=== PATIENT | female | born 1945 | race Caucasian/White ===

== ENCOUNTER → 2019-09-17 10:33 | Outpatient (BNVA) | payer MEDICARE, SELFPAY | PROVIDERS: Family Provider Family Medicine; PCP Family Medicine; Visit Provider Family Medicine | DX: M19.071 Primary osteoarthritis, right ankle and foot (principal); I15.0 Renovascular hypertension; E11.65 Type 2 diabetes mellitus with hyperglycemia; Z79.4 Long term (current) use of insulin; E03.9 Hypothyroidism, unspecified; E78.5 Hyperlipidemia, unspecified; M54.16 Radiculopathy, lumbar region | CPT/HCPCS: 80053; 80061; 82044; 83036; 84443; 85025 ==

== ENCOUNTER → 2020-01-23 09:52 | Outpatient (BNVA) | payer MEDICARE, SELFPAY | PROVIDERS: Family Provider Family Medicine; PCP Family Medicine; Visit Provider Family Medicine | DX: E11.65 Type 2 diabetes mellitus with hyperglycemia (principal); Z79.4 Long term (current) use of insulin; D63.8 Anemia in other chronic diseases classified elsewhere; D50.9 Iron deficiency anemia, unspecified; M54.16 Radiculopathy, lumbar region | CPT/HCPCS: 80053; 82728; 83036; 83550; 85025 ==

== ENCOUNTER 2020-02-07 14:20 | Outpatient (CLI) | payer MEDICARE, SELFPAY ==
--- NOTE | 2020-02-07 14:57 | XRR_ITS ---
PROCEDURE INFORMATION: Exam: XR Chest, 2 Views Exam date and time: 02/07/2020 2:57 PM Age: 74 years old Clinical indication: Shortness of breath; Additional info: Short of breath TECHNIQUE: Imaging protocol: XR of the chest Views: 2 views. COMPARISON: CR Chest 1 [place] [id number] 04/27/2019 10:13 PM FINDINGS: Lungs: There is vascular congestion with cephalization of flow, interstitial edema and mild ground-glass opacities compatible with mild CHF. No airspace consolidation or airspace edema. Pleural space: Unchanged blunting the left costophrenic angle is noted compatible with trace pleural effusion or pleural thickening. Heart/Mediastinum: The heart is enlarged. Bones/joints: Osteopenia and moderate degenerative changes are noted in the spine. XR/XR chest 2V* [id number] IMPRESSION: There is vascular congestion with cephalization of flow, interstitial edema and mild ground-glass opacities compatible with mild CHF.
== END 2020-02-07 14:21 | disposition home or self-care (01) ==
LOC: RAD 14:21
PROVIDERS: PCP Family Medicine; Visit Provider Emergency Medicine
DX: R06.02 Shortness of breath (principal); I50.9 Heart failure, unspecified; J44.9 Chronic obstructive pulmonary disease, unspecified
CPT/HCPCS: 71046; 80048; 83880; 85025

== ENCOUNTER 2020-02-10 10:20 | Inpatient (IN) | payer MEDICARE, SELFPAY ==
[2020-02-10] VITALS (11 sets, daily range): BP systolic 126–165; BP diastolic 49–79; PULSE 57–92; RESP 14–22; TEMP 36.4–36.6; O2SAT 92–98; BMI 44.4
--- NOTE | 2020-02-10 10:59 | XR_ITS ---
WS: [id number] PORTABLE CHEST HISTORY: SOB COMPARISON: 02/07/2020 Lung volumes are decreased. No pneumonia. Normal vasculature. No pleural effusion or pneumothorax. Cardiac size: Mildly enlarged cardiac silhouette. Mediastinum/Aorta: Mild atherosclerosis aorta. No osseous abnormality seen. XR/XR chest 1V portable [id number] IMPRESSION: Poor inspiration. No pneumonia.
--- NOTE | 2020-02-10 11:00 | ECG_ITS ---
Measurements Intervals [place] Rate: 61 P: 52 OK: 217 QRS: -45 QRSD: 176 T: 82 QT: 464 QTc: 470 SINUS RHYTHM WITH FIRST DEGREE AV BLOCK LEFT AXIS DEVIATION [QRS AXIS < -30] LEFT BUNDLE BRANCH BLOCK [120+ ms QRS DURATION, 80+ ms Q/S IN V1/V2, 85+ ms R / I/aVL/V5/V6] Compared to ECG 04/28/2019 05:39:04 First degree AV block now present Left-axis deviation now present Left bundle-branch block now present T-wave abnormality no longer present Electronically Signed On 02-10-2020 19:34:46 CDT by Betty Ramon M.D. [id number]
--- NOTE | 2020-02-10 11:07 | W.ED.SOB ---
HPI - SOB/Dyspnea General: Chief Complaint: Shortness of Breath/Dyspnea Stated Complaint: SOB Time Seen by Provider: 02/10/20 10:23 History of Present Illness: HPI Narrative: This patient is a 74-year-old female presenting today with shortness of breath. She reports this is been worsening over the past 2 weeks. She has been seeing her primary care doctor and had her Lasix increased to 60 mg/day. She reports a 14 pound weight gain over the past 2 weeks. She also was seen in urgent care in [place] on Sunday and started on some antibiotics. She has a history of CHF, atrial fibrillation, COPD. She uses nebulizers but does not feel like they been helping. She has not noted any decrease in her fluid or increase in urination since increasing her Lasix dose. She saw her primary care doctor this morning, Dr. Gomez, and was sent to the ED to be admitted for IV Lasix. MD elicited complaint: shortness of breath and chest pain (Mild, with exertion) Pertinent past history: COPD, congestive heart failure and diabetes Onset (ago): week(s) (2) Timing: constant and progressively worsening Severity: severe Exacerbating factors: lying flat, exertion, movement and coughing Relieving factors: oxygen and rest Known history of: COPD, congestive heart failure and diabetes Associated symptoms: Reports chest congestion, cough and dizziness; Deny abdominal pain, chest pain, fever(s), nausea or vomiting Review of Systems General: Reports: 10 or more systems reviewed and unremarkable except in HPI and below Const: Denies: fever(s) Eyes: Denies: change in vision ENMT: Denies: odynophagia Card: Denies: chest pain or swelling of feet/ankles Resp: Reports: chest congestion GI: Denies: abdominal pain, nausea or vomiting : Denies: flank pain or difficulty voiding Musc: Denies: neck pain or back pain Skin/Breast: Denies: rash Neuro: Reports: dizziness Wilfredo/Lymph: Denies: easy bruising or easy bleeding [facility] ED PFSH: Medical History Anemia of chronic disease CHF (congestive heart failure) COPD (chronic obstructive pulmonary disease) Diabetic neuropathy Dyslipidemia Enrolled in chronic care management Essential (primary) hypertension GERD (gastroesophageal reflux disease) Hypothyroidism, adult Lumbar back pain with radiculopathy affecting right lower extremity Osteoarthritis of right ankle and foot Shortness of breath Uncontrolled type 2 diabetes mellitus with insulin therapy Surgical History H/O bilateral breast reduction surgery H/O cataract extraction H/O: hysterectomy Family History Other CAD (coronary artery disease) Cancer Diabetes Lung disease Stroke Social History Smoking and tobacco status: former smoker Alcohol intake: never Lives independently: Yes Physical Exam Const: COMMON NORMALS: no acute distress, patient oriented x3, no limitations and alert GENERAL APPEARANCE: cooperative NUTRITIONAL APPEARANCE: obese morbidly obese HENMT: HEAD & SCALP: normal to inspection FACE & SINUS: normal facial exam Eye: GENERAL EYE: appearance normal, both eyes and all related structures Neck/C-Spine: COMMON NORMALS: supple, no meningeal signs and no JVD Chest: COMMONS NORMALS: normal inspection of the chest Resp: COMMON NORMALS: normal respiratory effort and No use of accessory muscles AUSCULTATION: rales bilateral at the base Cardio: COMMON NORMALS: no JVD, regular rate, regular rhythm and No murmurs present (Cardio) RATE: regular rate RHYTHM: regular rhythm GI: COMMON NORMALS: Normal to inspection, nondistended, normoactive bowel sounds present, Soft to palpation and non-tender INSPECTION: Yes normal to inspection AUSCULTATION: Yes normoactive bowel sounds PALPATION: Yes Soft to palpation Back/Pelvis: COMMON NORMALS: thoracic and lumbar spine normal to inspection Extremity: COMMON NORMALS: normal to inspection Neuro: COMMON NORMALS: patient oriented x3, moves all extremities, no focal motor deficits and no sensory deficits noted SENSORIUM/ORIENTATION: Yes alert MENINGEAL SIGNS: Yes no meningeal signs Psych: COMMON NORMALS: mental status grossly normal, cooperative and normal affect Skin: COMMON NORMALS: no rashes or lesions noted and turgor normal GENERAL SKIN EXAM: no rashes or lesions noted and turgor normal Course Vital Signs: Vital signs: Vital Signs Temperature 97.8 F 02/10/20 10:22 Pulse Rate 68 02/10/20 12:00 Respiratory Rate 16 02/10/20 12:00 Blood Pressure 131/49 02/10/20 12:00 Pulse Oximetry 98 02/10/20 12:00 MDM - SOB/Dyspnea MDM Narrative: Medical decision making narrative: 74-year-old female with multiple comorbidities including poorly controlled diabetes, obesity, heart disease, CHF, COPD. Presenting with shortness of breath increasing over 2 weeks. Not responding to outpatient increases in her diuretic. Her labs reflect decreased hemoglobin at 8.3. This is down from 10 in September. Her creatinine is elevated at 1.6. The most recent prior was in January and was a creatinine of 1.1. EKG shows a new left bundle branch block. She does admit she has had some exertional chest pain recently but her troponin is negative. Her BNP is elevated 5832. Chest x-ray shows some cardiomegaly and may be some slight fluid. She has rales on exam. Clearest diagnosis is CHF although other factors are probably playing a role. Will admit for IV diuresis. Patient insists on a Velasco. Lab Data: Labs: Lab Results 02/10/20 02/10/20 02/10/20 Range/Units 10:20 10:20 10:20 WBC 7.1 (4.0-10.0) 10^3/ uL RBC 3.70 L (4.1-5.3) 10^6/u L Hgb 8.3 L (11.5-15.3) g/dL Hct 30.9 L (37.0-47.0) % MCV 83.5 (81-99) fL MCH 22.4 L (28.0-34.0) pg MCHC 26.9 L (30.0-36.0) g/dL RDW 17.1 H (12.1-15.1) % Plt Count 207 (130-400) 10^3/c mm MPV 9.7 (7.4-10.4) fL Neut % (Auto) 60.1 % Lymph % (Auto) 23.3 % [place] % (Auto) 8.0 % Eos % (Auto) 7.0 % Baso % (Auto) 0.8 % Neut # (Auto) 4.3 (1.8-7.7) 10^3/u L Lymph # (Auto) 1.7 (0.8-4.8) 10^3/u L [place] # (Auto) 0.6 (0.2-0.9) 10^3/u L Eos # (Auto) 0.5 (0.0-0.8) 10^3/u L Baso # (Auto) 0.1 (0.0-0.1) 10^3/u L Nucleated RBC % (a uto) 0 % Nucleated RBCs # 0.0 /100WBC Sodium 144 (136-145) mmol/L Potassium 3.8 (3.5-5.1) mmol/L Chloride 101 (98-107) mmol/L Carbon Dioxide 32 H (22-29) mmol/L Anion Gap 14.8 (5-19) BUN 40 H (8-23) mg/dL Creatinine 1.6 H (0.5-0.9) mg/dL Glucose 103 (65-115) mg/dL Calculated Osmolal ity 296 H (285-295) mOsm/k g Lactate (0.5-2.2) mmol/L Calcium 9.2 (8.5-10.5) mg/dL Total Bilirubin 0.6 (0.15-1.2) mg/dL AST 13 (0-32) U/L ALT 14 (0-33) U/L Alkaline Phosphata se 98 (35-105) IU/L Troponin T Baselin e 29 H (0-10) ng/L Troponin T 120 Min [place] (0-10) ng/L Delta Troponin T (0-10) ABS# NT-Pro-B Natriuret Pep 5832 H (0-450) pg/mL Total Protein 6.2 L (6.6-8.7) g/dL Albumin 3.7 (3.5-5.2) g/dL Globulin 2.5 (1.3-4.6) g/dL Urine Color (Yellow) Urine Appearance (CLEAR) Urine pH (5-7) Ur Specific Gravit y (1.005-1.030) Urine Protein (Negative) Urine Glucose (UA) (Normal) Urine Ketones (Negative) Urine Blood (Negative) Urine Nitrate (Negative) Urine Bilirubin (NEGATIVE) Urine Urobilinogen (Negative) mg/dL Ur Leukocyte Jacqueline ase (Negative) Urine RBC (0-2) /hpf Urine WBC (0-5) /hpf Ur Squamous Epith Cells (0-5) Urine Bacteria (NONE) Hyaline Casts 02/10/20 02/10/20 02/10/20 Range/Units 11:17 11:49 12:32 WBC (4.0-10.0) 10^3/ uL RBC (4.1-5.3) 10^6/u L Hgb (11.5-15.3) g/dL Hct (37.0-47.0) % MCV (81-99) fL MCH (28.0-34.0) pg MCHC (30.0-36.0) g/dL RDW (12.1-15.1) % Plt Count (130-400) 10^3/c mm MPV (7.4-10.4) fL Neut % (Auto) % Lymph % (Auto) % [place] % (Auto) % Eos % (Auto) % Baso % (Auto) % Neut # (Auto) (1.8-7.7) 10^3/u L Lymph # (Auto) (0.8-4.8) 10^3/u L [place] # (Auto) (0.2-0.9) 10^3/u L Eos # (Auto) (0.0-0.8) 10^3/u L Baso # (Auto) (0.0-0.1) 10^3/u L Nucleated RBC % (a uto) % Nucleated RBCs # /100WBC Sodium (136-145) mmol/L Potassium (3.5-5.1) mmol/L Chloride (98-107) mmol/L Carbon Dioxide (22-29) mmol/L Anion Gap (5-19) BUN (8-23) mg/dL Creatinine (0.5-0.9) mg/dL Glucose (65-115) mg/dL Calculated Osmolal ity (285-295) mOsm/k g Lactate 0.5 (0.5-2.2) mmol/L Calcium (8.5-10.5) mg/dL Total Bilirubin (0.15-1.2) mg/dL AST (0-32) U/L ALT (0-33) U/L Alkaline Phosphata se (35-105) IU/L Troponin T Baselin e (0-10) ng/L Troponin T 120 Min [place] 24.24 H (0-10) ng/L Delta Troponin T -4.76 L (0-10) ABS# NT-Pro-B Natriuret Pep (0-450) pg/mL Total Protein (6.6-8.7) g/dL Albumin (3.5-5.2) g/dL Globulin (1.3-4.6) g/dL Urine Color Yellow (Yellow) Urine Appearance Clear (CLEAR) Urine pH 5 (5-7) Ur Specific Gravit y 1.015 (1.005-1.030) Urine Protein Neg (Negative) Urine Glucose (UA) Norm (Normal) Urine Ketones Negative (Negative) Urine Blood Neg (Negative) Urine Nitrate Negative (Negative) Urine Bilirubin 1+ H (NEGATIVE) Urine Urobilinogen 1 H (Negative) mg/dL Ur Leukocyte Jacqueline ase Trace H (Negative) Urine RBC None (0-2) /hpf Urine WBC 15-25 H (0-5) /hpf Ur Squamous Epith Cells 10-15 H (0-5) Urine Bacteria 2+ H (NONE) Hyaline Casts 0-4 H Discharge Plan Discharge Admit Provider: Everardo Garvin Coding Level of Care Code ED Band Presser for Chg Fwd Exam Comprehensive
[2020-02-10 11:17] LABS: Basophils # 0.1 10^3/uL (0.0-0.1); Basophils % 0.8 %; Eosinophils # 0.5 10^3/uL (0.0-0.8); Hematocrit 30.9 % (37.0-47.0); Hemoglobin 8.3 g/dL (11.5-15.3); Lymphocytes # 1.7 10^3/uL (0.8-4.8); Lymphocytes % 23.3 %; Mean Corpuscular HGB Conc 26.9 g/dL (30.0-36.0); Mean Corpuscular Hemoglobin 22.4 pg (28.0-34.0); Mean Corpuscular Volume 83.5 fL (81-99); Mean Platelet Volume 9.7 fL (7.4-10.4); Monocytes # 0.6 10^3/uL (0.2-0.9); Neutrophils # 4.3 10^3/uL (1.8-7.7); Neutrophils % 60.1 %; Nucleated Red Blood Cells % 0 %; Platelet Count 207 10^3/cmm (130-400); Red Cell Distribution Width 17.1 % (12.1-15.1); White Blood Count 7.1 10^3/uL (4.0-10.0)
[2020-02-10 11:32] LABS: Troponin(5th) Baseline 29 ng/L (0-10)
[2020-02-10 11:33] LABS: Lactate (Lactic Acid level) 0.5 mmol/L (0.5-2.2)
[2020-02-10 11:40] LABS: Alanine Aminotransferase 14 U/L (0-33); Albumin Level 3.7 g/dL (3.5-5.2); Alkaline Phosphatase 98 IU/L (35-105); Anion Gap 14.8 (5-19); Aspartate Amino Transferase 13 U/L (0-32); Blood Urea Nitrogen 40 mg/dL (8-23); Calcium 9.2 mg/dL (8.5-10.5); Carbon Dioxide 32 mmol/L (22-29); Chloride 101 mmol/L (98-107); Globulin 2.5 g/dL (1.3-4.6); Glucose 103 mg/dL (65-115); NT Pro B Type Natriuretic Pept 5832 pg/mL (0-450); Osmolality Calculated 296 mOsm/kg (285-295); Potassium 3.8 mmol/L (3.5-5.1); Sodium 144 mmol/L (136-145); Total Bilirubin 0.6 mg/dL (0.15-1.2); Total Protein 6.2 g/dL (6.6-8.7)
[2020-02-10 12:18] LABS: Add Urine Microscopic? YES; Bilirubin Urine 1+ (NEGATIVE); Blood Urine Neg (Negative); Glucose Urine UA Norm (Normal); Ketones Urine Negative (Negative); Leukocyte Esterase Urine Trace (Negative); Nitrate Urine Negative (Negative); Protein Urine Neg (Negative); Specific Gravity, Urine 1.015 (1.005-1.030); Urine Appearance Clear (CLEAR); Urine Color Yellow (Yellow); Urobilinogen Urine 1 mg/dL (Negative); pH Urine 5 (5-7)
[2020-02-10 12:23] LABS: Bacteria Urine 2+; WBC Urine 15-25 /hpf (0-5)
[2020-02-10 12:26] LABS: Add Urine Culture? No; Hyaline Casts Urine 0-4
[2020-02-10 12:55] LABS: Troponin 5 2HR 24.24 ng/L (0-10)
[2020-02-10 12:58] LABS: Troponin 5 2HR Delta -4.76 ABS# (0-10)
--- NOTE | 2020-02-10 13:00 | ECG_ITS ---
Measurements Intervals [place] Rate: 56 P: 37 CT: 204 QRS: -50 QRSD: 178 T: 81 QT: 495 QTc: 481 SINUS BRADYCARDIA MARKED LEFT AXIS DEVIATION [QRS AXIS < -30] LEFT BUNDLE BRANCH BLOCK [120+ ms QRS DURATION, 80+ ms Q/S IN V1/V2, 85+ ms R IN I/aVL/V5/V6] INTERPRETATION BASED ON A DEFAULT AGE OF 40 YEARS Compared to ECG 04/28/2019 05:39:04 Left-axis deviation now present Left bundle-branch block now present Sinus rhythm no longer present T-wave abnormality no longer present Electronically Signed On 02-10-2020 19:37:49 CDT by Betty Ramon M.D. [id number]
[2020-02-10] MEDS: bumetanide 0.25 mg/mL SDV 10 mL 1 MG IV (13:19)
--- NOTE | 2020-02-10 13:25 | PC.NURSE ---
Nurse tried to call and give report to CSU. CSU nurse stated they didn't know who was going to take the nurse, so they will call ER back when they know which nurse will take report.
--- NOTE | 2020-02-10 14:21 | PC.NURSE ---
patient arrived on unit
--- NOTE | 2020-02-10 14:40 | PM.HP ---
Providers/Chief Complaint Admitting Physician: Everardo Garvin MD Primary Care Provider: Kaitlin Gomez DO Chief Complaint: SOB History of Present Illness Bryanna Reid is a 74 year old female hypertension, hyperlipidemia, insulin-dependent type 2 diabetes mellitus, history of 3 TIAs in the past, hypothyroidism, restless leg, CKD stage II, history of ovarian cyst, history of diastolic CHF, was on home oxygen roughly a year ago but has been off of it for the last year, history of abnormal stress test and echocardiogram with wall motion abnormalities elected for medical management who presents to [facility] due to complaints of shortness of breath and chest pain Patient states that she lives on her own, she carries out activities of daily living on her own, cooks herself, cleans for herself, drives, buys groceries, is fairly independent over the last few months she is felt more progressively short of breath, shortness of breath with exertion such as getting up to use the bathroom, not progressing to shortness of breath at rest. Patient states that various family members have voiced their concerns to her about her shortness of breath, but she is has elected to not seek medical interventions. However in the last week, her shortness of breath got significantly worse, progressive shortness of breath at rest in addition she reported chest pain for the last week, chest pain with exertion, substernal,, nonradiating, not associate with lightheadedness, no dizziness. Patient sought medical intervention over the weekend, went to an ER in [place], where she was diagnosed with a heart failure exacerbation and sent home on Lasix 60 mg, but she did not clinically improve. She actually drove to Dr. Gomez's office, but when Dr. Gomez saw her in weight her she had gained 14 pounds, she looks very short of breath, so she advised her to come back to the emergency room. In the emergency room patient was found to have a diastolic CHF exacerbation, with a BNP in 5000, troponin of 29, EKG showed a left bundle branch block which was initially thought to be new, but it has been seen on previous EKGs in 05/23/2018, no active chest pain, put on 2 L nasal cannula, given 1 mg of Bumex Patient tells me that she sees Dr. Ramon as outpatient, Dr. Ramon has been concern for ischemia in her circumflex, he has advised for her to undergo a cardiac catheterization, but patient has refused, he stated to her at one point that if she were to come back to the hospital she would likely need a cardiac catheterization. Review of Systems Const: Denies: fever(s), chills, fatigue or malaise Eyes: Denies: change in vision or blurry vision ENMT: Denies: nasal congestion Card: Reports: chest pain, dyspnea on exertion and orthopnea; Denies: palpitations, lightheadedness or syncope Resp: Reports: dyspnea and non-productive cough; Denies: productive cough or wheezing GI: Denies: abdominal pain, nausea, vomiting, hematemesis, diarrhea, constipation, hematochezia or melena : Denies: flank pain, dysuria or urinary frequency Musc: Denies: neck pain or back pain Skin/Breast: Denies: rash Neuro: Denies: headache(s), dizziness or vertigo Psych: Denies: anxiety or depression Endo: Denies: polyuria or polydipsia Medications/Allergies Home Medications Medication Instructions Recorded Confirmed Last Taken Type albuterol sulfate 2.5 mg INHALATION Q6H PRN 09/17/19 02/10/20 Unknown History aspirin 81 mg tablet,delayed 81 mg PO DAILY tab 09/17/19 02/10/20 02/09/20 History release docusate sodium 100 mg capsule 100 mg PO BID PRN 09/17/19 02/10/20 02/09/20 History isosorbide mononitrate 30 mg 30 mg PO QAM #90 tab 09/17/19 02/10/20 02/10/20 Rx tablet,extended release 24 hr lisinopril 10 mg tablet 10 mg PO DAILY #30 tab 09/17/19 02/10/20 02/10/20 Rx magnesium L-lactate 84 mg 84 mg PO DAILY tab 09/17/19 02/10/20 Unknown History tablet,extended release nitroglycerin 0.4 mg sublingual 0.4 mg SUBLINGUAL Q5M PRN 09/17/19 02/10/20 Unknown History tablet potassium 99 mg tablet 99 mg PO EVERY OTHER DAY tab 09/17/19 02/10/20 02/09/20 History simvastatin 20 mg tablet 20 mg PO DAILY #30 tab 09/17/19 02/10/20 02/09/20 Rx ipratropium 0.5 mg-albuterol 3 mg 3 ml INHALATION Q4H PRN #180 ml 11/18/19 02/10/20 Unknown Rx (2.5 mg base)/3 mL nebulization soln clopidogrel 75 mg tablet 75 mg PO DAILY #90 tab 12/15/19 02/10/20 02/10/20 Rx ferrous sulfate 325 mg (65 mg 325 mg PO .3-4X A WEEK tab 12/15/19 02/10/20 Unknown History iron) tablet furosemide 40 mg tablet 40 mg PO QAM PRN tab 12/15/19 02/10/20 Unknown History glipizide 5 mg tablet 5 mg PO BID #180 tab 12/15/19 02/10/20 02/10/20 Rx metoprolol tartrate 25 mg tablet 25 mg PO BID #180 tab 12/15/19 02/10/20 02/10/20 Rx hydrocodone 5 mg-acetaminophen 325 1 tab PO BID PRN 30 Days #60 tab 01/23/20 02/10/20 Unknown Rx mg tablet tramadol 50 mg tablet 50 mg PO Q8H PRN #90 tab 01/23/20 02/10/20 02/09/20 Rx gabapentin 300 mg capsule 300 mg PO TID #90 cap 02/02/20 02/10/20 02/09/20 Rx bmkochzplbnzakf-yblmzfhffpdknlo-BI 5 ml PO Q6H PRN #160 ml 02/07/20 02/10/20 Unknown Rx 2 mg-30 mg-10 mg/5 mL oral syrup doxycycline hyclate 100 mg tablet 100 mg PO BID 7 Days #14 tab 02/07/20 02/10/20 02/09/20 Rx Humalog KwikPen Insulin See Rx Instructions .ROUTE .COMPLEX 02/10/20 02/10/20 Unknown History insulin detemir U-100 50 unit SUBCUT QAM 02/10/20 02/10/20 02/10/20 History levothyroxine 100 mcg PO DAILY 02/10/20 02/10/20 02/10/20 History omeprazole 20 mg PO BEDTIME 02/10/20 02/10/20 02/09/20 History ropinirole 1 mg PO BEDTIME 02/10/20 02/10/20 02/09/20 History Allergies Allergy/AdvReac Type Severity Reaction Status Date / Time iodine Allergy unknown Verified 02/07/20 12:57 PFSH Acute PFSH: Medical History Anemia of chronic disease CHF (congestive heart failure) COPD (chronic obstructive pulmonary disease) Diabetic neuropathy Dyslipidemia Enrolled in chronic care management Essential (primary) hypertension GERD (gastroesophageal reflux disease) Hypothyroidism, adult Lumbar back pain with radiculopathy affecting right lower extremity Osteoarthritis of right ankle and foot Shortness of breath Uncontrolled type 2 diabetes mellitus with insulin therapy Surgical History H/O bilateral breast reduction surgery H/O cataract extraction H/O: hysterectomy Family History Other CAD (coronary artery disease) Cancer Diabetes Lung disease Stroke Social History Smoking and tobacco status: former smoker Alcohol intake: never Lives independently: Yes Vitals/I&O/Wt Last Vital Signs Temp 97.6 F 02/10/20 14:22 Pulse 61 02/10/20 14:22 Resp 17 02/10/20 14:22 BP 165/79 02/10/20 14:22 Pulse Ox 94 02/10/20 14:22 Weight last 48 hrs Weight 124.738 kg Physical Exam Const: COMMON NORMALS: no acute distress and patient oriented x3 GENERAL APPEARANCE: cooperative and comfortable HENMT: COMMON NORMALS: normocephalic HEAD & SCALP: normocephalic Eye: COMMON NORMALS: Equal, round and reactive pupils present, EOMs intact bilaterally and no papilledema GENERAL EYE: appearance normal, both eyes and all related structures PUPIL: Yes Equal, round and reactive pupils present DIRECT OPHTHALMOSCOPY: Yes no papilledema Neck/C-Spine: COMMON NORMALS: full ROM, no lymphadenopathy, no JVD and Thyroid normal THYROID: Thyroid normal Lymph: LYMPHATIC: no lymphadenopathy noted Resp: COMMON NORMALS: normal respiratory effort, No retractions, No use of accessory muscles and clear to auscultation bilaterally AUSCULTATION: clear to auscultation bilaterally and breath sounds absent (Bilateral lung bases) Cardio: COMMON NORMALS: no JVD, regular rate, regular rhythm, S1 normal heart sound present, S2 normal heart sound present, No gallops present (Cardio), No clicks present (Cardio) and No murmurs present (Cardio) RATE: regular rate RHYTHM: regular rhythm HEART SOUNDS: S1 normal heart sound present and S2 normal heart sound present GI: COMMON NORMALS: Normal to inspection, nondistended, normoactive bowel sounds present, Soft to palpation, non-tender and No hepatosplenomegaly present PALPATION: Yes Soft to palpation and Yes No hepatosplenomegaly present Extremity: COMMON NORMALS: normal to inspection, full ROM and no pedal edema Neuro: COMMON NORMALS: patient oriented x3, CN's II-XII intact bilaterally, moves all extremities and no focal motor deficits Psych: COMMON NORMALS: mental status grossly normal, Normal thought process present and cooperative THOUGHT PROCESS: Normal thought process present Urinary Catheter Management^: Velasco: Cath Placed During This Visit: yes Reason for Continuing Indwelling Catheter: Acute Urinary Retention or Obstruction Urinary Catheter Date of Insertion: 02/10/20 Urinary Catheter Time of Insertion: 13:30 Data : 02/10/20 10:20 02/10/20 10:20 A&P Assessment and plan (1) Acute respiratory failure with hypoxia: -Likely secondary to diastolic CHF exacerbation -BNP is 5000, chest x-ray shows no significant pleural effusions, does show probably vascular congestion, is requiring 2 L oxygen Plan: -Admit to CSU -Telemetry monitoring -Strict I's and O's -Fluid restriction to less than 1500 cc -Daily dosing of diuretics based on creatinine, received Bumex in the ER -Repeat echocardiogram -We will obtain a CT chest of the abdomen and pelvis Status: Acute (2) Diastolic CHF, acute on chronic: Status: Acute (3) NSTEMI (non-ST elevated myocardial infarction): -Troponin 29 -EKG shows left bundle branch block bump, but it was seen back in May 2018 -We will obtain a cardiac echocardiogram -Patient has had a positive stress test in 06/22/2018, showing ischemia in the left circumflex, echocardiogram on 04/22/2019 showed mild diffuse hypokinesia of the septum and anteroseptal segments -Has had chest pain in the last week, no current chest pain -Continue aspirin, statin, Plavix, beta-nahed -We will discuss with cardiology based on work-up Status: Acute (4) Acute kidney injury superimposed on CKD: Creatinine currently 1.6, carefully diurese Status: Acute (5) Anemia of chronic disease: Hemoglobin 8.3, obtain ferritin, B12, folate, iron studies Status: Acute (6) Dyslipidemia: Status: Acute (7) Uncontrolled type 2 diabetes mellitus with insulin therapy: -Patient states that she takes Levemir 30-40 daily based on her morning blood sugar -Insulin sliding scale of NovoLog -Start Levemir 30 units every morning, low-dose sliding scale Status: Acute (8) Lumbar back pain with radiculopathy affecting right lower extremity: Status: Acute Attestations Medical Necessity Statement*: Patient requires hospitalization, inpatient, greater than 2 midnights, acute respiratory failure with hypoxia, diastolic CHF exacerbation, and NSTEMI, acute on chronic anemia Coding Level of Care Code Acute [employer] Consultant for [facility] Db Diagnoses Acute respiratory failure with hypoxia J96.01 Diastolic CHF, acute on chronic I50.33 NSTEMI (non-ST elevated myocardial infarction) I21.4 Acute kidney injury superimposed on CKD N17.9; N18.9 Anemia of chronic disease D63.8 Dyslipidemia E78.5 Uncontrolled type 2 diabetes mellitus with insulin therapy E11.65; Z79.4 Lumbar back pain with radiculopathy affecting right lower extremity M54.16
--- NOTE | 2020-02-10 14:43 | USCV_ITS ---
Reid Bryanna Age: 74 Gender: F : 1945 Exam Date: 02/10/2020 15:38 Ordering Phys: Everardo Garvin MD Technologist: Sandra Pickens Exam Location: [facility] [place] Indication: SOB BP: 165 / 79 HR: 60 Rhythm: Sinus Technical Quality: Poor MEASUREMENTS (Male / Female) Normal Values 2D ECHO LV Diastolic Diameter PLAX 5.9 cm 4.2 - 5.9 / 3.9 - 5.3 cm LV Systolic Diameter PLAX 5.3 cm LV Chamber Size 4.2 cm IVS Diastolic Thickness 1.5 cm 0.6 - 1.0 / 0.6 - 0.9 cm IVS Systolic Thickness 1.5 cm LVPW Diastolic Thickness 1.6 cm 0.6 - 1.0 / 0.6 - 0.9 cm LVPW Systolic Thickness 1.4 cm RV Chamber Size 3.9 cm LVOT Diameter 2.0 cm LV Ejection Fraction 2D Teich 22.7 % LV Ejection Fraction MOD 2C 49.3 % LV Ejection Fraction 2C AL 48.2 % LA Diameter 5.1 cm LA Width 3.8 cm LA Height 4.6 cm RA Width 4.0 cm RA Height 4.2 cm Aorta at Sinotubular Diameter 2.1 cm M-MODE LV Diastolic Diameter MM 6.1 cm 4.2 - 5.9 / 3.9 - 5.3 cm LV Systolic Diameter MM 4.9 cm LV Ejection Fraction MM Teich 38.7 % IVS Diastolic Thickness MM 0.9 cm 0.6 - 1.0 / 0.6 - 0.9 cm IVS Systolic Thickness MM 1.2 cm LVPW Diastolic Thickness MM 0.9 cm 0.6 - 1.0 / 0.6 - 0.9 cm LVPW Systolic Thickness MM 1.2 cm Aortic Annulus Diameter 3.0 cm LA Ao Ratio MM 1.7 MV E Point Septal Separation 1.2 cm DOPPLER AV Peak Velocity 123.0 cm/s LVOT Peak Velocity 101.0 cm/s AV Area Cont Eq vti 2.8 cm squared AV Area Cont Eq pk 2.7 cm squared MV Area PHT 4.0 cm squared Mitral E to A Ratio 1.0 MV E' Velocity 10.0 cm/s Mitral E to MV E' Ratio 8.5 Mitral E to LV E' Lateral Ratio 10.2 Mitral E to LV E' Septal Ratio 7.4 TR Peak Velocity 334.0 cm/s TR Peak Gradient 44.7 mmHg TV Peak E Velocity 58.0 cm/s Right Atrial Pressure 3.0 mmHg Pulmonary Artery Systolic Pressu 47.6 mmHg PV Peak Velocity 99.0 cm/s RV Acceleration Time 0.1 s RV Ejection Time 0.4 s RV AcT/ET 0.2 FINDINGS Left Ventricle Left ventricular cavity not well visualized. Mildly increased left ventricular cavity size. Normal left ventricular wall thickness. Mildly decreased left ventricular systolic function. Global left ventricular hypokinesis. Left ventricular ejection fraction is estimated at 35-40 %. Grade I/IV diastolic dysfunction (abnormal relaxation filling pattern), normal to mildly elevated filling pressures. Right Ventricle Mildly increased right ventricular size. Mildly decreased right ventricular systolic function. Mild pulmonary hypertension, RVSP 47.6 mmHg. Right Atrium Mildly increased right atrial size. Left Atrium Moderately increased left atrial size. Mitral Valve Mitral valve not well visualized. Aortic Valve No aortic valve stenosis. Tricuspid Valve Tricuspid valve not well visualized. Mild tricuspid valve regurgitation. Pulmonic Valve Pulmonic valve not well visualized. Pericardium Normal pericardium without effusion. Aorta Normal ascending aorta dimension. CONCLUSIONS Left ventricular cavity not well visualized. Mildly increased left ventricular cavity size. Normal left ventricular wall thickness. Mildly decreased left ventricular systolic function. Global left ventricular hypokinesis. Left ventricular ejection fraction is estimated at 35-40 %. Grade I/IV diastolic dysfunction (abnormal relaxation filling pattern), normal to mildly elevated filling pressures. Mildly increased right ventricular size. Mildly decreased right ventricular systolic function. Mild pulmonary hypertension, RVSP 47.6 mmHg. Mildly increased right atrial size. Moderately increased left atrial size. Previous ECHO 04/21 was a poor quality study as well. Today's study shows decreased EF compared to then. Dr. Bola Anderson MD (Electronically Signed) Final Date: 11 February 2020 06:52 S
--- NOTE | 2020-02-10 14:43 | CT_ITS ---
WS: [id number] CT CHEST, ABDOMEN AND PELVIS NONCONTRAST. HISTORY: sob, abdominal distention TECHNIQUE: Contiguous 5 mm axial imaging performed through the chest, abdomen and pelvis without IV c ontrast, oral contrast has not been provided. Coronal and sagittal reformats chest. Coronal and sagit caity reformats through the abdomen and pelvis. All CT scans at [facility] use at least one of these dose optimization techniques: automated exposure control; mA and/or kV adjustment per patie nt size (includes targeted exams where dose is matched to clinical indication); or iterative reconstr uction. CONTRAST: None DLP: 2669.64 mGy.cm COMPARISON: Chest CTA 05/16/[address]: Mild groundglass attenuation in the central lungs. No pneumonia. No mass or nodules identif ied. Atherosclerosis of aorta and moderate atherosclerosis [place] coronary arteries. Moderate cardiom egaly. No pericardial or pleural effusions. No adenopathy. No hiatal hernia. Abdomen CT: Prior cholecystectomy. Unenhanced imaging of the liver, spleen and pancreas are negative. There is pancreatic atrophy. Mild stable thickening of the RIGHT adrenal gland. Perinephric strandin g around each kidney. No renal obstruction. Diffuse anasarca. Pelvic CT: No free fluid in the pelvis. Velasco catheter in the urinary bladder with a small amount of air. No adenopathy. Appendix is normal. Prior hysterectomy. Descending and sigmoid diverticulosis wit hout diverticulitis. Soft tissue anasarca. Advanced changes in the thoracic and lumbar spine with degeneration. T8-T9 fusion. CT/CT chest abd pel wo con IMPRESSION: 1. Diffuse soft tissue anasarca throughout the chest, abdomen and pelvis. 2. Very slight groundglass attenuation in the central lungs. May be due to radha ma and fluid overload. 3. No pneumonia. 4. Moderate cardiomegaly. 5. Prior cholecystectomy. 6. Mild perinephric stranding around each kidney with no obstruction. 7. Distal colonic diverticulosis without diverticulitis.
[2020-02-10 15:18] LABS: Estmated Average Glucose 177; Hemoglobin A1C 7.8 % (4.0-6.0)
[2020-02-10 15:23] LABS: Chol HDL Ratio 2.52 mg/dL (0.0-4.40); Cholesterol 121 mg/dL (0-200); Ferritin 11 ng/mL (15-150); HDL Cholesterol 48 mg/dL (60-100); Iron 19 ug/dL (37-145); LDL Cholesterol Calculated 53 mg/dL (50-129); Triglycerides 102 mg/dL (0-150)
[2020-02-10 15:38] LABS: Folate Level 9.1 ng/mL (4.8-37.3)
[2020-02-10 15:39] LABS: Vitamin B12 161 pg/mL (232-1245)
[2020-02-10] MEDS: gabapentin 300 mg Capsule PO ×2 (16:01→20:55)
[2020-02-10] MEDS: HYDROcodone-acetaminophen 5-325 mg Tablet 1 TAB PO (16:01)
[2020-02-10] MEDS: enoxaparin 40 mg/0.4 mL Syringe SUBCUT (16:01)
--- NOTE | 2020-02-10 17:00 | ECG_ITS ---
Measurements Intervals [place] Rate: 59 P: 48 FL: 213 QRS: -46 QRSD: 176 T: 91 QT: 479 QTc: 476 SINUS BRADYCARDIA WITH FIRST DEGREE AV BLOCK MARKED LEFT AXIS DEVIATION [QRS AXIS < -30] LEFT BUNDLE BRANCH BLOCK [120+ ms QRS DURATION, 80+ ms Q/S IN V1/V2, 85+ ms R IN I/aVL/V5/V6] Compared to ECG 04/28/2019 05:39:04 First degree AV block now present Left-axis deviation now present Left bundle-branch block now present Sinus rhythm no longer present T-wave abnormality no longer present Electronically Signed On 02-10-2020 19:37:28 CDT by Betty Ramon M.D. [id number]
[2020-02-10 17:04] LABS: Glucose Point of Care 68 mg/dL (70-110)
[2020-02-10 17:11] LABS: Troponin 5 6HR 22.55 ng/L (0-10)
--- NOTE | 2020-02-10 17:24 | PC.NURSE ---
At 1658 patient's blood sugar was 68. life underwriter gave patient 4 oz of orange juice per protocol. At 1720 patient's blood sugar was 71. will recheck in 30 mins
[2020-02-10] MEDS: metoprolol tartrate 25 mg Tablet PO (17:27)
[2020-02-10 17:41] LABS: Troponin 5 6HR Delta -6.45 ng/L (0-12)
--- NOTE | 2020-02-10 17:52 | PC.NURSE ---
Patient's blood sugar is now 97
[2020-02-10 17:54] LABS: Glucose Point of Care 71 mg/dL (70-110)
[2020-02-10 17:54] LABS: Glucose Point of Care 97 mg/dL (70-110)
--- NOTE | 2020-02-10 18:09 | PC.NURSE ---
notified charge nurse of blood sugar results and interventions done.
--- NOTE | 2020-02-10 20:33 | PC.NURSE ---
Patient currently has no complains or pain. Patient has call light within reach. Patient was assisted to bedside commode and back to bed, however was not able to go. Patient has catheter in place and it is draining. VSS. Patient is on 1 L NC. Will continue to monitor.
[2020-02-10 20:49] LABS: Glucose Point of Care 160 mg/dL (70-110)
--- NOTE | 2020-02-10 20:51 | PC.NURSE ---
Nurse walked in room and patient was tearful. Patient stated that her right leg/foot hurts. Patient states it hurts her all the time and that she takes [place] at home for it. Dr. Moran notified of patient's BID [place] being given once today at 1600. Patient states she has not taken a [place] at home since 02/08. Ordered okay to give second dose for today now.
[2020-02-10] MEDS: ropinirole 1 mg Tablet PO (20:55)
[2020-02-10] MEDS: pantoprazole DR 40 mg Tablet PO (20:55)
--- NOTE | 2020-02-10 20:57 | PC.NURSE ---
RICH Lincoln would not scan due to stating it is too early, however doctor okayed this. Medication was verified with second nurse Kaitlin HERNANDEZ and given at this time for pain in right leg at 10.
--- NOTE | 2020-02-10 22:09 | PC.NURSE ---
Patient is currently resting with eyes closed. Will continue to monitor.
[2020-02-11] VITALS (14 sets, daily range): BP systolic 104–152; BP diastolic 41–69; PULSE 57–69; RESP 9–19; TEMP 36.4–37.2; O2SAT 90–98
[2020-02-11 04:49] LABS: Basophils % 0.8 %; Eosinophils # 0.3 10^3/uL (0.0-0.8); Eosinophils % 6.4 %; Hematocrit 27.8 % (37.0-47.0); Hemoglobin 7.4 g/dL (11.5-15.3); Lymphocytes # 1.3 10^3/uL (0.8-4.8); Lymphocytes % 25.5 %; Mean Corpuscular HGB Conc 26.6 g/dL (30.0-36.0); Mean Corpuscular Hemoglobin 22.3 pg (28.0-34.0); Mean Corpuscular Volume 83.7 fL (81-99); Mean Platelet Volume 9.5 fL (7.4-10.4); Monocytes # 0.5 10^3/uL (0.2-0.9); Monocytes % 8.9 %; Neutrophils % 57.6 %; Nucleated Red Blood Cells % 0 %; Platelet Count 148 10^3/cmm (130-400); Red Blood Count 3.32 10^6/uL (4.1-5.3); Red Cell Distribution Width 16.9 % (12.1-15.1); White Blood Count 5.2 10^3/uL (4.0-10.0)
[2020-02-11 05:07] LABS: Alanine Aminotransferase 12 U/L (0-33); Albumin Level 3.2 g/dL (3.5-5.2); Alkaline Phosphatase 87 IU/L (35-105); Anion Gap 12.4 (5-19); Aspartate Amino Transferase 10 U/L (0-32); Blood Urea Nitrogen 36 mg/dL (8-23); Calcium 9.3 mg/dL (8.5-10.5); Carbon Dioxide 34 mmol/L (22-29); Chloride 105 mmol/L (98-107); Globulin 2.7 g/dL (1.3-4.6); Glucose 99 mg/dL (65-115); Magnesium 1.9 mg/dL (1.7-2.3); Osmolality Calculated 302 mOsm/kg (285-295); Phosphorus 4.1 mg/dL (2.5-4.5); Potassium 4.4 mmol/L (3.5-5.1); Sodium 147 mmol/L (136-145); Total Bilirubin 0.6 mg/dL (0.15-1.2); Total Protein 5.9 g/dL (6.6-8.7)
--- NOTE | 2020-02-11 05:20 | PC.NURSE ---
Patient had an uneventful night. Patient sat on the side of the bed a couple of times, however seems to rest most of the night. Patient does not have any complaints at this time. Call light within reach.
--- NOTE | 2020-02-11 06:18 | PC.NURSE ---
Dr. Moran notified of blood sugar of 90. Ordered to hold 30 units of Levemir that is due.
[2020-02-11 06:19] LABS: Glucose Point of Care 90 mg/dL (70-110)
[2020-02-11] MEDS: isosorbide mononitrate ER 30 mg Tablet PO (06:20)
[2020-02-11] MEDS: iron sucrose 200 MG in sodium chloride 0.9% (100 ml) 100 ML 220 MG IV (09:20)
[2020-02-11] MEDS: bumetanide 0.25 mg/mL SDV 10 mL 1 MG IV ×2 (09:20→20:30)
[2020-02-11] MEDS: pantoprazole 40 mg SDV IVP ×2 (09:21→20:30)
[2020-02-11] MEDS: HYDROcodone-acetaminophen 5-325 mg Tablet 1 TAB PO ×2 (09:21→20:29)
[2020-02-11] MEDS: magnesium lactate 84 mg Tablet PO (09:22)
[2020-02-11] MEDS: clopidogrel 75 mg Tablet PO (09:22)
[2020-02-11] MEDS: gabapentin 300 mg Capsule PO ×3 (09:22→20:29)
[2020-02-11] MEDS: aspirin 81 mg EC Tablet PO (09:22)
[2020-02-11] MEDS: lisinopril 10 mg Tablet PO (09:22)
[2020-02-11] MEDS: levothyroxine 100 mcg Tablet PO (09:22)
[2020-02-11] MEDS: metoprolol tartrate 25 mg Tablet PO ×2 (09:22→17:15)
[2020-02-11] MEDS: atorvastatin 40 mg Tablet 20 MG PO (09:22)
--- NOTE | 2020-02-11 09:23 | PM.CONSULT ---
Providers/Reason For Consult Consulting Physican/Specialty*: Mai Ramon MD/cardiology Reason for Consult*: Patient with chest pain, abnormal myocardial perfusion imaging, abnormal echocardiogram Attending Physician: Everardo Garvin MD Primary Care Provider: Kaitlin Gomez DO History of Present Illness History of Present Illness Bryanna Reid is a 74 year old female with multiple medical problems, is admitted to hospital with progressive shortness of breath. She was found to have features of congestive heart failure, elevated troponin T and worsening LV systolic function by echocardiogram. Cardiology consult is requested for further cardiac evaluation recommendations. This patient is known to have recurrent episodes of decompensated diastolic heart failure. She had several hospitalizations in the past for COPD exacerbation and heart failure. Apparently she has been in her baseline state of health up until the 5 days ago when she started having shortness of breath and cough. She was seen in the local emergency room where she was prescribed some antibiotic. She also was advised to increase the dose of the Lasix. Subsequently she was seen by the primary care physician. Apparently the patient shortness of breath was getting worse. For that reason, she was advised to come to our emergency room to be evaluated further. She was found to be in heart failure. Her troponin T was found to be slightly elevated. For these reasons, she was admitted to the hospital for further evaluation management. Patient also had some chest tightness/discomfort especially associated with increasing shortness of breath. The symptoms gets worse with movements of the chest. The intensity of the pain is mild. It is mostly in the lower substernal area. The intensity is 4-5 over 10. Currently at the time of my examination, patient has no chest pain. She has no associated fever or chills. Has occasional cough. She is known to have high blood pressure, type 2 diabetes, dyslipidemia, chronic kidney disease, anemia, degenerative osteoarthritis, CVA and multiple other medical problems. Review of Systems Narrative: CONSTITUTIONAL: No fever or chills. Fatigue and shortness of breath as mentioned above EYES: No blurring of vision or other visual disturbances lately. ENT: No hoarseness of voice, auditory disturbances or sore throat. CARDIOVASCULAR: As mentioned above. RESPIRATORY: History of COPD with intermittent exacerbations GASTROINTESTINAL: No hematemesis or melena. GENITOURINARY: No dysuria or hematuria. INTEGUMENTARY: No skin rashes or history of skin cancer. NEURO: No transient ischemic attacks or amaurosis. PSYCHIATRIC: No history of psychosis or major depression. HEMATOLOGIC: History of chronic anemia ENDOCRINE: Type 2 diabetes and diabetic neuropathy MUSCULOSKELETAL: No recent joint pain or swelling. ALLERGY/IMMUNOLOGY: As mentioned above. Meds/Allergies Home Medications and Allergies Home Medications Medication Instructions Recorded Confirmed Last Taken Type albuterol sulfate 2.5 mg INHALATION Q6H PRN 09/17/19 02/10/20 Unknown History aspirin 81 mg tablet,delayed 81 mg PO DAILY tab 09/17/19 02/10/20 02/09/20 History release docusate sodium 100 mg capsule 100 mg PO BID PRN 09/17/19 02/10/20 02/09/20 History isosorbide mononitrate 30 mg 30 mg PO QAM #90 tab 09/17/19 02/10/20 02/10/20 Rx tablet,extended release 24 hr lisinopril 10 mg tablet 10 mg PO DAILY #30 tab 09/17/19 02/10/20 02/10/20 Rx magnesium L-lactate 84 mg 84 mg PO DAILY tab 09/17/19 02/10/20 Unknown History tablet,extended release nitroglycerin 0.4 mg sublingual 0.4 mg SUBLINGUAL Q5M PRN 09/17/19 02/10/20 Unknown History tablet potassium 99 mg tablet 99 mg PO EVERY OTHER DAY tab 09/17/19 02/10/20 02/09/20 History simvastatin 20 mg tablet 20 mg PO DAILY #30 tab 09/17/19 02/10/20 02/09/20 Rx ipratropium 0.5 mg-albuterol 3 mg 3 ml INHALATION Q4H PRN #180 ml 11/18/19 02/10/20 Unknown Rx (2.5 mg base)/3 mL nebulization soln clopidogrel 75 mg tablet 75 mg PO DAILY #90 tab 12/15/19 02/10/20 02/10/20 Rx ferrous sulfate 325 mg (65 mg 325 mg PO .3-4X A WEEK tab 12/15/19 02/10/20 Unknown History iron) tablet furosemide 40 mg tablet 40 mg PO QAM PRN tab 12/15/19 02/10/20 Unknown History glipizide 5 mg tablet 5 mg PO BID #180 tab 12/15/19 02/10/20 02/10/20 Rx metoprolol tartrate 25 mg tablet 25 mg PO BID #180 tab 12/15/19 02/10/20 02/10/20 Rx hydrocodone 5 mg-acetaminophen 325 1 tab PO BID PRN 30 Days #60 tab 01/23/20 02/10/20 Unknown Rx mg tablet tramadol 50 mg tablet 50 mg PO Q8H PRN #90 tab 01/23/20 02/10/20 02/09/20 Rx gabapentin 300 mg capsule 300 mg PO TID #90 cap 02/02/20 02/10/20 02/09/20 Rx lxrijvvdsdzbziy-visldvktbduuwvv-PS 5 ml PO Q6H PRN #160 ml 02/07/20 02/10/20 Unknown Rx 2 mg-30 mg-10 mg/5 mL oral syrup doxycycline hyclate 100 mg tablet 100 mg PO BID 7 Days #14 tab 02/07/20 02/10/20 02/09/20 Rx Humalog KwikPen Insulin See Rx Instructions .ROUTE .COMPLEX 02/10/20 02/10/20 Unknown History insulin detemir U-100 50 unit SUBCUT QAM 02/10/20 02/10/20 02/10/20 History levothyroxine 100 mcg PO DAILY 02/10/20 02/10/20 02/10/20 History omeprazole 20 mg PO BEDTIME 02/10/20 02/10/20 02/09/20 History ropinirole 1 mg PO BEDTIME 02/10/20 02/10/20 02/09/20 History Allergies Allergy/AdvReac Type Severity Reaction Status Date / Time iodine Allergy unknown Verified 02/07/20 12:57 Current Medications Current Medications Generic Name Dose Route Start Last Admin Trade Name Freq PRN Reason Stop Dose Admin Hydrocodone Bitart/Acetaminophen 1 tab 02/10/20 14:43 02/10/20 16:01 [place] 5-325 Mg PO 1 tab BID PRN Administration pain Enoxaparin Sodium 40 mg 02/10/20 14:45 02/10/20 16:01 Lovenox SUBCUT 40 mg Q24H BELTRAN Administration Gabapentin 300 mg 02/10/20 15:00 02/10/20 20:55 Neurontin PO 300 mg TID BELTRAN Administration Insulin Aspart 0 unit 02/10/20 18:00 02/11/20 06:17 Novolog SUBCUT Not Given TIDWM BELTRAN Protocol Insulin Detemir 30 unit 02/11/20 06:00 02/11/20 06:18 Levemir SUBCUT Not Given QAM BELTRAN Isosorbide Mononitrate 30 mg 02/11/20 06:00 02/11/20 06:20 Imdur PO 30 mg QAM BELTRAN Administration Metoprolol Tartrate 25 mg 02/10/20 18:00 02/10/20 17:27 Lopressor PO 25 mg BID BELTRAN Administration Pantoprazole Sodium 40 mg 02/10/20 21:00 02/10/20 20:55 Protonix PO 40 mg BEDTIME BELTRAN Administration Ropinirole HCl 1 mg 02/10/20 21:00 02/10/20 20:55 Requip PO 1 mg BEDTIME BELTRAN Administration PFSH Acute PFSH: Medical History (Updated 02/11/20 @ 12:40 by Everardo Garvin MD) Anemia of chronic disease CHF (congestive heart failure) COPD (chronic obstructive pulmonary disease) Diabetic neuropathy Dyslipidemia Elevated troponin Enrolled in chronic care management Essential (primary) hypertension GERD (gastroesophageal reflux disease) Hypothyroidism, adult Lumbar back pain with radiculopathy affecting right lower extremity Osteoarthritis of right ankle and foot Shortness of breath Uncontrolled type 2 diabetes mellitus with insulin therapy Surgical History H/O bilateral breast reduction surgery H/O cataract extraction H/O: hysterectomy Family History Other CAD (coronary artery disease) Cancer Diabetes Lung disease Stroke Social History Smoking and tobacco status: former smoker Alcohol intake: never Lives independently: Yes Vitals/I&O/Wt Last Vital Signs Temp 97.8 F 02/11/20 07:27 Pulse 65 02/11/20 07:27 Resp 16 02/11/20 07:27 BP 139/61 02/11/20 07:27 Pulse Ox 94 02/11/20 07:27 02/10/20 02/11/20 02/11/20 22:59 06:59 14:59 Intake Total 480 / 480 300 / 780 360 / 360 Output Total 950 / 950 1100 / 2050 Balance -470 / -470 -800 / -1270 360 / 360 Weight last 48 hrs Weight 274 lb 4.8 oz Weight 275 lb Physical Exam Narrative: EXAM NARRATIVE: GENERAL: The patient is alert and oriented times three. Not in any acute distress. Somewhat lethargic HEENT: Moderate pallor. No icterus or lymphadenopathy. The pupils are reactant to light. Oral cavity: There are no mucous membrane lesions. Funduscopic examination: The disk margins appear to be sharp with no exudates or hemorrhages. NECK: Trachea appears to be central. No masses noted. No JVD or thyromegaly appreciated. No carotid bruit. RESPIRATORY: Chest is symmetrical. No intercostals muscle retraction or any accessory muscle activation. There is no chest wall tenderness. Breath sounds are heard bilaterally. No rales or rhonchi heard. No evidence of any consolidation. The intensity of the breath sounds are diminished in the bases BREASTS: Deferred. HEART: The PMI is in the 5th left intercostals space just inside the midclavicular line. No palpable precordial events. S1 and S2 are normal. No S3 or S4 heard. No pericardial rub or any click heard. Short systolic murmur in the left sternal border. No diastolic murmurs. ABDOMEN: Abdomen is obese. No vessel pulsations or distention. No tenderness. No organomegaly appreciated. No abdominal bruit. Bowel sounds are normally heard. : Deferred. RECTAL: Deferred. LYMPHATIC: No lymphadenopathy noted in the neck or groin. EXTREMITIES: No edema or cyanosis. No clubbing. The pulses are symmetrical bilaterally. The radial, femoral, dorsalis pedis and the posterior tibial pulses are palpated and found to be in good volume and amplitude. Trace edema. MUSCULOSKELETAL: No acute joint deformities or swelling SKIN: There are no significant scars or skin rash noted. NEUROPSYCHIATRIC: The patient is alert and oriented x3. Appears to be in a good mood. The higher functions are grossly within normal limits. No tremors or rigidity noted. Urinary Catheter Management^: Velasco: Cath Placed During This Visit: yes Reason for Continuing Indwelling Catheter: Acute Urinary Retention or Obstruction Urinary Catheter Date of Insertion: 02/10/20 Urinary Catheter Time of Insertion: 13:30 Data Labs: Other Labs: The EKG from yesterday revealed sinus bradycardia with a left bundle branch block pattern. First-degree AV block. Some nonspecific T wave changes. Echocardiogram from yesterday revealed possibly normal LV size with a diminished ejection fraction of around 35- 40 %. Details as follows Left ventricular cavity not well visualized. Mildly increased left ventricular cavity size. Normal left ventricular wall thickness. Mildly decreased left ventricular systolic function. Global left ventricular hypokinesis. Left ventricular ejection fraction is estimated at 35-40 %. Grade I/IV diastolic dysfunction (abnormal relaxation filling pattern), normal to mildly elevated filling pressures. Mildly increased right ventricular size. Mildly decreased right ventricular systolic function. Mild pulmonary hypertension, RVSP 47.6 mmHg. Mildly increased right atrial size. Moderately increased left atrial size. Previous ECHO 04/21 was a poor quality study as well. Today's study shows decreased EF compared to then. Myocardial perfusion imaging in June 2018 revealed #1. Myocardial perfusion imaging revealing a small area of slightly decreased tracer uptake in the basal and mid inferolateral region, with a subtle area reversibility, may suggest ischemia in the distribution of the circumflex artery. #2. Normal LV ejection fraction of 71%. #3. Segmental wall motion analysis revealed no gross wall motion abnormalities. #4. Normal LV volume. Echocardiogram in June 2018 revealed Normal left ventricular size and systolic function, EF 70% . No regional wall motion abnormalities. Trace tricuspid and pulmonic valve regurgitation. Thickened aortic and mitral valves There is no pericardial effusion. No previous study is available for comparison. A&P Assessment and plan (1) CHF (congestive heart failure): Patient seems to have a significant drop in the LV ejection fraction. In view of her multiple risk factors, possibility of underlying coronary artery disease causing LV dysfunction and heart failure is a strong consideration. Once the heart failure is appropriately treated, we may consider doing a cardiac catheterization, to further evaluate her cardiovascular status and decide on further management. Status: Acute Qualifiers: Heart failure chronicity: unspecified Heart failure type: unspecified Qualified Code(s): I50.9 - Heart failure, unspecified (2) Acute kidney injury superimposed on CKD: This could be multifactorial. Heart failure, low output state, diabetes, anti-inflammatory medications, etc. are contributing factors. Will continue careful IV diuresis. Status: Acute (3) Essential (primary) hypertension: We will continue to optimize medications. Status: Acute (4) Stage 3b chronic kidney disease: Closely monitor the kidney function Status: Chronic (5) Uncontrolled type 2 diabetes mellitus with insulin therapy: May continue the management of diabetes aggressively. Status: Acute (6) Anemia of chronic disease: Patient may have an acute component for this chronic anemia. She has no obvious GI bleed. But this needs to be further evaluated. It may be appropriate to consider blood transfusion to maintain the hemoglobin around 9 Status: Acute (7) Elevated troponin: Most likely the patient has type II myocardial infarction Status: Acute Additional A&P Information Based on the patient's clinical progress and the results of the above, further recommendations will be made. Thank for the opportunity to eval this patient make these recommendations. Coding Level of Care Code Acute Audiology Assistant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 Diagnoses CHF (congestive heart failure) I50.9 Heart failure chronicity: unspecified Heart failure type: unspecified Acute kidney injury superimposed on CKD N17.9; N18.9 Essential (primary) hypertension I10 Stage 3b chronic kidney disease N18.3 Uncontrolled type 2 diabetes mellitus with insulin therapy E11.65; Z79.4 Anemia of chronic disease D63.8 Elevated troponin R79.89
[2020-02-11] MEDS: potassium chloride ER 10 mEq Tablet 40 MEQ PO (09:26)
--- NOTE | 2020-02-11 09:38 | PC.CHAP ---
Pastoral Care Encounter/Spiritual Assessment Type of Contact [] Declined leader writer visit [] Patient/Family/Request visit [] Outpatient visit [] Follow-up visit [] Physician referral [] Code/Alert [x] Routine visit [] Staff referral [] Actively dying [] Patient sleeping [] Family support [] [] Out of room [] Palliative care [] [] Receiving care in room [] Pre-surgical visit [] Trauma [] Long length of stay [] ICU visit [] Other: Relational/Emotional Strength [] Patient feels connected with others/family/visitors/staff [] Distress [] Loneliness/isolation [] Abandonment Spirituality of Patient [] Person of Rosina [] Attends Zoroastrianism of their Rosina [] Believes in Prayer [] Reads Bible or Zoroastrian materials [] There are Spiritual issues to be addressed Second Hand Interventions [x] Prayer [] Active listening [] Non-anxious presence [] Spiritual/emotional support [] Crisis/trauma care [] Spiritual counseling [] Bereavement support [] Provided bereavement packet [] Provided Bible/devotional materials [] Provided toy/stuffed animal, coloring book to patient or family member [] Provided Communion [] Anointing/Red [place]et [] Salvation [x] Completed spiritual assessment [] Other: Impact on Illness or Injury [] Angry [] Fearful [] Anxious [] Often cries [] Exhaustion [] Unable to work [] Unable to attend [employer]beterian [] Unable to walk/stand [] Unable to read [] Unable to drive [] Unable to eat/drink [] Unable to sleep [] Unable to be with family [] Patient intubated [] Other: Summary Patient seems weak. Resting well. Time spent with patient 10 min
[2020-02-11 11:21] LABS: Glucose Point of Care 142 mg/dL (70-110)
--- NOTE | 2020-02-11 11:22 | PC.NURSE ---
patient conitues to have pain in BLE rates 06/12 patient is restless and tearful Dr frausto notifeid instructions to give 1 mg morphine x1 so see how patient tolerates if patient tolerates and a decrease of pain is noted then order morphine 1mg IVP q8h PRN for pain
[2020-02-11] MEDS: morphine 4 mg/mL SDV 1 mL 1 MG IVP ×3 (11:32→21:36)
[2020-02-11 12:01] LABS: Hematocrit 29.2 % (37.0-47.0); Hemoglobin 7.7 g/dL (11.5-15.3)
--- NOTE | 2020-02-11 12:34 | P.PN_ITS ---
Subjective Subjective: Interval history: This morning patient stating that she feels a bit better, does have generalized weakness, is down to 1 L nasal cannula, but had 1 episode of mild chest pain, no lightheadedness, no dizziness shortness of breath has improved, currently working with physical therapy Vitals/I&O/Wt Last Vital Signs Temp 97.8 F 02/11/20 11:16 Pulse 67 02/11/20 11:16 Resp 18 02/11/20 11:16 BP 142/69 02/11/20 11:16 Pulse Ox 92 02/11/20 11:16 02/10/20 02/11/20 02/11/20 22:59 06:59 14:59 Intake Total 480 / 480 300 / 780 710 / 710 Output Total 950 / 950 1100 / 2050 1000 / 1000 Balance -470 / -470 -800 / -1270 -290 / -290 Weight last 48 hrs Weight 124.42 kg Weight 124.738 kg Physical Exam Const: COMMON NORMALS: no acute distress and patient oriented x3 HENMT: COMMON NORMALS: normocephalic HEAD & SCALP: normocephalic Neck/C-Spine: COMMON NORMALS: no JVD Resp: COMMON NORMALS: normal respiratory effort, No retractions, No use of accessory muscles and clear to auscultation bilaterally AUSCULTATION: clear to auscultation bilaterally Cardio: COMMON NORMALS: no JVD, regular rate, regular rhythm, S1 normal heart sound present and S2 normal heart sound present RATE: regular rate RHYTHM: regular rhythm HEART SOUNDS: S1 normal heart sound present and S2 normal heart sound present GI: COMMON NORMALS: Normal to inspection, nondistended, normoactive bowel sounds present, Soft to palpation, non-tender, No hepatosplenomegaly present, no masses and no bruits PALPATION: Yes Soft to palpation and Yes No hepatospleno megaly present Extremity: COMMON NORMALS: capillary refill normal, no clubbing, cyanosis or edema, no calf tenderness and no pedal edema Neuro: COMMON NORMALS: patient oriented x3 Psych: COMMON NORMALS: mental status grossly normal Urinary Catheter Management^: Velasco: Cath Placed During This Visit: yes Reason for Continuing Indwelling Catheter: Acute Urinary Retention or Obstruction Urinary Catheter Date of Insertion: 02/10/20 Urinary Catheter Time of Insertion: 13:30 Data : 02/11/20 11:52 02/11/20 04:07 A&P Assessment and plan (1) Acute respiratory failure with hypoxia: -Likely secondary to diastolic CHF exacerbation -BNP is 5000, chest x-ray shows no significant pleural effusions, does show probably vascular congestion, is requiring 2 L oxygen Plan: -Admit to CSU -Telemetry monitoring -Strict I's and O's -Fluid restriction to less than 1500 cc -Daily dosing of diuretics based on creatinine, start Bumex 1 mg every 12 hours -Repeat echocardiogram showed decreased ejection fraction to 35 to 40%, left ventricular hypokinesis -Cardiology Dr. Ramon has been consulted Status: Acute (2) Diastolic CHF, acute on chronic: Status: Acute (3) NSTEMI (non-ST elevated myocardial infarction): -Troponin 29 -EKG shows left bundle branch block bump, but it was seen back in May 2018 -We will obtain a cardiac echocardiogram -Patient has had a positive stress test in 06/22/2018, showing ischemia in the left circumflex, echocardiogram on 04/22/2019 showed mild diffuse hypokinesia of the septum and anteroseptal segments -Has had chest pain in the last week, no current chest pain -Continue aspirin, statin, Plavix, beta-nahed -Echocardiogram showed ejection fraction 35 to 40%, left ventricular hypokinesis, cardiology has been consulted Status: Acute (4) Acute kidney injury superimposed on CKD: Creatinine currently 1.4, carefully diurese Status: Acute (5) Anemia of chronic disease: -Hemoglobin has decreased to 7.1, iron studies show iron deficiency anemia -Start IV Venofer 200 mg for 5 treatments -We will give 1 unit PRBC -Patient denies a history of GI bleeds, denies a history of bloody or black stools -Likely some component of patient's weakness is related to anemia, likely a slow GI bleed, no overt signs of bleeding, no hemodynamic compromise -Continue Protonix 40 mg IV twice daily -Trend hemoglobins -Patient is on aspirin and Plavix as above, will continue to monitor as currently benefit of antiplatelet therapy outweighs risk given the concern for NSTEMI and depressed ejection fraction Status: Acute (6) Dyslipidemia: Status: Acute (7) Uncontrolled type 2 diabetes mellitus with insulin therapy: -Patient states that she takes Levemir 30-40 daily based on her morning blood sugar -Insulin sliding scale of NovoLog -Start Levemir 30 units every morning, low-dose sliding scale Status: Acute (8) Lumbar back pain with radiculopathy affecting right lower extremity: Status: Acute (9) GI bleed: Status: Acute Attestations Medical Necessity Statement*: Patient requires continued hospitalization due to acute respiratory failure, and NSTEMI, anemia, slow GI bleed Coding Level of Care Code Acute Tube Drawing Supervisor for [facility] Diagnoses Acute respiratory failure with hypoxia J96.01 Diastolic CHF, acute on chronic I50.33 NSTEMI (non-ST elevated myocardial infarction) I21.4 Acute kidney injury superimposed on CKD N17.9; N18.9 Anemia of chronic disease D63.8 Dyslipidemia E78.5 Uncontrolled type 2 diabetes mellitus with insulin therapy E11.65; Z79.4 Lumbar back pain with radiculopathy affecting right lower extremity M54.16 GI bleed K92.2
--- NOTE | 2020-02-11 13:00 | PC.NURSE ---
patient resting in bed with eyes closed appears to be resting well with no outward sign/symptoms of pain noted will continue nursing cares
[2020-02-11] MEDS: sodium chloride 0.9% (100 ml) 100 ML (15:13)
--- NOTE | 2020-02-11 15:18 | PC.NURSE ---
1 unit prbc's began at 1515.instructed in transfusion reaction s/sxs...and instructed to notify staff should s/sxs occur.pt verb understanding of instructions.remaining with pt for 15 min start time.
--- NOTE | 2020-02-11 16:01 | PC.NURSE ---
attempted to contact Dr. Garvin for further instructions on pain control patient is starting to become restless with foot pain gabapinten given per-orders will await further instruction continue to monitor and nursing cares
--- NOTE | 2020-02-11 16:15 | PC.RESP ---
PULMONARY REHAB INFORMATION SENT TO PATIENT.
[2020-02-11 16:31] LABS: Glucose Point of Care 185 mg/dL (70-110)
--- NOTE | 2020-02-11 16:52 | PC.NURSE ---
contacted Dr Garvin of patients continued pain in legs and no pain medication available until 1720 new orders to give morphine 1 mg IVP x1 now
--- NOTE | 2020-02-11 18:20 | PC.NURSE ---
patient continues to be restless in the bed patient educated on medication schedules and that she would have to wait for the next scheduled time to avoid having pain medication to close together and taking a chance on an adverse reaction patient verbalizes understanding. patient assited to bedside to stand to see if that helps with the pain; scds removed
--- NOTE | 2020-02-11 19:35 | PC.NURSE ---
Patient does not have any complaints at this time. patient is refusing SCDs stating they hurt my legs and I have enough tubes and wires on me. Patient is on 1 L NC at 95 percent oxygen. Patient states that the Gabapentin, Requip, and [place] helped her legs last night and she would like those medications again tonight. VSS. Call light within reach. Will continue to monitor.
[2020-02-11 20:22] LABS: Hematocrit 30.4 % (37.0-47.0); Hemoglobin 8.2 g/dL (11.5-15.3)
[2020-02-11] MEDS: ropinirole 1 mg Tablet PO (20:29)
[2020-02-11 20:45] LABS: Glucose Point of Care 178 mg/dL (70-110)
--- NOTE | 2020-02-11 22:34 | PC.NURSE ---
Patient is currently resting with eyes closed.
[2020-02-12] VITALS (8 sets, daily range): BP systolic 118–163; BP diastolic 42–93; PULSE 64–74; RESP 11–19; TEMP 36.3–37.1; O2SAT 94–99
[2020-02-12 00:35] LABS: Hematocrit 29.7 % (37.0-47.0); Hemoglobin 8.1 g/dL (11.5-15.3)
--- NOTE | 2020-02-12 00:59 | PC.NURSE ---
Patient's oxygen saturation dropped to 83 percent on monitor. Nurse went to check on patient and oxygen had been taken off by patient. It was placed back in her nose and oxygen saturation is currently 93 percent. Will continue to monitor with continuous pulse ox.
--- NOTE | 2020-02-12 04:56 | PC.NURSE ---
Patient had uneventful night. Will continue to monitor.
--- NOTE | 2020-02-12 05:48 | PC.NURSE ---
Patient's oxygen saturation dropped to 60 percent on monitor with good waveform. Nurse went to check on patient. Patient had oxygen in nose, however did not appear to be taking breaths. Nurse woke patient up and patient took a large gasp of air. Nurse asked patient if she feels okay and she stated yes . Patient is alert and oriented and awake at this time with oxygen saturation at 94% on 1 L NC. Will continue to monitor.
[2020-02-12] MEDS: isosorbide mononitrate ER 30 mg Tablet PO (06:16)
[2020-02-12 06:25] LABS: Glucose Point of Care 127 mg/dL (70-110)
[2020-02-12 06:50] LABS: Basophils % 0.5 %; Eosinophils # 0.4 10^3/uL (0.0-0.8); Eosinophils % 6.3 %; Hematocrit 32.5 % (37.0-47.0); Hemoglobin 8.8 g/dL (11.5-15.3); Lymphocytes # 1.1 10^3/uL (0.8-4.8); Lymphocytes % 17.5 %; Mean Corpuscular HGB Conc 27.1 g/dL (30.0-36.0); Mean Corpuscular Hemoglobin 22.7 pg (28.0-34.0); Mean Platelet Volume 8.5 fL (7.4-10.4); Monocytes # 0.4 10^3/uL (0.2-0.9); Monocytes % 7.2 %; Neutrophils % 67.5 %; Nucleated Red Blood Cells % 0 %; Platelet Count 145 10^3/cmm (130-400); Red Blood Count 3.87 10^6/uL (4.1-5.3); Red Cell Distribution Width 16.6 % (12.1-15.1)
[2020-02-12 07:06] LABS: Alanine Aminotransferase 11 U/L (0-33); Albumin Level 3.6 g/dL (3.5-5.2); Alkaline Phosphatase 93 IU/L (35-105); Anion Gap 12.6 (5-19); Aspartate Amino Transferase 11 U/L (0-32); Blood Urea Nitrogen 27 mg/dL (8-23); Calcium 9.4 mg/dL (8.5-10.5); Carbon Dioxide 39 mmol/L (22-29); Chloride 99 mmol/L (98-107); Globulin 2.9 g/dL (1.3-4.6); Glucose 141 mg/dL (65-115); Magnesium 1.8 mg/dL (1.7-2.3); Osmolality Calculated 301 mOsm/kg (285-295); Phosphorus 3.2 mg/dL (2.5-4.5); Potassium 4.6 mmol/L (3.5-5.1); Sodium 146 mmol/L (136-145); Total Bilirubin 0.8 mg/dL (0.15-1.2); Total Protein 6.5 g/dL (6.6-8.7)
--- NOTE | 2020-02-12 07:24 | PC.NURSE ---
sliding scale insulin not given; no insulin required per sliding scale protocol
--- NOTE | 2020-02-12 08:09 | PC.NURSE ---
patient walking in hallway with PT patient tolerating well o2 saturation did drop in the 80's
--- NOTE | 2020-02-12 08:17 | PM.PN ---
Subjective Subjective: Interval history: Patient is feeling better. She is complaining of tremor and some jerking movements of the right upper extremity for the last 1 week. She seems to think that she might have had a stroke a week ago. According to her family, her speech was slurred and she was somewhat confused for a while at that time. Her hemoglobin is slowly improving. She had iron transfusion yesterday. She also has a questionable history of GI bleed. She has not had any bowel movement since the hospital admission. Denies any chest pain or unusual shortness of breath. No other specific complaints. Medications: Reviewed: Yes Medication Review Details: Current Medications Acetaminophen (Tylenol) 650 mg PO Q6H PRN PRN Reason: Mild/Mod Pain Or Temp >/= 101 Hydrocodone Bitart/Acetaminophen ([place] 5-325 Mg) 1 tab PO BID PRN PRN Reason: pain Last Admin: 02/11/20 20:29 Dose: 1 tab Documented by: Albuterol Sulfate (Albuterol) 2.5 mg INHALATION Q6H.RESPIRATORY PRN PRN Reason: shortness of breath or wheezing Albuterol/Ipratropium (Duoneb) 3 ml INHALATION Q4H PRN PRN Reason: wheezing Aspirin (Aspirin Ec) 81 mg PO DAILY [facility] Last Admin: 02/11/20 09:22 Dose: 81 mg Documented by: Atorvastatin Calcium (Lipitor) 20 mg PO DAILY [facility] Last Admin: 02/11/20 09:22 Dose: 20 mg Documented by: Bumetanide (Bumex) 1 mg IV Q12H [facility] Last Admin: 02/11/20 20:30 Dose: 1 mg Documented by: Clopidogrel Bisulfate (Plavix) 75 mg PO DAILY [facility] Last Admin: 02/11/20 09:22 Dose: 75 mg Documented by: Dextrose (D50w) 25 ml IVP ONCE PRN; Protocol PRN Reason: hypoglycemia protocol Dextrose (D50w) 50 ml IVP PRN PRN; Protocol PRN Reason: hypoglycemia protocol Docusate Sodium (Colace) 100 mg PO BID PRN PRN Reason: Constipation Enoxaparin Sodium (Lovenox) 40 mg SUBCUT Q24H [facility] Last Admin: 02/10/20 16:01 Dose: 40 mg Documented by: Gabapentin (Neurontin) 300 mg PO TID [facility] Last Admin: 06/10/20 20:29 Dose: 300 mg Documented by: Glucagon (Glucagen) 1 mg IM ONCE PRN; Protocol PRN Reason: Adult Acute Hypoglycemia Prot. Dextrose (D5w) 500 mls @ 100 mls/hr IV ONCE PRN; Protocol PRN Reason: Adult Acute Hypoglycemia Prot Insulin Aspart (Novolog) 0 unit SUBCUT TIDWM [facility]; Protocol Last Admin: 02/12/20 07:23 Dose: Not Given Documented by: Insulin Detemir (Levemir) [facility] Last Admin: 02/12/20 06:16 Dose: 30 unit Documented by: Isosorbide Mononitrate (Imdur) 30 mg PO QAM [facility] Last Admin: 02/12/20 06:16 Dose: 30 mg Documented by: Levothyroxine Sodium (Synthroid) 100 mcg PO DAILY [facility] Last Admin: 02/11/20 09:22 Dose: 100 mcg Documented by: Lisinopril (Prinivil) 10 mg PO DAILY [facility] Last Admin: 02/11/20 09:22 Dose: 10 mg Documented by: Magnesium Lactate (Mag-Tab Sr) 84 mg PO DAILY [facility] Last Admin: 02/11/20 09:22 Dose: 84 mg Documented by: Metoprolol Tartrate (Lopressor) 25 mg PO BID [facility] Last Admin: 02/11/20 17:15 Dose: 25 mg Documented by: Morphine Sulfate (Morphine) 1 mg IVP Q8H PRN PRN Reason: SEVERE PAIN Last Admin: 02/11/20 21:36 Dose: 1 mg Documented by: Nitroglycerin (Nitrostat) 0.4 mg SUBLINGUAL Q5M PRN PRN Reason: Chest Pain Non-Formulary Medication (Ferrous Sulfate) 325 mg PO .3-4X A WEEK [facility] Ondansetron HCl (Zofran) 4 mg IVP Q8H PRN PRN Reason: vomiting, or N/V if npo Pantoprazole Sodium (Protonix) 40 mg PO BEDTIME [facility] Last Admin: 02/10/20 20:55 Dose: 40 mg Documented by: Pantoprazole Sodium (Protonix) 40 mg IVP Q12H [facility] Last Admin: 02/11/20 20:30 Dose: 40 mg Documented by: Potassium Chloride (Klor-Con 10) 40 meq PO DAILY [facility] Last Admin: 02/11/20 09:26 Dose: 40 meq Documented by: Ropinirole HCl (Requip) 1 mg PO BEDTIME [facility] Last Admin: 02/11/20 20:29 Dose: 1 mg Documented by: Vitals/I&O/Wt Last Vital Signs Temp 98.1 F 02/12/20 07:22 Pulse 69 02/12/20 07:22 Resp 16 02/12/20 07:22 BP 149/64 02/12/20 07:22 Pulse Ox 96 02/12/20 07:22 02/11/20 02/12/20 02/12/20 22:59 06:59 14:59 Intake Total 350 / 1060 300 / 1360 120 / 120 Output Total 1800 / 2800 1850 / 4650 Balance -1450 / -1740 -1550 / -3290 120 / 120 Weight last 48 hrs Weight 272 lb Weight 274 lb 4.8 oz Weight 275 lb Physical Exam Narrative: EXAM NARRATIVE: GENERAL: The patient is alert and oriented times three. Not in any acute distress. Somewhat lethargic HEENT: Moderate pallor. No icterus or lymphadenopathy. NECK: Trachea appears to be central. No masses noted. No JVD or thyromegaly appreciated. No carotid bruit. RESPIRATORY: Chest is symmetrical. No intercostals muscle retraction or any accessory muscle activation. There is no chest wall tenderness. Breath sounds are heard bilaterally. No rales or rhonchi heard. No evidence of any consolidation. The intensity of the breath sounds are diminished in the bases BREASTS: Deferred. HEART: The PMI is in the 5th left intercostals space just inside the midclavicular line. No palpable precordial events. S1 and S2 are normal. No S3 or S4 heard. No pericardial rub or any click heard. Short systolic murmur in the left sternal border. No diastolic murmurs. ABDOMEN: Abdomen is obese. No vessel pulsations or distention. She has minimal tenderness around the umbilical region : Deferred. RECTAL: Deferred. LYMPHATIC: No lymphadenopathy noted in the neck or groin. EXTREMITIES: No significant edema or cyanosis. MUSCULOSKELETAL: No acute joint deformities or swelling SKIN: There are no significant scars or skin rash noted. NEUROPSYCHIATRIC: She has some fine tremor in the right upper extremity. No obvious motor weakness Urinary Catheter Management^: Velasco: Cath Placed During This Visit: yes Reason for Continuing Indwelling Catheter: Acute Urinary Retention or Obstruction Urinary Catheter Date of Insertion: 02/10/20 Urinary Catheter Time of Insertion: 13:30 Data : 02/12/20 18:30 02/12/20 06:40 A&P Assessment and plan (1) Recent cerebrovascular accident (CVA): I may go ahead and do a carotid Doppler examination to further evaluate. Status: Acute (2) CHF (congestive heart failure): Patient seems to have a significant drop in the LV ejection fraction. In view of her multiple risk factors, possibility of underlying coronary artery disease causing LV dysfunction and heart failure is a strong consideration. Once the heart failure is appropriately treated, we may consider doing a cardiac catheterization, to further evaluate her cardiovascular status and decide on further management. We need to wait till her GI work-up is completed, to make sure there is no source of any active bleeding. Status: Acute Qualifiers: Heart failure chronicity: unspecified Heart failure type: unspecified Qualified Code(s): I50.9 - Heart failure, unspecified (3) Acute kidney injury superimposed on CKD: This could be multifactorial. Heart failure, low output state, diabetes, anti-inflammatory medications, etc. are contributing factors. Will continue careful IV diuresis. Her BUN/creatinine seems to be stable Status: Acute (4) Essential (primary) hypertension: We will continue to optimize medications. Currently the blood pressure is a stage II. I may go up on lisinopril to 20 mg p.o. daily. Status: Acute (5) Stage 3b chronic kidney disease: Closely monitor the kidney function Status: Chronic (6) Uncontrolled type 2 diabetes mellitus with insulin therapy: May continue the management of diabetes aggressively. Status: Acute (7) Anemia of chronic disease: GI work-up is pending. Patient apparently has not had any bowel movement since the hospital admission. Status: Acute (8) Elevated troponin: Most likely the patient has type II myocardial infarction Status: Acute Additional A&P Information Discussed with Dr. Garvin. Plan to do GI work-up. Based on the clinical progress, further recommendations will be made. Attestations Medical Necessity Statement*: Patient requires continued hospital stay for close monitoring and further management Coding Level of Care Code Acute Solutions Specialist for [facility] Diagnoses Recent cerebrovascular accident (CVA) Z86.73 CHF (congestive heart failure) I50.9 Heart failure chronicity: unspecified Heart failure type: unspecified Acute kidney injury superimposed on CKD N17.9; N18.9 Essential (primary) hypertension I10 Stage 3b chronic kidney disease N18.3 Uncontrolled type 2 diabetes mellitus with insulin therapy E11.65; Z79.4 Anemia of chronic disease D63.8 Elevated troponin R79.89
--- NOTE | 2020-02-12 08:35 | PC.NURSE ---
Dr buenrostro and Dr. frausto at bedside for rounding discussing POC with patient; further testing and test results
--- NOTE | 2020-02-12 09:02 | CT_ITS ---
WS: [id number] CT HEAD NONCONTRAST HISTORY: stroke 1 week ago TECHNIQUE: Contiguous axial imaging performed through the brain in 2.5 mm imaging. Bone and soft tiss ue windows. Sagittal and coronal reformats reviewed. All CT scans at [facility] use at ast one of these dose optimization techniques: automated exposure control; mA and/or kV adjustment pe r patient size (includes targeted exams where dose is matched to clinical indication); or iterative r econstruction. DLP: 1785.78 mGy.cm COMPARISON: None available. No acute intracranial hemorrhage, midline shift or mass effect. No significant atrophy. There is very mild chronic microvascular ischemic change in the white matter. No focal infarcts. Ventricles: Normal size with no hydrocephalus. No inferior displacement of cerebellar tonsils. Paranasal sinuses: As visualized are clear. Mastoid air cells: Well pneumatized. Calvarium and scalp: Severe hyperostosis frontalis interna. CT/CT head wo con* [id number] IMPRESSION: 1. No acute intracranial hemorrhage or edema. 2. Mild chronic microvascular ischemic disease. No prior infarcts.
--- NOTE | 2020-02-12 09:03 | USCV_ITS ---
Franklin Bryanna Age: 74 Gender: F : 1945 Exam Date: 02/12/2020 13:15 Ordering Phys: Everardo Garvin MD Technologist: Francisca Martinez [place] [facility] [place]: CVA Risk Factors: Previous Vascular Surgery: Right Brachial BP: / Left Brachial BP: / Right Left Velocity (cm/s) Spectral Plaque Velocity (cm/s) Spectral Plaque Syst/Diast Broadening Syst/Diast Broadening 113.10/22.30 Prox CCA 124.70/ 23.00 115.70/25.00 Mid CCA 143.00/ 43.00 96.00/ 9.20 Distal CCA 127.40/ 36.60 97.30/ 25.00 Prox ICA 168.00/ 41.50 140.70/47.30 Mid ICA 149.97/ 48.73 85.40/ 31.40 Distal ICA 101.30/ 26.20 61.80 ECA 71.90 1.22 ICA/CCA 1.32 Antegrade Vertebral Antegrade 74.00/ 15.70 cm/s 70.40/ 18.10 cm/s Tri Subclavian Tri FINDINGS TORTUOUS ICA BILAT AND PROMINENT JUGULAR BILAT Moderate heterogeneous plaques bilaterally Antegrade flow in the vertebral arteries bilaterally Normal Doppler flow velocities in the external carotid arteries and subclavian arteries bilaterally CONCLUSIONS Moderate heterogeneous plaques bilaterally with velocity elevations bilaterally, suggestive of 50 to 79% stenosis Tortuous distal internal carotid arteries bilaterally Dr Betty Ramon MD [facility]IN [facility] (Electronically Signed) Final Date: 12 February 2020 21:32 S
[2020-02-12] MEDS: potassium chloride ER 10 mEq Tablet 40 MEQ PO (09:22)
[2020-02-12] MEDS: docusate sodium 100 mg Capsule PO (09:22)
[2020-02-12] MEDS: bumetanide 0.25 mg/mL SDV 10 mL 1 MG IV ×2 (09:23→20:45)
[2020-02-12] MEDS: HYDROcodone-acetaminophen 5-325 mg Tablet 1 TAB PO ×2 (09:23→23:19)
[2020-02-12] MEDS: aspirin 81 mg EC Tablet PO (09:24)
[2020-02-12] MEDS: levothyroxine 100 mcg Tablet PO (09:24)
[2020-02-12] MEDS: lisinopril 10 mg Tablet PO (09:24)
[2020-02-12] MEDS: pantoprazole 40 mg SDV IVP ×2 (09:24→21:24)
[2020-02-12] MEDS: gabapentin 300 mg Capsule PO ×2 (09:24→21:24)
[2020-02-12] MEDS: clopidogrel 75 mg Tablet PO (09:24)
[2020-02-12] MEDS: metoprolol tartrate 25 mg Tablet PO ×2 (09:24→17:36)
[2020-02-12] MEDS: magnesium lactate 84 mg Tablet PO (09:24)
[2020-02-12] MEDS: atorvastatin 40 mg Tablet 20 MG PO (09:24)
[2020-02-12 11:35] LABS: Glucose Point of Care 235 mg/dL (70-110)
[2020-02-12 12:12] LABS: Hematocrit 33.1 % (37.0-47.0)
[2020-02-12] MEDS: morphine 4 mg/mL SDV 1 mL 1 MG IVP (12:24)
--- NOTE | 2020-02-12 12:43 | PC.NURSE ---
patient reports 10/10 pain in BLE patient is tearful and restless in bed PRN morphine given at this time after new iv start patient tolerated well; will continue to monitor
--- NOTE | 2020-02-12 13:00 | PC.NURSE ---
patient resting in bed no outward s/s of pain at this time appears to be sleeping
--- NOTE | 2020-02-12 14:29 | PC.NURSE ---
o2 saturation dropped to 54% when entered room patient sleeping very soundly quickly recovered once awake Dr frausto notified no new instructions at this time will continue to monitor
--- NOTE | 2020-02-12 15:43 | PM.PN ---
Subjective Subjective: Interval history: Patient states that her breathing has improved, she feels a bit better, she tells me that overnight she continued to have lower extremity pain, found it very difficult to sleep her hormone [place], gabapentin, Requip minimally helped Patient states that roughly a week ago she thinks she had a stroke, she was sitting down when she had some clumsiness of her right hand, she immediately called her sister, who stated that she was slurring her speech, patient did not seek medical attention, since then no focal neurologic deficits, slurring of speech, no numbness or tingling of her extremities, no visual deficits Patient also tells me that she thinks that she had a bloody stool about a week ago Vitals/I&O/Wt Last Vital Signs Temp 98.7 F 02/12/20 11:11 Pulse 65 02/12/20 11:11 Resp 19 H 02/12/20 12:24 BP 126/42 02/12/20 11:11 Pulse Ox 94 02/12/20 11:11 02/12/20 02/12/20 02/12/20 06:59 14:59 22:59 Intake Total 300 / 1360 1360 / 1360 Output Total 1850 / 4650 1999 Balance -1550 / -3290 -640 / -640 Weight last 48 hrs Weight 123.377 kg Weight 124.42 kg Physical Exam Const: COMMON NORMALS: no acute distress and patient oriented x3 GENERAL APPEARANCE: cooperative and comfortable HENMT: COMMON NORMALS: normocephalic HEAD & SCALP: normocephalic Eye: COMMON NORMALS: Equal, round and reactive pupils present, EOMs intact bilaterally and no papilledema GENERAL EYE: appearance normal, both eyes and all related structures PUPIL: Yes Equal, round and reactive pupils present DIRECT OPHTHALMOSCOPY: Yes no papilledema Neck/C-Spine: COMMON NORMALS: no JVD and Thyroid normal THYROID: Thyroid normal Lymph: LYMPHATIC: no lymphadenopathy noted Resp: COMMON NORMALS: normal respiratory effort, No retractions, No use of accessory muscles and clear to auscultation bilaterally AUSCULTATION: clear to auscultation bilaterally Cardio: COMMON NORMALS: no JVD, regular rate, regular rhythm, S1 normal heart sound present and S2 normal heart sound present RATE: regular rate RHYTHM: regular rhythm HEART SOUNDS: S1 normal heart sound present and S2 normal heart sound present GI: COMMON NORMALS: Normal to inspection, nondistended, normoactive bowel sounds present, Soft to palpation, non-tender, No hepatosplenomegaly present, no masses and no bruits PALPATION: Yes Soft to palpation and Yes No hepatosplenomegaly present Extremity: COMMON NORMALS: capillary refill normal, no clubbing, cyanosis or edema, no calf tenderness and no pedal edema Neuro: COMMON NORMALS: patient oriented x3, CN's II-XII intact bilaterally, moves all extremities, no focal motor deficits and no sensory deficits noted Psych: COMMON NORMALS: mental status grossly normal and Normal thought process present THOUGHT PROCESS: Normal thought process present Urinary Catheter Management^: Velasco: Cath Placed During This Visit: yes Reason for Continuing Indwelling Catheter: Acute Urinary Retention or Obstruction Urinary Catheter Date of Insertion: 02/10/20 Urinary Catheter Time of Insertion: 13:30 Data : 02/12/20 12:02 02/12/20 06:40 A&P Assessment and plan (1) Acute respiratory failure with hypoxia: -Likely secondary to diastolic CHF exacerbation -BNP is 5000, chest x-ray shows no significant pleural effusions, does show probably vascular congestion, is requiring 1 L oxygen - -5200 cc since admission Plan: -Admit to CSU -Telemetry monitoring -Strict I's and O's -Fluid restriction to less than 1500 cc -Daily dosing of diuretics based on creatinine, start Bumex 1 mg every 12 hours -Repeat echocardiogram showed decreased ejection fraction to 35 to 40%, left ventricular hypokinesis -Cardiology Dr. Ramon has been consulted Status: Acute (2) Diastolic CHF, acute on chronic: Status: Acute (3) NSTEMI (non-ST elevated myocardial infarction): -Troponin 29 -EKG shows left bundle branch block bump, but it was seen back in May 2018 -We will obtain a cardiac echocardiogram -Patient has had a positive stress test in 06/22/2018, showing ischemia in the left circumflex, echocardiogram on 04/22/2019 showed mild diffuse hypokinesia of the septum and anteroseptal segments -Has had chest pain in the last week, no current chest pain -Continue aspirin, statin, Plavix, beta-nahed -Echocardiogram showed ejection fraction 35 to 40%, left ventricular hypokinesis, cardiology has been consulted Status: Acute (4) Acute kidney injury superimposed on CKD: Creatinine currently 1.3, carefully diurese Status: Acute (5) Anemia of chronic disease: -Hemoglobin has decreased to 7.1, iron studies show iron deficiency anemia -Start IV Venofer 200 mg for 5 treatments -We will give 1 unit PRBC -Patient denies a history of GI bleeds, denies a history of bloody or black stools -Likely some component of patient's weakness is related to anemia, likely a slow GI bleed, no overt signs of bleeding, no hemodynamic compromise -Continue Protonix 40 mg IV twice daily, added Carafate today -Trend hemoglobins -Patient is on aspirin and Plavix as above, will continue to monitor as currently benefit of antiplatelet therapy outweighs risk given the concern for NSTEMI and depressed ejection fraction and stroke Status: Acute (6) Dyslipidemia: Status: Acute (7) Uncontrolled type 2 diabetes mellitus with insulin therapy: -Patient states that she takes Levemir 30-40 daily based on her morning blood sugar -Insulin sliding scale of NovoLog -Start Levemir 30 units every morning, low-dose sliding scale Status: Acute (8) Lumbar back pain with radiculopathy affecting right lower extremity: Status: Acute (9) GI bleed: Status: Acute (10) CVA (cerebral vascular accident): -Sounds a lot like patient had a stroke or transient ischemic attack a week ago -Is already on aspirin and Plavix -Continue PT OT -We will obtain CT of the head with carotid ultrasounds Status: Acute Attestations Medical Necessity Statement*: Patient requires continued hospitalization due to heart failure,nstemi, slow GI bleed, Coding Level of Care Code Acute [employer] Diagnoses Acute respiratory failure with hypoxia J96.01 Diastolic CHF, acute on chronic I50.33 NSTEMI (non-ST elevated myocardial infarction) I21.4 Acute kidney injury superimposed on CKD N17.9; N18.9 Anemia of chronic disease D63.8 Dyslipidemia E78.5 Uncontrolled type 2 diabetes mellitus with insulin therapy E11.65; Z79.4 Lumbar back pain with radiculopathy affecting right lower extremity M54.16 GI bleed K92.2 CVA (cerebral vascular accident) I63.9
[2020-02-12 16:33] LABS: Glucose Point of Care 191 mg/dL (70-110)
[2020-02-12] MEDS: sucralfate 1 gm Tablet PO (17:36)
[2020-02-12 18:44] LABS: Hemoglobin 8.6 g/dL (11.5-15.3)
[2020-02-12 21:15] LABS: Glucose Point of Care 126 mg/dL (70-110)
[2020-02-12] MEDS: ropinirole 1 mg Tablet PO (21:19)
--- NOTE | 2020-02-12 23:11 | PC.NURSE ---
3024 Patient complained of indigestion and bilateral leg pain 6/10 PRN medication utilitized
[2020-02-12] MEDS: ondansetron 2 mg/ML SDV 2 mL 4 MG IVP (23:19)
[2020-02-13] VITALS (11 sets, daily range): BP systolic 111–161; BP diastolic 42–77; PULSE 61–77; RESP 10–20; TEMP 36.6–37.5; O2SAT 92–98
[2020-02-13 00:57] LABS: Hematocrit 31.3 % (37.0-47.0); Hemoglobin 8.5 g/dL (11.5-15.3)
[2020-02-13 05:20] LABS: Basophils % 0.4 %; Eosinophils # 0.3 10^3/uL (0.0-0.8); Eosinophils % 4.9 %; Hematocrit 32.2 % (37.0-47.0); Hemoglobin 8.7 g/dL (11.5-15.3); Lymphocytes # 1.3 10^3/uL (0.8-4.8); Lymphocytes % 18.1 %; Mean Corpuscular Hemoglobin 22.7 pg (28.0-34.0); Mean Corpuscular Volume 84.1 fL (81-99); Mean Platelet Volume 9.3 fL (7.4-10.4); Monocytes # 0.5 10^3/uL (0.2-0.9); Monocytes % 7.3 %; Neutrophils # 4.7 10^3/uL (1.8-7.7); Neutrophils % 68.4 %; Nucleated Red Blood Cells % 0 %; Platelet Count 137 10^3/cmm (130-400); Red Blood Count 3.83 10^6/uL (4.1-5.3); Red Cell Distribution Width 16.7 % (12.1-15.1); White Blood Count 6.9 10^3/uL (4.0-10.0)
[2020-02-13 05:48] LABS: Alanine Aminotransferase 10 U/L (0-33); Albumin Level 3.5 g/dL (3.5-5.2); Alkaline Phosphatase 89 IU/L (35-105); Anion Gap 10.8 (5-19); Aspartate Amino Transferase 10 U/L (0-32); Blood Urea Nitrogen 26 mg/dL (8-23); Calcium 9.5 mg/dL (8.5-10.5); Chloride 97 mmol/L (98-107); Glucose 136 mg/dL (65-115); Magnesium 1.6 mg/dL (1.7-2.3); Osmolality Calculated 301 mOsm/kg (285-295); Phosphorus 3.3 mg/dL (2.5-4.5); Potassium 4.8 mmol/L (3.5-5.1); Sodium 146 mmol/L (136-145); Total Bilirubin 0.7 mg/dL (0.15-1.2); Total Protein 6.5 g/dL (6.6-8.7)
[2020-02-13] MEDS: sucralfate 1 gm Tablet PO ×2 (05:59→17:39)
[2020-02-13] MEDS: isosorbide mononitrate ER 30 mg Tablet PO (05:59)
[2020-02-13 06:00] LABS: Carbon Dioxide 43 mmol/L (22-29)
[2020-02-13 06:19] LABS: Glucose Point of Care 123 mg/dL (70-110)
--- NOTE | 2020-02-13 06:37 | PC.NURSE ---
0630 pt with critical CO2 mask not applied
--- NOTE | 2020-02-13 07:48 | PC.NURSE ---
upon rounding patient found to be lethargic puplis equal and sluggish; patient unable to answer questions about time or place appropriately. patient will follow commands however is slow to respond. speech is grabbled and slow patient has full range of motion patient assisted with repositioning patient noted to have low o2 a mask placed to aid with mouth breathing. patient then started to scream out Don't let me Sassy. Don't let me Patient asked whom sassy was patient unable to tell me at that time. raised HOB to >30 degrees patient set straight up in bed an mumbled something not understood by this nurse then patient started Stating this is my room, this is my room. I'm in the hospital this is my room Dr frausto notified of findings orders given to obtain an ABG and await further orders for MRI. Will continue to monitor.
[2020-02-13 09:04] LABS: Arterial Blood Gas Hematocrit 28.7 % (37-47); Blood Gas Allen Test Pos; Blood Gas Sample Site Radial, left; Blood Gas Sample Type Arterial; Carboxyhemoglobin 1.8 %THgb (0.4-20.1); HGB O2 Sat 93.6 % (95-100); Oxygen Device OXY MASK; Total Hemoglobin 9.4 g/dL (12-16)
--- NOTE | 2020-02-13 09:05 | PC.NURSE ---
Dr frausto at bedside for patient assessment; discussed POC; further imagining patient is more alert at time of assessment
--- NOTE | 2020-02-13 09:06 | P.PN_ITS ---
Subjective Subjective: Interval history: Patient had some episodes of confusion/disorientation last night, as per the nursing staff. This morning she seems to be more lucid. Denies any chest pain. Has a baseline shortness of breath. No palpitation, dizziness or syncopal episodes. No other specific complaints. Her hemoglobin seems to be improving. Still has problems with constipation Medications: Reviewed: Yes Medication Review Details: Current Medications Acetaminophen (Tylenol) 650 mg PO Q6H PRN PRN Reason: Mild/Mod Pain Or Temp >/= 101 Hydrocodone Bitart/Acetaminophen ([place] 5-325 Mg) 1 tab PO BID PRN PRN Reason: pain Last Admin: 02/11/20 20:29 Dose: 1 tab Documented by: Albuterol Sulfate (Albuterol) 2.5 mg INHALATION Q6H.RESPIRATORY PRN PRN Reason: shortness of breath or wheezing Albuterol/Ipratropium (Duoneb) 3 ml INHALATION Q4H PRN PRN Reason: wheezing Aspirin (Aspirin Ec) 81 mg PO DAILY [facility] Last Admin: 02/11/20 09:22 Dose: 81 mg Documented by: Atorvastatin Calcium (Lipitor) 20 mg PO DAILY [facility] Last Admin: 02/11/20 09:22 Dose: 20 mg Documented by: Bumetanide (Bumex) 1 mg IV Q12H [facility] Last Admin: 02/11/20 20:30 Dose: 1 mg Documented by: Clopidogrel Bisulfate (Plavix) 75 mg PO DAILY [facility] Last Admin: 02/11/20 09:22 Dose: 75 mg Documented by: Dextrose (D50w) 25 ml IVP ONCE PRN; Protocol PRN Reason: hypoglycemia protocol Dextrose (D50w) 50 ml IVP PRN PRN; Protocol PRN Reason: hypoglycemia protocol Docusate Sodium (Colace) 100 mg PO BID PRN PRN Reason: Constipation Enoxaparin Sodium (Lovenox) 40 mg SUBCUT Q24H [facility] Last Admin: 02/10/20 16:01 Dose: 40 mg Documented by: Gabapentin (Neurontin) 300 mg PO TID [facility] Last Admin: 02/11/20 20:29 Dose: 300 mg Documented by: Glucagon (Glucagen) 1 mg IM ONCE PRN; Protocol PRN Reason: Adult Acute Hypoglycemia Prot. Dextrose (D5w) 500 mls @ 100 mls/hr IV ONCE PRN; Protocol PRN Reason: Adult Acute Hypoglycemia Prot Insulin Aspart (Novolog) 0 unit SUBCUT TIDWM [facility]; Protocol Last Admin: 02/12/20 07:23 Dose: Not Given Documented by: Insulin Detemir (Levemir) 30 unit SUBCUT QAM [facility] Last Admin: 02/12/20 06:16 Dose: 30 unit Documented by: Isosorbide Mononitrate (Imdur) 30 mg PO QAM [facility] Last Admin: 02/12/20 06:16 Dose: 30 mg Documented by: Levothyroxine Sodium (Synthroid) 100 mcg PO DAILY [facility] Last Admin: 02/11/20 09:22 Dose: 100 mcg Documented by: Lisinopril (Prinivil) 10 mg PO DAILY [facility] Last Admin: 02/11/20 09:22 Dose: 10 mg Documented by: Magnesium Lactate (Mag-Tab Sr) 84 mg PO DAILY [facility] Last Admin: 02/11/20 09:22 Dose: 84 mg Documented by: Metoprolol Tartrate (Lopressor) 25 mg PO BID [facility] Last Admin: 02/11/20 17:15 Dose: 25 mg Documented by: Morphine Sulfate (Morphine) 1 mg IVP Q8H PRN PRN Reason: SEVERE PAIN Last Admin: 02/11/20 21:36 Dose: 1 mg Documented by: Nitroglycerin (Nitrostat) 0.4 mg SUBLINGUAL Q5M PRN PRN Reason: Chest Pain Non-Formulary Medication (Ferrous Sulfate) 325 mg PO .3-4X A WEEK [facility] Ondansetron HCl (Zofran) 4 mg IVP Q8H PRN PRN Reason: vomiting, or N/V if npo Pantoprazole Sodium (Protonix) 40 mg PO BEDTIME [facility] Last Admin: 02/10/20 20:55 Dose: 40 mg Documented by: Pantoprazole Sodium (Protonix) 40 mg IVP Q12H [facility] Last Admin: 02/11/20 20:30 Dose: 40 mg Documented by: Potassium Chloride (Klor-Con 10) 40 meq PO DAILY [facility] Last Admin: 02/11/20 09:26 Dose: 40 meq Documented by: Ropinirole HCl (Requip) 1 mg PO BEDTIME [facility] Last Admin: 02/11/20 20:29 Dose: 1 mg Documented by: Vitals/I&O/Wt Last Vital Signs Temp 97.8 F 02/13/20 04:00 Pulse 74 02/13/20 04:00 Resp 16 02/13/20 04:00 BP 130/52 02/13/20 04:00 Pulse Ox 98 02/13/20 04:00 02/12/20 02/13/20 02/13/20 22:59 06:59 14:59 Intake Total 240 / 1600 100 / 1700 Output Total 750 / 2750 2450 / 5200 Balance -510 / -1150 -2350 / -3500 Weight last 48 hrs Weight 272 lb Physical Exam Narrative: EXAM NARRATIVE: GENERAL: The patient is alert and oriented times three. Not in any acute distress. HEENT: Moderate pallor. No icterus or lymphadenopathy. NECK: Trachea appears to be central. No masses noted. No JVD or thyromegaly appreciated. No carotid bruit. RESPIRATORY: Chest is symmetrical. No intercostals muscle retraction or any accessory muscle activation. There is no chest wall tenderness. Breath sounds a re heard bilaterally. No rales or rhonchi heard. No evidence of any consolidation. The intensity of the breath sounds are diminished in the bases BREASTS: Deferred. HEART: The PMI is in the 5th left intercostals space just inside the midclavicular line. No palpable precordial events. S1 and S2 are normal. No S3 or S4 heard. No pericardial rub or any click heard. Short systolic murmur in the left sternal border. No diastolic murmurs. ABDOMEN: Abdomen is obese. No vessel pulsations or distention. She has minimal tenderness around the umbilical region : Deferred. RECTAL: Deferred. LYMPHATIC: No lymphadenopathy noted in the neck or groin. EXTREMITIES: No significant edema or cyanosis. MUSCULOSKELETAL: No acute joint deformities or swelling SKIN: There are no significant scars or skin rash noted. NEUROPSYCHIATRIC: She has some fine tremor in the right upper extremity. No obvious motor weakness Urinary Catheter Management^: Velasco: Cath Placed During This Visit: yes Reason for Continuing Indwelling Catheter: Acute Urinary Retention or Obstruction Urinary Catheter Date of Insertion: 02/10/20 Urinary Catheter Time of Insertion: 13:30 Data : 02/13/20 04:40 02/13/20 04:40 A&P Assessment and plan (1) CHF (congestive heart failure): Patient seems to have a significant drop in the LV ejection fraction. In view of her multiple risk factors, possibility of underlying coronary artery disease causing LV dysfunction and heart failure is a strong consideration. Once the heart failure is appropriately treated, we may consider doing a cardiac catheterization, to further evaluate her cardiovascular status and decide on further management. We need to wait till her GI work-up is completed, to make sure there is no source of any active bleeding. Status: Acute Qualifiers: Heart failure chronicity: unspecified Heart failure type: unspecified Qualified Code(s): I50.9 - Heart failure, unspecified (2) Recent cerebrovascular accident (CVA): Patient had a carotid duplex yesterday. Was found to have 50 to 79% stenosis bilaterally Status: Acute (3) Acute kidney injury superimposed on CKD: This could be multifactorial. Heart failure, low output state, diabetes, anti-inflammatory medications, etc. are contributing factors. Will continue car eful IV diuresis. Her BUN/creatinine seems to be stable Status: Acute (4) Essential (primary) hypertension: We will continue to optimize medications. Currently the blood pressure is a stage II. We will continue optimizing the antihypertensive medications. Status: Acute (5) Stage 3b chronic kidney disease: Closely monitor the kidney function. May continue on the current medications. Status: Chronic (6) Uncontrolled type 2 diabetes mellitus with insulin therapy: May continue the management of diabetes aggressively. Status: Acute (7) Anemia of chronic disease: GI work-up is pending. The hemoglobin seems to be improving. Status: Acute (8) Elevated troponin: Most likely the patient has type II myocardial infarction Status: Acute Additional A&P Information Based on the clinical progress of the results of the GI work-up, further recommendations will be made. Attestations Medical Necessity Statement*: Patient requires continued hospital stay for close monitoring and further management Coding Level of Care Code Acute [employer] Diagnoses CHF (congestive heart failure) I50.9 Heart failure chronicity: unspecified Heart failure type: unspecified Recent cerebrovascular accident (CVA) Z86.73 Acute kidney injury superimposed on CKD N17.9; N18.9 Essential (primary) hypertension I10 Stage 3b chronic kidney disease N18.3 Uncontrolled type 2 diabetes mellitus with insulin therapy E11.65; Z79.4 Anemia of chronic disease D63.8 Elevated troponin R79.89
[2020-02-13] MEDS: gabapentin 300 mg Capsule PO ×3 (09:23→20:53)
--- NOTE | 2020-02-13 09:30 | PC.SOCIAL ---
IMM Updated Updated pt on Pg 2 IMM. Pt verbally understands. No questions voiced. Provided pt a copy & left on pt's bedside table. Signed, dated, & timed copy in chart.
[2020-02-13] MEDS: atorvastatin 40 mg Tablet 20 MG PO (09:53)
[2020-02-13] MEDS: magnesium lactate 84 mg Tablet PO (09:54)
[2020-02-13] MEDS: lisinopril 10 mg Tablet PO (09:54)
[2020-02-13] MEDS: metoprolol tartrate 25 mg Tablet PO ×2 (09:54→17:39)
[2020-02-13] MEDS: pantoprazole 40 mg SDV IVP ×2 (09:54→20:56)
[2020-02-13] MEDS: levothyroxine 100 mcg Tablet PO (09:54)
[2020-02-13] MEDS: bumetanide 0.25 mg/mL SDV 10 mL 1 MG IV ×2 (10:08→20:55)
[2020-02-13] MEDS: potassium chloride ER 10 mEq Tablet 40 MEQ PO (10:08)
[2020-02-13 10:12] LABS: ABG PH Result 7.37 (7.35-7.45); Base Excess ABG 16.7 mmol/L (-2.0-2.0); HCO3 ABG 44.7 mmol/L (22-26); Ionized Calcium Level - ABG 1.2 mmol/L (1.1-1.4); Oxygen Saturation ABG 96.3; PO2 ABG 79.4 mmHg (80.0-100.0); Potassium Level - ABG 4.7 mmol/L (3.5-5.0)
[2020-02-13] MEDS: acetaminophen 325 mg Tablet 650 MG PO (10:12)
[2020-02-13 10:32] LABS: ABG PCO2 77.5 mmHg (35-45)
--- NOTE | 2020-02-13 10:45 | PC.NURSE ---
patient resting in bed peacefully with bi pap in place patient showing no outward s/s of pain at this time will continue to monitor
[2020-02-13 12:10] LABS: Glucose Point of Care 122 mg/dL (70-110)
[2020-02-13 12:28] LABS: ABG PH Result 7.39 (7.35-7.45); Arterial Blood Gas Hematocrit 27.2 % (37-47); Blood Gas Allen Test Pos; Blood Gas Operator Identificat glc; Blood Gas Sample Site Radial, left; Blood Gas Sample Type Arterial; HCO3 ABG 46.8 mmol/L (22-26); Oxygen Device OXY MASK; PO2 ABG 74.3 mmHg (80.0-100.0)
[2020-02-13 12:33] LABS: ABG PCO2 78.3 mmHg (35-45)
--- NOTE | 2020-02-13 14:16 | PC.NURSE ---
Contacted Dr frausto about ativan for the MRI instructions given not to do MRI today to hold off and possibly do them tomorrow depending on how she does all so spoke with Dr frausto about patient being on NC at 2L and unable to maintain saturations instructions to maintain bi pap placement and continue to monitor
--- NOTE | 2020-02-13 15:58 | P.PN_ITS ---
Subjective Subjective: Interval history: This morning patient had episodes of confusion, patient was denied anything wrong, following all commands, no focal neurologic deficits, no paresthesias, she did receive Merced/morphine/gabapentin/Requip for her severe restless leg, slept all night, her PCO2 is 78, likely has confusion secondary to hypercapnia, no respiratory distress, no retractions, no nasal flaring, was doing well on 2 L during my examination, lungs sounded clear, has diuresed well during her admission -7.96 L Vitals/I&O/Wt Last Vital Signs Temp 99.5 F 02/13/20 12:00 Pulse 61 02/13/20 14:03 Resp 17 02/13/20 12:00 BP 111/42 02/13/20 12:00 Pulse Ox 96 02/13/20 14:03 02/13/20 02/13/20 02/13/20 06:59 14:59 22:59 Intake Total 100 / 1700 100 / 100 Output Total 2450 / 5200 Balance -2350 / -3500 100 / 100 Weight last 48 hrs Weight 123.377 kg Physical Exam Const: COMMON NORMALS: no acute distress and patient oriented x3 GENERAL APPEARANCE: cooperative and comfortable HENMT: COMMON NORMALS: normocephalic HEAD & SCALP: normocephalic Eye: COMMON NORMALS: Equal, round and reactive pupils present, EOMs intact bilaterally and no papilledema GENERAL EYE: appearance normal, both eyes and all related structures PUPIL: Yes Equal, round and reactive pupils present DIRECT OPHTHALMOSCOPY: Yes no papilledema Neck/C-Spine: COMMON NORMALS: full ROM, no lymphadenopathy, no JVD and Thyroid normal THYROID: Thyroid normal Lymph: LYMPHATIC: no lymphadenopathy noted Resp: COMMON NORMALS: normal respiratory effort, No retractions, No use of accessory muscles and clear to auscultation bilaterally AUSCULTATION: clear to auscultation bilaterally and breath sounds absent (Bilateral lung bases) Cardio: COMMON NORMALS: no JVD, regular rate, regular rhythm, S1 normal heart sound present, S2 normal heart sound present, No gallops present (Cardio), No clicks present (Cardio) and No murmurs present (Cardio) RATE: regular rate RHYTHM: regular rhythm HEART SOUNDS: S1 normal heart sound present and S2 normal heart sound present GI: COMMON NORMALS: Normal to inspection, nondistended, normoactive bowel soun ds present, Soft to palpation, non-tender, No hepatosplenomegaly present, no masses and no bruits PALPATION: Yes Soft to palpation and Yes No hepatosplenomegaly present Extremity: COMMON NORMALS: normal to inspection, full ROM, capillary refill normal, no clubbing, cyanosis or edema, no calf tenderness and no pedal edema Neuro: COMMON NORMALS: patient oriented x3, CN's II-XII intact bilaterally, moves all extremities, no focal motor deficits and no sensory deficits noted Psych: COMMON NORMALS: mental status grossly normal, Normal thought process present and cooperative THOUGHT PROCESS: Normal thought process present Urinary Catheter Management^: Velasco: Cath Placed During This Visit: yes Reason for Continuing Indwelling Catheter: Acute Urinary Retention or Obstruction Urinary Catheter Date of Insertion: 02/10/20 Urinary Catheter Time of Insertion: 13:30 Data : 02/13/20 04:40 02/13/20 04:40 A&P Assessment and plan (1) Acute respiratory failure with hypoxia: -Likely secondary to diastolic CHF exacerbation -BNP is 5000, chest x-ray shows no significant pleural effusions, does show probably vascular congestion, is requiring 1 L oxygen - 7960 cc since admission -Repeat ABG this morning shows PCO2 of 78, likely hypercarbia and, hypercarbic confusion related to Merced/morphine/Requip/gabapentin she took last night for restless leg -Currently doing well on BiPAP Plan: -Admit to CSU -Telemetry monitoring -Strict I's and O's -Fluid restriction to less than 1500 cc -Daily dosing of diuretics based on creatinine, start Bumex 1 mg every 12 hours -Repeat echocardiogram showed decreased ejection fraction to 35 to 40%, left ventricular hypokinesis -Cardiology Dr. Ramon has been consulted -Continue BiPAP, avaps, repeat ABG in a few hours, currently no respiratory distress, no nasal flaring, no intercostal retractions, no tachypnea Status: Acute (2) Diastolic CHF, acute on chronic: Status: Acute (3) NSTEMI (non-ST elevated myocardial infarction): -Troponin 29 -EKG shows left bundle branch block bump, but it was seen back in May 2018 -We will obtain a cardiac echocardiogram -Patient has had a positive stress test in 06/22/2018, showing ischemia in the left circumflex, echocardiogram on 04/22/2019 showed mild diffuse hypokinesia of the septum and anteroseptal segments -Has had chest pain in the last week, no current chest pain -Continue aspirin, statin, Plavix, beta-nahed -Echocardiogram showed ejection fraction 35 to 40%, left ventricular hypokinesis, cardiology has been consulted Status: Acute (4) Acute kidney injury superimposed on CKD: Creatinine currently 1.3, carefully diurese Status: Acute (5) Anemia of chronic disease: -Hemoglobin has improved to 8.7, iron studies show iron deficiency anemia -Start IV Venofer 200 mg for 5 treatments -Status post 1 unit PRBC -Patient denies a history of GI bleeds, denies a history of bloody or black stools -Likely some component of patient's weakness is related to anemia, likely a slow GI bleed, no overt signs of bleeding, no hemodynamic compromise -Continue Protonix 40 mg IV twice daily, added Carafate -Patient is on aspirin and Plavix as above, will continue to monitor as currently benefit of antiplatelet therapy outweighs risk given the concern for NSTEMI and depressed ejection fraction and stroke Status: Acute (6) Dyslipidemia: Status: Acute (7) Uncontrolled type 2 diabetes mellitus with insulin therapy: -Patient states that she takes Levemir 30-40 daily based on her morning blood sugar -Insulin sliding scale of NovoLog -Start Levemir 30 units every morning, low-dose sliding scale Status: Acute (8) Lumbar back pain with radiculopathy affecting right lower extremity: Status: Acute (9) GI bleed: Status: Acute (10) CVA (cerebral vascular accident): -Sounds a lot like patient had a stroke or transient ischemic attack a week ago -Is already on aspirin and Plavix -Continue PT OT -n CT of the head no acute infarct,'s carotid ultrasound shows 50 to 79% stenosis bilaterally Status: Acute (11) Restless leg syndrome: -Severe restless leg, not improving with Merced, Requip, morphine, gabapentin -I was hoping that her iron deficiency with IV Venofer should help, but it has not -Patient has developed hypercarbia from overuse of Merced with morphine with Requip, gabapentin -We will have to conservatively manage for now Status: Acute Attestations Medical Necessity Statement*: She reports occasional hospitalization due to acute respiratory failure, anemia, Coding Level of Care Code Acute 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
--- NOTE | 2020-02-13 16:13 | PC.NURSE ---
Patient woke up tearful and crying in pain in BLE patient educated on the reasons pain medication could not be given due to respiratory status patient stated i don't care. dying isn't supposed to hurt it is supposed to be peaceful. Patient reassured that she is not dying. Dr frausto notified of patients pain also that gabapentin was late due to patient resting peacefully at scheduled time Dr frausto approved to give med late also awaiting other orders for pain relief.
--- NOTE | 2020-02-13 16:40 | PC.NURSE ---
patient sat up on bed and distraction and comfort provide Topical lidocaine applied to BLE patient is calm at this time patient is also refusing to place bi pap back on at this time saturations are holding steady with oxy mask in place will continue to monitor
[2020-02-13 16:57] LABS: Glucose Point of Care 298 mg/dL (70-110)
--- NOTE | 2020-02-13 19:32 | PC.NURSE ---
Received report from offgoing shift, MARY Dominguez. Pt on bedside commode and assisted back to bed. BM x1 and stool sent to lab per orders. No complaints of pain. Pt placed on bipap while back in bed. No signs or symptoms of distress or further needs identified.
--- NOTE | 2020-02-13 19:47 | PC.NURSE ---
Patients family member called by the name of Deb Lim informed her that she was not on a list of people to communicate about patient cares she insisted that she should be on it. Transferred her to patient bedside phone and discussed with patient who was calling and if ii could give her information about patient health status patient stated yes you can tell her anything she is actually my Dpoa and needs to be added to list of people informed patient that I would do what I could to get her on the list patient verbalized agreement with plan to add name to list.
[2020-02-13 20:51] LABS: Glucose Point of Care 264 mg/dL (70-110)
[2020-02-13] MEDS: ropinirole 1 mg Tablet PO (20:53)
[2020-02-13] MEDS: HYDROcodone-acetaminophen 5-325 mg Tablet 1 TAB PO (20:53)
--- NOTE | 2020-02-13 21:17 | PC.NURSE ---
Pt restless in bed with bipap on and requests to have it off. Pulse ox drops 75-80% when taking it off. EDucated pt on purpose. Drink provided and night time medications administerd (SEE MAR). Pt verbalizes understanding but remains restless at this time. Monitoring closely for improvement post medications and re-teaching.
[2020-02-14] VITALS (9 sets, daily range): BP systolic 102–131; BP diastolic 47–57; PULSE 61–70; RESP 12–24; TEMP 36.6–36.9; O2SAT 94–100
[2020-02-14 03:56] LABS: Basophils % 0.3 %; Eosinophils # 0.3 10^3/uL (0.0-0.8); Eosinophils % 4.5 %; Hematocrit 30.2 % (37.0-47.0); Hemoglobin 8.2 g/dL (11.5-15.3); Lymphocytes # 1.2 10^3/uL (0.8-4.8); Lymphocytes % 17.2 %; Mean Corpuscular HGB Conc 27.2 g/dL (30.0-36.0); Mean Corpuscular Volume 84.6 fL (81-99); Mean Platelet Volume 9.7 fL (7.4-10.4); Monocytes # 0.6 10^3/uL (0.2-0.9); Monocytes % 9.2 %; Neutrophils # 4.7 10^3/uL (1.8-7.7); Neutrophils % 68.1 %; Nucleated Red Blood Cells % 0 %; Platelet Count 119 10^3/cmm (130-400); Red Blood Count 3.57 10^6/uL (4.1-5.3); Red Cell Distribution Width 17.1 % (12.1-15.1); White Blood Count 6.9 10^3/uL (4.0-10.0)
[2020-02-14 04:14] LABS: ABG PH Result 7.41 (7.35-7.45); Arterial Blood Gas Hematocrit 26.2 % (37-47); Blood Gas Allen Test Pos; Blood Gas Sample Type Arterial; HCO3 ABG 47.4 mmol/L (22-26); Oxygen Device NC; PO2 ABG 57.2 mmHg (80.0-100.0)
[2020-02-14 04:33] LABS: Alanine Aminotransferase 8 U/L (0-33); Albumin Level 3.4 g/dL (3.5-5.2); Alkaline Phosphatase 78 IU/L (35-105); Anion Gap 12.1 (5-19); Aspartate Amino Transferase 9 U/L (0-32); Blood Urea Nitrogen 30 mg/dL (8-23); Calcium 9.2 mg/dL (8.5-10.5); Chloride 93 mmol/L (98-107); Globulin 2.7 g/dL (1.3-4.6); Glucose 190 mg/dL (65-115); Magnesium 1.6 mg/dL (1.7-2.3); Osmolality Calculated 298 mOsm/kg (285-295); Phosphorus 2.7 mg/dL (2.5-4.5); Potassium 5.1 mmol/L (3.5-5.1); Sodium 143 mmol/L (136-145); Total Protein 6.1 g/dL (6.6-8.7)
[2020-02-14 04:40] LABS: Carbon Dioxide 43 mmol/L (22-29)
--- NOTE | 2020-02-14 05:19 | PC.NURSE ---
Pt able to remain on bipap from 1929 to 399 during this shift; however pt was very restless. Pt awake and a/ox4 this Am. Able to follow commands and answer questions appropriately. Pt refuse to place bipap back on.Placed on 2 L NC due to pulse ox 88-89 (increased to 96% after applications).
--- NOTE | 2020-02-14 06:04 | NUR.SHIFT ---
Pt's pulse ox noted to be dropping to 68-70s while resting. When awakened, pulse ox immediately increases to 90s. Pt questions why this RN keeps waking her. Explained to her that her oxygen needs to come up and reiterated the importance. Pt then states I do not trust you guys and I feel like I do not have a choice. With further explanation, pt informed me that she did not want to wear the bipap last night. I explained the importance and reason behind why we asked her to wear the bipap as much as possible last night- due to ABG results and O2 remaiing in the 70s with no improvement with nasal cannula while awake. Pt stated well the doctor told me I could wear a different machine. Pt aware that the next step could possibly be intubation if she would not wear bipap and if her O2 did not increase. Pt adamantly stated that she would not do that and wants to discuss her wishes with physician on rounds. Pt states just let me sleep. Again, reminded patient that I could not allow her oxygen to drop to 60s-70s and remain there. Pt verbalized understanding and stated that it would be okay to wake her up, but that she would not wear the bipap this AM. Monitoring closely.
[2020-02-14 06:14] LABS: Glucose Point of Care 169 mg/dL (70-110)
[2020-02-14] MEDS: sucralfate 1 gm Tablet PO ×2 (06:27→16:48)
[2020-02-14] MEDS: isosorbide mononitrate ER 30 mg Tablet PO (06:27)
--- NOTE | 2020-02-14 07:00 | XRR_ITS ---
PROCEDURE INFORMATION: Exam: XR Chest, 1 View Exam date and time: 02/13/2020 11:59 PM Age: 74 years old Clinical indication: Shortness of breath; Prior surgery; Additional info: SOB TECHNIQUE: Imaging protocol: XR of the chest Views: 1 view. COMPARISON: CR (CHEST, ) 02/07/2020 2:59 PM FINDINGS: Lungs: A shallow breath is been obtained with crowding of the pulmonary vasculature seen as result. Mild peribronchial cuffing, mild prominence of the central pulmonary vasculature and some residual interstitial opacities are again seen in the lower hemithoraces, findings likely representing chronic CHF. Pleural space: Unremarkable. No pleural effusion. No pneumothorax. Heart/Mediastinum: Unremarkable. No cardiomegaly. Bones/joints: Unremarkable. XR/XR chest 1V portable [id number] IMPRESSION: Findings suggesting mild chronic CHF.
[2020-02-14] MEDS: bumetanide 0.25 mg/mL SDV 10 mL 1 MG IV (07:43)
[2020-02-14] MEDS: pantoprazole 40 mg SDV IVP ×2 (09:32→20:56)
[2020-02-14] MEDS: potassium chloride ER 10 mEq Tablet 40 MEQ PO (09:33)
[2020-02-14] MEDS: acetaminophen 325 mg Tablet 650 MG PO (09:34)
[2020-02-14] MEDS: magnesium lactate 84 mg Tablet PO (09:34)
[2020-02-14] MEDS: atorvastatin 40 mg Tablet 20 MG PO (09:34)
[2020-02-14] MEDS: aspirin 81 mg EC Tablet PO (09:34)
[2020-02-14] MEDS: lisinopril 10 mg Tablet PO (09:34)
[2020-02-14] MEDS: levothyroxine 100 mcg Tablet PO (09:34)
[2020-02-14] MEDS: gabapentin 300 mg Capsule PO ×3 (09:34→20:56)
[2020-02-14] MEDS: clopidogrel 75 mg Tablet PO (09:35)
[2020-02-14] MEDS: metoprolol tartrate 25 mg Tablet PO ×2 (09:35→18:21)
--- NOTE | 2020-02-14 09:56 | PM.PN ---
Subjective Subjective: Interval history: Patient denies any new symptoms. She was found to have oxygen saturation in the 70s through the night. Try to put her on BiPAP. Apparently she could not tolerate this. She has a history of obstructive sleep apnea. Her hemoglobin seems to be slowly dropping again. Denies any abdominal pain. No nausea or vomiting. No hematemesis or melena. No other specific complaints. Medications: Reviewed: Yes Medication Review Details: Current Medications Acetaminophen (Tylenol) 650 mg PO Q6H PRN PRN Reason: Mild/Mod Pain Or Temp >/= 101 Last Admin: 02/14/20 09:34 Dose: 650 mg Documented by: Hydrocodone Bitart/Acetaminophen (Dinuba 5-325 Mg) 1 tab PO BID PRN PRN Reason: pain Last Admin: 02/13/20 20:53 Dose: 1 tab Documented by: Albuterol Sulfate (Albuterol) 2.5 mg INHALATION Q6H.RESPIRATORY PRN PRN Reason: shortness of breath or wheezing Albuterol/Ipratropium (Duoneb) 3 ml INHALATION Q4H PRN PRN Reason: wheezing Aspirin (Aspirin Ec) 81 mg PO DAILY [facility] Last Admin: 02/14/20 09:34 Dose: 81 mg Documented by: Atorvastatin Calcium (Lipitor) 20 mg PO DAILY [facility] Last Admin: 02/14/20 09:34 Dose: 20 mg Documented by: Clopidogrel Bisulfate (Plavix) 75 mg PO DAILY [facility] Last Admin: 02/14/20 09:35 Dose: 75 mg Documented by: Dextrose (D50w) 25 ml IVP ONCE PRN; Protocol PRN Reason: hypoglycemia protocol Dextrose (D50w) 50 ml IVP PRN PRN; Protocol PRN Reason: hypoglycemia protocol Docusate Sodium (Colace) 100 mg PO BID PRN PRN Reason: Constipation Last Admin: 02/12/20 09:22 Dose: 100 mg Documented by: Enoxaparin Sodium (Lovenox) 40 mg SUBCUT Q24H [facility] Last Admin: 02/10/20 16:01 Dose: 40 mg Documented by: Gabapentin (Neurontin) 300 mg PO TID [facility] Last Admin: 02/14/20 09:34 Dose: 300 mg Documented by: Glucagon (Glucagen) 1 mg IM ONCE PRN; Protocol PRN Reason: Adult Acute Hypoglycemia Prot. Dextrose (D5w) 500 mls @ 100 mls/hr IV ONCE PRN; Protocol PRN Reason: Adult Acute Hypoglycemia Prot Insulin Aspart (Novolog) 0 unit SUBCUT TIDWM [facility]; Protocol Last Admin: 02/14/20 07:43 Dose: 2 unit Documented by: Insulin Detemir ([facility]) [facility] Admin: 02/14/20 06:27 Dose: 30 unit Documented by: Isosorbide Mononitrate (Imdur) 30 mg PO QAM [facility] Last Admin: 02/14/20 06:27 Dose: 30 mg Documented by: Levothyroxine Sodium (Synthroid) 100 mcg PO DAILY [facility] Last Admin: 02/14/20 09:34 Dose: 100 mcg Documented by: Lidocaine HCl (Lidocaine 2% Jelly) 1 applic TOPICAL PRN PRN PRN Reason: PAIN Last Admin: 02/13/20 16:31 Dose: 1 applic Documented by: Lisinopril (Prinivil) 10 mg PO DAILY [facility] Last Admin: 02/14/20 09:34 Dose: 10 mg Documented by: Magnesium Lactate (Mag-Tab Sr) 84 mg PO DAILY [facility] Last Admin: 02/14/20 09:34 Dose: 84 mg Documented by: Metoprolol Tartrate (Lopressor) 25 mg PO BID [facility] Last Admin: 02/14/20 09:35 Dose: 25 mg Documented by: Morphine Sulfate (Morphine) 1 mg IVP Q8H PRN PRN Reason: SEVERE PAIN Last Admin: 02/12/20 12:24 Dose: 1 mg Documented by: Naloxone HCl (Narcan) 0.1 mg IVP Q2M PRN PRN Reason: RESPIRATORY RATE < 8/MIN Nitroglycerin (Nitrostat) 0.4 mg SUBLINGUAL Q5M PRN PRN Reason: Chest Pain Non-Formulary Medication (Ferrous Sulfate) 325 mg PO .3-4X A WEEK [facility] Ondansetron HCl (Zofran) 4 mg IVP Q8H PRN PRN Reason: vomiting, or N/V if npo Last Admin: 02/12/20 23:19 Dose: 4 mg Documented by: Pantoprazole Sodium (Protonix) 40 mg IVP Q12H [facility] Last Admin: 02/14/20 09:32 Dose: 40 mg Documented by: Potassium Chloride (Klor-Con 10) 40 meq PO DAILY [facility] Last Admin: 02/14/20 09:33 Dose: 40 meq Documented by: Ropinirole HCl (Requip) 1 mg PO BEDTIME [facility] Last Admin: 02/13/20 20:53 Dose: 1 mg Documented by: Sucralfate (Carafate) 1 gm PO BIDAC [facility] Last Admin: 02/14/20 06:27 Dose: 1 gm Documented by: Vitals/I&O/Wt Last Vital Signs Temp 98.4 F 02/14/20 07:24 Pulse 70 02/14/20 08:37 Resp 18 02/14/20 08:37 BP 120/47 02/14/20 07:24 Pulse Ox 97 02/14/20 08:37 02/13/20 02/14/20 02/14/20 22:59 06:59 14:59 Intake Total 240 / 580 100 / 680 360 / 360 Output Total 1900 / 1900 Balance 240 / 580 -1800 / -1220 360 / 360 Weight last 48 hrs Weight 272 lb 9.6 oz Physical Exam Narrative: EXAM NARRATIVE: GENERAL: The patient is alert and oriented times three. Not in any acute distress. HEENT: Moderate pallor. No icterus or lymphadenopathy. NECK: Trachea appears to be central. No masses noted. No JVD or thyromegaly appreciated. No carotid bruit. RESPIRATORY: Chest is symmetrical. No intercostals muscle retraction or any accessory muscle activation. There is no chest wall tenderness. Breath sounds are heard bilaterally. No rales or rhonchi heard. No evidence of any consolidation. The intensity of the breath sounds are diminished in the bases BREASTS: Deferred. HEART: The PMI is in the 5th left intercostals space just inside the midclavicular line. No palpable precordial events. S1 and S2 are normal. No S3 or S4 heard. No pericardial rub or any click heard. Short systolic murmur in the left sternal border. No diastolic murmurs. ABDOMEN: Abdomen is obese. No vessel pulsations or distention. She has minimal tenderness around the umbilical region, in the region of the scar. She has a pendulous abdomen. : Deferred. RECTAL: Deferred. LYMPHATIC: No lymphadenopathy noted in the neck or groin. EXTREMITIES: No significant edema or cyanosis. MUSCULOSKELETAL: No acute joint deformities or swelling SKIN: There are no significant ecchymosis or rashes NEUROPSYCHIATRIC: She has some fine tremor in the right upper extremity. No obvious motor weakness Urinary Catheter Management^: Velasco: Cath Placed During This Visit: yes Reason for Continuing Indwelling Catheter: Accurate Measurement of Urinary Output in Critically Ill Patients Urinary Catheter Date of Insertion: 02/10/20 Urinary Catheter Time of Insertion: 13:30 Data : 02/14/20 03:34 02/14/20 03:34 A&P Assessment and plan (1) CHF (congestive heart failure): The patient is currently compensated. Her LV dysfunction, Anemia, kidney failure, hypoxia/CO2 retention etc. are the accountability factors. Possibility of underlying coronary ischemia causing this also is a consideration.She may continue on the current medications for the time being. She requires further cardiac work-up. Status: Acute Qualifiers: Heart failure chronicity: unspecified Heart failure type: unspecified Qualified Code(s): I50.9 - Heart failure, unspecified (2) Recent cerebrovascular accident (CVA): Patient had a carotid duplex yesterday. Was found to have 50 to 79% stenosis bilaterally Status: Acute (3) Acute kidney injury superimposed on CKD: This could be multifactorial. Heart failure, low output state, diabetes, anti-inflammatory medications, etc. are contributing factors. Will continue careful IV diuresis. Her creatinine is going up, slightly. If it continues to go up, we may discontinue the lisinopril and start her on a low-dose of calcium channel nahed. Status: Acute (4) Essential (primary) hypertension: Currently normotensive. Advised to continue the current medications. Status: Acute (5) Uncontrolled type 2 diabetes mellitus with insulin therapy: May continue the management of diabetes aggressively. Status: Acute (6) Elevated troponin: Most likely the patient has type II myocardial infarction Status: Acute (7) Anemia: The hemoglobin is slowly dropping again. In view of the continued drop in the hemoglobin again, she requires a GI work-up to evaluate for any source of bleeding. Even though her cardiovascular status is not ideal, currently she seems to be stable with respect to her hemodynamic status. She has no ongoing chest pain. Her heart failure is fairly compensated. At this point, it may be appropriate to go ahead with the upper and lower endoscopies, if she continues remain stable. Status: Acute Qualifiers: Anemia type: iron deficiency Iron deficiency anemia type: chronic blood loss Qualified Code(s): D50.0 - Iron deficiency anemia secondary to blood loss (chronic) Additional A&P Information I discussed with Dr. Garvin, about further cardiac work-up. She requested a myocardial perfusion imaging, to further evaluate her coronary status and decide on further management. But because of the recurrent drop in the hemoglobin, she may benefit from a GI work-up to rule out any ongoing GI pathology to cause the bleeding. This information is important before we can proceed with any interventional cardiac procedures. 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 I answered all her questions to her satisfaction. Dr. Garvin also will be discussing with her, the treatment options. A final decision will be made afterwards. In the meanwhile we may continue on the current medications. If there is a trend of the creatinine going up, we may consider discontinuing the lisinopril. Attestations Medical Necessity Statement*: Patient requires continued hospital stay for close monitoring and further management Coding Level of Care Code Acute Network Account Manager for [facility] Fwd Diagnoses CHF (congestive heart failure) I50.9 Heart failure chronicity: unspecified Heart failure type: unspecified Recent cerebrovascular accident (CVA) Z86.73 Acute kidney injury superimposed on CKD N17.9; N18.9 Essential (primary) hypertension I10 Uncontrolled type 2 diabetes mellitus with insulin therapy E11.65; Z79.4 Elevated troponin R79.89 Anemia D50.0 Anemia type: iron deficiency Iron deficiency anemia type: chronic blood loss Time Spent (min) 40
[2020-02-14 11:15] LABS: Glucose Point of Care 241 mg/dL (70-110)
--- NOTE | 2020-02-14 13:54 | P.PN_ITS ---
Subjective Subjective: Interval history: This morning patient was seen, sitting up in a chair, states she is doing better, is quite tearful, states that she did have a difficult night, restless leg syndrome is quite severe at times, she has to grab multiple creams, take Rock[place], Requip, gabapentin without any significant improvement at times, this is been normal for her, her pain is very severe and it is hard to manage, I was hoping her restless leg syndrome would respond to IV Venofer, but she still continues to have severe symptomatology Her breathing has improved, she is -8.8 L since admission, creatinine is up to 1.8, diuresis will be held for today, denies shortness of breath or chest pain Patient's PCO2 remains chronically elevated in the 70s, I think that this is likely normal for her given her obstructive sleep apnea undiagnosed, likely has obesity hypoventilation syndrome, and heart failure. Patient PCO2 likely also are chronically elevated because she uses Rockport/Requip/gabapentin at night to help her sleep with her severe restless leg, patient is not able to tolerate Bi PAP overnight, feels too claustrophobic, does not want to be intubated, it is a difficult situation Patient's hemoglobin continues to trend lower, right now 8.2, likely secondary to GI bleed, slow GI bleed, she is on aspirin and Plavix, ideally she will should be taken off 1 of the antiplatelet therapy, however given her cardiac risk and dumper bulk system concerning both antiplatelet therapies need to be continued, thus providing a challenging issue in terms of her bleed, after discussion with cardiology and patient, patient and has agreed for EGD and colonoscopy, I discussed risk and benefit; risks not limited to but including of anesthesia, risks of myocardial infarct during procedure, risk of perforation, patient understands risk of understanding, all questions answered, agreed to proceed for EGD and colonoscopy Vitals/I&O/Wt Last Vital Signs Temp 98.0 F 02/14/20 11:10 Pulse 62 02/14/20 11:10 Resp 23 H 02/14/20 11:10 BP 118/55 02/14/20 11:10 Pulse Ox 95 02/14/20 11:10 02/13/20 02/14/20 02/14/20 22:59 06:59 14:59 Intake Total 240 / 580 100 / 680 480 / 480 Output Total 1900 / 1900 Balance 240 / 580 -1800 / -1220 480 / 480 Weight last 48 hrs Weight 123.649 kg Physical Exam Const: COMMON NORMALS: no acute distress and patient oriented x3 HENMT: COMMON NORMALS: normocephalic HEAD & SCALP: normocephalic Neck/C-Spine: COMMON NORMALS: no JVD Resp: COMMON NORMALS: normal respiratory effort, No retractions, No use of accessory muscles and clear to auscultation bilaterally AUSCULTATION: clear to auscultation bilaterally Cardio: COMMON NORMALS: no JVD, regular rate, regular rhythm, S1 normal heart sound present and S2 normal heart sound present RATE: regular rate RHYTHM: regular rhythm HEART SOUNDS: S1 normal heart sound present and S2 normal heart sound present GI: COMMON NORMALS: Normal to inspection, nondistended, normoactive bowel sounds present, Soft to palpation, non-tender, No hepatosplenomegaly present, no masses and no bruits PALPATION: Yes Soft to palpation and Yes No hepatosplenomegaly present Extremity: COMMON NORMALS: capillary refill normal, no clubbing, cyanosis or edema, no calf tenderness and no pedal edema Neuro: COMMON NORMALS: patient oriented x3 Psych: COMMON NORMALS: mental status grossly normal Urinary Catheter Management^: Velasco: Cath Placed During This Visit: yes Reason for Continuing Indwelling Catheter: Accurate Measurement of Urinary Output in Critically Ill Patients Urinary Catheter Date of Insertion: 02/10/20 Urinary Catheter Time of Insertion: 13:30 Data : 02/14/20 03:34 02/14/20 03:34 A&P Assessment and plan (1) Chronic hypercapnic respiratory failure: -PCO2 remains in the high 70s, alert oriented x3, answering all questions appropriately, no shortness of breath, relatively asymptomatic -Did have episodes of hypercarbic confusion yesterday morning after a night of morphine, Rockport, Requip, gabapentin for her restless leg -I believe that she likely has meningitis for a long period of time -Etiology is likely multifactorial, from DONNELL, obesity hypoventilation syndrome, diastolic CHF, chronic pain medications she uses for her severe restless leg syndrome during the night -Likely patient would benefit stopping or de-escalating her medications for restless leg, however patient states that she cannot survive the night without these medications, that she would rather -Obviously BiPAP use would be optimal, however patient is very claustrophobic while using the BiPAP machine, and if he were to use a benzodiazepine well we will make the hypercarbia worse, is not particularly the mass that bothers her is to claustrophobia -This is certainly a difficult this situation -Patient does not want to be intubated, does not want have a home BiPAP machine, she said clearly to me today she does not want to live like this pointing at the BiPAP machine Plan: -Continue to monitor respiratory status closely -Try to use BiPAP machine as needed, or for acute exacerbations Status: Acute (2) Acute respiratory failure with hypoxia: -Likely secondary to diastolic CHF exacerbation -BNP is 5000, chest x-ray shows no significant pleural effusions, does show probably vascular congestion, is requiring 1 L oxygen -Currently doing significantly better -Has diuresed roughly 8.8 L since admission -Creatinine is up to 1.8 Plan: -Admit to CSU -Telemetry monitoring -Strict I's and O's -Fluid restriction to less than 1500 cc -Hold Bumex for the next 24 hours -Repeat echocardiogram showed decreased ejection fraction to 35 to 40%, left ventricular hypokinesis -Cardiology Dr. Ramon has been consulted -BiPAP for acute exacerbations Status: Acute (3) Diastolic CHF, acute on chronic: Status: Acute (4) NSTEMI (non-ST elevated myocardial infarction): -Troponin 29 -EKG shows left bundle branch block bump, but it was seen back in May 2018 -We will obtain a cardiac echocardiogram -Patient has had a positive stress test in 06/22/2018, showing ischemia in the left circumflex, echocardiogram on 04/22/2019 showed mild diffuse hypokinesia of the septum and anteroseptal segments -Has had chest pain in the last week, no current chest pain -Continue aspirin, statin, Plavix, beta-nahed -Echocardiogram showed ejection fraction 35 to 40%, left ventricular hypokine sis, cardiology has been consulted Status: Acute (5) Acute kidney injury superimposed on CKD: Creatinine currently 1.3, carefully diurese Status: Acute (6) Anemia of chronic disease: -Hemoglobin has down trended to 8.2, would like to keep hemoglobin greater than 8, likely secondary to slow GI bleed likely upper versus lower -Start IV Venofer 200 mg for 5 treatments -Status post 1 unit PRBC -Patient denies a history of GI bleeds, denies a history of bloody or black stools -Likely some component of patient's weakness is related to anemia, likely a slow GI bleed, no overt signs of bleeding, no hemodynamic compromise -Continue Protonix 40 mg IV twice daily, added Carafate -Patient is on aspirin and Plavix as above, will continue to monitor as currently benefit of antiplatelet therapy outweighs risk given the concern for NSTEMI and depressed ejection fraction and stroke -Patient agrees for EGD and colonoscopy if required, as risks and benefits discussed, voiced understanding, all questions answered, agreed to proceed -I have spoken to Dr. Haynes, who was kind enough to come by and see patient to discuss options Status: Acute (7) Dyslipidemia: Status: Acute (8) Uncontrolled type 2 diabetes mellitus with insulin therapy: -Patient states that she takes Levemir 30-40 daily based on her morning blood sugar -Insulin sliding scale of NovoLog -Start Levemir 30 units every morning, low-dose sliding scale Status: Acute (9) Lumbar back pain with radiculopathy affecting right lower extremity: Status: Acute (10) GI bleed: Status: Acute (11) CVA (cerebral vascular accident): -Sounds a lot like patient had a stroke or transient ischemic attack a week ago, currently neurologically intact -Is already on aspirin and Plavix -Continue PT OT - CT of the head no acute infarct,'s carotid ultrasound shows 50 to 79% stenosis bilaterally -Will hold off on doing further imaging until later time Status: Acute (12) Restless leg syndrome: -Severe restless leg, not improving with Rockport, Requip, morphine, gabapentin, capsaicin, topical lidocaine -I was hoping that her iron deficiency with IV Venofer should help, but it has not -Patient has developed hypercarbia from overuse of Rockport with morphine with Requip, gabapentin -This is a very difficult situation, patient is quite teary in the morning every day due to severe pain, not sure how to manage his -Clonazepam is relatively contraindicated in her given her severe hypercarbia -Can try some Tegretol tonight, to see if this helps Status: Acute Attestations Medical Necessity Statement*: Patient requires continued hospitalization for acute respiratory failure, anemia, stroke Coding Level of Care Code Acute Medical Accounting Clerk for [facility] F[facility] Diagnoses Chronic hypercapnic respiratory failure J96.12 Acute respiratory failure with hypoxia J96.01 Diastolic CHF, acute on chronic I50.33 NSTEMI (non-ST elevated myocardial infarction) I21.4 Acute kidney injury superimposed on CKD N17.9; N18.9 Anemia of chronic disease D63.8 Dyslipidemia E78.5 Uncontrolled type 2 diabetes mellitus with insulin therapy E11.65; Z79.4 Lumbar back pain with radiculopathy affecting right lower extremity M54.16 GI bleed K92.2 CVA (cerebral vascular accident) I63.9 Restless leg syndrome G25.81
[2020-02-14 15:08] LABS: Hematocrit 29.4 % (37.0-47.0)
[2020-02-14 15:44] LABS: Glucose Point of Care 224 mg/dL (70-110)
[2020-02-14] MEDS: HYDROcodone-acetaminophen 5-325 mg Tablet 1 TAB PO (18:18)
[2020-02-14] MEDS: capsaicin 0.025% cream 60 gm 1 APPLIC TOPICAL (18:19)
--- NOTE | 2020-02-14 19:02 | PC.NURSE ---
pt has severe restless leg syndrome.dr frausto has ordered tegretol which will be tried tonight.h and h continues to decline ( ordered q 6h x 4).stool for occult blood sent to lab last night ,is negative.plan for dr marquez to consult for possible egd and/or colonoscopy.bumex dc'd today.pt discussed bipap use with dr frausto.pt does not want to wear it..at all.dr frausto supposes that pt has chronically elevated co2 due to sandra.pt states she has had a sleep study in the past...but no measures were taken.
--- NOTE | 2020-02-14 19:39 | PC.NURSE ---
Pt assisted back to bed from chair. Complains of chronic pain in bilateral lower extremeties. Assisted back to bed from chair. Remains on 2 L O2. Velasco in place and place below bladder. Denies further needs at this time.
[2020-02-14 20:28] LABS: Glucose Point of Care 193 mg/dL (70-110)
[2020-02-14] MEDS: ropinirole 1 mg Tablet PO (20:56)
[2020-02-14 21:33] LABS: Hematocrit 31.6 % (37.0-47.0); Hemoglobin 8.5 g/dL (11.5-15.3)
[2020-02-15] VITALS (16 sets, daily range): BP systolic 90–142; BP diastolic 43–68; PULSE 56–74; RESP 12–21; TEMP 36.4–37; O2SAT 93–99
[2020-02-15 02:55] LABS: Basophils % 0.6 %; Eosinophils # 0.5 10^3/uL (0.0-0.8); Hematocrit 30.1 % (37.0-47.0); Hemoglobin 8.1 g/dL (11.5-15.3); Lymphocytes # 1.3 10^3/uL (0.8-4.8); Lymphocytes % 21.1 %; Mean Corpuscular HGB Conc 26.9 g/dL (30.0-36.0); Mean Corpuscular Hemoglobin 22.8 pg (28.0-34.0); Mean Corpuscular Volume 84.8 fL (81-99); Mean Platelet Volume 9.3 fL (7.4-10.4); Monocytes # 0.5 10^3/uL (0.2-0.9); Monocytes % 8.4 %; Neutrophils # 3.8 10^3/uL (1.8-7.7); Neutrophils % 61.4 %; Nucleated Red Blood Cells % 0 %; Platelet Count 105 10^3/cmm (130-400); Red Blood Count 3.55 10^6/uL (4.1-5.3); Red Cell Distribution Width 17.2 % (12.1-15.1); White Blood Count 6.2 10^3/uL (4.0-10.0)
[2020-02-15 03:09] LABS: INR 1.06 (0.8-1.2)
[2020-02-15 03:19] LABS: Alanine Aminotransferase 6 U/L (0-33); Albumin Level 3.3 g/dL (3.5-5.2); Alkaline Phosphatase 75 IU/L (35-105); Anion Gap 12.5 (5-19); Aspartate Amino Transferase 10 U/L (0-32); Blood Urea Nitrogen 37 mg/dL (8-23); Calcium 9.2 mg/dL (8.5-10.5); Chloride 97 mmol/L (98-107); Globulin 2.4 g/dL (1.3-4.6); Glucose 141 mg/dL (65-115); Magnesium 1.8 mg/dL (1.7-2.3); Osmolality Calculated 300 mOsm/kg (285-295); Phosphorus 2.9 mg/dL (2.5-4.5); Potassium 5.5 mmol/L (3.5-5.1); Sodium 145 mmol/L (136-145); Total Bilirubin 0.6 mg/dL (0.15-1.2); Total Protein 5.7 g/dL (6.6-8.7)
[2020-02-15 03:34] LABS: Carbon Dioxide 41 mmol/L (22-29)
[2020-02-15 03:49] LABS: ABG PH Result 7.37 (7.35-7.45); Arterial Blood Gas Hematocrit 26.3 % (37-47); Blood Gas Sample Site Brachial, left; Blood Gas Sample Type Arterial; Oxygen Device OXY MASK
--- NOTE | 2020-02-15 05:56 | PC.NURSE ---
Pt rested well on 2 L O2 mask throughout this shift. Had repeat ABG this AM. Pain in BLE improved with rest, medications, and ointments. GI consulted for EGD/colonoscopy- awaiting further orders/workup. No chest pain. Velasco remains in place without any known complications.
[2020-02-15 06:28] LABS: Glucose Point of Care 118 mg/dL (70-110)
[2020-02-15] MEDS: isosorbide mononitrate ER 30 mg Tablet PO (06:41)
[2020-02-15] MEDS: sucralfate 1 gm Tablet PO ×2 (06:41→17:44)
[2020-02-15 09:14] LABS: Hematocrit 32.9 % (37.0-47.0); Hemoglobin 8.9 g/dL (11.5-15.3)
[2020-02-15] MEDS: pantoprazole 40 mg SDV IVP ×2 (10:39→20:58)
[2020-02-15] MEDS: levothyroxine 100 mcg Tablet PO (10:40)
[2020-02-15] MEDS: lisinopril 10 mg Tablet PO (10:40)
[2020-02-15] MEDS: gabapentin 300 mg Capsule PO ×3 (10:40→20:58)
[2020-02-15] MEDS: clopidogrel 75 mg Tablet PO (10:41)
[2020-02-15] MEDS: HYDROcodone-acetaminophen 5-325 mg Tablet 1 TAB PO (10:41)
[2020-02-15] MEDS: metoprolol tartrate 25 mg Tablet PO ×2 (10:41→17:44)
[2020-02-15] MEDS: atorvastatin 40 mg Tablet 20 MG PO (10:42)
[2020-02-15] MEDS: aspirin 81 mg EC Tablet PO (10:43)
[2020-02-15] MEDS: magnesium lactate 84 mg Tablet PO (10:45)
--- NOTE | 2020-02-15 11:05 | PC.SOCIAL ---
IMM completed 02/15/2020 @ 0902
--- NOTE | 2020-02-15 11:10 | PM.CONSULT ---
Providers/Reason For Consult Consulting Physican/Specialty*: Internal medicine/endoscopy Reason for Consult*: Microcytic anemia and the need for ongoing antiplatelet therapy in a patient with severe coronary artery disease. Requesting Physcian: Everardo Garvin MD Attending Physician: Everardo Garvin MD Primary Care Provider: Kaitlin Gomez DO History of Present Illness History of Present Illness Bryanna Reid is a 74 year old female who was admitted with coronary and fluid overload issues a few days ago. She was noted to be particularly anemic even back in January. She denies any history of endoscopy at any point. And she is never had a colonoscopy either. She does not have much in the way of symptoms such as heartburn indigestion dyspepsia. She denies hematochezia or melena. The main thrust of her hospitalization has been cardiac in nature and given her vasculopathy she needs long-term antiplatelet therapy. The hospitalist and cardiology teams are concerned about her ongoing antiplatelet therapy given her microcytic anemia. She get a blood transfusion today because cardiology recommends that her hemoglobin be above 9. I had a long discussion with Ms. Reid and she finally agrees today, though she has been avoiding it for years, to have a colonoscopy and EGD to help evaluate her anemia. Review of Systems General: Reports: 10 or more systems reviewed and unremarkable except in HPI and below Meds/Allergies Home Medications and Allergies Home Medications Medication Instructions Recorded Confirmed Last Taken Type albuterol sulfate 2.5 mg INHALATION Q6H PRN 09/17/19 02/10/20 Unknown History aspirin 81 mg tablet,delayed 81 mg PO DAILY tab 09/17/19 02/10/20 02/09/20 History release docusate sodium 100 mg capsule 100 mg PO BID PRN 09/17/19 02/10/20 02/09/20 History isosorbide mononitrate 30 mg 30 mg PO QAM #90 tab 09/17/19 02/10/20 02/10/20 Rx tablet,extended release 24 hr lisinopril 10 mg tablet 10 mg PO DAILY #30 tab 09/17/19 02/10/20 02/10/20 Rx magnesium L-lactate 84 mg 84 mg PO DAILY tab 09/17/19 02/10/20 Unknown History tablet,extended release nitroglycerin 0.4 mg sublingual 0.4 mg SUBLINGUAL Q5M PRN 09/17/19 02/10/20 Unknown History tablet potassium 99 mg tablet 99 mg PO EVERY OTHER DAY tab 09/17/19 02/10/20 02/09/20 History simvastatin 20 mg tablet 20 mg PO DAILY #30 tab 09/17/19 02/10/20 02/09/20 Rx ipratropium 0.5 mg-albuterol 3 mg 3 ml INHALATION Q4H PRN #180 ml 11/18/19 02/10/20 Unknown Rx (2.5 mg base)/3 mL nebulization soln clopidogrel 75 mg tablet 75 mg PO DAILY #90 tab 12/15/19 02/10/20 02/10/20 Rx ferrous sulfate 325 mg (65 mg 325 mg PO .3-4X A WEEK tab 12/15/19 02/10/20 Unknown History iron) tablet furosemide 40 mg tablet 40 mg PO QAM PRN tab 12/15/19 02/10/20 Unknown History glipizide 5 mg tablet 5 mg PO BID #180 tab 12/15/19 02/10/20 02/10/20 Rx metoprolol tartrate 25 mg tablet 25 mg PO BID #180 tab 12/15/19 02/10/20 02/10/20 Rx hydrocodone 5 mg-acetaminophen 325 1 tab PO BID PRN 30 Days #60 tab 01/23/20 02/10/20 Unknown Rx mg tablet tramadol 50 mg tablet 50 mg PO Q8H PRN #90 tab 01/23/20 02/10/20 02/09/20 Rx gabapentin 300 mg capsule 300 mg PO TID #90 cap 02/02/20 02/10/20 02/09/20 Rx denjndltyrkfjqi-qgylcfqqfuzlwhq-JZ 5 ml PO Q6H PRN #160 ml 02/07/20 02/10/20 Unknown Rx 2 mg-30 mg-10 mg/5 mL oral syrup doxycycline hyclate 100 mg tablet 100 mg PO BID 7 Days #14 tab 02/07/20 02/10/20 02/09/20 Rx Humalog KwikPen Insulin See Rx Instructions .ROUTE .COMPLEX 02/10/20 02/10/20 Unknown History insulin detemir U-100 50 unit SUBCUT QAM 02/10/20 02/10/20 02/10/20 History levothyroxine 100 mcg PO DAILY 02/10/20 02/10/20 02/10/20 History omeprazole 20 mg PO BEDTIME 02/10/20 02/10/20 02/09/20 History ropinirole 1 mg PO BEDTIME 02/10/20 02/10/20 02/09/20 History Allergies Allergy/AdvReac Type Severity Reaction Status Date / Time iodine Allergy unknown Verified 02/07/20 12:57 Current Medications Current Medications Generic Name Dose Route Start Last Admin Trade Name Freq PRN Reason Stop Dose Admin Acetaminophen 650 mg 02/10/20 14:43 02/14/20 09:34 Tylenol PO 650 mg Q6H PRN Administration Mild/Mod Pain Or Temp >/= 101 Hydrocodone Bitart/Acetaminophen 1 tab 02/10/20 14:43 02/15/20 10:41 [place] 5-325 Mg PO 1 tab BID PRN Administration pain Aspirin 81 mg 02/11/20 09:00 02/15/20 10:43 Aspirin Ec PO 81 mg DAILY BELTRAN Administration Atorvastatin Calcium 20 mg 02/11/20 09:00 02/15/20 10:42 Lipitor PO 20 mg DAILY BELTRAN Administration Capsaicin 1 applic 02/14/20 12:10 02/14/20 18:19 Capsaicin TOPICAL 1 cream QID PRN Administration PAIN Clopidogrel Bisulfate 75 mg 02/11/20 09:00 02/15/20 10:41 Plavix PO 75 mg DAILY BELTRAN Administration Docusate Sodium 100 mg 02/10/20 14:43 02/12/20 09:22 Colace PO 100 mg BID PRN Administration Constipation Gabapentin 300 mg 02/10/20 15:00 02/15/20 10:40 Neurontin PO 300 mg TID BELTRAN Administration Insulin Aspart 0 unit 02/10/20 18:00 02/15/20 07:14 Novolog SUBCUT Not Given TIDWM [facility] Protocol Insulin Detemir 30 unit 02/11/20 06:00 02/15/20 06:42 Levemir SUBCUT 30 unit QAM BELTRAN Administration Isosorbide Mononitrate 30 mg 02/11/20 06:00 02/15/20 06:41 Imdur PO 30 mg QAM BELTRAN Administration Levothyroxine Sodium 100 mcg 02/11/20 09:00 02/15/20 10:40 Synthroid PO 100 mcg DAILY BELTRAN Administration Lidocaine HCl 1 applic 02/13/20 16:08 02/15/20 10:48 Lidocaine 2% Jelly TOPICAL 1 applic PRN PRN Administration PAIN Lisinopril 10 mg 02/11/20 09:00 02/15/20 10:40 Prinivil PO 10 mg DAILY BELTRAN Administration Magnesium Lactate 84 mg 02/11/20 09:00 02/15/20 10:45 Mag-Tab Sr PO 84 mg DAILY BELTRAN Administration Metoprolol Tartrate 25 mg 02/10/20 18:00 02/15/20 10:41 Lopressor PO 25 mg BID BELTRAN Administration Morphine Sulfate 1 mg 02/11/20 19:30 02/12/20 12:24 Morphine IVP 1 mg Q8H PRN Administration SEVERE PAIN Ondansetron HCl 4 mg 02/10/20 14:43 02/12/20 23:19 Zofran IVP 4 mg Q8H PRN Administration vomiting, or N/V if npo Pantoprazole Sodium 40 mg 02/11/20 08:30 02/15/20 10:39 Protonix IVP 40 mg Q12H BELTRAN Administration Potassium Chloride 40 meq 02/11/20 09:00 02/15/20 10:45 Klor-Con 10 PO Not Given DAILY BELTRAN Ropinirole HCl 1 mg 02/10/20 21:00 02/14/20 20:56 Requip PO 1 mg BEDTIME BELTRAN Administration Sucralfate 1 gm 02/12/20 17:00 02/15/20 06:41 Carafate PO 1 gm BIDAC BELTRAN Administration PFSH Acute PFSH: Medical History (Updated 02/14/20 @ 14:00 by Everardo Garvin MD) Anemia Anemia of chronic disease CHF (congestive heart failure) COPD (chronic obstructive pulmonary disease) Diabetic neuropathy Dyslipidemia Elevated troponin Enrolled in chronic care management Essential (primary) hypertension GERD (gastroesophageal reflux disease) Hypothyroidism, adult Lumbar back pain with radiculopathy affecting right lower extremity Osteoarthritis of right ankle and foot Recent cerebrovascular accident (CVA) Carotid Doppler examination on 02/12/2020 revealed Moderate heterogeneous plaques bilaterally with velocity elevations bilaterally, suggestive of 50 to 79% stenosis Tortuous distal internal carotid arteries bilaterally Shortness of breath Uncontrolled type 2 diabetes mellitus with insulin therapy Surgical History H/O bilateral breast reduction surgery H/O cataract extraction H/O: hysterectomy Family History Other CAD (coronary artery disease) Cancer Diabetes Lung disease Stroke Social History Smoking and tobacco status: former smoker Alcohol intake: never Lives independently: Yes Vitals/I&O/Wt Last Vital Signs Temp 97.9 F 02/15/20 11:06 Pulse 71 02/15/20 11:06 Resp 21 H 02/15/20 11:06 BP 108/54 02/15/20 11:06 Pulse Ox 96 02/15/20 11:06 02/14/20 02/15/20 02/15/20 22:59 06:59 14:59 Intake Total 360 / 840 60 / 900 Output Total 500 / 500 1000 / 1500 Balance -140 / 340 -940 / -600 Weight last 48 hrs Weight 272 lb 9.6 oz Physical Exam Const: COMMON NORMALS: no acute distress, average body habitus, patient oriented x3, no limitations, healthy appearing, alert and well nourished Resp: COMMON NORMALS: normal respiratory effort, No retractions, No use of accessory muscles, clear to auscultation bilaterally and percussion normal AUSCULTATION: clear to auscultation bilaterally PERCUSSION: percussion normal Cardio: COMMON NORMALS: regular rate and regular rhythm RATE: regular rate RHYTHM: regular rhythm GI: COMMON NORMALS: Normal to inspection, nondistended, normoactive bowel sounds present, Soft to palpation, non-tender, No hepatosplenomegaly present, no masses and no bruits PALPATION: Yes Soft to palpation and Yes No hepatosplenomegaly present Neuro: COMMON NORMALS: patient oriented x3 SENSORIUM/ORIENTATION: Yes alert Urinary Catheter Management^: Velasco: Cath Placed During This Visit: yes Reason for Continuing Indwelling Catheter: Accurate Measurement of Urinary Output in Critically Ill Patients Urinary Catheter Date of Insertion: 02/10/20 Urinary Catheter Time of Insertion: 13:30 Data Micro: Micro: Microbiology 02/13/20 16:40 Occult Blood (FIT) - Final Stool A&P Assessment and plan (1) Anemia: Status: Acute Qualifiers: Anemia type: iron deficiency Iron deficiency anemia type: chronic blood loss Qualified Code(s): D50.0 - Iron deficiency anemia secondary to blood loss (chronic) (2) GI bleed: We will proceed with an EGD and colonoscopy in the morning. We will begin the prep now. She is at moderate risk for sedation so I will do both procedures at once. Her being on aspirin and Plavix does not affect my ability to do her procedure, though it does increase her risk of bleeding somewhat. Status: Acute Coding Level of Care Code Acute Dip Stand Loader for [facility] Fwd Exam Expanded Problem Focused Diagnoses Anemia D50.0 Anemia type: iron deficiency Iron deficiency anemia type: chronic blood loss GI bleed K92.2 Comment Level 3 consult. Allow Adele Snell to do the billing and coding please.
[2020-02-15 11:15] LABS: Glucose Point of Care 233 mg/dL (70-110)
--- NOTE | 2020-02-15 12:36 | PM.PN ---
Subjective Subjective: Interval history: Overnight patient states that she actually slept quite well with the caspacin cream and Tegretol, no fevers, no chills, no chest pain, no shortness of breath, she is doing well on 2 L nasal cannula, her PCO2 remains in the high 70s to 80s, she states that she is willing to try BiPAP tonight, feels quite claustrophobic with the mask but will try, no bloody or black stools, plan is to have a EGD and colonoscopy tomorrow morning Vitals/I&O/Wt Last Vital Signs Temp 97.9 F 02/15/20 11:06 Pulse 71 02/15/20 11:06 Resp 21 H 02/15/20 11:06 BP 108/54 02/15/20 11:06 Pulse Ox 96 02/15/20 11:06 02/14/20 02/15/20 02/15/20 22:59 06:59 14:59 Intake Total 360 / 840 60 / 900 240 / 240 Output Total 500 / 500 1000 / 1500 Balance -140 / 340 -940 / -600 240 / 240 Weight last 48 hrs Weight 123.649 kg Physical Exam Const: COMMON NORMALS: no acute distress and patient oriented x3 HENMT: COMMON NORMALS: normocephalic HEAD & SCALP: normocephalic Neck/C-Spine: COMMON NORMALS: no JVD Resp: COMMON NORMALS: normal respiratory effort, No retractions, No use of accessory muscles and clear to auscultation bilaterally AUSCULTATION: clear to auscultation bilaterally Cardio: COMMON NORMALS: no JVD, regular rate, regular rhythm, S1 normal heart sound present and S2 normal heart sound present RATE: regular rate RHYTHM: regular rhythm HEART SOUNDS: S1 normal heart sound present and S2 normal heart sound present GI: COMMON NORMALS: Normal to inspection, nondistended, normoactive bowel sounds present, Soft to palpation, non-tender, No hepatosplenomegaly present, no masses and no bruits PALPATION: Yes Soft to palpation and Yes No hepatosplenomegaly present Extremity: COMMON NORMALS: capillary refill normal, no clubbing, cyanosis or edema, no calf tenderness and no pedal edema Neuro: COMMON NORMALS: patient oriented x3 Psych: COMMON NORMALS: mental status grossly normal Urinary Catheter Management^: Velasco: Cath Placed During This Visit: yes Reason for Continuing Indwelling Catheter: Accurate Measurement of Urinary Output in Critically Ill Patients Urinary Catheter Date of Insertion: 02/10/20 Urinary Catheter Time of Insertion: 13:30 Data : 02/15/20 08:39 02/15/20 02:38 Micro: Microbiology 02/13/20 16:40 Occult Blood (FIT) - Final Stool A&P Assessment and plan (1) Chronic hypercapnic respiratory failure: -PCO2 remains in the high 70s-80, alert oriented x3, answering all questions appropriately, no shortness of breath, relatively asymptomatic -Did have episodes of hypercarbic confusion Sunday morning after a night of morphine, [place], Requip, gabapentin for her restless leg -I believe that she likely lives hypercarbic -Etiology is likely multifactorial, from DONNELL, obesity hypoventilation syndrome, diastolic CHF, chronic pain medications she uses for her severe restless leg syndrome during the night -States that she was prescribed an sleep machine, but insurance company would not cover it -Likely patient would benefit stopping or de-escalating her medications for restless leg, however patient states that she cannot survive the night without these medications, that she would rather -Obviously BiPAP use would be optimal, however patient is very claustrophobic while using the BiPAP machine, and if he were to use a benzodiazepine well we will make the hypercarbia worse, but is willing to try BiPAP for the next few days, will need to get BiPAP at home -This is certainly a difficult this situation -Patient does not want to be intubated, is a bit more agreeable to try BiPAP machine overnight, have BiPAP machine at home Plan: -Continue to monitor respiratory status closely -Try to use BiPAP machine tonight -We will talk to case workers about getting home BiPAP Status: Acute (2) Acute respiratory failure with hypoxia: -Likely secondary to diastolic CHF exacerbation -BNP is 5000, chest x-ray shows no significant pleural effusions, does show probably vascular congestion, is requiring 1 L oxygen -Currently doing significantly better -Has diuresed roughly 9640 L since admission -Creatinine is up to 1.9 Plan: -Admit to CSU -Telemetry monitoring -Strict I's and O's -Fluid restriction to less than 1500 cc -Hold Bumex for the next 24 hours again -Repeat echocardiogram showed decreased ejection fraction to 35 to 40%, left ventricular hypokinesis -Cardiology Dr. Ramon has been consulted -BiPAP for acute exacerbations Status: Acute (3) Diastolic CHF, acute on chronic: Status: Acute (4) NSTEMI (non-ST elevated myocardial infarction): -Troponin 29 -EKG shows left bundle branch block bump, but it was seen back in May 2018 -We will obtain a cardiac echocardiogram -Patient has had a positive stress test in 06/22/2018, showing ischemia in the left circumflex, echocardiogram on 04/22/2019 showed mild diffuse hypokinesia of the septum and anteroseptal segments -Has had chest pain in the last week, no current chest pain -Continue aspirin, statin, Plavix, beta-nahed -Echocardiogram showed ejection fraction 35 to 40%, left ventricular hypokinesis, cardiology has been consulted Status: Acute (5) Acute kidney injury superimposed on CKD: Creatinine currently 1.3, carefully diurese Status: Acute (6) Anemia of chronic disease: -Hemoglobin has down trended to 8.2, would like to keep hemoglobin greater than 8, likely secondary to slow GI bleed likely upper versus lower -Start IV Venofer 200 mg for 5 treatments -Status post 1 unit PRBC -Patient denies a history of GI bleeds, denies a history of bloody or black stools -Likely some component of patient's weakness is related to anemia, likely a slow GI bleed, no overt signs of bleeding, no hemodynamic compromise -Continue Protonix 40 mg IV twice daily, added Carafate -Patient is on aspirin and Plavix as above, will continue to monitor as currently benefit of antiplatelet therapy outweighs risk given the concern for NSTEMI and depressed ejection fraction and stroke -Patient agrees for EGD and colonoscopy advised of risks and benefits discussed, voiced understanding, all questions answered, agreed to proceed, accepts risks -I have spoken to Dr. Haynes, who was kind enough to come by and see patient to discuss options, plan is for colonoscopy and EGD tomorrow morning Status: Acute (7) Dyslipidemia: Status: Acute (8) Uncontrolled type 2 diabetes mellitus with insulin therapy: -Patient states that she takes Levemir 30-40 daily based on her morning blood sugar -Insulin sliding scale of NovoLog -Start Levemir 30 units every morning, low-dose sliding scale Status: Acute (9) Lumbar back pain with radiculopathy affecting right lower extremity: Status: Acute (10) GI bleed: Status: Acute (11) CVA (cerebral vascular accident): -Sounds a lot like patient had a stroke or transient ischemic attack a week ago, currently neurologically intact -Is already on aspirin and Plavix -Continue PT OT - CT of the head no acute infarct,'s carotid ultrasound shows 50 to 79% stenosis bilaterally -Will hold off on doing further imaging until later time Status: Acute (12) Restless leg syndrome: -Severe restless leg, not improving with [place], Requip, morphine, gabapentin, capsaicin, topical lidocaine -I was hoping that her iron deficiency with IV Venofer should help, but it has not -Patient has developed hypercarbia from overuse of [place] with morphine with Requip, gabapentin -This is a very difficult situation, patient is quite teary for the last days due to severe pain, not sure how to manage his -Clonazepam is relatively contraindicated in her given her severe hypercarbia -Tegretol seemed to help last night, will continue Status: Acute Attestations Medical Necessity Statement*: Patient requires continued hospitalization due to acute heart failure, nstemi, GI bleed, severe restless leg syndrome, hypercarbic respiratory failure Coding Level of Care Code Acute Lining Machine Operator for [facility] Fwd Diagnoses Chronic hypercapnic respiratory failure J96.12 Acute respiratory failure with hypoxia J96.01 Diastolic CHF, acute on chronic I50.33 NSTEMI (non-ST elevated myocardial infarction) I21.4 Acute kidney injury superimposed on CKD N17.9; N18.9 Anemia of chronic disease D63.8 Dyslipidemia E78.5 Uncontrolled type 2 diabetes mellitus with insulin therapy E11.65; Z79.4 Lumbar back pain with radiculopathy affecting right lower extremity M54.16 GI bleed K92.2 CVA (cerebral vascular accident) I63.9 Restless leg syndrome G25.81
--- NOTE | 2020-02-15 13:07 | PC.NURSE ---
40 meq potassium held this morning for potassium level of 5.5.dr frausto notified.
--- NOTE | 2020-02-15 13:22 | PM.PN ---
Subjective Subjective: Interval history: Patient is feeling okay. Denies any chest pain or shortness of breath. Hemoglobin seems to be stable. She is planned to have the endoscopy tomorrow. No new arrhythmias on the monitor. Medications: Reviewed: Yes Medication Review Details: Current Medications Acetaminophen (Tylenol) 650 mg PO Q6H PRN PRN Reason: Mild/Mod Pain Or Temp >/= 101 Last Admin: 02/14/20 09:34 Dose: 650 mg Documented by: Hydrocodone Bitart/Acetaminophen (Austell 5-325 Mg) 1 tab PO BID PRN PRN Reason: pain Last Admin: 02/15/20 10:41 Dose: 1 tab Documented by: Albuterol Sulfate (Albuterol) 2.5 mg INHALATION Q6H.RESPIRATORY PRN PRN Reason: shortness of breath or wheezing Albuterol/Ipratropium (Duoneb) 3 ml INHALATION Q4H PRN PRN Reason: wheezing Aspirin (Aspirin Ec) 81 mg PO DAILY [facility] Last Admin: 02/15/20 10:43 Dose: 81 mg Documented by: Atorvastatin Calcium (Lipitor) 20 mg PO DAILY [facility] Last Admin: 02/15/20 10:42 Dose: 20 mg Documented by: Capsaicin (Capsaicin) 1 applic TOPICAL QID PRN PRN Reason: PAIN Last Admin: 02/14/20 18:19 Dose: 1 cream Documented by: Carbamazepine (Tegretol) 200 mg PO BEDTIME [facility] Clopidogrel Bisulfate (Plavix) 75 mg PO DAILY [facility] Last Admin: 02/15/20 10:41 Dose: 75 mg Documented by: Dextrose (D50w) 25 ml IVP ONCE PRN; Protocol PRN Reason: hypoglycemia protocol Dextrose (D50w) 50 ml IVP PRN PRN; Protocol PRN Reason: hypoglycemia protocol Docusate Sodium (Colace) 100 mg PO BID PRN PRN Reason: Constipation Last Admin: 02/12/20 09:22 Dose: 100 mg Documented by: Gabapentin (Neurontin) 300 mg PO TID [facility] Last Admin: 02/15/20 10:40 Dose: 300 mg Documented by: Glucagon (Glucagen) 1 mg IM ONCE PRN; Protocol PRN Reason: Adult Acute Hypoglycemia Prot. Dextrose (D5w) 500 mls @ 100 mls/hr IV ONCE PRN; Protocol PRN Reason: Adult Acute Hypoglycemia Prot Insulin Aspart (Novolog) 0 unit SUBCUT TIDWM [facility]; Protocol Last Admin: 02/15/20 11:37 Dose: 6 unit Documented by: Insulin Detemir (Levemir) 30 unit [facility] [place] Last Admin: 02/15/20 06:42 Dose: 30 unit Documented by: Isosorbide Mononitrate (Imdur) 30 mg PO QAM [facility] Last Admin: 02/15/20 06:41 Dose: 30 mg Documented by: Levothyroxine Sodium (Synthroid) 100 mcg PO DAILY [facility] Last Admin: 02/15/20 10:40 Dose: 100 mcg Documented by: Lidocaine HCl (Lidocaine 2% Jelly) 1 applic TOPICAL PRN PRN PRN Reason: PAIN Last Admin: 02/15/20 10:48 Dose: 1 applic Documented by: Lisinopril (Prinivil) 10 mg PO DAILY [facility] Last Admin: 02/15/20 10:40 Dose: 10 mg Documented by: Magnesium Lactate (Mag-Tab Sr) 84 mg PO DAILY [facility] Last Admin: 02/15/20 10:45 Dose: 84 mg Documented by: Metoprolol Tartrate (Lopressor) 25 mg PO BID [facility] Last Admin: 02/15/20 10:41 Dose: 25 mg Documented by: Morphine Sulfate (Morphine) 1 mg IVP Q8H PRN PRN Reason: SEVERE PAIN Last Admin: 02/12/20 12:24 Dose: 1 mg Documented by: Naloxone HCl (Narcan) 0.1 mg IVP Q2M PRN PRN Reason: RESPIRATORY RATE < 8/MIN Nitroglycerin (Nitrostat) 0.4 mg SUBLINGUAL Q5M PRN PRN Reason: Chest Pain Non-Formulary Medication (Ferrous Sulfate) 325 mg PO .3-4X A WEEK [facility] Nystatin (Nystatin Powder) 1 applic TOPICAL BID [facility] Ondansetron HCl (Zofran) 4 mg IVP Q8H PRN PRN Reason: vomiting, or N/V if npo Last Admin: 02/12/20 23:19 Dose: 4 mg Documented by: Pantoprazole Sodium (Protonix) 40 mg IVP Q12H [facility] Last Admin: 02/15/20 10:39 Dose: 40 mg Documented by: Potassium Chloride (Klor-Con 10) 40 meq PO DAILY [facility] Last Admin: 02/15/20 10:45 Dose: Not Given Documented by: Ropinirole HCl (Requip) 1 mg PO BEDTIME [facility] Last Admin: 02/14/20 20:56 Dose: 1 mg Documented by: Sucralfate (Carafate) 1 gm PO BIDAC [facility] Last Admin: 02/15/20 06:41 Dose: 1 gm Documented by: Vitals/I&O/Wt Last Vital Signs Temp 97.9 F 02/15/20 11:06 Pulse 71 02/15/20 11:06 Resp 21 H 02/15/20 11:06 BP 108/54 02/15/20 11:06 Pulse Ox 96 02/15/20 11:06 02/14/20 02/15/20 02/15/20 22:59 06:59 14:59 Intake Total 360 / 840 60 / 900 240 / 240 Output Total 500 / 500 1000 / 1500 Balance -140 / 340 -940 / -600 240 / 240 Weight last 48 hrs Weight 272 lb 9.6 oz Physical Exam Narrative: EXAM NARRATIVE: GENERAL: The patient is alert and oriented times three. Not in any acute distress. HEENT: Moderate pallor. No icterus or lymphadenopathy. NECK: Trachea appears to be central. No masses noted. No JVD or thyromegaly appreciated. No carotid bruit. RESPIRATORY: Chest is symmetrical. No intercostals muscle retraction or any accessory muscle activation. There is no chest wall tenderness. Breath sounds are heard bilaterally. No rales or rhonchi heard. No evidence of any consolidation. The intensity of the breath sounds are diminished in the bases BREASTS: Deferred. HEART: The PMI is in the 5th left intercostals space just inside the midclavicular line. No palpable precordial events. S1 and S2 are normal. No S3 or S4 heard. No pericardial rub or any click heard. Short systolic murmur in the left sternal border. No diastolic murmurs. ABDOMEN: Abdomen is obese. No vessel pulsations or distention. She has minimal tenderness around the umbilical region, in the region of the scar. She has a pendulous abdomen. : Deferred. RECTAL: Deferred. LYMPHATIC: No lymphadenopathy noted in the neck or groin. EXTREMITIES: No significant edema or cyanosis. MUSCULOSKELETAL: No acute joint deformities or swelling SKIN: There are no significant ecchymosis or rashes NEUROPSYCHIATRIC: She has some fine tremor in the right upper extremity. No obvious motor weakness Urinary Catheter Management^: Velasco: Cath Placed During This Visit: yes Reason for Continuing Indwelling Catheter: Accurate Measurement of Urinary Output in Critically Ill Patients Urinary Catheter Date of Insertion: 02/10/20 Urinary Catheter Time of Insertion: 13:30 Data : 02/15/20 19:40 02/15/20 02:38 Micro: Microbiology 02/13/20 16:40 Occult Blood (FIT) - Final Stool A&P Assessment and plan (1) CHF (congestive heart failure): The patient is currently compensated. Her LV dysfunction, Anemia, kidney failure, hypoxia/CO2 retention etc. are the accountability factors. Possibility of underlying coronary ischemia causing this also is a consideration.She may continue on the current medications for the time being. She requires further cardiac work-up. Status: Acute Qualifiers: Heart failure chronicity: unspecified Heart failure type: unspecified Qualified Code(s): I50.9 - Heart failure, unspecified (2) Recent cerebrovascular accident (CVA): Patient had a carotid duplex yesterday. Was found to have 50 to 79% stenosis bilaterally. We will continue on the current management Status: Acute (3) Acute kidney injury superimposed on CKD: This could be multifactorial. Heart failure, low output state, diabetes, anti-inflammatory medications, etc. are contributing factors. Will continue careful IV diuresis. Her creatinine is going up, slightly. May discontinue the JACKELIN inhibitor at this time. Status: Acute (4) Essential (primary) hypertension: Currently normotensive. Advised to continue the current medications. Status: Acute (5) Uncontrolled type 2 diabetes mellitus with insulin therapy: May continue the management of diabetes aggressively. Status: Acute (6) Elevated troponin: Most likely the patient has type II myocardial infarction Status: Acute (7) Anemia: Hemoglobin seems to be improving Status: Acute Qualifiers: Anemia type: iron deficiency Iron deficiency anemia type: chronic blood loss Qualified Code(s): D50.0 - Iron deficiency anemia secondary to blood loss (chronic) Additional A&P Information Patient requires a myocardial perfusion imaging. Since s is going to have the endoscopy tomorrow, we may consider this as an outpatient. In view of the worsening kidney function, we may discontinue the lisinopril and start her on amlodipine 2.5 mg p.o. daily Attestations Medical Necessity Statement*: Disposition as per the primary Coding Level of Care Code Acute Molecular Biologist for [facility] Fwd Diagnoses CHF (congestive heart failure) I50.9 Heart failure chronicity: unspecified Heart failure type: unspecified Recent cerebrovascular accident (CVA) Z86.73 Acute kidney injury superimposed on CKD N17.9; N18.9 Essential (primary) hypertension I10 Uncontrolled type 2 diabetes mellitus with insulin therapy E11.65; Z79.4 Elevated troponin R79.89 Anemia D50.0 Anemia type: iron deficiency Iron deficiency anemia type: chronic blood loss
--- NOTE | 2020-02-15 14:26 | PC.NURSE ---
prbc's began at 1416.stayed with pt x 15 min.no s/sxs transfusion reaction noted
[2020-02-15] MEDS: sodium chloride 0.9% (100 ml) 100 ML 50 ML (15:28)
[2020-02-15] MEDS: acetaminophen 325 mg Tablet 650 MG PO (15:35)
[2020-02-15 16:00] LABS: ABG PCO2 80.1 mmHg (35-45)
[2020-02-15 16:10] LABS: Glucose Point of Care 131 mg/dL (70-110)
[2020-02-15] MEDS: nystatin powder 15 gm Btl 1 APPLIC TOPICAL (17:44)
[2020-02-15] MEDS: bisacodyl 5 mg Tablet 30 MG PO ×2 (19:03→20:58)
[2020-02-15] MEDS: magnesium citrate Btl 296 mL PO ×2 (19:04→21:18)
--- NOTE | 2020-02-15 19:26 | PC.NURSE ---
the egd and colonoscopy prep meds were given a little late.dr marquez put in order for procedure prep...these orders do not flow over to the mar.noticed by this rn.dr marquez phoned...received telephone order for 30 mg dulcolax tabs x 2 and bottle mag citrate x2.dr marquez is aware pt is on plavix.
[2020-02-15 19:51] LABS: Hematocrit 35.1 % (37.0-47.0); Hemoglobin 9.8 g/dL (11.5-15.3)
[2020-02-15 20:39] LABS: Glucose Point of Care 160 mg/dL (70-110)
[2020-02-15] MEDS: ropinirole 1 mg Tablet PO (20:58)
[2020-02-15] MEDS: carBAMazepine 200 mg Tablet PO (20:58)
--- NOTE | 2020-02-15 21:37 | PC.NURSE ---
Bowel prep in progress for EGD/colonscopy. Pain persists in BLE (chronic). Denies any needs. Pt placed back on 2 L NC while resting due to desats in the 80s. No further needs at this time.
[2020-02-16] VITALS (9 sets, daily range): BP systolic 97–124; BP diastolic 31–69; PULSE 55–72; RESP 13–20; TEMP 36.5–36.8; O2SAT 95–100
[2020-02-16 05:06] LABS: Basophils % 0.2 %; Eosinophils # 0.6 10^3/uL (0.0-0.8); Eosinophils % 7.3 %; Hemoglobin 9.4 g/dL (11.5-15.3); Lymphocytes # 1.1 10^3/uL (0.8-4.8); Lymphocytes % 12.5 %; Mean Corpuscular HGB Conc 27.6 g/dL (30.0-36.0); Mean Corpuscular Hemoglobin 23.5 pg (28.0-34.0); Mean Platelet Volume 8.9 fL (7.4-10.4); Monocytes # 0.8 10^3/uL (0.2-0.9); Monocytes % 8.6 %; Neutrophils # 6.2 10^3/uL (1.8-7.7); Neutrophils % 70.8 %; Nucleated Red Blood Cells % 0 %; Platelet Count 111 10^3/cmm (130-400); Red Cell Distribution Width 17.3 % (12.1-15.1); White Blood Count 8.8 10^3/uL (4.0-10.0)
[2020-02-16 05:18] LABS: Alanine Aminotransferase 9 U/L (0-33); Albumin Level 3.5 g/dL (3.5-5.2); Alkaline Phosphatase 79 IU/L (35-105); Anion Gap 11.8 (5-19); Aspartate Amino Transferase 12 U/L (0-32); Blood Urea Nitrogen 36 mg/dL (8-23); Calcium 9.3 mg/dL (8.5-10.5); Carbon Dioxide 37 mmol/L (22-29); Chloride 96 mmol/L (98-107); Creatinine Clr Calc Pharmacy 40.1576; Globulin 2.6 g/dL (1.3-4.6); Glucose 124 mg/dL (65-115); Magnesium 2.5 mg/dL (1.7-2.3); Osmolality Calculated 289 mOsm/kg (285-295); Phosphorus 3.3 mg/dL (2.5-4.5); Potassium 4.8 mmol/L (3.5-5.1); Sodium 140 mmol/L (136-145); Total Bilirubin 0.9 mg/dL (0.15-1.2); Total Protein 6.1 g/dL (6.6-8.7)
[2020-02-16 05:22] LABS: INR 1.03 (0.8-1.2)
[2020-02-16 06:12] LABS: Glucose Point of Care 119 mg/dL (70-110)
[2020-02-16] MEDS: sucralfate 1 gm Tablet PO ×2 (06:12→18:06)
[2020-02-16] MEDS: isosorbide mononitrate ER 30 mg Tablet PO (06:12)
--- NOTE | 2020-02-16 06:29 | PC.NURSE ---
END OF SHIFT NOTE: Pt resting at this current time. Bowel prep last night. Stool almost clear. Villafuerte catheter in place- urine noted to be more cloudy (will pass on in report). Good amy care/ villafuerte care provided. endoscopy and colonoscopy today.
--- NOTE | 2020-02-16 07:46 | ANES.PREANE2 ---
Pre-Anesthetic Assessment Pre-Anesthetic Assessment: Height/Weight: Height 1.68 m Weight 123.649 kg Temp Pulse Resp BP Pulse Ox 98.2 F 61 14 123/48 100 02/16/20 05:41 02/16/20 04:00 02/16/20 04:00 02/16/20 04:00 02/16/20 04:00 Proposed Procedure: Operation Date: 02/16/20 10:45 Proposed Procedures p EGD/COLON WITH POSSIBLE BIOPSY(Not Applicable) - Phong Haynes MD Familial anesthetic complications: denies Was Beta Hailey taken within 24 hours: Yes Last intake: Intake Last Liquid Date 02/16/20 Last Liquid Time 00:00 Last Intake: 00:00 Social: Social History: No alcohol and No tobacco Exam: Pre-Anes Outpt Exam: alert, oriented x 3 and No clear to auscultation bilaterally Airway: Submandibular: Other (decreased mouth opening ) Cervical ROM: Other (decreased ROM) MP: 3 Additional comments: upper full partial bottom both out Pulmonary: Pulmonary: COPD, KUHN, Sleep apnea and SOB (patient has CHF came in with KUHN and SOB ) CV/HEM: CV/HEM: Afib, Arrythmia (a-fibb), CAD, CHF, HTN and [place] (5-6 years ago ) : : Chronic renal failure Hepatic: Hepatic: None reported GI: GI: GERD (controlled with meds ) Metabolic: Metabolic: DM (IDDM), Morbid obesity and Thyroid Musc/skel: Musc/skel: OA/DJD (legs and ankles Restless leg syndrome) Neuropsych: Neuropsych: CVA (5-6 years ago expressive dysphagia ) Anesthetic Plan: ASA status: 3 Anesthesia: Anesthesia Evaluation and MAC Meds/Allergies Current Medications: Current Medications Generic Name Dose Route Start Last Admin Trade Name Freq PRN Reason Stop Dose Admin Acetaminophen 650 mg 02/10/20 14:43 02/15/20 15:35 Tylenol PO 650 mg Q6H PRN Administration Mild/Mod Pain Or Temp >/= 101 Hydrocodone Bitart /Acetaminophen 1 tab 02/10/20 14:43 02/15/20 10:41 [place] 5-325 Mg PO 1 tab BID PRN Administration pain Aspirin 81 mg 02/11/20 09:00 02/15/20 10:43 Aspirin Ec PO 81 mg DAILY [facility] Administration Atorvastatin Calci um 20 mg 02/11/20 09:00 02/15/20 10:42 Lipitor PO 20 mg DAILY [facility] Administration Capsaicin 1 applic 02/14/20 12:10 02/14/20 18:19 Capsaicin TOPICAL 1 cream QID PRN Administration PAIN Carbamazepine 200 mg 02/15/20 21:00 02/15/20 20:58 Tegretol PO 200 mg BEDTIME [facility] Administration Clopidogrel Bisulf ate 75 mg 02/11/20 09:00 02/15/20 10:41 Plavix PO 75 mg DAILY [facility] Administration Docusate Sodium 100 mg 02/10/20 14:43 02/12/20 09:22 Colace PO 100 mg BID PRN Administration Constipation Gabapentin 300 mg 02/10/20 15:00 02/15/20 20:58 Neurontin PO 300 mg TID [facility] Administration Insulin Aspart 0 unit 02/10/20 18:00 02/15/20 17:00 Novolog SUBCUT Not Given TIDWM [facility] Protocol Insulin Detemir 30 unit 02/11/20 06:00 02/16/20 06:08 Levemir SUBCUT Not Given QAM [facility] Isosorbide Mononit rate 30 mg 02/11/20 06:00 02/16/20 06:12 Imdur PO 30 mg QAM [facility] Administration Levothyroxine Sodi um 100 mcg 02/11/20 09:00 02/15/20 10:40 Synthroid PO 100 mcg DAILY [facility] Administration Lidocaine HCl 1 applic 02/13/20 16:08 02/16/20 04:57 Lidocaine 2% Jel ly TOPICAL 1 applic PRN PRN Administration PAIN Magnesium Lactate 84 mg 02/11/20 09:00 02/15/20 10:45 Mag-Tab Sr PO 84 mg DAILY [facility] Administration Metoprolol Tartrat e 25 mg 02/10/20 18:00 02/15/20 17:44 Lopressor PO 25 mg BID [facility] Administration Nystatin 1 applic 02/15/20 18:00 02/15/20 17:44 Nystatin Powder TOPICAL 1 applic BID [facility] Administration Ondansetron HCl 4 mg 02/10/20 14:43 02/12/20 23:19 Zofran IVP 4 mg Q8H PRN Administration vomiting, or N/V if npo Pantoprazole Sodiu m 40 mg 02/11/20 08:30 02/15/20 20:58 Protonix IVP 40 mg Q12H [facility] Administration Potassium Chloride 40 meq 02/11/20 09:00 02/15/20 10:45 Klor-Con 10 PO Not Given DAILY [facility] Ropinirole HCl 1 mg 02/10/20 21:00 02/15/20 20:58 Requip PO 1 mg BEDTIME [facility] Administration Sucralfate 1 gm 02/12/20 17:00 02/16/20 06:12 Carafate PO 1 gm BIDAC [facility] Administration PFSH Anesthesia PFSH: Medical History (Updated 02/14/20 @ 14:00 by Everardo Garvin MD) Anemia Anemia of chronic disease CHF (congestive heart failure) COPD (chronic obstructive pulmonary disease) Diabetic neuropathy Dyslipidemia Elevated troponin Enrolled in chronic care management Essential (primary) hypertension GERD (gastroesophageal reflux disease) Hypothyroidism, adult Lumbar back pain with radiculopathy affecting right lower extremity Osteoarthritis of right ankle and foot Recent cerebrovascular accident (CVA) Carotid Doppler examination on 02/12/2020 revealed Moderate heterogeneous plaques bilaterally with velocity elevations bilaterally, suggestive of 50 to 79% stenosis Tortuous distal internal carotid arteries bilaterally Shortness of breath Uncontrolled type 2 diabetes mellitus with insulin therapy Surgical History H/O bilateral breast reduction surgery H/O cataract extraction H/O: hysterectomy Family History Other CAD (coronary artery disease) Cancer Diabetes Lung disease Stroke Social History Smoking and tobacco status: former smoker Alcohol intake: never Lives independently: Yes Data Anesthesia CBC & Chem 7: 02/16/20 04:27 02/16/20 04:27 Other Labs: Laboratory Results - last 48 hr 02/11/20 02/14/20 02/14/20 11:52 03:34 11:11 WBC 6.9 RBC 3.57 L Hgb 8.2 L Hct 30.2 L MCV 84.6 MCH 23.0 L MCHC 27.2 L RDW 17.1 H Plt Count 119 L MPV 9.7 Neut % (Auto) 68.1 Lymph % (Auto) 17.2 [place] % (Auto) 9.2 Eos % (Auto) 4.5 Baso % (Auto) 0.3 Neut # (Auto) 4.7 Lymph # (Auto) 1.2 [place] # (Auto) 0.6 Eos # (Auto) 0.3 Baso # (Auto) 0.0 Nucleated RBC % (auto) 0 Nucleated RBCs # 0.0 PT INR Specimen Type Sample Site ABG pH ABG pCO2 ABG pO2 ABG HCO3 ABG Base Excess Ángle Test Hematocrit O2 Delivery Device O2 Liters/Min Machine Operator Farmworker ID Sodium Potassium Chloride Carbon Dioxide Anion Gap BUN Creatinine Glucose POC Glucose 241 Calculated Osmolality Calcium Phosphorus Magnesium Total Bilirubin AST ALT Alkaline Phosphatase Total Protein Albumin Globulin Blood Type Rho(D) Type Antibody Screen Crossmatch See Detail 02/14/20 02/14/20 02/14/20 14:45 15:41 20:25 WBC RBC Hgb 8.0 L Hct 29.4 L MCV MCH MCHC RDW Plt Count MPV Neut % (Auto) Lymph % (Auto) [place] % (Auto) Eos % (Auto) Baso % (Auto) Neut # (Auto) Lymph # (Auto) [place] # (Auto) Eos # (Auto) Baso # (Auto) Nucleated RBC % (auto) Nucleated RBCs # PT INR Specimen Type Sample Site ABG pH ABG pCO2 ABG pO2 ABG HCO3 ABG Base Excess Ángel Test Hematocrit O2 Delivery Device O2 Liters/Min Machine Operator Farmworker ID Sodium Potassium Chloride Carbon Dioxide Anion Gap BUN Creatinine Glucose POC Glucose 224 193 Calculated Osmolality Calcium Phosphorus Magnesium Total Bilirubin AST ALT Alkaline Phosphatase Total Protein Albumin Globulin Blood Type Rho(D) Type Antibody Screen Crossmatch 02/14/20 02/15/20 02/15/20 21:03 02:38 02:38 WBC 6.2 RBC 3.55 L Hgb 8.5 L 8.1 L Hct 31.6 L 30.1 L MCV 84.8 MCH 22.8 L MCHC 26.9 L RDW 17.2 H Plt Count 105 L MPV 9.3 Neut % (Auto) 61.4 Lymph % (Auto) 21.1 [place] % (Auto) 8.4 Eos % (Auto) 8.0 Baso % (Auto) 0.6 Neut # (Auto) 3.8 Lymph # (Auto) 1.3 Gonzales # (Auto) 0.5 Eos # (Auto) 0.5 Baso # (Auto) 0.0 Nucleated RBC % (auto) 0 Nucleated RBCs # 0.0 PT INR Specimen Type Sample Site ABG pH ABG pCO2 ABG pO2 ABG HCO3 ABG Base Excess Ángel Test Hematocrit O2 Delivery Device O2 Liters/Min Machine Operator Farmworker ID Sodium 145 Potassium 5.5 H Chloride 97 L Carbon Dioxide 41 H Anion Gap 12.5 BUN 37 H Creatinine 1.9 H Glucose 141 H POC Glucose Calculated Osmolality 300 H Calcium 9.2 Phosphorus 2.9 Magnesium 1.8 Total Bilirubin 0.6 AST 10 ALT 6 Alkaline Phosphatase 75 Total Protein 5.7 L Albumin 3.3 L Globulin 2.4 Blood Type Rho(D) Type Antibody Screen Crossmatch 02/15/20 02/15/20 02/15/20 02:38 03:37 06:24 WBC RBC Hgb Hct MCV MCH MCHC RDW Plt Count MPV Neut % (Auto) Lymph % (Auto) Gonzales % (Auto) Eos % (Auto) Baso % (Auto) Neut # (Auto) Lymph # (Auto) Gonzales # (Auto) Eos # (Auto) Baso # (Auto) Nucleated RBC % (auto) Nucleated RBCs # PT 14.10 H INR 1.06 Specimen Type Arterial Sample Site Brachial, left ABG pH 7.37 ABG pCO2 80.1 H* ABG pO2 107.0 H ABG HCO3 46.0 H ABG Base Excess 18.0 H Ángel Test N/a Hematocrit 26.3 L O2 Delivery Device Oxy mask O2 Liters/Min 2.0 Machine Operator Farmworker ID harkr Sodium Potassium Chloride Carbon Dioxide Anion Gap BUN Creatinine Glucose POC Glucose 118 Calculated Osmolality Calcium Phosphorus Magnesium Total Bilirubin AST ALT Alkaline Phosphatase Total Protein Albumin Globulin Blood Type Rho(D) Type Antibody Screen Crossmatch 02/15/20 02/15/20 02/15/20 08:39 09:36 11:07 WBC RBC Hgb 8.9 L Hct 32.9 L MCV MCH MCHC RDW Plt Count MPV Neut % (Auto) Lymph % (Auto) [place] % (Auto) Eos % (Auto) Baso % (Auto) Neut # (Auto) Lymph # (Auto) Gonzales # (Auto) Eos # (Auto) Baso # (Auto) Nucleated RBC % (auto) Nucleated RBCs # PT INR Specimen Type Sample Site ABG pH ABG pCO2 ABG pO2 ABG HCO3 ABG Base Excess Ángel Test Hematocrit O2 Delivery Device O2 Liters/Min Machine Operator Farmworker ID Sodium Potassium Chloride Carbon Dioxide Anion Gap BUN Creatinine Glucose POC Glucose 233 Calculated Osmolality Calcium Phosphorus Magnesium Total Bilirubin AST ALT Alkaline Phosphatase Total Protein Albumin Globulin Blood Type A Positive Rho(D) Type Positive Antibody Screen Negative Crossmatch See Detail 02/15/20 02/15/20 02/15/20 16:04 19:40 20:35 WBC RBC Hgb 9.8 L Hct 35.1 L MCV MCH MCHC RDW Plt Count MPV Neut % (Auto) Lymph % (Auto) [place] % (Auto) Eos % (Auto) Baso % (Auto) Neut # (Auto) Lymph # (Auto) [place] # (Auto) Eos # (Auto) Baso # (Auto) Nucleated RBC % (auto) Nucleated RBCs # PT INR Specimen Type Sample Site ABG pH ABG pCO2 ABG pO2 ABG HCO3 ABG Base Excess Ángel Test Hematocrit O2 Delivery Device O2 Liters/Min Machine Operator Farmworker ID Sodium Potassium Chloride Carbon Dioxide Anion Gap BUN Creatinine Glucose POC Glucose 131 160 Calculated Osmolality Calcium Phosphorus Magnesium Total Bilirubin AST ALT Alkaline Phosphatase Total Protein Albumin Globulin Blood Type Rho(D) Type Antibody Screen Crossmatch 02/16/20 02/16/20 02/16/20 04:27 04:27 04:27 WBC 8.8 RBC 4.00 L Hgb 9.4 L Hct 34.0 L MCV 85.0 MCH 23.5 L MCHC 27.6 L RDW 17.3 H Plt Count 111 L MPV 8.9 Neut % (Auto) 70.8 Lymph % (Auto) 12.5 [place] % (Auto) 8.6 Eos % (Auto) 7.3 Baso % (Auto) 0.2 Neut # (Auto) 6.2 Lymph # (Auto) 1.1 [place] # (Auto) 0.8 Eos # (Auto) 0.6 Baso # (Auto) 0.0 Nucleated RBC % (auto) 0 Nucleated RBCs # 0.0 PT 13.90 H INR 1.03 Specimen Type Sample Site ABG pH ABG pCO2 ABG pO2 ABG HCO3 ABG Base Excess Ángel Test Hematocrit O2 Delivery Device O2 Liters/Min Machine Operator Farmworker ID Sodium 140 Potassium 4.8 Chloride 96 L Carbon Dioxide 37 H Anion Gap 11.8 BUN 36 H Creatinine 1.6 H Glucose 124 H POC Glucose Calculated Osmolality 289 Calcium 9.3 Phosphorus 3.3 Magnesium 2.5 H Total Bilirubin 0.9 AST 12 ALT 9 Alkaline Phosphatase 79 Total Protein 6.1 L Albumin 3.5 Globulin 2.6 Blood Type Rho(D) Type Antibody Screen Crossmatch 02/16/20 05:51 WBC RBC Hgb Hct MCV MCH MCHC RDW Plt Count MPV Neut % (Auto) Lymph % (Auto) [place] % (Auto) Eos % (Auto) Baso % (Auto) Neut # (Auto) Lymph # (Auto) [place] # (Auto) Eos # (Auto) Baso # (Auto) Nucleated RBC % (auto) Nucleated RBCs # PT INR Specimen Type Sample Site ABG pH ABG pCO2 ABG pO2 ABG HCO3 ABG Base Excess Ángel Test Hematocrit O2 Delivery Device O2 Liters/Min Machine Operator Farmworker ID Sodium Potassium Chloride Carbon Dioxide Anion Gap BUN Creatinine Glucose POC Glucose 119 Calculated Osmolality Calcium Phosphorus Magnesium Total Bilirubin AST ALT Alkaline Phosphatase Total Protein Albumin Globulin Blood Type Rho(D) Type Antibody Screen Crossmatch Cardiac Studies: No Data to Display
[2020-02-16] MEDS: sodium chloride 0.9% 1,000 ML 30 ML IV (07:57)
--- NOTE | 2020-02-16 08:19 | W.PM.OPSUD ---
Surgery/Procedure H&P Update DATE OF PROCEDURE: February 16, 2020 DATE H&P PERFORMED: 02/15/20 PLANNED PROCEDURE: Operation Date: 02/16/20 10:45 Proposed Procedures p EGD/COLON WITH POSSIBLE BIOPSY(Not Applicable) - Phong Haynes MD
--- NOTE | 2020-02-16 09:05 | SUR.OPER ---
AT 0828 PT HAD A SHORT RUN OF V TACH .COLONOSCOPY WAS STOPPED AND THE V TACH RESOLVED AFTER 1 MINUTE. EKG WAS ORDERED.
--- NOTE | 2020-02-16 09:16 | ECG_ITS ---
Measurements Intervals [place] Rate: 67 P: -74 NE: 236 QRS: 151 QRSD: 174 T: 151 QT: 508 QTc: 537 SINUS RHYTHM WITH FIRST DEGREE AV BLOCK WITH FREQUENT SUPRAVENTRICULAR PREMATURE COMPLEXESINDETERMINATE AXIS INTRAVENTRICULAR CONDUCTION DELAY [130+ ms QRS DURATION] Compared to ECG 02/10/2020 15:56:21 First degree AV block now present Indeterminate axis now present Intraventricular conduction delay now present Sinus bradycardia no longer present Left-axis deviation no longer present Left bundle-branch block no longer present Electronically Signed On 02-16-2020 20:30:36 CDT by Betty Ramon M.D. [email or web address]
--- NOTE | 2020-02-16 09:53 | P.PN_ITS ---
Subjective Subjective: Interval history: Patient underwent endoscopy study today. She was found to have colonic polyp which was partially removed. Apparently it was a bleeding. Currently the patient is doing okay. She has no chest pain. No unusual shortness of breath. No other specific complaints. Medications: Reviewed: Yes Medication Review Details: Current Medications Acetaminophen (Tylenol) 650 mg PO Q6H PRN PRN Reason: Mild/Mod Pain Or Temp >/= 101 Last Admin: 02/15/20 15:35 Dose: 650 mg Documented by: Hydrocodone Bitart/Acetaminophen ([place] 5-325 Mg) 1 tab PO BID PRN PRN Reason: pain Last Admin: 02/15/20 10:41 Dose: 1 tab Documented by: Albuterol Sulfate (Albuterol) 2.5 mg INHALATION Q6H.RESPIRATORY PRN PRN Reason: shortness of breath or wheezing Albuterol Sulfate (Albuterol) 2.5 mg INHALATION ONCE PRN PRN Reason: WHEEZING Albuterol/Ipratropium (Duoneb) 3 ml INHALATION Q4H PRN PRN Reason: wheezing Amlodipine Besylate (Norvasc) 2.5 mg PO DAILY [facility] Aspirin (Aspirin Ec) 81 mg PO DAILY [facility] Last Admin: 02/15/20 10:43 Dose: 81 mg Documented by: Atorvastatin Calcium (Lipitor) 20 mg PO DAILY [facility] Last Admin: 02/15/20 10:42 Dose: 20 mg Documented by: Capsaicin (Capsaicin) 1 applic TOPICAL QID PRN PRN Reason: PAIN Last Admin: 02/14/20 18:19 Dose: 1 cream Documented by: Carbamazepine (Tegretol) 200 mg PO BEDTIME [facility] Last Admin: 02/15/20 20:58 Dose: 200 mg Documented by: Clopidogrel Bisulfate (Plavix) 75 mg PO DAILY [facility] Last Admin: 02/15/20 10:41 Dose: 75 mg Documented by: Dexamethasone (Decadron) 4 mg IVP Q5M PRN PRN Reason: Nausea unrelieved by Reglan Stop: 02/17/20 07:48 Dextrose (D50w) 25 ml IVP ONCE PRN; Protocol PRN Reason: hypoglycemia protocol Dextrose (D50w) 50 ml IVP PRN PRN; Protocol PRN Reason: hypoglycemia protocol Docusate Sodium (Colace) 100 mg PO BID PRN PRN Reason: Constipation Last Admin: 02/12/20 09:22 Dose: 100 mg Documented by: Famotidine (Pepcid Inj) 20 mg IVP ONCE PRN PRN Reason: HEARTBURN Fentanyl (Sublimaze) 50 mcg IVP Q10M PRN PRN Reason: Preop Pain Fentanyl (Sublimaze) 100 mcg IVP ONCE PRN PRN Reason: Per anesthesia for block Fentanyl (Sublimaze) 50 mcg IVP Q5M PRN PRN Reason: Pain level 6-10 PACU Phase I Stop: 02/17/20 07:48 Gabapentin (Neurontin) 300 mg PO TID [facility] Last Admin: 02/15/20 20:58 Dose: 300 mg Documented by: Glucagon (Glucagen) 1 mg IM ONCE PRN; Protocol PRN Reason: Adult Acute Hypoglycemia Prot. Hydromorphone HCl (Dilaudid Inj) 0.25 mg IVP Q10M PRN PRN Reason: Pain level 4-6 PACU Phase I Stop: 02/17/20 07:48 Hydromorphone HCl (Dilaudid Inj) 0.5 mg IVP Q10M PRN PRN Reason: Pain level 7-10 PACU Phase I Stop: 02/17/20 07:48 Dextrose (D5w) 500 mls @ 100 mls/hr IV ONCE PRN; Protocol PRN Reason: Adult Acute Hypoglycemia Prot Sodium Chloride (Sodium Chloride 0.9%) 1,000 mls @ 30 mls/hr IV .Q24H [facility] Stop: 02/17/20 07:59 Last Admin: 02/16/20 07:57 Dose: 30 mls/hr Documented by: Sodium Chloride (Sodium Chloride 0.9%) 500 mls @ 999 mls/hr IV .Q31M PRN PRN Reason: HYPOTENSION Insulin Aspart (Novolog) 0 unit SUBCUT TIDWM [facility]; Protocol Last Admin: 02/15/20 17:00 Dose: Not Given Documented by: Insulin Detemir (Levemir) 30 unit SUBCUT [facility] Last Admin: 02/16/20 06:08 Dose: Not Given Documented by: Ipratropium [place] (Atrovent Neb) 0.5 mg INHALATION ONCE PRN PRN Reason: WHEEZING Isosorbide [facility]onitrate ([facility]ur) [facility] Last Admin: 02/16/20 06:12 Dose: 30 mg Documented by: Levothyroxine Sodium (Synthroid) 100 mcg PO DAILY [facility] Last Admin: 02/15/20 10:40 Dose: 100 mcg Documented by: Lidocaine HCl (Lidocaine 2% Jelly) 1 applic TOPICAL PRN PRN PRN Reason: PAIN Last Admin: 02/16/20 04:57 Dose: 1 applic Documented by: Lidocaine HCl (Lidocaine 1%) 0.1 ml INTRADERMA PRN PRN PRN Reason: anesthetic prior to IV start Stop: 02/17/20 07:47 Lidocaine HCl (Lidocaine 2% Viscous) 1 ml TOPICAL PRN PRN PRN Reason: Anesthetic prior to IV start Magnesium Lactate (Mag-Tab Sr) 84 mg PO DAILY [facility] Last Admin: 02/15/20 10:45 Dose: 84 mg Documented by: Meperidine HCl (Demerol) 12.5 mg IVP Q5M PRN PRN Reason: Shivering PACU Phase I Stop: 02/17/20 07:48 Metoclopramide HCl (Reglan) 10 mg IVP Q5M PRN PRN Reason: Nausea unrelieved by Zofran Stop: 02/17/20 07:48 Metoclopramide HCl (Reglan) 10 mg IVP ONCE PRN PRN Reason: N/V if zofran ineffective Metoprolol Tartrate (Lopressor) 25 mg PO BID [facility] Last Admin: 02/15/20 17:44 Dose: 25 mg Documented by: Midazolam HCl (Versed) 5 mg IVP ONCE PRN PRN Reason: Per anesthesia for block Midazolam HCl (Versed) 2 mg IVP Q5M PRN PRN Reason: Preop Anxiety Morphine Sulfate (Morphine) 2 mg IVP Q2M PRN PRN Reason: Pain level 6-10 PACU Phase I Stop: 02/17/20 07:48 Morphine Sulfate (Morphine) 2 mg IVP Q5M PRN PRN Reason: Pain level 2-5 PACU Phase I Stop: 02/17/20 07:48 Morphine Sulfate (Morphine) 0 mg IVP Q5M PRN PRN Reason: Breakthrough Pain PACU PhaseII Naloxone HCl (Narcan) 0.1 mg IVP Q2M PRN PRN Reason: RESPIRATORY RATE < 8/MIN Nitroglycerin (Nitrostat) 0.4 mg SUBLINGUAL Q5M PRN PRN Reason: Chest Pain Non-Formulary Medication (Ferrous Sulfate) 325 mg PO .3-4X A WEEK [facility] Nystatin (Nystatin Powder) 1 applic TOPICAL BID [facility] Last Admin: 02/15/20 17:44 Dose: 1 applic Documented by: Ondansetron HCl (Zofran) 4 mg IVP Q8H PRN PRN Reason: vomiting, or N/V if npo Last Admin: 02/12/20 23:19 Dose: 4 mg Documented by: Ondansetron HCl (Zofran) 4 mg IVP Q15M PRN PRN Reason: Nausea/Vomiting PACU PHASE II Ondansetron HCl (Zofran) 4 mg IVP Q5M PRN PRN Reason: Nausea PACU Phase I Stop: 02/17/20 07:48 Ondansetron HCl (Zofran) 4 mg IVP Q5M PRN PRN Reason: NAUSEA AND VOMITING Pantoprazole Sodium (Protonix) 40 mg IVP Q12H [facility] Last Admin: 02/15/20 20:58 Dose: 40 mg Documented by: Potassium Chloride (Klor-Con 10) 40 meq PO DAILY [facility] Last Admin: 02/15/20 10:45 Dose: Not Given Documented by: Ropinirole HCl (Requip) 1 mg PO BEDTIME [facility] Last Admin: 02/15/20 20:58 Dose: 1 mg Documented by: Scopolamine (Transderm-Scop) 1 patch TRANSDERMA ONCE PRN PRN Reason: Nausea/ Vomiting Prophylaxis Sucralfate (Carafate) 1 gm PO BIDAC [facility] Last Admin: 02/16/20 06:12 Dose: 1 gm Documented by: Vitals/I&O/Wt Last Vital Signs Temp 97.7 F 02/16/20 09:19 Pulse 72 02/16/20 09:34 Resp 18 02/16/20 09:34 BP 106/48 02/16/20 09:34 Pulse Ox 100 02/16/20 09:34 02/15/20 02/16/20 02/16/20 22:59 06:59 14:59 Intake Total 730 / 970 0 / 970 Output Total 650 / 650 Balance 80 / 320 0 / 320 Physical Exam Narrative: EXAM NARRATIVE: GENERAL: The patient is alert and oriented times three. Not in any acute distress. HEENT: Moderate pallor. No icterus or lymphadenopathy. NECK: Trachea appears to be central. No masses noted. No JVD or thyromegaly appreciated. No carotid bruit. RESPIRATORY: Chest is symmetrical. No intercostals muscle retraction or any accessory muscle activation. There is no chest wall tenderness. Breath sounds are heard bilaterally. No rales or rhonchi heard. No evidence of any consolidation. The intensity of the breath sounds are diminished in the bases BREASTS: Deferred. HEART: The PMI is in the 5th left intercostals space just inside the midclavicular line. No palpable precordial events. S1 and S2 are normal. No S3 or S4 heard. No pericardial rub or any click heard. Short systolic murmur in the left sternal border. No diastolic murmurs. ABDOMEN: Abdomen is obese. No vessel pulsations or distention. She has minimal tenderness around the umbilical region, in the region of the scar. She has a pendulous abdomen. : Deferred. RECTAL: Deferred. LYMPHATIC: No lymphadenopathy noted in the neck or groin. EXTREMITIES: No significant edema or cyanosis. MUSCULOSKELETAL: No acute joint deformities or swelling SKIN: There are no significant ecchymosis or rashes NEUROPSYCHIATRIC: She has some fine tremor in the right upper extremity. No obvious motor weakness Urinary Catheter Management^: [place]: Cath Placed During This Visit: yes Reason for Continuing Indwelling Catheter: Acute Urinary Retention or Obstruct ion Urinary Catheter Date of Insertion: 02/10/20 Urinary Catheter Time of Insertion: 13:30 Data : 02/16/20 04:27 02/16/20 04:27 A&P Assessment and plan (1) CHF (congestive heart failure): The patient is currently compensated. Her LV dysfunction, Anemia, kidney failure, hypoxia/CO2 retention etc. are the accountability factors. Possibility of underlying coronary ischemia causing this also is a consideration.She may continue on the current medications for the time being. She requires further cardiac work-up. Status: Acute Qualifiers: Heart failure chronicity: unspecified Heart failure type: unspecified Qualified Code(s): I50.9 - Heart failure, unspecified (2) Recent cerebrovascular accident (CVA): Patient had a carotid duplex yesterday. Was found to have 50 to 79% stenosis bilaterally. We will continue on the current management Status: Acute (3) Acute kidney injury superimposed on CKD: This could be multifactorial. Heart failure, low output state, diabetes, anti-inflammatory medications, etc. are contributing factors. Will continue careful IV diuresis. Her creatinine is going up, slightly. May discontinue the JACKELIN inhibitor at this time. Status: Acute (4) Essential (primary) hypertension: Patient is responding to the antihypertensive medications appropriately. Currently she is normotensive. May continue on the current medications. Status: Acute (5) Uncontrolled type 2 diabetes mellitus with insulin therapy: May continue the management of diabetes aggressively. Status: Acute (6) Elevated troponin: Most likely the patient has type II myocardial infarction. In view of her LV dysfunction, in order to further evaluate her coronary status, a myocardial perfusion imaging would be appropriate. We may go ahead and schedule her for a myocardial perfusion imaging in the morning. In the meanwhile, I may continue on the current medications Status: Acute (7) Anemia: Hemoglobin seems to be improving Status: Acute Qualifiers: Anemia type: iron deficiency Iron deficiency anemia type: chronic blood loss Qualified Code(s): D50.0 - Iron deficiency anemia secondary to blood loss (chronic) Additional A&P Information Based on the myocardial perfusion imaging findings, further management decisions will be made. Attestations Medical Necessity Statement*: Patient requires continued hospital stay for close monitoring and further management Coding Level of Care Code Acute Sustainability Project Manager for [facility] Diagnoses CHF (congestive heart failure) I50.9 Heart failure chronicity: unspecified Heart failure type: unspecified Recent cerebrovascular accident (CVA) Z86.73 Acute kidney injury superimposed on CKD N17.9; N18.9 Essential (primary) hypertension I10 Uncontrolled type 2 diabetes mellitus with insulin therapy E11.65; Z79.4 Elevated troponin R79.89 Anemia D50.0 Anemia type: iron deficiency Iron deficiency anemia type: chronic blood loss
--- NOTE | 2020-02-16 09:56 | ANE.PACU2 ---
Inpatient post-anesthesia follow up: Airway intact: Yes Vital signs: Temperature 97.7 F Pulse Rate [Monito r] 63 Pulse Rate 72 Respiratory Rate 18 Blood Pressure [Ri ght Arm] 133/60 Blood Pressure 106/48 Pulse Oximetry 100 Oxygen Delivery Me thod Nasal Cannula Oxygen Flow Rate 4 Fraction of Inspir ed Oxygen 28 Hydration adequate: Yes Nausea and vomiting: No Pain level: 3 Mental status: Baseline
--- NOTE | 2020-02-16 10:50 | P.PN_ITS ---
Subjective Subjective: Interval history: Chart reviewed. s/p endoscopy this morning. Findings of suspicious appearing growth in colon, possibly polyp, cannot r/o malignancy. Biopsy taken and sent. While attempting removal, some bleeding was noted, submucosal epinephrine given which was followed by sinus tachycardia per resolved. Back in baseline rhythm. No c/o chest pain, dyspnea, palpitations. Sleeping comfortably at this time, no respiratory distress. Net + 300ml over 24 hrs. cr improving at 1.6 today. Medications: Reviewed: Yes Vitals/I&O/Wt Last Vital Signs Temp 97.7 F 02/16/20 09:19 Pulse 72 02/16/20 09:34 Resp 18 02/16/20 09:34 BP 106/48 02/16/20 09:34 Pulse Ox 100 02/16/20 09:34 02/15/20 02/16/20 02/16/20 22:59 06:59 14:59 Intake Total 730 / 970 0 / 970 Output Total 650 / 650 Balance 80 / 320 0 / 320 Physical Exam Narrative: EXAM NARRATIVE: GEN: Awake, alert and oriented, no acute distress CVS: S1S2 N RS: B/L scattered crackles over lung bases Abd: Soft, nt/nd , bs+ SPORTS MEDICINE MASSEUR: no focal neuro deficits Urinary Catheter Management^: Velasco: Cath Placed During This Visit: yes Reason for Continuing Indwelling Catheter: Acute Urinary Retention or Obstruction Urinary Catheter Date of Insertion: 02/10/20 Urinary Catheter Time of Insertion: 13:30 Data : 02/16/20 04:27 02/16/20 04:27 A&P Assessment and plan (1) Chronic hypercapnic respiratory failure: Status: Acute (2) Acute respiratory failure with hypoxia: Status: Acute (3) Diastolic CHF, acute on chronic: Status: Acute (4) NSTEMI (non-ST elevated myocardial infarction): Status: Acute (5) Acute kidney injury superimposed on CKD: Creatinine currently 1.3, carefully diurese Status: Acute (6) Anemia of chronic disease: Status: Acute (7) Dyslipidemia: Status: Acute (8) Uncontrolled type 2 diabetes mellitus with insulin therapy: -Patient states that she takes Levemir 30-40 daily based on her morning blood sugar -Insulin sliding scale of NovoLog -Start Levemir 30 units every morning, low-dose sliding scale Status: Acute (9) Lumbar back pain with radiculopathy affecting right lower extremity: Status: Acute (10) GI bleed: Status: Acute (11) CVA (cerebral vascular accident): Status: Acute (12) Restless leg syndrome: Status: Acute Additional A&P Information # Chronic hypercapneic respiratory failure: -PCO2 remains in the high 70s-80, with normal pH. alert oriented x3, likely that this is her baseline. -Etiology is likely multifactorial, from DONNELL, obesity hypoventilation syndrome, diastolic CHF, chronic pain medications she uses for her severe restless leg syndrome during the night. Does have intermittent episodes of hypercarbic confusion per notes review, will likely benefit from home Bipap. Overnight pulse oximetry ordered for tonight. -Likely patient would benefit stopping or de-escalating her medications for restless leg, however patient states that she cannot survive the night without these medications, that she would rather , willing to try concomitant bipap to avoid worsening hypercarbia. - Above discussed with case management # -Acute hypoxic respiratory failure likely secondary to diastolic CHF exacerbation -evidenced by BNP is 5000, CXr with vascular congestion -Currently doing significantly better -Has diuresed roughly 9640 L since admission - start lasix 20mg po daily - cr currently improving to 1.6 # NSTEMI -EKG shows left bundle branch block -Patient has had a positive stress test in 06/22/2018, showing ischemia in the left circumflex, echocardiogram on 04/22/2019 showed mild diffuse hypokinesia of the septum and anteroseptal segments -Has had chest pain in the last week, no current chest pain -Continue aspirin 81mg, change plavix to every other day for now given findings of polyp, continue b blockers. If active Gi bleeding, may need to discontinue ASA. -lisinopril on hold given BARBARA -Echocardiogram showed ejection fraction 35 to 40%, left ventricular hypokinesis - scheduled fro stress test tomorrow- discussed with Dr. buenrostro # Chronic anemia -Hemoglobin has down trended to 8.2, likely secondary to slow GI bleed - FOBT negative on 02/12 -s/p colonoscopy today with findings of polyp vs potentilal malignancy- path results awaited -s/p 1 unit PRBC. Hb stable today -C hange protonix to 40 mg po BID -Patient is on aspirin and Plavix as above, will continue to monitor as currently benefit of antiplatelet therapy outweighs risk given the concern for NSTEMI and depressed ejection fraction and stroke # Possible recent TIA -May have had a stroke or transient ischemic attack a week ago, currently neurologically intact -Is already on aspirin and Plavix -Continue PT/ OT - CT of the head no acute infarct,'s carotid ultrasound shows 50 to 79% stenosis bilaterally # -Severe restless leg, not improving with [place], Requip, morphine, gabapentin, capsaicin, topical lidocaine -Patient has developed hypercarbia from overuse of [place] with morphine with Requip, gabapentin -Clonazepam is relatively contraindicated in her given her severe hypercarbia -Currently on Tegretol # DM: Continue insulin levemir and aspart sliding scale Code status: DNI Dvt ppx: heparin Attestations Medical Necessity Statement*: Stress test tomorrow, overnight oximetry tonight Coding Level of Care Code Acute Hydraulics Engineer for [facility] Diagnoses Chronic hypercapnic respiratory failure J96.12 Acute respiratory failure with hypoxia J96.01 Diastolic CHF, acute on chronic I50.33 NSTEMI (non-ST elevated myocardial infarction) I21.4 Acute kidney injury superimposed on CKD N17.9; N18.9 Anemia of chronic disease D63.8 Dyslipidemia E78.5 Uncontrolled type 2 diabetes mellitus with insulin therapy E11.65; Z79.4 Lumbar back pain with radiculopathy affecting right lower extremity M54.16 GI bleed K92.2 CVA (cerebral vascular accident) I63.9 Restless leg syndrome G25.81
[2020-02-16 11:19] LABS: Glucose Point of Care 135 mg/dL (70-110)
--- NOTE | 2020-02-16 11:19 | ECG_ITS ---
[facility] Test Date: 2020-02-17 Pat Name: Bryanna Reid Department: Room: 107 Gender: Drill Grinder: Vickie Arzola : 1945 Requested By: Annemarie Romo Order Number: [id number] Concha MD: Betty Ramon M.D. Interpretive Statements NAME OF STUDY: LEXISCAN SESTAMIBI STRESS TEST INDICATION: Angina, PROCEDURE: At the baseline, the EKG revealed normal sinus rhythm with nonspecific IVCD. Poor R wave progression. Left anterior fascicular block. The baseline blood pressure was 101/76 mm Hg with a heart rate of 62 beats/min. Lexiscan was infused over a period of 20 seconds. A total of 0.4 milligrams of Lexiscan was infused. The stress phase was continued for a total of 5 minutes. Heart rate at the end of the stress phase was 69 with a blood pressure of 106/50. The EKG at the peak infusion revealed no significant changes. Sestamibi was injected 20 seconds after the Lexiscan infusion. Blood pressure at the end of the recovery phase was 108/46 with a heart rate of 77 per minute. CONCLUSION: 1. The EKG response to the Lexiscan infusion is uninterpretable due to baseline changes 2. No LexiScan induced chest pain or cardiac arrhythmia 3. Normal blood pressure and heart rate response 4. Sestamibi/sestamibi perfusion scan pending; see separate report. Electronically Signed On 02-18-2020 11:14:26 CDT by Betty Ramon M.D. [id number]
[2020-02-16] MEDS: metoprolol tartrate 25 mg Tablet PO (12:22)
[2020-02-16] MEDS: gabapentin 300 mg Capsule PO ×2 (12:22→21:24)
[2020-02-16] MEDS: atorvastatin 40 mg Tablet 20 MG PO (12:23)
[2020-02-16] MEDS: magnesium lactate 84 mg Tablet PO (12:24)
[2020-02-16] MEDS: amlodipine 5 mg Tablet 2.5 MG PO (12:24)
[2020-02-16] MEDS: aspirin 81 mg EC Tablet PO (12:25)
[2020-02-16] MEDS: potassium chloride ER 10 mEq Tablet 40 MEQ PO (12:25)
[2020-02-16] MEDS: levothyroxine 100 mcg Tablet PO (12:25)
[2020-02-16] MEDS: heparin 5,000 unit/mL INJ 1 mL 5000 UNIT SUBCUT ×2 (12:35→23:53)
[2020-02-16] MEDS: HYDROcodone-acetaminophen 5-325 mg Tablet 1 TAB PO ×2 (12:49→21:17)
--- NOTE | 2020-02-16 12:57 | PC.NURSE ---
AM meds delayed due to patient being NPO and off unit for upper/lower GI.
--- NOTE | 2020-02-16 15:00 | PC.OT ---
Pt off the floor at medical procedures in a.m. and sleeping soundly when therapist attempted OT tx x3 in p.m. OT tx to resume tomorrow.
[2020-02-16 16:30] LABS: Glucose Point of Care 208 mg/dL (70-110)
[2020-02-16] MEDS: pantoprazole DR 40 mg Tablet PO (18:05)
--- NOTE | 2020-02-16 18:18 | PC.NURSE ---
Pharmacy contacted about evening dose of metoprolol. Pharmacy stated they were concerned about interval of medication and giving doses too close together. Pharmacy called back asking about patients blood pressure. Pharmacy stated they would contact the doctor and to hold the medication.
--- NOTE | 2020-02-16 19:43 | PC.NURSE ---
Pt resting in bed. Assisted to bedside commode. SMall bowel movement. on 2 L mask. Complaints of pain to bilateral lower feet. Repositioned back to bed on left side. Dr. Ramon at bedside and explained stress test and reason to patient. All questions answered. No durther needs at this time.
[2020-02-16 20:06] LABS: Glucose Point of Care 258 mg/dL (70-110)
[2020-02-16] MEDS: carBAMazepine 200 mg Tablet PO (21:17)
[2020-02-16] MEDS: ropinirole 1 mg Tablet PO (21:17)
[2020-02-16] MEDS: nystatin powder 15 gm Btl 1 APPLIC TOPICAL (21:17)
[2020-02-16] MEDS: capsaicin 0.025% cream 60 gm 1 APPLIC TOPICAL (21:19)
[2020-02-17] VITALS (10 sets, daily range): BP systolic 105–126; BP diastolic 39–63; PULSE 56–91; RESP 13–18; TEMP 36.6–37.1; O2SAT 95–100
[2020-02-17 03:55] LABS: Basophils % 0.5 %; Eosinophils # 0.5 10^3/uL (0.0-0.8); Eosinophils % 8.1 %; Hematocrit 31.2 % (37.0-47.0); Hemoglobin 8.7 g/dL (11.5-15.3); Lymphocytes % 17.4 %; Mean Corpuscular HGB Conc 27.9 g/dL (30.0-36.0); Mean Corpuscular Hemoglobin 23.6 pg (28.0-34.0); Mean Corpuscular Volume 84.8 fL (81-99); Mean Platelet Volume 9.6 fL (7.4-10.4); Monocytes # 0.4 10^3/uL (0.2-0.9); Monocytes % 7.6 %; Neutrophils # 3.8 10^3/uL (1.8-7.7); Neutrophils % 65.9 %; Nucleated Red Blood Cells % 0 %; Platelet Count 108 10^3/cmm (130-400); Red Blood Count 3.68 10^6/uL (4.1-5.3); Red Cell Distribution Width 17.8 % (12.1-15.1); White Blood Count 5.8 10^3/uL (4.0-10.0)
[2020-02-17 04:39] LABS: Alanine Aminotransferase 7 U/L (0-33); Albumin Level 3.2 g/dL (3.5-5.2); Alkaline Phosphatase 77 IU/L (35-105); Anion Gap 11.5 (5-19); Aspartate Amino Transferase 10 U/L (0-32); Blood Urea Nitrogen 34 mg/dL (8-23); Carbon Dioxide 37 mmol/L (22-29); Chloride 98 mmol/L (98-107); Globulin 2.3 g/dL (1.3-4.6); Glucose 240 mg/dL (65-115); Osmolality Calculated 297 mOsm/kg (285-295); Potassium 5.5 mmol/L (3.5-5.1); Sodium 141 mmol/L (136-145); Total Bilirubin 0.5 mg/dL (0.15-1.2); Total Protein 5.5 g/dL (6.6-8.7)
[2020-02-17] MEDS: isosorbide mononitrate ER 30 mg Tablet PO (06:12)
[2020-02-17] MEDS: sucralfate 1 gm Tablet PO ×2 (06:12→17:23)
[2020-02-17 06:17] LABS: Glucose Point of Care 184 mg/dL (70-110)
--- NOTE | 2020-02-17 06:33 | PC.NURSE ---
Per Dr. Mason- hold insulin this AM until patient returns from stress test. However, do not give imdur. Other PO meds due at this time is okay to administer.
[2020-02-17] MEDS: HYDROcodone-acetaminophen 5-325 mg Tablet 1 TAB PO ×2 (07:09→22:48)
--- NOTE | 2020-02-17 07:25 | PC.NURSE ---
Patient taken to nuclear medicine for stress test.
[2020-02-17] MEDS: regadenoson 0.4 Mg/5 ml Syringe IVP (08:18)
--- NOTE | 2020-02-17 08:19 | PM.PN ---
Subjective Subjective: Interval history: Patient had a myocardial perfusion imaging today. She was found to have a small area of ischemia in the inferolateral region. Patient is remained stable. She has no chest pain. No unusual shortness of breath. Her hemoglobin has dropped from 9.4-8.7 today. Medications: Reviewed: Yes Medication Review Details: Current Medications Acetaminophen (Tylenol) 650 mg PO Q6H PRN PRN Reason: Mild/Mod Pain Or Temp >/= 101 Last Admin: 02/15/20 15:35 Dose: 650 mg Documented by: Hydrocodone Bitart/Acetaminophen ([place] 5-325 Mg) 1 tab PO BID PRN PRN Reason: pain Last Admin: 02/17/20 07:09 Dose: 1 tab Documented by: Albuterol Sulfate (Albuterol) 2.5 mg INHALATION Q6H.RESPIRATORY PRN PRN Reason: shortness of breath or wheezing Albuterol/Ipratropium (Duoneb) 3 ml INHALATION Q4H PRN PRN Reason: wheezing Aminophylline (Aminophylline) 25 mg IVP Q2M PRN PRN Reason: see dose instructions Stop: 02/18/20 06:32 Amlodipine Besylate (Norvasc) 2.5 mg PO DAILY [facility] Last Admin: 02/16/20 12:24 Dose: 2.5 mg Documented by: Aspirin (Aspirin Ec) 81 mg PO DAILY [facility] Last Admin: 02/16/20 12:25 Dose: 81 mg Documented by: Atorvastatin Calcium (Lipitor) 20 mg PO DAILY [facility] Last Admin: 02/16/20 12:23 Dose: 20 mg Documented by: Capsaicin (Capsaicin) 1 applic TOPICAL QID PRN PRN Reason: PAIN Last Admin: 02/16/20 21:19 Dose: 1 cream Documented by: Carbamazepine (Tegretol) 200 mg PO BEDTIME [facility] Last Admin: 02/16/20 21:17 Dose: 200 mg Documented by: Clopidogrel Bisulfate (Plavix) 75 mg PO EVERY OTHER DAY [facility] Dextrose (D50w) 25 ml IVP ONCE PRN; Protocol PRN Reason: hypoglycemia protocol Dextrose (D50w) 50 ml IVP PRN PRN; Protocol PRN Reason: hypoglycemia protocol Docusate Sodium (Colace) 100 mg PO BID PRN PRN Reason: Constipation Last Admin: 02/12/20 09:22 Dose: 100 mg Documented by: Furosemide (Lasix) 20 mg PO DAILY@0800 [facility] Gabapentin (Neurontin) 300 mg PO TID [facility] Last Admin: 02/16/20 21:24 Dose: 300 mg Documented by: Glucagon (Glucagen) 1 mg IM ONCE PRN; Protocol PRN Reason: Adult Acute Hypoglycemia Prot. Heparin Sodium (Beef Lung) (Heparin) 5,000 unit SUBCUT Q12H [facility] Last Admin: 02/16/20 23:53 Dose: 5,000 unit Documented by: Dextrose (D5w) 500 mls @ 100 mls/hr IV ONCE PRN; Protocol PRN Reason: Adult Acute Hypoglycemia Prot Insulin Aspart (Novolog) 0 unit SUBCUT TIDWM [facility]; Protocol Last Admin: 02/16/20 18:07 Dose: 4 unit Documented by: Insulin Detemir (Levemir) 30 unit SUBCUT QAM [facility] Last Admin: 02/16/20 06:08 Dose: Not Given Documented by: Isosorbide Mononitrate (Imdur) 30 mg PO QAM [facility] Last Admin: 02/17/20 06:12 Dose: Not Given Documented by: Levothyroxine Sodium (Synthroid) 100 mcg PO DAILY [facility] Last Admin: 02/16/20 12:25 Dose: 100 mcg Documented by: Lidocaine HCl (Lidocaine 2% Jelly) 1 applic TOPICAL PRN PRN PRN Reason: PAIN Last Admin: 02/16/20 04:57 Dose: 1 applic Documented by: Magnesium Lactate (Mag-Tab Sr) 84 mg PO DAILY [facility] Last Admin: 02/16/20 12:24 Dose: 84 mg Documented by: Metoprolol Tartrate (Lopressor) 25 mg PO Q12H [facility] Naloxone HCl (Narcan) 0.1 mg IVP Q2M PRN PRN Reason: RESPIRATORY RATE < 8/MIN Nitroglycerin (Nitrostat) 0.4 mg SUBLINGUAL Q5M PRN PRN Reason: Chest Pain Nitroglycerin (Nitrostat) 0.4 mg SUBLINGUAL Q5M PRN PRN Reason: CHEST PAIN Stop: 02/18/20 06:32 Non-Formulary Medication (Ferrous Sulfate) 325 mg PO .3-4X A WEEK [facility] Nystatin (Nystatin Powder) 1 applic TOPICAL BID [facility] Last Admin: 02/16/20 21:17 Dose: 1 applic Documented by: Ondansetron HCl (Zofran) 4 mg IVP Q8H PRN PRN Reason: vomiting, or N/V if npo Last Admin: 02/12/20 23:19 Dose: 4 mg Documented by: Ondansetron HCl (Zofran) 4 mg IVP Q2M PRN PRN Reason: NAUSEA Pantoprazole Sodium (Protonix) 40 mg PO BID [facility] Last Admin: 02/16/20 18:05 Dose: 40 mg Documented by: Potassium Chloride (Klor-Con 10) 40 meq PO DAILY [facility] Last Admin: 02/16/20 12:25 Dose: 40 meq Documented by: Ropinirole HCl (Requip) 1 mg PO BEDTIME [facility] Last Admin: 02/16/20 21:17 Dose: 1 mg Documented by: Sucralfate (Carafate) 1 gm PO BIDAC [facility] Last Admin: 02/17/20 06:12 Dose: 1 gm Documented by: Vitals/I&O/Wt Last Vital Signs Temp 98.2 F 02/17/20 03:27 Pulse 61 02/17/20 03:27 Resp 14 02/17/20 03:27 BP 106/39 02/17/20 03:27 Pulse Ox 99 02/17/20 03:27 02/16/20 02/17/20 02/17/20 22:59 06:59 14:59 Intake Total 240 / 980 Output Total 350 / 350 550 / 550 Balance -110 / 630 -550 / -550 Physical Exam Narrative: EXAM NARRATIVE: GENERAL: The patient is alert and oriented times three. Not in any acute distress. HEENT: Moderate pallor. No icterus or lymphadenopathy. NECK: Trachea appears to be central. No masses noted. No JVD or thyromegaly appreciated. No carotid bruit. RESPIRATORY: Chest is symmetrical. No intercostals muscle retraction or any accessory muscle activation. There is no chest wall tenderness. Breath sounds are heard bilaterally. No rales or rhonchi heard. No evidence of any consolidation. The intensity of the breath sounds are diminished in the bases BREASTS: Deferred. HEART: The PMI is in the 5th left intercostals space just inside the midclavicular line. No palpable precordial events. S1 and S2 are normal. No S3 or S4 heard. No pericardial rub or any click heard. Short systolic murmur in the left sternal border. No diastolic murmurs. ABDOMEN: Abdomen is obese. No vessel pulsations or distention. She has minimal tenderness around the umbilical region, in the region of the scar. She has a pendulous abdomen. : Deferred. RECTAL: Deferred. LYMPHATIC: No lymphadenopathy noted in the neck or groin. EXTREMITIES: No significant edema or cyanosis. MUSCULOSKELETAL: No acute joint deformities or swelling SKIN: There are no significant ecchymosis or rashes NEUROPSYCHIATRIC: She has some fine tremor in the right upper extremity. No obvious motor weakness Urinary Catheter Management^: Velasco: Cath Placed During This Visit: yes Reason for Continuing Indwelling Catheter: Acute Urinary Retention or Obstruction Urinary Catheter Date of Insertion: 02/10/20 Urinary Catheter Time of Insertion: 13:30 Data : 02/17/20 03:20 02/17/20 03:20 Myocardial perfusion imaging: My impression: 1. Small sized reversible perfusion abnormality of mild severity of mid inferolateral and mid to apical inferior verma. This may represent small area of ischemia in right coronary artery/circumflex artery territory. However in absence of prone imaging attenuation artifact cannot be completely ruled out. 2. Overall left ventricular systolic function is normal without regional wall motion abnormalities. 3. The left ventricular ejection fraction is normal with a value of 62%. 4. When compared to previous study dated 06/06/2018, perfusion abnormality in mid to apical inferior wall seems to be new. A&P Assessment and plan (1) CHF (congestive heart failure): The patient is currently compensated. Her LV dysfunction, Anemia, kidney failure, hypoxia/CO2 retention etc. are the accountability factors. The myocardial perfusion imaging findings, suggestive of a small area of ischemia in the distribution of the right coronary artery/circumflex artery. Status: Acute Qualifiers: Heart failure chronicity: unspecified Heart failure type: unspecified Qualified Code(s): I50.9 - Heart failure, unspecified (2) Recent cerebrovascular accident (CVA): Patient has bilateral carotid artery disease and has not had any recurrence of TIA. May continue on the current medications. Status: Acute (3) Acute kidney injury superimposed on CKD: This could be multifactorial. Heart failure, low output state, diabetes, anti-inflammatory medications, etc. are contributing factors. The creatinine seems to be coming down since we stopped the lisinopril Status: Acute (4) Essential (primary) hypertension: Patient is responding to the antihypertensive medications appropriately. Currently she is normotensive. May continue on the current medications. Status: Acute (5) Uncontrolled type 2 diabetes mellitus with insulin therapy: May continue the management of diabetes aggressively. Status: Acute (6) Elevated troponin: Most likely the patient has type II myocardial infarction. In view of her LV dysfunction and the ischemia based on the perfusion scan, in order to further evaluate her coronary status, a cardiac catheterization would be appropriate. However because of her GI bleed and anemia, since she has no specific symptoms, it may be appropriate to hold off on this at least for the next couple of weeks. If there is no evidence of ongoing GI bleed, we may go ahead and do the cardiac authorization at that point Status: Acute (7) Anemia: Hemoglobin drop as mentioned above. Will repeat the CBC in the morning. Status: Acute Qualifiers: Anemia type: iron deficiency Iron deficiency anemia type: chronic blood loss Qualified Code(s): D50.0 - Iron deficiency anemia secondary to blood loss (chronic) Additional A&P Information If the hemoglobin remains stable with no evidence of ongoing bleed, she may be discharged home tomorrow. Consider cardiac catheterization as an outpatient. Attestations Medical Necessity Statement*: Patient requires continued hospital stay for close monitoring and further management Coding Level of Care Code Acute Spine Nurse for [facility] Diagnoses CHF (congestive heart failure) I50.9 Heart failure chronicity: unspecified Heart failure type: unspecified Recent cerebrovascular accident (CVA) Z86.73 Acute kidney injury superimposed on CKD N17.9; N18.9 Essential (primary) hypertension I10 Uncontrolled type 2 diabetes mellitus with insulin therapy E11.65; Z79.4 Elevated troponin R79.89 Anemia D50.0 Anemia type: iron deficiency Iron deficiency anemia type: chronic blood loss
--- NOTE | 2020-02-17 09:43 | PC.NURSE ---
Patient back to room #107.
[2020-02-17] MEDS: gabapentin 300 mg Capsule PO ×4 (09:44→20:31)
[2020-02-17] MEDS: FUROsemide 20 mg Tablet PO (09:49)
[2020-02-17] MEDS: pantoprazole DR 40 mg Tablet PO ×2 (09:56→17:23)
[2020-02-17] MEDS: amlodipine 5 mg Tablet 2.5 MG PO (09:57)
[2020-02-17] MEDS: aspirin 81 mg EC Tablet PO (10:00)
[2020-02-17] MEDS: atorvastatin 40 mg Tablet 20 MG PO (10:00)
[2020-02-17] MEDS: levothyroxine 100 mcg Tablet PO (10:00)
--- NOTE | 2020-02-17 10:00 | PC.NURSE ---
Pharmacy contacted patient has returned from [facility] and needs morning dose of levemir. Dose not available in medicine room.
[2020-02-17] MEDS: magnesium lactate 84 mg Tablet PO (10:01)
--- NOTE | 2020-02-17 10:08 | PC.NURSE ---
Morning medications given after nuclear medicine procedure. Documented as unscheduled. Potassium no given as morning lab on 02/16 showed potassium level to be 5.5.
[2020-02-17] MEDS: heparin 5,000 unit/mL INJ 1 mL 5000 UNIT SUBCUT ×2 (11:08→22:47)
--- NOTE | 2020-02-17 11:19 | NMCV_ITS ---
NM kayce perf SPECT r/s* [id number] Bryanna Reid Age: 74 Gender: F : 1945 Exam Date: 02/17/2020 11:19 Ordering Phys: Annemarie Romo MD Technologist: JOSUÉ Bolden Exam Location: [facility] Indications: SOB STRESS TEST [facility] IMAGE PROTOCOL Stress/Rest 1 Lexiscan Day Radiopharmaceutical Dose (mCi) Administration Site Administered by Rest: Tc-99m 10.9 IV JOSUÉ Barajas Sestamibi Stress:Tc-99m 32.5 IV JOSUÉ Bolden Sestamibi Rest: 17-Feb-2020 60 Discovery 630 Stress: 17-Feb-2020 30 Discovery 630 0.4mg Lexiscan. Supine position only as patient was unable to lay prone. SPECT RESULTS Technical Quality: Excellent Raw Data Analysis: Breast attenuation Image Corrections: No attenuation or motion correction applied Summed Stress Score: 3 Summed Rest Score: 1 Summed Difference Score: 3 PERFUSION FINDINGS Small size perfusion abnormality of mild severity of mid inferolateral and mid to apical inferior verma on supine stress images. FUNCTIONAL RESULTS (calculated via Gated SPECT) Stress Image LV EF (%): 62 Stress EDV (mL):151 TID: 1.08 Stress ESV (mL):58 FUNCTIONAL FINDINGS: The left ventricle is normal in size. Transient Ischemia Dilatation of 1.1. There is normal left ventricular systolic function. The left ventricular ejection fraction is normal with a value of 62%. There is normal left ventricular wall thickening. IMPRESSIONS 1. Small sized reversible perfusion abnormality of mild severity of mid inferolateral and mid to apical inferior verma. This may represent small area of ischemia in right coronary artery/circumflex artery territory. However in absence of prone imaging attenuation artifact cannot be completely ruled out. 2. Overall left ventricular systolic function is normal without regional wall motion abnormalities. 3. The left ventricular ejection fraction is normal with a value of 62%. 4. When compared to previous study dated 06/06/2018, perfusion abnormality in mid to apical inferior wall seems to be new. Kalpana Schwartz MD (Electronically Signed) Final Date: 17 February 2020 14:45 S
[2020-02-17 11:21] LABS: Glucose Point of Care 173 mg/dL (70-110)
[2020-02-17] MEDS: metoprolol tartrate 25 mg Tablet PO (12:37)
[2020-02-17 16:25] LABS: Glucose Point of Care 204 mg/dL (70-110)
--- NOTE | 2020-02-17 18:08 | P.PN_ITS ---
Subjective Subjective: Interval history: Underwent stress test earlier today which returned abnormal. Hb stable. No new complaints. Overnight oximetry study completed Medications: Reviewed: Yes Medication Review Details: Current Medications Acetaminophen (Tylenol) 650 mg PO Q6H PRN PRN Reason: Mild/Mod Pain Or Temp >/= 101 Last Admin: 02/15/20 15:35 Dose: 650 mg Documented by: Hydrocodone Bitart/Acetaminophen ([place] 5-325 Mg) 1 tab PO BID PRN PRN Reason: pain Last Admin: 02/17/20 22:48 Dose: 1 tab Documented by: Albuterol Sulfate (Albuterol) 2.5 mg INHALATION Q6H.RESPIRATORY PRN PRN Reason: shortness of breath or wheezing Albuterol/Ipratropium (Duoneb) 3 ml INHALATION Q4H PRN PRN Reason: wheezing Amlodipine Besylate (Norvasc) 2.5 mg PO DAILY [facility] Last Admin: 02/17/20 09:57 Dose: 2.5 mg Documented by: Aspirin (Aspirin Ec) 81 mg PO DAILY [facility] Last Admin: 02/17/20 10:00 Dose: 81 mg Documented by: Atorvastatin Calcium (Lipitor) 20 mg PO DAILY [facility] Last Admin: 02/17/20 10:00 Dose: 20 mg Documented by: Capsaicin (Capsaicin) 1 applic TOPICAL QID PRN PRN Reason: PAIN Last Admin: 02/16/20 21:19 Dose: 1 cream Documented by: Carbamazepine (Tegretol) 200 mg PO BEDTIME [facility] Last Admin: 02/17/20 20:31 Dose: 200 mg Documented by: Clopidogrel Bisulfate (Plavix) 75 mg PO EVERY OTHER DAY [facility] Dextrose (D50w) 25 ml IVP ONCE PRN; Protocol PRN Reason: hypoglycemia protocol Dextrose (D50w) 50 ml IVP PRN PRN; Protocol PRN Reason: hypoglycemia protocol Docusate Sodium (Colace) 100 mg PO BID PRN PRN Reason: Constipation Last Admin: 02/12/20 09:22 Dose: 100 mg Documented by: Furosemide (Lasix) 20 mg PO DAILY@0800 [facility] Last Admin: 02/17/20 09:49 Dose: 20 mg Documented by: Gabapentin (Neurontin) 300 mg PO TID [facility] Last Admin: 02/17/20 20:31 Dose: 300 mg Documented by: Glucagon (Glucagen) 1 mg IM ONCE PRN; Protocol PRN Reason: Adult Acute Hypoglycemia Prot. Heparin Sodium (Beef Lung) (Heparin) 5,000 unit SUBCUT Q12H [facility] Last Admin: 02/17/20 22:47 Dose: 5,000 unit Documented by: Dextrose (D5w) 500 mls @ 100 mls/hr IV ONCE PRN; Protocol PRN Reason: Adult Acute Hypoglycemia Prot Insulin Aspart (Novolog) 0 unit SUBCUT TIDWM [facility]; Protocol Last Admin: 02/18/20 07:19 Dose: Not Given Documented by: Insulin Detemir (Levemir) 25 unit SUBCUT [facility] Last Admin: 02/18/20 06:41 Dose: 25 unit Documented by: Isosorbide [facility]onit[facility] (Imdur) [facility] [place] Last Admin: 02/18/20 06:39 Dose: 30 mg Documented by: Levothyroxine Sodium (Synthroid) 100 mcg PO DAILY [facility] Last Admin: 02/17/20 10:00 Dose: 100 mcg Documented by: Lidocaine HCl (Lidocaine 2% Jelly) 1 applic TOPICAL PRN PRN PRN Reason: PAIN Last Admin: 02/16/20 04:57 Dose: 1 applic Documented by: Magnesium Lactate (Mag-Tab Sr) 84 mg PO DAILY [facility] Last Admin: 02/17/20 10:01 Dose: 84 mg Documented by: Metoprolol Tartrate (Lopressor) 12.5 mg PO BID [facility] Naloxone HCl (Narcan) 0.1 mg IVP Q2M PRN PRN Reason: RESPIRATORY RATE < 8/MIN Nitroglycerin (Nitrostat) 0.4 mg SUBLINGUAL Q5M PRN PRN Reason: Chest Pain Non-Formulary Medication (Ferrous Sulfate) 325 mg PO .3-4X A WEEK [facility] Nystatin (Nystatin Powder) 1 applic TOPICAL BID [facility] Last Admin: 02/17/20 17:35 Dose: Not Given Documented by: Ondansetron HCl (Zofran) 4 mg IVP Q8H PRN PRN Reason: vomiting, or N/V if npo Last Admin: 02/12/20 23:19 Dose: 4 mg Documented by: Ondansetron HCl (Zofran) 4 mg IVP Q2M PRN PRN Reason: NAUSEA Pantoprazole Sodium (Protonix) 40 mg PO BID [facility] Last Admin: 02/17/20 17:23 Dose: 40 mg Documented by: Potassium Chloride (Klor-Con 10) 40 meq PO DAILY [facility] Last Admin: 02/16/20 12:25 Dose: 40 meq Documented by: Ropinirole HCl (Requip) 1 mg PO BEDTIME [facility] Last Admin: 02/17/20 20:31 Dose: 1 mg Documented by: Sucralfate (Carafate) 1 gm PO BIDAC [facility] Last Admin: 02/18/20 06:39 Dose: 1 gm Documented by: Vitals/I&O/Wt Last Vital Signs Temp 98.8 F 02/17/20 15:12 Pulse 56 L 02/17/20 15:12 Resp 13 02/17/20 15:12 BP 124/52 02/17/20 15:12 Pulse Ox 97 02/17/20 15:12 02/17/20 02/17/20 02/17/20 06:59 14:59 22:59 Intake Total 240 / 240 240 / 480 Output Total 550 / 550 750 / 1300 Balance -310 / -310 -510 / -820 Physical Exam Narrative: EXAM NARRATIVE: GEN: Awake, alert and oriented, no acute distress CVS: S1S2 N RS: B/L scattered crackles over lung bases Abd: Soft, nt/nd , bs+ AIR CONDITIONING MANAGER: no focal neuro deficits Urinary Catheter Management^: Velasco: Cath Placed During This Visit: yes Reason for Continuing Indwelling Catheter: Acute Urinary Retention or Obstruction Urinary Catheter Date of Insertion: 02/10/20 Urinary Catheter Time of Insertion: 13:30 Data : 02/18/20 07:56 02/18/20 13:45 A&P Assessment and plan (1) CHF (congestive heart failure): Status: Acute Qualifiers: Heart failure type: unspecified Heart failure chronicity: unspecified Qualified Code(s): I50.9 - Heart failure, unspecified (2) Recent cerebrovascular accident (CVA): Status: Acute (3) Acute kidney injury superimposed on CKD: Creatinine currently 1.3, carefully diurese Status: Acute (4) Essential (primary) hypertension: Status: Acute (5) Uncontrolled type 2 diabetes mellitus with insulin therapy: Status: Acute (6) Elevated troponin: Status: Acute (7) Anemia: Status: Acute Qualifiers: Anemia type: iron deficiency Iron deficiency anemia type: chronic blood loss Qualified Code(s): D50.0 - Iron deficiency anemia secondary to blood loss (chronic) (8) Dysplastic colon polyp: Status: Acute Additional A&P Information # Chronic hypercapneic respiratory failure: -Currently resolved -Etiology is likely multifactorial, from DONNELL, obesity hypoventilation syndrome, diastolic CHF, chronic pain medications she uses for her severe restless leg syndrome during the night. Does have intermittent episodes of hypercarbic confusion per notes review, will likely benefit from home Bipap. Overnight pulse oximetry ordered, results show 29 episodes of destauration to <89% -Likely patient would benefit stopping or de-escalating her medications for restless leg, however patient states that she cannot survive the night without these medications, that she would rather , willing to try concomitant bipap to avoid worsening hypercarbia. Will attempt to get insurance approval for the same - Above discussed with case management # -Acute hypoxic respiratory failure likely secondary to diastolic CHF exacerbation -evidenced by BNP is 5000, CXr with vascular congestion -Currently doing significantly better -Has diuresed roughly 9640 L since admission - continue lasix 20mg po daily - cr currently improving # NSTEMI -EKG shows left bundle branch block -Patient has had a positive stress test in 06/22/2018, showing ischemia in the left circumflex, echocardiogram on 04/22/2019 showed mild diffuse hypokinesia of the septum and anteroseptal segments -Has had chest pain in the last week, no current chest pain -Continue aspirin 81mg, change plavix to every other day for now given findings of polyp, continue b blockers. If active Gi bleeding, may need to discontinue ASA. -lisinopril on hold given BARBARA -Echocardiogram showed ejection fraction 35 to 40%, left ventricular hypokinesis - Stress test returned abnormal again, likely will need coronary angiogram in the upcoming weeks, avoiding for now given recent anemia and possible GI bleed. # Chronic anemia -Hemoglobin has down trended to 8.2, likely secondary to slow GI bleed - FOBT negative on 02/12 -s/p colonoscopy today with findings of polyp vs potentilal malignancy- path results awaited -s/p 1 unit PRBC. Hb stable -C hange protonix to 40 mg po BID -Patient is on aspirin and Plavix as above, will continue to monitor as currently benefit of antiplatelet therapy outweighs risk given the concern for NSTEMI and depressed ejection fraction and stroke # Possible recent TIA -May have had a stroke or transient ischemic attack a week ago, currently neurologically intact -Is already on aspirin and Plavix -Continue PT/ OT - CT of the head no acute infarct,'s carotid ultrasound shows 50 to 79% stenosis bilaterally # -Severe restless leg, not improving with [place], Requip, morphine, gabapentin, capsaicin, topical lidocaine -Patient has developed hypercarbia from overuse of [place] with morphine with Requip, gabapentin -Clonazepam is relatively contraindicated in her given her severe hypercarbia -Currently on Tegretol , apppears to be tolerating well # DM: Continue insulin levemir and aspart sliding scale Code status: DNI Dvt ppx: heparin Attestations Medical Necessity Statement*: abnormal stress test, optimization of respiratory status prior to discharge Coding Level of Care Code Acute Ent Physician for g Fwd Diagnoses CHF (congestive heart failure) I50.9 Heart failure type: unspecified Heart failure chronicity: unspecified Recent cerebrovascular accident (CVA) Z86.73 Acute kidney injury superimposed on CKD N17.9; N18.9 Essential (primary) hypertension I10 Uncontrolled type 2 diabetes mellitus with insulin therapy E11.65; Z79.4 Elevated troponin R79.89 Anemia D50.0 Anemia type: iron deficiency Iron deficiency anemia type: chronic blood loss Dysplastic colon polyp K63.5
--- NOTE | 2020-02-17 19:20 | PC.NURSE ---
Rounding: Patient up to chair. Assessment completed. Patient remains alert and oriented. Denies any needs at this time and call light is within reach. Will continue to monitor.
[2020-02-17] MEDS: carBAMazepine 200 mg Tablet PO (20:31)
[2020-02-17] MEDS: ropinirole 1 mg Tablet PO (20:31)
[2020-02-17 20:42] LABS: Glucose Point of Care 195 mg/dL (70-110)
[2020-02-18] VITALS (12 sets, daily range): BP systolic 118–136; BP diastolic 46–66; PULSE 60–77; RESP 13–21; TEMP 36.3–36.8; O2SAT 87–99; BMI 43.0
--- NOTE | 2020-02-18 05:38 | PC.NURSE ---
End of shift: Patient has rested well this shift. Patient has had one pain pill for her legs. Patient wore her oxymask all shift and tolerated well. Patient denies any complaints at this time. Call light is within reach at this time and remains alert and oriented. Will continue to monitor.
[2020-02-18 06:24] LABS: Glucose Point of Care 94 mg/dL (70-110)
--- NOTE | 2020-02-18 06:36 | PC.NURSE ---
Patient blood glucose 94. Dr. Mason called. Orders to changed patients levamir dose to 25 units instead of 30units QAM. Read back verbal order.
[2020-02-18] MEDS: isosorbide mononitrate ER 30 mg Tablet PO (06:39)
[2020-02-18] MEDS: sucralfate 1 gm Tablet PO ×2 (06:39→16:07)
--- NOTE | 2020-02-18 06:45 | PC.NURSE ---
Dr. Mason did want levamir given since breakfast was coming soon and patient was provided with 4oz apple juice. Patient alert oriented and no complaints at this time.
--- NOTE | 2020-02-18 08:23 | PM.PN ---
Subjective Subjective: Interval history: The patient is feeling okay. She has no chest pain or palpitations. Her hemoglobin seems to be improving. No orthopnea PND. No new symptoms. Telemetry shows sinus rhythm with occasional short runs of PAT's. Medications: Reviewed: Yes Medication Review Details: Current Medications Acetaminophen (Tylenol) 650 mg PO Q6H PRN PRN Reason: Mild/Mod Pain Or Temp >/= 101 Last Admin: 02/15/20 15:35 Dose: 650 mg Documented by: Hydrocodone Bitart/Acetaminophen ([place] 5-325 Mg) 1 tab PO BID PRN PRN Reason: pain Last Admin: 02/17/20 22:48 Dose: 1 tab Documented by: Albuterol Sulfate (Albuterol) 2.5 mg INHALATION Q6H.RESPIRATORY PRN PRN Reason: shortness of breath or wheezing Albuterol/Ipratropium (Duoneb) 3 ml INHALATION Q4H PRN PRN Reason: wheezing Amlodipine Besylate (Norvasc) 2.5 mg PO DAILY [facility] Last Admin: 02/17/20 09:57 Dose: 2.5 mg Documented by: Aspirin (Aspirin Ec) 81 mg PO DAILY [facility] Last Admin: 02/17/20 10:00 Dose: 81 mg Documented by: Atorvastatin Calcium (Lipitor) 20 mg PO DAILY [facility] Last Admin: 02/17/20 10:00 Dose: 20 mg Documented by: Capsaicin (Capsaicin) 1 applic TOPICAL QID PRN PRN Reason: PAIN Last Admin: 02/16/20 21:19 Dose: 1 cream Documented by: Carbamazepine (Tegretol) 200 mg PO BEDTIME [facility] Last Admin: 02/17/20 20:31 Dose: 200 mg Documented by: Clopidogrel Bisulfate (Plavix) 75 mg PO EVERY OTHER DAY [facility] Dextrose (D50w) 25 ml IVP ONCE PRN; Protocol PRN Reason: hypoglycemia protocol Dextrose (D50w) 50 ml IVP PRN PRN; Protocol PRN Reason: hypoglycemia protocol Docusate Sodium (Colace) 100 mg PO BID PRN PRN Reason: Constipation Last Admin: 02/12/20 09:22 Dose: 100 mg Documented by: Furosemide (Lasix) 20 mg PO DAILY@0800 [facility] Last Admin: 02/17/20 09:49 Dose: 20 mg Documented by: Gabapentin (Neurontin) 300 mg PO TID [facility] Last Admin: 02/17/20 20:31 Dose: 300 mg Documented by: Glucagon (Glucagen) 1 mg IM ONCE PRN; Protocol PRN Reason: Adult Acute Hypoglycemia Prot. Heparin Sodium (Beef Lung) (Heparin) 5,000 unit SUBCUT Q12H [facility] Last Admin: 02/17/20 22:47 Dose: 5,000 unit Documented by: Dextrose (D5w) 500 mls @ 100 mls/hr IV ONCE PRN; Protocol PRN Reason: Adult Acute Hypoglycemia Prot Insulin Aspart (Novolog) 0 unit SUBCUT TIDWM [facility]; Protocol Last Admin: 02/18/20 07:19 Dose: Not Given Documented by: Insulin Detemir (Levemir) 25 unit SUBCUT QAM [facility] Last Admin: 02/18/20 06:41 Dose: 25 unit Documented by: Isosorbide Mononitrate (Imdur) 30 mg PO QAM [facility] Last Admin: 02/18/20 06:39 Dose: 30 mg Documented by: Levothyroxine Sodium (Synthroid) 100 mcg PO DAILY [facility] Last Admin: 02/17/20 10:00 Dose: 100 mcg Documented by: Lidocaine HCl (Lidocaine 2% Jelly) 1 applic TOPICAL PRN PRN PRN Reason: PAIN Last Admin: 02/16/20 04:57 Dose: 1 applic Documented by: Magnesium Lactate (Mag-Tab Sr) 84 mg PO DAILY [facility] Last Admin: 02/17/20 10:01 Dose: 84 mg Documented by: Metoprolol Tartrate (Lopressor) 12.5 mg PO BID [facility] Naloxone HCl (Narcan) 0.1 mg IVP Q2M PRN PRN Reason: RESPIRATORY RATE < 8/MIN Nitroglycerin (Nitrostat) 0.4 mg SUBLINGUAL Q5M PRN PRN Reason: Chest Pain Non-Formulary Medication (Ferrous Sulfate) 325 mg PO .3-4X A WEEK [facility] Nystatin (Nystatin Powder) 1 applic TOPICAL BID [facility] Last Admin: 02/17/20 17:35 Dose: Not Given Documented by: Ondansetron HCl (Zofran) 4 mg IVP Q8H PRN PRN Reason: vomiting, or N/V if npo Last Admin: 02/12/20 23:19 Dose: 4 mg Documented by: Ondansetron HCl (Zofran) 4 mg IVP Q2M PRN PRN Reason: NAUSEA Pantoprazole Sodium (Protonix) 40 mg PO BID [facility] Last Admin: 02/17/20 17:23 Dose: 40 mg Documented by: Potassium Chloride (Klor-Con 10) 40 meq PO DAILY [facility] Last Admin: 02/16/20 12:25 Dose: 40 meq Documented by: Ropinirole HCl (Requip) 1 mg PO BEDTIME [facility] Last Admin: 02/17/20 20:31 Dose: 1 mg Documented by: Sucralfate (Carafate) 1 gm PO BIDAC [facility] Last Admin: 02/18/20 06:39 Dose: 1 gm Documented by: Vitals/I&O/Wt Last Vital Signs Temp 97.4 F L 02/18/20 08:00 Pulse 73 02/18/20 08:00 Resp 21 H 02/18/20 08:00 BP 119/66 02/18/20 08:00 Pulse Ox 92 02/18/20 08:00 02/17/20 02/18/20 02/18/20 22:59 06:59 14:59 Intake Total 360 / 600 350 / 950 Output Total 750 / 1300 800 / 2100 Balance -390 / -700 -450 / -1150 Weight last 48 hrs Weight 266 lb 6 oz Physical Exam Narrative: EXAM NARRATIVE: GENERAL: The patient is alert and oriented times three. Not in any acute distress. HEENT: Moderate pallor. No icterus or lymphadenopathy. NECK: Trachea appears to be central. No masses noted. No JVD or thyromegaly appreciated. No carotid bruit. RESPIRATORY: Chest is symmetrical. No intercostals muscle retraction or any accessory muscle activation. There is no chest wall tenderness. Breath sounds are heard bilaterally. No rales or rhonchi heard. No evidence of any consolidation. The intensity of the breath sounds are diminished in the bases BREASTS: Deferred. HEART: The PMI is in the 5th left intercostals space just inside the midclavicular line. No palpable precordial events. S1 and S2 are normal. No S3 or S4 heard. No pericardial rub or any click heard. Short systolic murmur in the left sternal border. No diastolic murmurs. ABDOMEN: Abdomen is obese. No vessel pulsations or distention. She has minimal tenderness around the umbilical region, in the region of the scar. She has a pendulous abdomen. : Deferred. RECTAL: Deferred. LYMPHATIC: No lymphadenopathy noted in the neck or groin. EXTREMITIES: No significant edema or cyanosis. MUSCULOSKELETAL: No acute joint deformities or swelling SKIN: There are no significant ecchymosis or rashes NEUROPSYCHIATRIC: She has some fine tremor in the right upper extremity. No obvious motor weakness Urinary Catheter Management^: Velasco: Cath Placed During This Visit: yes Reason for Continuing Indwelling Catheter: Acute Urinary Retention or Obstruction Urinary Catheter Date of Insertion: 02/10/20 Urinary Catheter Time of Insertion: 13:30 Data : 02/18/20 07:56 02/18/20 07:56 A&P Assessment and plan (1) CHF (congestive heart failure): The patient is currently compensated. Her LV dysfunction, Anemia, kidney failure, hypoxia/CO2 retention etc. are the accountability factors. The myocardial perfusion imaging findings, suggestive of a small area of ischemia in the distribution of the right coronary artery/circumflex artery. Status: Acute Qualifiers: Heart failure chronicity: unspecified Heart failure type: unspecified Qualified Code(s): I50.9 - Heart failure, unspecified (2) Recent cerebrovascular accident (CVA): Patient has bilateral carotid artery disease and has not had any recurrence of TIA. May continue on the current medications. Status: Acute (3) Acute kidney injury superimposed on CKD: This could be multifactorial. Heart failure, low output state, diabetes, anti-inflammatory medications, etc. are contributing factors. The creatinine seems to be coming down since we stopped the lisinopril Status: Acute (4) Essential (primary) hypertension: Patient is responding to the antihypertensive medications appropriately. Currently she is normotensive. May continue on the current medications. Status: Acute (5) Uncontrolled type 2 diabetes mellitus with insulin therapy: May continue the management of diabetes aggressively. Status: Acute (6) Elevated troponin: Most likely the patient has type II myocardial infarction. In view of her LV dysfunction and the ischemia based on the perfusion scan, in order to further evaluate her coronary status, a cardiac catheterization would be appropriate. However because of her GI bleed and anemia, since she has no specific symptoms, it may be appropriate to hold off on this at least for the next couple of weeks. If there is no evidence of ongoing GI bleed, we may go ahead and do the cardiac authorization at that point Status: Acute (7) Anemia: Hemoglobin drop as mentioned above. Will repeat the CBC in the morning. Status: Acute Qualifiers: Anemia type: iron deficiency Iron deficiency anemia type: chronic blood loss Qualified Code(s): D50.0 - Iron deficiency anemia secondary to blood loss (chronic) (8) Dysplastic colon polyp: The biopsy of from the polyps revealed tubulovillous adenoma with high-grade dysplasia. Further plans to be discussed Status: Acute Additional A&P Information Patient's overall cardiovascular status seems to be stable. If she is going to have any r major surgical procedures, may be appropriate to do a cardiac catheterization to evaluate her coronary status and then decide on management. This needs to be further discussed Attestations Medical Necessity Statement*: Disposition as per the primary Coding Level of Care Code Acute Accountant Systems for [facility] Fwd Diagnoses CHF (congestive heart failure) I50.9 Heart failure chronicity: unspecified Heart failure type: unspecified Recent cerebrovascular accident (CVA) Z86.73 Acute kidney injury superimposed on CKD N17.9; N18.9 Essential (primary) hypertension I10 Uncontrolled type 2 diabetes mellitus with insulin therapy E11.65; Z79.4 Elevated troponin R79.89 Anemia D50.0 Anemia type: iron deficiency Iron deficiency anemia type: chronic blood loss Dysplastic colon polyp K63.5
[2020-02-18 08:33] LABS: Basophils % 0.5 %; Eosinophils # 0.4 10^3/uL (0.0-0.8); Eosinophils % 7.7 %; Hematocrit 33.8 % (37.0-47.0); Hemoglobin 9.5 g/dL (11.5-15.3); Lymphocytes % 18.8 %; Mean Corpuscular HGB Conc 28.1 g/dL (30.0-36.0); Mean Corpuscular Hemoglobin 24.1 pg (28.0-34.0); Mean Corpuscular Volume 85.8 fL (81-99); Mean Platelet Volume 9.9 fL (7.4-10.4); Monocytes # 0.4 10^3/uL (0.2-0.9); Monocytes % 6.4 %; Neutrophils # 3.6 10^3/uL (1.8-7.7); Neutrophils % 65.9 %; Nucleated Red Blood Cells % 0 %; Platelet Count 101 10^3/cmm (130-400); Red Blood Count 3.94 10^6/uL (4.1-5.3); Red Cell Distribution Width 18.4 % (12.1-15.1); White Blood Count 5.5 10^3/uL (4.0-10.0)
[2020-02-18 08:45] LABS: Alanine Aminotransferase 9 U/L (0-33); Albumin Level 3.5 g/dL (3.5-5.2); Alkaline Phosphatase 85 IU/L (35-105); Anion Gap 11.6 (5-19); Aspartate Amino Transferase 14 U/L (0-32); Blood Urea Nitrogen 26 mg/dL (8-23); Calcium 9.3 mg/dL (8.5-10.5); Carbon Dioxide 37 mmol/L (22-29); Chloride 96 mmol/L (98-107); Globulin 3.1 g/dL (1.3-4.6); Glucose 116 mg/dL (65-115); Osmolality Calculated 286 mOsm/kg (285-295); Potassium 5.6 mmol/L (3.5-5.1); Sodium 139 mmol/L (136-145); Total Bilirubin 0.6 mg/dL (0.15-1.2); Total Protein 6.6 g/dL (6.6-8.7)
[2020-02-18] MEDS: nystatin powder 15 gm Btl 1 APPLIC TOPICAL (08:46)
[2020-02-18] MEDS: potassium chloride ER 10 mEq Tablet 40 MEQ PO (08:48)
[2020-02-18] MEDS: gabapentin 300 mg Capsule PO ×2 (08:48→16:07)
[2020-02-18] MEDS: clopidogrel 75 mg Tablet PO (08:48)
[2020-02-18] MEDS: atorvastatin 40 mg Tablet 20 MG PO (08:48)
[2020-02-18] MEDS: levothyroxine 100 mcg Tablet PO (08:48)
[2020-02-18] MEDS: magnesium lactate 84 mg Tablet PO (08:48)
[2020-02-18] MEDS: pantoprazole DR 40 mg Tablet PO ×2 (08:48→17:34)
[2020-02-18] MEDS: aspirin 81 mg EC Tablet PO (08:48)
[2020-02-18] MEDS: metoprolol tartrate 25 mg Tablet 12.5 MG PO ×2 (08:49→17:34)
[2020-02-18] MEDS: FUROsemide 20 mg Tablet PO (08:49)
[2020-02-18] MEDS: amlodipine 5 mg Tablet 2.5 MG PO (08:49)
--- NOTE | 2020-02-18 11:06 | PC.NURSE ---
PATIENT POTASSIUM 5.6, ORDERED BY DR. DUCKWORTH TO DC SCHEDULED POTASSIUM.
[2020-02-18 12:09] LABS: Glucose Point of Care 162 mg/dL (70-110)
[2020-02-18] MEDS: HYDROcodone-acetaminophen 5-325 mg Tablet 1 TAB PO (12:22)
--- NOTE | 2020-02-18 12:44 | PC.NURSE ---
PATIENT STATES THAT SHE IS ALLERGIC TO TAPE AND HAS BEEN SCRATCHING WHERE HER TELEMETRY LEADS ARE PLACED. DR DUCKWORTH GAVE TELEPHONE ORDER FOR BENADRYL ONE TIME DOSE.
[2020-02-18] MEDS: diphenhydrAMINE 25 mg Capsule PO (13:20)
[2020-02-18 14:48] LABS: Alanine Aminotransferase 9 U/L (0-33); Albumin Level 3.3 g/dL (3.5-5.2); Alkaline Phosphatase 78 IU/L (35-105); Anion Gap 12.4 (5-19); Aspartate Amino Transferase 11 U/L (0-32); Blood Urea Nitrogen 26 mg/dL (8-23); Calcium 8.8 mg/dL (8.5-10.5); Carbon Dioxide 34 mmol/L (22-29); Chloride 95 mmol/L (98-107); Globulin 2.8 g/dL (1.3-4.6); Glucose 290 mg/dL (65-115); Osmolality Calculated 290 mOsm/kg (285-295); Potassium 5.4 mmol/L (3.5-5.1); Sodium 136 mmol/L (136-145); Total Bilirubin 0.5 mg/dL (0.15-1.2); Total Protein 6.1 g/dL (6.6-8.7)
--- NOTE | 2020-02-18 15:09 | PC.OT ---
Pt given ADL kit this date due to being dependent in LB dressing. ADL kit will enable pt to complete LB dressing with modified independence.-Ximena Pereira, MOTR/L
[2020-02-18 16:41] LABS: Glucose Point of Care 268 mg/dL (70-110)
--- NOTE | 2020-02-18 17:12 | PM.DCS ---
Discharge Providers Date of Admission: 02/10/20 12:52 Date of Discharge: February 18, 2020 Attending Provider at Admission: Everardo Garvin MD Attending Provider at Discharge: Annemarie Romo MD Primary Care Provider: Kaitlin Gomez DO Diagnoses at Discharge Discharge Diagnosis (1) CHF (congestive heart failure): Status: Acute Qualifiers: Heart failure chronicity: unspecified Heart failure type: unspecified Qualified Code(s): I50.9 - Heart failure, unspecified (2) Recent cerebrovascular accident (CVA): Status: Acute Problem details: Carotid Doppler examination on 02/12/2020 revealed Moderate heterogeneous plaques bilaterally with velocity elevations bilaterally, suggestive of 50 to 79% stenosis Tortuous distal internal carotid arteries bilaterally (3) Acute kidney injury superimposed on CKD: Status: Acute (4) Essential (primary) hypertension: Status: Acute (5) Uncontrolled type 2 diabetes mellitus with insulin therapy: Status: Acute (6) Elevated troponin: Status: Acute (7) Anemia: Status: Acute Qualifiers: Anemia type: iron deficiency Iron deficiency anemia type: chronic blood loss Qualified Code(s): D50.0 - Iron deficiency anemia secondary to blood loss (chronic) (8) Dysplastic colon polyp: Status: Acute Reason for Visit Reason for Visit: SOB Hospital Course Discharge Summary: Bryanna Reid is a 74 year old female hypertension, hyperlipidemia, insulin-dependent type 2 diabetes mellitus, history of 3 TIAs in the past, hypothyroidism, restless leg, CKD stage II, history of ovarian cyst, history of diastolic CHF, was on home oxygen roughly a year ago but has been off of it for the last year, history of abnormal stress test and echocardiogram with wall motion abnormalities elected for medical management who presented to [facility] 02/09 due to complaints of shortness of breath and chest pain. In the emergency room patient was found to have a diastolic CHF exacerbation, with a BNP in 5000, troponin of 29, EKG showed a left bundle branch block which was initially thought to be new, but it has been seen on previous EKGs in 05/23/2018, no active chest pain, put on 2 L nasal cannula. She was treated initially with iv lasix, transitioned to po lasix. She was also diagnosed with a type 2 [place]/demand ischemia due to elevation of her troponins. Cardiology service was consulted, patient underwent a stress test on 6/15 and was found to have a small area of ischemia in the inferolateral region. Due to anemia, possible GI bleed and BARBARA during the admission, it was decided to continue with medical management and likely perform angiogram a few weeks down the line as an outpatient. Other notable hospital events included work-up for anemia (given the need to be on dual antiplatelet therapy) including a GI evaluation for possible slow bleeding by way of upper GI endoscopy and colonoscopy. Iron studies did show iron deficiency anemia and she received IV Venofer 200 mg for 5 treatments and 1 unit of packed red blood cell transfusion. No overt source of active bleeding was found on the endoscopic studies. There was however a colonic polyp that was partially resected, pathology from which is showing tubular adenoma with features of dysplasia. She will require a follow-up endoscopy with Dr. Haynes in a few weeks down the line, once cardiac issues have been addressed. Since currently benefit of antiplatelet therapy outweighs risk given the concern for NSTEMI and depressed ejection fraction and stroke, ASA and plavis have been continued with close follow up. On February 13 she also had an episode of hypercapnia and confusion following which she required BiPAP. She underwent an overnight oximetry study as a result which showed that she had 29 episodes of O2 sat less than 89%. Given the hypercapnia in this report, she would likely qualify for BiPAP and a DME order was placed for the same. She is willing to try this BiPAP at home.it has been sent for insurance approval. She has also been set up for a sleep study as an outpatient within the next week. Her hospital course was otherwise notable for restless leg syndrome which is pretty severe. It is not relieved with [place], Requip, morphine, gabapentin, capsaicin and lidocaine. Correcting her iron deficiency did not appear to have calculated either. Tegretol was added to her regimen and she seems to be tolerating it as of now. Patient is being discharged today after all of her acute issues have been optimized. She underwent a home O2 eval and qualified for supplemental O2 at home. This has been arranged and home health services have also been arranged for her. Physical Exam Narrative: EXAM NARRATIVE: GEN: Awake, alert and oriented, no acute distress CVS: S1S2 N RS: CTA B/L Abd: Soft, nt/nd , bs+ OPTOMETRIST: no focal neuro deficits Urinary Catheter Management^: [place]: Cath Placed During This Visit: yes, but has since been removed by the nurse Reason for Continuing Indwelling Catheter: Acute Urinary Retention or Obstruction Urinary Catheter Date of Insertion: 02/10/20 Urinary Catheter Time of Insertion: 13:30 Date Urinary Catheter Removed: 02/18/20 Time Urinary Catheter Discontinued: 13:27 Discharge Data Data Completed and Pending: Completed Studies During Hospitalization Category Date Time Status CT chest abd pel wo con Stat Cat Scan 02/10/20 14:[address] head wo con* 7 [id number] Routine Cat Scan 02/12/20 09:02 Completed Sestamibi Stress Test Request Routi ne Exams 02/16/20 11:19 Completed XR chest 1V kateryna ble [id number] Routine Exams 02/14/20 07:00 Completed XR chest 1V kateryna ble [id number] Stat Exams 02/10/20 10:59 Completed NM kayce perf SPECT r/s* [id number] Routin e Nuc Med 02/17/20 11:19 Completed Pathology: Surgic al [PTH] Stat Pth 02/16/20 09:36 Completed CV carotid duplex BI* [id number] Routine Ultrasound 02/12/20 09:03 Completed CV echo complete* [id number] Routine Ultrasound 02/10/20 14:43 Completed Labs from last 24 hours 02/18/20 02/18/20 02/18/20 16:13 13:45 11:29 WBC RBC Hgb Hct MCV MCH MCHC RDW Plt Count MPV Neut % (Auto) Lymph % (Auto) [place] % (Auto) Eos % (Auto) Baso % (Auto) Neut # (Auto) Lymph # (Auto) [place] # (Auto) Eos # (Auto) Baso # (Auto) Nucleated RBC % (a uto) Nucleated RBCs # Sodium 136 Potassium 5.4 H Chloride 95 L Carbon Dioxide 34 H Anion Gap 12.4 BUN 26 H Creatinine 1.3 H Glucose 290 H POC Glucose 268 162 Calculated Osmolal ity 290 Calcium 8.8 Total Bilirubin 0.5 AST 11 ALT 9 Alkaline Phosphata se 78 Total Protein 6.1 L Albumin 3.3 L Globulin 2.8 02/18/20 02/18/20 02/18/20 07:56 07:56 06:10 WBC 5.5 RBC 3.94 L Hgb 9.5 L Hct 33.8 L MCV 85.8 MCH 24.1 L MCHC 28.1 L RDW 18.4 H Plt Count 101 L MPV 9.9 Neut % (Auto) 65.9 Lymph % (Auto) 18.8 [place] % (Auto) 6.4 Eos % (Auto) 7.7 Baso % (Auto) 0.5 Neut # (Auto) 3.6 Lymph # (Auto) 1.0 [place] # (Auto) 0.4 Eos # (Auto) 0.4 Baso # (Auto) 0.0 Nucleated RBC % (a uto) 0 Nucleated RBCs # 0.0 Sodium 139 Potassium 5.6 H Chloride 96 L Carbon Dioxide 37 H Anion Gap 11.6 BUN 26 H Creatinine 1.2 H Glucose 116 H POC Glucose 94 Calculated Osmolal ity 286 Calcium 9.3 Total Bilirubin 0.6 AST 14 ALT 9 Alkaline Phosphata se 85 Total Protein 6.6 Albumin 3.5 Globulin 3.1 02/17/20 19:32 WBC RBC Hgb Hct MCV MCH MCHC RDW Plt Count MPV Neut % (Auto) Lymph % (Auto) [place] % (Auto) Eos % (Auto) Baso % (Auto) Neut # (Auto) Lymph # (Auto) [place] # (Auto) Eos # (Auto) Baso # (Auto) Nucleated RBC % (a uto) Nucleated RBCs # Sodium Potassium Chloride Carbon Dioxide Anion Gap BUN Creatinine Glucose POC Glucose 195 Calculated Osmolal ity Calcium Total Bilirubin AST ALT Alkaline Phosphata se Total Protein Albumin Globulin Vitals: Last Vital Signs Temp 98.2 F 02/18/20 16:06 Pulse 67 02/18/20 16:06 Resp 18 02/18/20 16:06 BP 125/61 02/18/20 16:06 Pulse Ox 96 02/18/20 16:06 Discharge Plan Discharge Patient Disposition: Home Health Service Condition: Stable Prescriptions: New amlodipine 5 mg Tablet 2.5 mg PO DAILY 30 Days Qty: 30 RF: 0 carbamazepine 200 mg Tablet 200 mg PO BEDTIME 30 Days Qty: 30 RF: 0 capsaicin 0.025 % Cream 1 applic topical QID PRN (Reason: Pain) Qty: 0 RF: 0 furosemide 20 mg Tablet 20 mg PO DAILY@0800 30 Days Qty: 30 RF: 0 pantoprazole 40 mg Tablet,Delayed Release (Dr/Ec) 40 mg PO BID 30 Days Qty: 60 RF: 0 Nyamyc 100,000 unit/gram Powder 1 applic topical BID 30 Days Qty: 1 RF: 0 metoprolol tartrate 25 mg Tablet 12.5 mg PO BID 30 Days Qty: 60 RF: 0 Continued nitroglycerin 0.4 mg tablet, sublingual 0.4 mg SUBLINGUAL Q5M PRN (Reason: Chest Pain) RF: 0 lisinopril 10 mg tablet 10 mg PO DAILY Qty: 30 RF: 5 simvastatin 20 mg tablet 20 mg PO DAILY Qty: 30 RF: 5 isosorbide mononitrate 30 mg tablet extended release 24 hr 30 mg PO QAM Qty: 90 RF: 0 ferrous sulfate 325 mg (65 mg iron) tablet 325 mg PO .3-4X A WEEK RF: 0 albuterol sulfate 2.5 mg /3 mL (0.083 %) solution for nebulization 2.5 mg INHALATION Q6H PRN (Reason: shortness of breath or wheezing) RF: 0 magnesium L-lactate 84 mg tablet extended release 84 mg PO DAILY RF: 0 docusate sodium [Colace] 100 mg capsule 100 mg PO BID PRN (Reason: Constipation) RF: 0 aspirin 81 mg tablet,delayed release (DR/EC) 81 mg PO DAILY RF: 0 glipizide 5 mg tablet 5 mg PO BID Qty: 180 RF: 0 metoprolol tartrate 25 mg tablet 25 mg PO BID Qty: 180 RF: 0 tramadol 50 mg tablet 50 mg PO Q8H PRN (Reason: pain) Qty: 90 RF: 2 ipratropium-albuterol 0.5 mg-3 mg(2.5 mg base)/3 mL solution for nebulization 3 ml INHALATION Q4H PRN (Reason: wheezing) Qty: 180 RF: 1 hydrocodone-acetaminophen 5-325 mg tablet 1 tab PO BID PRN (Reason: pain) 30 Days Qty: 60 RF: 0 zsvakksjdzisrkp-vmvxlzkkd-BL [Bromfed DM] 2-30-10 mg/5 mL syrup 5 ml PO Q6H PRN (Reason: cold symptoms) Qty: 160 RF: 0 gabapentin 300 mg capsule 300 mg PO TID Qty: 90 RF: 0 ropinirole 0.5 mg tablet 1 mg PO BEDTIME RF: 0 omeprazole 20 mg capsule,delayed release(DR/EC) 20 mg PO BEDTIME RF: 0 Humalog KwikPen Insulin 100 unit/mL insulin pen See Rx Instructions .ROUTE .COMPLEX RF: 0 insulin detemir U-100 100 unit/mL (3 mL) insulin pen 50 unit SUBCUT QAM RF: 0 levothyroxine 100 mcg capsule 100 mcg PO DAILY RF: 0 Changed clopidogrel 75 mg tablet 75 mg PO EVERY OTHER DAY Qty: 90 RF: 0 Discontinued potassium 99 mg tablet 99 mg PO EVERY OTHER DAY RF: 0 furosemide [Lasix] 40 mg tablet 40 mg PO QAM PRN (Reason: weight gain) RF: 0 doxycycline hyclate 100 mg tablet 100 mg PO BID 7 Days Qty: 14 RF: 0 Discharge Orders: Discharge Order (Routine); Ordered 02/18/20 Ordered By: Annemarie Romo Other Ambulatory Orders: DME: BIPAP (Order) Location: None Selected Ordered By: Annemarie Romo DME: Oxygen (Order) Location: None Selected Ordered By: Annemarie Romo Sleep Study/Titration (Routine) Timeframe: 1 Week Location: None Selected Ordered By: Annemarie Romo Referrals: [facility] [Outside] [facility] [place]] Betty Ramon MD [Physician] - ([facility] will be contacting you to schedule an follow-up appointment with Dr. Ramon in 2 weeks. If you haven't heard from them by afternoon. Please, call ) Kaitlin Gomez DO [Primary Care Provider] - (Please, call for an follow-up appointment with Kaitlin Gomez in 4 to 7 days. ) Discharge Diet: Cardiac Discharge Activity: Resume usual activity Patient Instructions: Metoprolol (By mouth), Furosemide (By mouth), Carbamazepine (By mouth), Nystatin (On the skin), Amlodipine (By mouth), Capsaicin (On the skin), Pantoprazole (By mouth), Myocardial Infarction (DC), Heart Failure (DC), Hypertension (DC), CHF Stoplight, GI Discharge Instructions Discharge Date/Time: 02/18/20 18:43 Discharge Attestations Time Spent in Discharge Care*: greater than 30 min Quality Metrics Clinical Quality Measures During this hospital stay, did patient experience: None Coding Level of Care Code Acute [employer] Secretary for [facility] Fwd Diagnoses CHF (congestive heart failure) I50.9 Heart failure chronicity: unspecified Heart failure type: unspecified Recent cerebrovascular accident (CVA) Z86.73 Acute kidney injury superimposed on CKD N17.9; N18.9 Essential (primary) hypertension I10 Uncontrolled type 2 diabetes mellitus with insulin therapy E11.65; Z79.4 Elevated troponin R79.89 Anemia D50.0 Anemia type: iron deficiency Iron deficiency anemia type: chronic blood loss Dysplastic colon polyp K63.5
--- NOTE | 2020-02-19 11:25 | PC.SOCIAL ---
Dr Romo notified this nurse of change to medication. She and Dr Ramon have discussed patient and agree Plavix should continue at one tablet daily. Called patient and updated her of change. She repeated this change back to me and indicates I took one today so will just continue once a day on the Plavix no problem . No further questions voiced from patient. Updated Dr Romo that patient was updated.
== END 2020-02-18 18:43 | disposition home health service (06) | DRG 280 ==
LOC: ER 12:35 → CSU 13:06
PROVIDERS: Emergency Medicine; Internal Medicine; Admitting Provider Family Medicine; PCP Family Medicine; Visit Provider Student in an Organized Health Care Education/Training Program
PROC: 0DJ08ZZ Inspection of Upper Intestinal Tract, Via Natural or Artificial Opening Endoscopic (ICD-10-PCS; CPT 43235; principal; 2020-02-16 10:45)
PROC: 0DJD8ZZ Inspection of Lower Intestinal Tract, Via Natural or Artificial Opening Endoscopic (ICD-10-PCS; CPT 45378; 2020-02-16 10:45)
DX: I13.0 Hypertensive heart and chronic kidney disease with heart failure and stage 1 through stage 4 chronic kidney disease, or unspecified chronic kidney disease (principal); I50.33 Acute on chronic diastolic (congestive) heart failure; I21.4 Non-ST elevation (NSTEMI) myocardial infarction; J96.01 Acute respiratory failure with hypoxia; N17.9 Acute kidney failure, unspecified; E66.2 Morbid (severe) obesity with alveolar hypoventilation; Z68.41 Body mass index [BMI] 40.0-44.9, adult; J96.12 Chronic respiratory failure with hypercapnia; K92.2 Gastrointestinal hemorrhage, unspecified; N18.3 Chronic kidney disease, stage 3 (moderate); E11.22 Type 2 diabetes mellitus with diabetic chronic kidney disease; E11.65 Type 2 diabetes mellitus with hyperglycemia; E78.5 Hyperlipidemia, unspecified; Z79.4 Long term (current) use of insulin; Z86.73 Personal history of transient ischemic attack (TIA), and cerebral infarction without residual deficits; E03.9 Hypothyroidism, unspecified; G25.81 Restless legs syndrome; I44.7 Left bundle-branch block, unspecified; J44.9 Chronic obstructive pulmonary disease, unspecified; E11.42 Type 2 diabetes mellitus with diabetic polyneuropathy; K21.9 Gastro-esophageal reflux disease without esophagitis; M54.16 Radiculopathy, lumbar region; M19.071 Primary osteoarthritis, right ankle and foot; Z87.891 Personal history of nicotine dependence; I25.10 Atherosclerotic heart disease of native coronary artery without angina pectoris; D50.0 Iron deficiency anemia secondary to blood loss (chronic); K31.7 Polyp of stomach and duodenum; Z79.82 Long term (current) use of aspirin; I65.23 Occlusion and stenosis of bilateral carotid arteries
CPT/HCPCS: 12345; 36415; 36416; 36430; 36600; 43251; 45381; 51702; 70450; 71045; 71046; 71250; 74176; 78452; 80048; 80051; 80053; 80061; 81001; 82274; 82607; 82728; 82746; 82803; 82810; 82962; 83036; 83540; 83605; 83735; 83880; 83986; 84100; 84484; 85014; 85018; 85025; 85610; 86850; 86900; 86920; 88305; 93005; 93017; 93306; 93880; 94640; 94660; 94664; 94762; 96372; 96375; 97161; 97165; 97530; 97535; 99283; A9500; C9113; J1644; J1650; J1756; J1815; J2270; J2405; J2704; J2785; J3490; J7030; J7611; P9016

== ENCOUNTER → 2020-02-25 16:10 | Outpatient (BNVA) | payer MEDICARE, SELFPAY | PROVIDERS: PCP Family Medicine; Visit Provider Family Medicine | DX: N39.3 Stress incontinence (female) (male) (principal); R10.9 Unspecified abdominal pain | CPT/HCPCS: 80053; 81000; 87077; 87086; 87186 ==

== ENCOUNTER → 2020-03-18 12:30 | Outpatient (BNVA) | payer MEDICARE, SELFPAY | PROVIDERS: PCP Family Medicine; Visit Provider Internal Medicine Cardiovascular Disease | DX: D50.0 Iron deficiency anemia secondary to blood loss (chronic) (principal); I50.33 Acute on chronic diastolic (congestive) heart failure | CPT/HCPCS: 80053; 85025 ==

== ENCOUNTER → 2020-04-28 09:55 | Outpatient (BNVA) | payer MEDICARE, SELFPAY | PROVIDERS: PCP Family Medicine; Visit Provider Family Medicine | DX: E03.9 Hypothyroidism, unspecified (principal); I10 Essential (primary) hypertension; M54.16 Radiculopathy, lumbar region | CPT/HCPCS: 84443 ==

== ENCOUNTER → 2020-05-25 10:15 | Outpatient (BNVA) | payer MEDICARE, SELFPAY | PROVIDERS: PCP Family Medicine; Visit Provider Nurse Practitioner Family | DX: Z20.828 Contact with and (suspected) exposure to other viral communicable diseases (principal) | CPT/HCPCS: 87635 ==

== ENCOUNTER 2020-06-14 15:56 | Emergency (ER) | payer MEDICARE, SELFPAY ==
[2020-06-14] VITALS (15 sets, daily range): BP systolic 101–140; BP diastolic 44–64; PULSE 62–120; RESP 12–28; TEMP 36.6; O2SAT 87–97; BMI 40.3
--- NOTE | 2020-06-14 16:15 | ECG_ITS ---
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 Measurements Intervals [place] Rate: 64 P: 55 MI: 239 QRS: 255 QRSD: 177 T: 68 QT: 466 QTc: 484 Interpretive Statements SINUS RHYTHM WITH FIRST DEGREE AV BLOCK MARKED RIGHT AXIS DEVIATION [QRS AXIS > 100] INTRAVENTRICULAR CONDUCTION DELAY [130+ ms QRS DURATION] Compared to ECG 02/16/2020 09:14:59 Right-axis deviation now present Electronically Signed On 06-14-2020 19:38:59 CDT by Kalpana Schwartz M.D. [id number]
--- NOTE | 2020-06-14 16:16 | XRR_ITS ---
PROCEDURE INFORMATION: Exam: XR Chest, 1 View Exam date and time: 06/14/2020 4:18 PM Age: 74 years old Clinical indication: Dyspnea TECHNIQUE: Imaging protocol: XR of the chest Views: 1 view. COMPARISON: CR XR chest 1V portable [id number] 02/14/2020 4:59 AM FINDINGS: Lungs: Low lung volumes seen. The lungs are otherwise clear No consolidation. Pleural space: Unremarkable. No pleural effusion. No pneumothorax. Heart/Mediastinum: Unremarkable. No cardiomegaly. Bones/joints: Unremarkable. . Other findings: Similar findings seen compared to prior examination. XR/XR chest 1V portable [id number] IMPRESSION: 1. No acute findings. 2. Low lung volumes
[2020-06-14] MEDS: FUROsemide 10 mg/mL SDV 4mL 40 MG IVP (16:41)
[2020-06-14 16:55] LABS: Basophils % 0.3 %; Eosinophils # 0.2 10^3/uL (0.0-0.8); Eosinophils % 2.5 %; Hematocrit 34.2 % (37.0-47.0); Hemoglobin 9.3 g/dL (11.5-15.3); Lymphocytes # 0.9 10^3/uL (0.8-4.8); Lymphocytes % 13.8 %; Mean Corpuscular HGB Conc 27.2 g/dL (30.0-36.0); Mean Corpuscular Hemoglobin 25.9 pg (28.0-34.0); Mean Corpuscular Volume 95.3 fL (81-99); Mean Platelet Volume 9.7 fL (7.4-10.4); Monocytes # 0.4 10^3/uL (0.2-0.9); Monocytes % 6.4 %; Neutrophils % 75.8 %; Nucleated Red Blood Cells % 0 %; Platelet Count 140 10^3/cmm (130-400); Red Blood Count 3.59 10^6/uL (4.1-5.3); Red Cell Distribution Width 17.1 % (12.1-15.1); White Blood Count 6.7 10^3/uL (4.0-10.0)
[2020-06-14 17:02] LABS: ABG PH Result 7.23 (7.35-7.45); Arterial Blood Gas Hematocrit 28.8 % (37-47); Base Excess ABG 3.4 mmol/L (-2.0-2.0); Blood Gas Allen Test Pos; Blood Gas Sample Site Radial, left; Blood Gas Sample Type Arterial; HCO3 ABG 32.3 mmol/L (22-26)
[2020-06-14 17:03] LABS: Oxygen Device NC
[2020-06-14 17:06] LABS: ABG PCO2 77.1 mmHg (35-45)
[2020-06-14 17:20] LABS: INR 1.08 (0.8-1.2)
[2020-06-14 17:21] LABS: Fibrinogen 394 mg/dL (174-498)
[2020-06-14 17:25] LABS: Lactic Sepsis W/Reflex 1.1 mmol/L (0.5-2.2)
[2020-06-14] MEDS: dexamethasone 4 mg/mL INJ 6 MG IVP (17:26)
[2020-06-14 17:31] LABS: Troponin(5th) Baseline 21 ng/L (0-10)
[2020-06-14 17:35] LABS: SARS Covid-2 Antigen Negative (Negative)
[2020-06-14 17:38] LABS: Alanine Aminotransferase 8 U/L (0-33); Albumin Level 3.5 g/dL (3.5-5.2); Alkaline Phosphatase 112 IU/L (35-105); Anion Gap 13.6 (5-19); Aspartate Amino Transferase 8 U/L (0-32); Blood Urea Nitrogen 31 mg/dL (8-23); Calcium 8.3 mg/dL (8.5-10.5); Carbon Dioxide 29 mmol/L (22-29); Chloride 106 mmol/L (98-107); Globulin 2.7 g/dL (1.3-4.6); Glucose 228 mg/dL (65-115); NT Pro B Type Natriuretic Pept 5975 pg/mL (0-450); Osmolality Calculated 312 mOsm/kg (285-295); Potassium 4.6 mmol/L (3.5-5.1); Sodium 144 mmol/L (136-145); Total Bilirubin 0.2 mg/dL (0.15-1.2); Total Protein 6.2 g/dL (6.6-8.7)
[2020-06-14 17:54] LABS: Magnesium 2.2 mg/dL (1.7-2.3)
[2020-06-14 18:04] LABS: Procalcitonin 0.06 ng/mL (0-0.5)
[2020-06-14] MEDS: ipratropium-albuterol 3 mL Neb INHALATION (18:04)
[2020-06-14 18:15] LABS: Ferritin 11 ng/mL (15-150)
--- NOTE | 2020-06-14 18:15 | ECG_ITS ---
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 Measurements Intervals [place] Rate: 65 P: 5 LA: 221 QRS: -78 QRSD: 176 T: 75 QT: 470 QTc: 492 Interpretive Statements SINUS RHYTHM WITH FIRST DEGREE AV BLOCK WITH OCCASIONAL SUPRAVENTRICULAR PREMATURE COMPLEXES MARKED LEFT AXIS DEVIATION [QRS AXIS < -30] LEFT BUNDLE BRANCH BLOCK Compared to ECG 06/14/2020 16:40:59 Left-axis deviation now present Left bundle-branch block now present Right-axis deviation no longer present Intraventricular conduction delay no longer present Electronically Signed On 06-14-2020 20:29:08 CDT by Kalpana Schwartz M.D. [id number]
[2020-06-14 19:27] LABS: Troponin 5 2HR 21.88 ng/L (0-10); Troponin 5 2HR Delta 0.88 ABS# (0-10)
--- NOTE | 2020-06-14 20:05 | ED_ITS ---
Documented by User: Cecilia Liang MD 06/20/20 07:11 HPI - SOB/Dyspnea General: Chief Complaint: Shortness of Breath/Dyspnea Stated Complaint: RESP DISTRESS Time Seen by Provider: 06/14/20 16:01 History of Present Illness: HPI Narrative: This patient is a 74-year-old female who presents today with shortness of breath. She reports that she has been having increasing shortness of breath for couple of weeks. She saw her PCP today and they wanted her to come to the hospital because her oxygen level was low. She did not want to come to the hospital instead went home. She said after she got home she had an episode of feeling extremely lightheaded like she was going to pass out. After that she decided to come to the hospital. She has been on oxygen in the past but decided to stop using it because it was expensive and she did not think she needed it. She has a history of COPD, cardiomyopathy and CHF. She has been admitted with respiratory failure before. She tells me right off the bat that she does not want to be on the BiPAP. She has been treated for bronchitis with antibiotics over this past few weeks. She also was tested for COVID about 2 weeks ago and that was negative. She admits to being noncompliant with her Lasix and her relative and power of commonwealth attorney to whom I spoke on the phone said that she thinks she is retaining water because she looks bigger than usual. elicited complaint: shortness of breath Pertinent past history: COPD, asthma, congestive heart failure, diabetes and pneumonia Onset (ago): week(s) (3) Context: recent illness (Has been on antibiotics for bronchitis) Timing: progressively worsening Severity: severe Exacerbating factors: exertion Relieving factors: oxygen Known history of: COPD, asthma, congestive heart failure and diabetes Associated symptoms: Reports chest congestion, cough, dizziness and lightheadedness; Deny abdominal pain, fever(s), nausea or vomiting Review of Systems General: Reports: 10 or more systems reviewed and unremarkable except in HPI and below Const: Denies: fever(s), chills, fatigue or malaise Eyes: Denies: change in vision ENMT: Denies: odynophagia Card: Reports: lightheadedness Resp: Reports: chest congestion GI: Denies: abdominal pain, nausea or vomiting : Denies: flank pain or difficulty voiding Musc: Denies: neck pain or back pain Skin/Breast: Denies: rash Neuro: Reports: dizziness Wilfredo/Lymph: Denies: easy bruising or easy bleeding PFSH ED PFSH: Medical History Anemia Anemia of chronic disease Cardiomyopathy CHF (congestive heart failure) COPD (chronic obstructive pulmonary disease) Diabetic neuropathy Dyslipidemia Dysplastic colon polyp Incompletely resected on first attempt due to cardiac complications. Ascending colon. Elevated troponin Enrolled in chronic care management Essential (primary) hypertension GERD (gastroesophageal reflux disease) Hypothyroidism, adult Lumbar back pain with radiculopathy affecting right lower extremity Osteoarthritis of right ankle and foot Recent cerebrovascular accident (CVA) Carotid Doppler examination on 02/12/2020 revealed Moderate heterogeneous plaques bilaterally with velocity elevations bilaterally, suggestive of 50 to 79% stenosis Tortuous distal internal carotid arteries bilaterally Shortness of breath Uncontrolled type 2 diabetes mellitus with insulin therapy Surgical History H/O bilateral breast reduction surgery H/O cataract extraction H/O: hysterectomy Family History Other CAD (coronary artery disease) Cancer Diabetes Lung disease Stroke Social History Smoking and tobacco status: former smoker Alcohol intake: never Lives independently: Yes History of recent travel: No Female Reproductive History: Spontaneous abortions: No Physical Exam Const: COMMON NORMALS: patient oriented x3, no limitations and alert GENERAL APPEARANCE: cooperative NUTRITIONAL APPEARANCE: obese morbidly obese HENMT: HEAD & SCALP: normal to inspection FACE & SINUS: normal facial exam Eye: GENERAL EYE: appearance normal, both eyes and all related structures Neck/C-Spine: COMMON NORMALS: supple, no meningeal signs and no JVD Chest: COMMONS NORMALS: normal inspection of the chest Resp: EFFORT & INSPECTION: No able to speak in complete sentences, Yes tachypneic, Yes respiratory distress, Yes labored and Yes uses accessory muscles AUSCULTATION: wheezes and diminished lung sounds Cardio: COMMON NORMALS: no JVD, regular rate, regular rhythm and No murmurs present (Cardio) RATE: regular rate RHYTHM: regular rhythm GI: COMMON NORMALS: Normal to inspection, nondistended, normoactive bowel sounds present, Soft to palpation and non-tender INSPECTION: Yes normal to inspection AUSCULTATION: Yes normoactive bowel sounds PALPATION: Yes Soft to palpation Back/Pelvis: COMMON NORMALS: thoracic and lumbar spine normal to inspection Extremity: COMMON NORMALS: normal to inspection Neuro: COMMON NORMALS: patient oriented x3, moves all extremities, no focal motor deficits and no sensory deficits noted SENSORIUM/ORIENTATION: Yes alert MENINGEAL SIGNS: Yes no meningeal signs Psych: COMMON NORMALS: mental status grossly normal, cooperative and normal affect Skin: COMMON NORMALS: no rashes or lesions noted and turgor normal GENERAL SKIN EXAM: no rashes or lesions noted and turgor normal Procedures Intubation Time out performed: Yes sedative: Etomidate paralytic: Succinylcholine Laryngoscope: fiber optic video scope ET Tube Size: 8 ET Tube Uncuffed: No Tube Secured Depth (cm): 22 Tube Secured Location: lips Tube Placement Confirmation: visualized tube passing through cords, equal breath sounds bilaterally, no breath sounds over epigastrium and confirmation by capnometry Patient Tolerated Procedure: well Intubation Complications: none Course ED course: This patient presents with significant shortness of breath. She has a history of COPD and CHF. Both of these are probably at play in causing her symptoms today. She has had a negative COVID test a few weeks ago but I think it is worth retesting her. I do not clinically suspect COVID. On her initial ABG her pH was 7.23 with a CO2 of 77. Her mental status was not great either initially or prior to being put on BiPAP. She initially refused BiPAP and I discussed with her that the next option was intubation. We discussed in detail with that would mean. She wanted me to call and talk to Dr. Ramon to see what he would recommend and I did that. He recommended BiPAP. He is agreed however that if she would accept that that intubation was reasonable. Patient then asked me to call her power of commonwealth attorney, Deb. I spoke with her and she basically said the same thing is Dr. Ramon had. I conveyed these conversations to the patient and she agreed to try BiPAP. I had offered to put her on Ativan but she was pretty somnolent by the time the BiPAP was started and did not require any sedation. After about 45 minutes on the BiPAP she had some improvement in her ABG. We increased the settings and after another hour she had another small improvement in the ABG. After the third ABG however her mental status was definitely improved. Because of this I decided to continue her on the BiPAP even though her ABG did not look that much better. I think that intubation would be a last ditch effort for her and BiPAP seems to be doing pretty well. Her COVID test came back negative. I gave her some Lasix to deal with CHF. I also gave her some steroid and albuterol for COPD. I am hoping that we can admit her here but with she may need to be transferred. Reevaluation(s): Reevaluation #1: The patient did not have any significant improvement in her ABGs with several hours on the BiPAP. We decided to go ahead and intubate her to try to get her CO2 down and her pH to normalize. Both she and her power of commonwealth attorney were okay with this decision. Vital Signs: Vital signs: Vital Signs Temperature 97.8 F 06/14/20 15:56 Pulse Rate 58 L 06/15/20 06:20 Respiratory Rate 12 06/15/20 06:20 Blood Pressure 109/68 06/15/20 06:20 Pulse Oximetry 98 06/15/20 06:20 MDM - SOB/Dyspnea Lab Data: Labs: Lab Results 06/14/20 06/14/20 06/14/20 Range/Units 16:40 16:40 16:40 WBC 6.7 (4.0-10.0) 10^3/ uL RBC 3.59 L (4.1-5.3) 10^6/u L Hgb 9.3 L (11.5-15.3) g/dL Hct 34.2 L (37.0-47.0) % MCV 95.3 (81-99) fL MCH 25.9 L (28.0-34.0) pg MCHC 27.2 L (30.0-36.0) g/dL RDW 17.1 H (12.1-15.1) % Plt Count 140 (130-400) 10^3/c mm MPV 9.7 (7.4-10.4) fL Neut % (Auto) 75.8 % Lymph % (Auto) 13.8 % [place] % (Auto) 6.4 % Eos % (Auto) 2.5 % Baso % (Auto) 0.3 % Neut # (Auto) 5.10 (1.8-7.7) 10^3/u L Lymph # (Auto) 0.9 (0.8-4.8) 10^3/u L [place] # (Auto) 0.4 (0.2-0.9) 10^3/u L Eos # (Auto) 0.2 (0.0-0.8) 10^3/u L Baso # (Auto) 0.0 (0.0-0.1) 10^3/u L Nucleated RBC % (a uto) 0 % Nucleated RBCs # 0.0 /100WBC PT (12.1-14.9) SECO NDS INR (0.8-1.2) Fibrinogen (174-498) mg/dL D-Dimer (0-0.59) ug/mIFE U Specimen Type Arterial Sample Site Radial, left ABG pH 7.23 L (7.35-7.45) ABG pCO2 77.1 H* (35-45) mmHg ABG pO2 105.0 H (80.0-100.0) mmH g ABG HCO3 32.3 H (22-26) mmol/L ABG O2 Saturation ABG Base Excess 3.4 H (-2.0-2.0) mmol/ L Ángel Test Pos A-a O2 Gradient (5-10) mmHg Hematocrit 28.8 L (37-47) % Hgb O2 Saturation (95-100) % Carboxyhemoglobin (0.4-20.1) %THgb Methemoglobin (0.4-1.5) % Total Hemoglobin (12-16) g/dL Ionized Calcium (1.1-1.4) mmol/L O2 Delivery Device Nc O2 Liters/Min 2.0 % FiO2 % Tidal Volume Linter Tender ID Drn Blood Gas Notified Time Sodium (136-145) mmol/L Potassium (3.5-5.1) mmol/L Chloride (98-107) mmol/L Carbon Dioxide (22-29) mmol/L Anion Gap (5-19) BUN (8-23) mg/dL Creatinine (0.5-0.9) mg/dL GFR Calculation Glucose (65-115) mg/dL Calculated Osmolal ity (285-295) mOsm/k g Lactic Acid (0.5-2.2) mmol/L Calcium (8.5-10.5) mg/dL Magnesium (1.7-2.3) mg/dL Ferritin (15-150) ng/mL Total Bilirubin (0.15-1.2) mg/dL AST (0-32) U/L ALT (0-33) U/L Alkaline Phosphata se (35-105) IU/L Troponin T Baselin e 21 H (0-10) ng/L Troponin T 120 Min [place] (0-10) ng/L Delta Troponin T (0-10) ABS# Troponin T Hi Sens 6Hr (0-10) ng/L Troponin T Hi Sens 6Hr Delta (0-12) ng/L C-Reactive Protein (0.0-4.9) mg/L NT-Pro-B Natriuret Pep (0-450) pg/mL Total Protein (6.6-8.7) g/dL Albumin (3.5-5.2) g/dL Globulin (1.3-4.6) g/dL Procalcitonin (0-0.5) ng/mL SARS-CoV-2 Ag (Rap id) (Negative) 06/14/20 06/14/20 06/14/20 Range/Units 16:40 16:40 16:40 WBC (4.0-10.0) 10^3/ uL RBC (4.1-5.3) 10^6/u L Hgb (11.5-15.3) g/dL Hct (37.0-47.0) % MCV (81-99) fL MCH (28.0-34.0) pg MCHC (30.0-36.0) g/dL RDW (12.1-15.1) % Plt Count (130-400) 10^3/c mm MPV (7.4-10.4) fL Neut % (Auto) % Lymph % (Auto) % [place] % (Auto) % Eos % (Auto) % Baso % (Auto) % Neut # (Auto) (1.8-7.7) 10^3/u L Lymph # (Auto) (0.8-4.8) 10^3/u L [place] # (Auto) (0.2-0.9) 10^3/u L Eos # (Auto) (0.0-0.8) 10^3/u L Baso # (Auto) (0.0-0.1) 10^3/u L Nucleated RBC % (a uto) % Nucleated RBCs # /100WBC PT 14.30 (12.1-14.9) SECO NDS INR 1.08 (0.8-1.2) Fibrinogen 394 (174-498) mg/dL D-Dimer 0.90 H (0-0.59) ug/mIFE U Specimen Type Sample Site ABG pH (7.35-7.45) ABG pCO2 (35-45) mmHg ABG pO2 (80.0-100.0) mmH g ABG HCO3 (22-26) mmol/L ABG O2 Saturation ABG Base Excess (-2.0-2.0) mmol/ L Ángel Test A-a O2 Gradient (5-10) mmHg Hematocrit (37-47) % Hgb O2 Saturation (95-100) % Carboxyhemoglobin (0.4-20.1) %THgb Methemoglobin (0.4-1.5) % Total Hemoglobin (12-16) g/dL Ionized Calcium (1.1-1.4) mmol/L O2 Delivery Device O2 Liters/Min % FiO2 % Tidal Volume Linter Tender ID Blood Gas Notified Time Sodium 144 (136-145) mmol/L Potassium 4.6 (3.5-5.1) mmol/L Chloride 106 (98-107) mmol/L Carbon Dioxide 29 (22-29) mmol/L Anion Gap 13.6 (5-19) BUN 31 H (8-23) mg/dL Creatinine 1.4 H (0.5-0.9) mg/dL GFR Calculation Not Reportable Glucose 228 H (65-115) mg/dL Calculated Osmolal ity 312 H (285-295) mOsm/k g Lactic Acid 1.1 (0.5-2.2) mmol/L Calcium 8.3 L (8.5-10.5) mg/dL Magnesium (1.7-2.3) mg/dL Ferritin 11 L (15-150) ng/mL Total Bilirubin 0.2 (0.15-1.2) mg/dL AST 8 (0-32) U/L ALT 8 (0-33) U/L Alkaline Phosphata se 112 H (35-105) IU/L Troponin T Baselin e (0-10) ng/L Troponin T 120 Min [place] (0-10) ng/L Delta Troponin T (0-10) ABS# Troponin T Hi Sens 6Hr (0-10) ng/L Troponin T Hi Sens 6Hr Delta (0-12) ng/L C-Reactive Protein 12.0 H (0.0-4.9) mg/L NT-Pro-B Natriuret Pep 5975 H (0-450) pg/mL Total Protein 6.2 L (6.6-8.7) g/dL Albumin 3.5 (3.5-5.2) g/dL Globulin 2.7 (1.3-4.6) g/dL Procalcitonin 0.06 (0-0.5) ng/mL SARS-CoV-2 Ag (Rap id) (Negative) 06/14/20 06/14/20 06/14/20 Range/Units 16:40 16:46 18:38 WBC (4.0-10.0) 10^3/ uL RBC (4.1-5.3) 10^6/u L Hgb (11.5-15.3) g/dL Hct (37.0-47.0) % MCV (81-99) fL MCH (28.0-34.0) pg MCHC (30.0-36.0) g/dL RDW (12.1-15.1) % Plt Count (130-400) 10^3/c mm MPV (7.4-10.4) fL Neut % (Auto) % Lymph % (Auto) % [place] % (Auto) % Eos % (Auto) % Baso % (Auto) % Neut # (Auto) (1.8-7.7) 10^3/u L Lymph # (Auto) (0.8-4.8) 10^3/u L [place] # (Auto) (0.2-0.9) 10^3/u L Eos # (Auto) (0.0-0.8) 10^3/u L Baso # (Auto) (0.0-0.1) 10^3/u L Nucleated RBC % (a uto) % Nucleated RBCs # /100WBC PT (12.1-14.9) SECO NDS INR (0.8-1.2) Fibrinogen (174-498) mg/dL D-Dimer (0-0.59) ug/mIFE U Specimen Type Sample Site ABG pH (7.35-7.45) ABG pCO2 (35-45) mmHg ABG pO2 (80.0-100.0) mmH g ABG HCO3 (22-26) mmol/L ABG O2 Saturation ABG Base Excess (-2.0-2.0) mmol/ L Ángel Test A-a O2 Gradient (5-10) mmHg Hematocrit (37-47) % Hgb O2 Saturation (95-100) % Carboxyhemoglobin (0.4-20.1) %THgb Methemoglobin (0.4-1.5) % Total Hemoglobin (12-16) g/dL Ionized Calcium (1.1-1.4) mmol/L O2 Delivery Device O2 Liters/Min % FiO2 % Tidal Volume Linter Tender ID Blood Gas Notified Time Sodium (136-145) mmol/L Potassium (3.5-5.1) mmol/L Chloride (98-107) mmol/L Carbon Dioxide (22-29) mmol/L Anion Gap (5-19) BUN (8-23) mg/dL Creatinine (0.5-0.9) mg/dL GFR Calculation Glucose (65-115) mg/dL Calculated Osmolal ity (285-295) mOsm/k g Lactic Acid (0.5-2.2) mmol/L Calcium (8.5-10.5) mg/dL Magnesium 2.2 (1.7-2.3) mg/dL Ferritin (15-150) ng/mL Total Bilirubin (0.15-1.2) mg/dL AST (0-32) U/L ALT (0-33) U/L Alkaline Phosphata se (35-105) IU/L Troponin T Baselin e (0-10) ng/L Troponin T 120 Min [place] 21.88 H (0-10) ng/L Delta Troponin T 0.88 (0-10) ABS# Troponin T Hi Sens 6Hr (0-10) ng/L Troponin T Hi Sens 6Hr Delta (0-12) ng/L C-Reactive Protein (0.0-4.9) mg/L NT-Pro-B Natriuret Pep (0-450) pg/mL Total Protein (6.6-8.7) g/dL Albumin (3.5-5.2) g/dL Globulin (1.3-4.6) g/dL Procalcitonin (0-0.5) ng/mL SARS-CoV-2 Ag (Rap id) Negative (Negative) 06/14/20 06/14/20 06/14/20 Range/Units 20:55 22:00 22:52 WBC (4.0-10.0) 10^3/ uL RBC (4.1-5.3) 10^6/u L Hgb (11.5-15.3) g/dL Hct (37.0-47.0) % MCV (81-99) fL MCH (28.0-34.0) pg MCHC (30.0-36.0) g/dL RDW (12.1-15.1) % Plt Count (130-400) 10^3/c mm MPV (7.4-10.4) fL Neut % (Auto) % Lymph % (Auto) % [place] % (Auto) % Eos % (Auto) % Baso % (Auto) % Neut # (Auto) (1.8-7.7) 10^3/u L Lymph # (Auto) (0.8-4.8) 10^3/u L [place] # (Auto) (0.2-0.9) 10^3/u L Eos # (Auto) (0.0-0.8) 10^3/u L Baso # (Auto) (0.0-0.1) 10^3/u L Nucleated RBC % (a uto) % Nucleated RBCs # /100WBC PT (12.1-14.9) SECO NDS INR (0.8-1.2) Fibrinogen (174-498) mg/dL D-Dimer (0-0.59) ug/mIFE U Specimen Type Arterial Arterial Sample Site Radial, left Radial, left ABG pH 7.25 L 7.26 L (7.35-7.45) ABG pCO2 74.6 H* 72.4 H* (35-45) mmHg ABG pO2 73.9 L 97.4 (80.0-100.0) mmH g ABG HCO3 32.9 H 32.5 H (22-26) mmol/L ABG O2 Saturation ABG Base Excess 4.2 H 3.9 H (-2.0-2.0) mmol/ L Ángel Test Pos Pos A-a O2 Gradient (5-10) mmHg Hematocrit 30.2 L 30.7 L (37-47) % Hgb O2 Saturation (95-100) % Carboxyhemoglobin (0.4-20.1) %THgb Methemoglobin (0.4-1.5) % Total Hemoglobin (12-16) g/dL Ionized Calcium (1.1-1.4) mmol/L O2 Delivery Device Bipap Bipap O2 Liters/Min % FiO2 30.0 30.0 % Tidal Volume Linter Tender ID zachary sharma Blood Gas Notified Time Sodium (136-145) mmol/L Potassium (3.5-5.1) mmol/L Chloride (98-107) mmol/L Carbon Dioxide (22-29) mmol/L Anion Gap (5-19) BUN (8-23) mg/dL Creatinine (0.5-0.9) mg/dL GFR Calculation Glucose (65-115) mg/dL Calculated Osmolal ity (285-295) mOsm/k g Lactic Acid (0.5-2.2) mmol/L Calcium (8.5-10.5) mg/dL Magnesium (1.7-2.3) mg/dL Ferritin (15-150) ng/mL Total Bilirubin (0.15-1.2) mg/dL AST (0-32) U/L ALT (0-33) U/L Alkaline Phosphata se (35-105) IU/L Troponin T Baselin e (0-10) ng/L Troponin T 120 Min [place] (0-10) ng/L Delta Troponin T (0-10) ABS# Troponin T Hi Sens 6Hr 17.44 H (0-10) ng/L Troponin T Hi Sens 6Hr Delta -3.56 L (0-12) ng/L C-Reactive Protein (0.0-4.9) mg/L NT-Pro-B Natriuret Pep (0-450) pg/mL Total Protein (6.6-8.7) g/dL Albumin (3.5-5.2) g/dL Globulin (1.3-4.6) g/dL Procalcitonin (0-0.5) ng/mL SARS-CoV-2 Ag (Rap id) (Negative) 06/14/20 06/15/20 06/15/20 Range/Units 23:50 01:50 03:50 WBC (4.0-10.0) 10^3/ uL RBC (4.1-5.3) 10^6/u L Hgb (11.5-15.3) g/dL Hct (37.0-47.0) % MCV (81-99) fL MCH (28.0-34.0) pg MCHC (30.0-36.0) g/dL RDW (12.1-15.1) % Plt Count (130-400) 10^3/c mm MPV (7.4-10.4) fL Neut % (Auto) % Lymph % (Auto) % [place] % (Auto) % Eos % (Auto) % Baso % (Auto) % Neut # (Auto) (1.8-7.7) 10^3/u L Lymph # (Auto) (0.8-4.8) 10^3/u L [place] # (Auto) (0.2-0.9) 10^3/u L Eos # (Auto) (0.0-0.8) 10^3/u L Baso # (Auto) (0.0-0.1) 10^3/u L Nucleated RBC % (a uto) % Nucleated RBCs # /100WBC PT (12.1-14.9) SECO NDS INR (0.8-1.2) Fibrinogen (174-498) mg/dL D-Dimer (0-0.59) ug/mIFE U Specimen Type Arterial Arterial Arterial Sample Site Radial, right Radial, right Rr ABG pH 7.26 L 7.21 L 7.36 (7.35-7.45) ABG pCO2 74.1 H* 83.0 H* 57.6 H (35-45) mmHg ABG pO2 81.9 61.3 L 75.1 L (80.0-100.0) mmH g ABG HCO3 32.9 H 33.1 H 32.8 H (22-26) mmol/L ABG O2 Saturation 95.8 ABG Base Excess 4.2 H 3.6 H 6.4 H (-2.0-2.0) mmol/ L Ángel Test Pos Pos Pos A-a O2 Gradient 4.7 L (5-10) mmHg Hematocrit 30.4 L 30.3 L 26.1 L (37-47) % Hgb O2 Saturation 95.8 (95-100) % Carboxyhemoglobin 1.4 (0.4-20.1) %THgb Methemoglobin 0.8 (0.4-1.5) % Total Hemoglobin 8.5 L (12-16) g/dL Ionized Calcium 1.2 (1.1-1.4) mmol/L O2 Delivery Device Bipap Bipap Vent O2 Liters/Min % FiO2 30.0 30.0 40.0 % Tidal Volume .500 Linter Tender ID zachary sharma Not Reportable Blood Gas Notified Time 0410 Sodium 145.0 H (136-145) mmol/L Potassium 4.9 (3.5-5.1) mmol/L Chloride (98-107) mmol/L Carbon Dioxide (22-29) mmol/L Anion Gap (5-19) BUN (8-23) mg/dL Creatinine (0.5-0.9) mg/dL GFR Calculation Glucose 187.0 H (65-115) mg/dL Calculated Osmolal ity (285-295) mOsm/k g Lactic Acid (0.5-2.2) mmol/L Calcium (8.5-10.5) mg/dL Magnesium (1.7-2.3) mg/dL Ferritin (15-150) ng/mL Total Bilirubin (0.15-1.2) mg/dL AST (0-32) U/L ALT (0-33) U/L Alkaline Phosphata se (35-105) IU/L Troponin T Baselin e (0-10) ng/L Troponin T 120 Min [place] (0-10) ng/L Delta Troponin T (0-10) ABS# Troponin T Hi Sens 6Hr (0-10) ng/L Troponin T Hi Sens 6Hr Delta (0-12) ng/L C-Reactive Protein (0.0-4.9) mg/L NT-Pro-B Natriuret Pep (0-450) pg/mL Total Protein (6.6-8.7) g/dL Albumin (3.5-5.2) g/dL Globulin (1.3-4.6) g/dL Procalcitonin (0-0.5) ng/mL SARS-CoV-2 Ag (Rap id) (Negative) Discharge Plan Discharge Patient Disposition: Xfer Short-Term Hosp Clinical Impression: Acute exacerbation of chronic obstructive airways disease, Acute hypercapnic respiratory failure Condition: Stable Referrals: Kaitlin Gomez DO [Primary Care Provider] - Discharge Date/Time: 06/15/20 06:22 Coding Level of Care Code ED [employer] for Chg Fwd Exam Comprehensive Documented by User: Nury Gonzalez 06/15/20 05:08 HPI - SOB/Dyspnea General: Chief Complaint: Shortness of Breath/Dyspnea Stated Complaint: RESP DISTRESS Time Seen by Provider: 06/14/20 16:01 [facility] ED PFSH: Medical History Anemia Anemia of chronic disease Cardiomyopathy CHF (congestive heart failure) COPD (chronic obstructive pulmonary disease) Diabetic neuropathy Dyslipidemia Dysplastic colon polyp Incompletely resected on first attempt due to cardiac complications. Ascending colon. Elevated troponin Enrolled in chronic care management Essential (primary) hypertension GERD (gastroesophageal reflux disease) Hypothyroidism, adult Lumbar back pain with radiculopathy affecting right lower extremity Osteoarthritis of right ankle and foot Recent cerebrovascular accident (CVA) Carotid Doppler examination on 02/12/2020 revealed Moderate heterogeneous plaques bilaterally with velocity elevations bilaterally, suggestive of 50 to 79% stenosis Tortuous distal internal carotid arteries bilaterally Shortness of breath Uncontrolled type 2 diabetes mellitus with insulin therapy Surgical History H/O bilateral breast reduction surgery H/O cataract extraction H/O: hysterectomy Family History Other CAD (coronary artery disease) Cancer Diabetes Lung disease Stroke Social History Smoking and tobacco status: former smoker Alcohol intake: never Lives independently: Yes History of recent travel: No Course ED course: 0410 -[facility] has called me stating that tube needs adjusted. ET tube was pulled from 20 cm to 17 cm. Repeat chest x-ray was ordered. Vital Signs: Vital signs: Vital Signs Temperature 97.8 F 06/14/20 15:56 Pulse Rate 58 L 06/15/20 06:20 Respiratory Rate 12 06/15/20 06:20 Blood Pressure 109/68 06/15/20 06:20 Pulse Oximetry 98 06/15/20 06:20 MDM - SOB/Dyspnea MDM Narrative: Medical decision making narrative: With Dr. Hamilton at [facility]. He agrees accept the patient in transfer. We will transfer the patient by air ambulance weather permitting when a bed is assigned. Patient is currently stable on the ventilator with stable vital signs and is adequately sedated. Lab Data: Attestation: I reviewed the patient's lab results. Labs: Lab Results 06/14/20 06/14/20 06/14/20 Range/Units 16:40 16:40 16:40 WBC 6.7 (4.0-10.0) 10^3/ uL RBC 3.59 L (4.1-5.3) 10^6/u L Hgb 9.3 L (11.5-15.3) g/dL Hct 34.2 L (37.0-47.0) % MCV 95.3 (81-99) fL MCH 25.9 L (28.0-34.0) pg MCHC 27.2 L (30.0-36.0) g/dL RDW 17.1 H (12.1-15.1) % Plt Count 140 (130-400) 10^3/c mm MPV 9.7 (7.4-10.4) fL Neut % (Auto) 75.8 % Lymph % (Auto) 13.8 % [place] % (Auto) 6.4 % Eos % (Auto) 2.5 % Baso % (Auto) 0.3 % Neut # (Auto) 5.10 (1.8-7.7) 10^3/u L Lymph # (Auto) 0.9 (0.8-4.8) 10^3/u L [place] # (Auto) 0.4 (0.2-0.9) 10^3/u L Eos # (Auto) 0.2 (0.0-0.8) 10^3/u L Baso # (Auto) 0.0 (0.0-0.1) 10^3/u L Nucleated RBC % (a uto) 0 % Nucleated RBCs # 0.0 /100WBC PT (12.1-14.9) SECO NDS INR (0.8-1.2) Fibrinogen (174-498) mg/dL D-Dimer (0-0.59) ug/mIFE U Specimen Type Arterial Sample Site Radial, left ABG pH 7.23 L (7.35-7.45) ABG pCO2 77.1 H* (35-45) mmHg ABG pO2 105.0 H (80.0-100.0) mmH g ABG HCO3 32.3 H (22-26) mmol/L ABG O2 Saturation ABG Base Excess 3.4 H (-2.0-2.0) mmol/ L [place] Test Pos A-a O2 Gradient (5-10) mmHg Hematocrit 28.8 L (37-47) % Hgb O2 Saturation (95-100) % Carboxyhemoglobin (0.4-20.1) %THgb Methemoglobin (0.4-1.5) % Total Hemoglobin (12-16) g/dL Ionized Calcium (1.1-1.4) mmol/L O2 Delivery Device Nc O2 Liters/Min 2.0 % FiO2 % Tidal Volume [employer]inter Tender ID Drn Blood Gas Notified Time Sodium (136-145) mmol/L Potassium (3.5-5.1) mmol/L Chloride (98-107) mmol/L Carbon Dioxide (22-29) mmol/L Anion Gap (5-19) BUN (8-23) mg/dL Creatinine (0.5-0.9) mg/dL GFR Calculation Glucose (65-115) mg/dL Calculated Osmolal ity (285-295) mOsm/k g Lactic Acid (0.5-2.2) mmol/L Calcium (8.5-10.5) mg/dL Magnesium (1.7-2.3) mg/dL Ferritin (15-150) ng/mL Total Bilirubin (0.15-1.2) mg/dL AST (0-32) U/L ALT (0-33) U/L Alkaline Phosphata se (35-105) IU/L Troponin T Baselin e 21 H (0-10) ng/L Troponin T 120 Min [place] (0-10) ng/L Delta Troponin T (0-10) ABS# Troponin T Hi Sens 6Hr (0-10) ng/L Troponin T Hi Sens 6Hr Delta (0-12) ng/L C-Reactive Protein (0.0-4.9) mg/L NT-Pro-B Natriuret Pep (0-450) pg/mL Total Protein (6.6-8.7) g/dL Albumin (3.5-5.2) g/dL Globulin (1.3-4.6) g/dL Procalcitonin (0-0.5) ng/mL SARS-CoV-2 Ag (Rap id) (Negative) 06/14/20 06/14/20 06/14/20 Range/Units 16:40 16:40 16:40 WBC (4.0-10.0) 10^3/ uL RBC (4.1-5.3) 10^6/u L Hgb (11.5-15.3) g/dL Hct (37.0-47.0) % MCV (81-99) fL MCH (28.0-34.0) pg MCHC (30.0-36.0) g/dL RDW (12.1-15.1) % Plt Count (130-400) 10^3/c mm MPV (7.4-10.4) fL Neut % (Auto) % Lymph % (Auto) % [place] [place] % (Auto) % Eos % (Auto) % Baso % (Auto) % Neut # (Auto) (1.8-7.7) 10^3/u L Lymph # (Auto) (0.8-4.8) 10^3/u L [place] # (Auto) (0.2-0.9) 10^3/u L Eos # (Auto) (0.0-0.8) 10^3/u L Baso # (Auto) (0.0-0.1) 10^3/u L Nucleated RBC % (a uto) % Nucleated RBCs # /100WBC PT 14.30 (12.1-14.9) SECO NDS INR 1.08 (0.8-1.2) Fibrinogen 394 (174-498) mg/dL D-Dimer 0.90 H (0-0.59) ug/mIFE U Specimen Type Sample Site ABG pH (7.35-7.45) ABG pCO2 (35-45) mmHg ABG pO2 (80.0-100.0) mmH g ABG HCO3 (22-26) mmol/L ABG O2 Saturation ABG Base Excess (-2.0-2.0) mmol/ L Ángel Test A-a O2 Gradient (5-10) mmHg Hematocrit (37-47) % Hgb O2 Saturation (95-100) % Carboxyhemoglobin (0.4-20.1) %THgb Methemoglobin (0.4-1.5) % Total Hemoglobin (12-16) g/dL Ionized Calcium (1.1-1.4) mmol/L O2 Delivery Device O2 Liters/Min % FiO2 % Tidal Volume Linter Tender ID Blood Gas Notified Time Sodium 144 (136-145) mmol/L Potassium 4.6 (3.5-5.1) mmol/L Chloride 106 (98-107) mmol/L Carbon Dioxide 29 (22-29) mmol/L Anion Gap 13.6 (5-19) BUN 31 H (8-23) mg/dL Creatinine 1.4 H (0.5-0.9) mg/dL GFR Calculation Not Reportable Glucose 228 H (65-115) mg/dL Calculated Osmolal ity 312 H (285-295) mOsm/k g Lactic Acid 1.1 (0.5-2.2) mmol/L Calcium 8.3 L (8.5-10.5) mg/dL Magnesium (1.7-2.3) mg/dL Ferritin 11 L (15-150) ng/mL Total Bilirubin 0.2 (0.15-1.2) mg/dL AST 8 (0-32) U/L ALT 8 (0-33) U/L Alkaline Phosphata se 112 H (35-105) IU/L Troponin T Baselin e (0-10) ng/L Troponin T 120 Min [place] (0-10) ng/L Delta Troponin T (0-10) ABS# Troponin T Hi Sens 6Hr (0-10) ng/L Troponin T Hi Sens 6Hr Delta (0-12) ng/L C-Reactive Protein 12.0 H (0.0-4.9) mg/L NT-Pro-B Natriuret Pep 5975 H (0-450) pg/mL Total Protein 6.2 L (6.6-8.7) g/dL Albumin 3.5 (3.5-5.2) g/dL Globulin 2.7 (1.3-4.6) g/dL Procalcitonin 0.06 (0-0.5) ng/mL SARS-CoV-2 Ag (Rap id) (Negative) 06/14/20 06/14/20 06/14/20 Range/Units 16:40 16:46 18:38 WBC (4.0-10.0) 10^3/ uL RBC (4.1-5.3) 10^6/u L Hgb (11.5-15.3) g/dL Hct (37.0-47.0) % MCV (81-99) fL MCH (28.0-34.0) pg MCHC (30.0-36.0) g/dL RDW (12.1-15.1) % Plt Count (130-400) 10^3/c mm MPV (7.4-10.4) fL Neut % (Auto) % Lymph % (Auto) % [place] % (Auto) % Eos % (Auto) % Baso % (Auto) % Neut # (Auto) (1.8-7.7) 10^3/u L Lymph # (Auto) (0.8-4.8) 10^3/u L [place] # (Auto) (0.2-0.9) 10^3/u L Eos # (Auto) (0.0-0.8) 10^3/u L Baso # (Auto) (0.0-0.1) 10^3/u L Nucleated RBC % (a uto) % Nucleated RBCs # /100WBC PT (12.1-14.9) SECO NDS INR (0.8-1.2) Fibrinogen (174-498) mg/dL D-Dimer (0-0.59) ug/mIFE U Specimen Type Sample Site ABG pH (7.35-7.45) ABG pCO2 (35-45) mmHg ABG pO2 (80.0-100.0) mmH g ABG HCO3 (22-26) mmol/L ABG O2 Saturation ABG Base Excess (-2.0-2.0) mmol/ L Ángel Test A-a O2 Gradient (5-10) mmHg Hematocrit (37-47) % Hgb O2 Saturation (95-100) % Carboxyhemoglobin (0.4-20.1) %THgb Methemoglobin (0.4-1.5) % Total Hemoglobin (12-16) g/dL Ionized Calcium (1.1-1.4) mmol/L O2 Delivery Device O2 Liters/Min % FiO2 % Tidal Volume Linter Tender ID Blood Gas Notified Time Sodium (136-145) mmol/L Potassium (3.5-5.1) mmol/L Chloride (98-107) mmol/L Carbon Dioxide (22-29) mmol/L Anion Gap (5-19) BUN (8-23) mg/dL Creatinine (0.5-0.9) mg/dL GFR Calculation Glucose (65-115) mg/dL Calculated Osmolal ity (285-295) mOsm/k g Lactic Acid (0.5-2.2) mmol/L Calcium (8.5-10.5) mg/dL Magnesium 2.2 (1.7-2.3) mg/dL Ferritin (15-150) ng/mL Total Bilirubin (0.15-1.2) mg/dL AST (0-32) U/L ALT (0-33) U/L Alkaline Phosphata se (35-105) IU/L Troponin T Baselin e (0-10) ng/L Troponin T 120 Min [place] 21.88 H (0-10) ng/L Delta Troponin T 0.88 (0-10) ABS# Troponin T Hi Sens 6Hr (0-10) ng/L Troponin T Hi Sens 6Hr Delta (0-12) ng/L C-Reactive Protein (0.0-4.9) mg/L NT-Pro-B Natriuret Pep (0-450) pg/mL Total Protein (6.6-8.7) g/dL Albumin (3.5-5.2) g/dL Globulin (1.3-4.6) g/dL Procalcitonin (0-0.5) ng/mL SARS-CoV-2 Ag (Rap id) Negative (Negative) 06/14/20 06/14/20 06/14/20 Range/Units 20:55 22:00 22:52 WBC (4.0-10.0) 10^3/ uL RBC (4.1-5.3) 10^6/u L Hgb (11.5-15.3) g/dL Hct (37.0-47.0) % MCV (81-99) fL MCH (28.0-34.0) pg MCHC (30.0-36.0) g/dL RDW (12.1-15.1) % Plt Count (130-400) 10^3/c mm MPV (7.4-10.4) fL Neut % (Auto) % Lymph % (Auto) % [place] % (Auto) % Eos % (Auto) % Baso % (Auto) % Neut # (Auto) (1.8-7.7) 10^3/u L Lymph # (Auto) (0.8-4.8) 10^3/u L [place] # (Auto) (0.2-0.9) 10^3/u L Eos # (Auto) (0.0-0.8) 10^3/u L Baso # (Auto) (0.0-0.1) 10^3/u L Nucleated RBC % (a uto) % Nucleated RBCs # /100WBC PT (12.1-14.9) SECO NDS INR (0.8-1.2) Fibrinogen (174-498) mg/dL D-Dimer (0-0.59) ug/mIFE U Specimen Type Arterial Arterial Sample Site Radial, left Radial, left ABG pH 7.25 L 7.26 L (7.35-7.45) ABG pCO2 74.6 H* 72.4 H* (35-45) mmHg ABG pO2 73.9 L 97.4 (80.0-100.0) mmH g ABG HCO3 32.9 H 32.5 H (22-26) mmol/L ABG O2 Saturation ABG Base Excess 4.2 H 3.9 H (-2.0-2.0) mmol/ L Ángel Test Pos Pos A-a O2 Gradient (5-10) mmHg Hematocrit 30.2 L 30.7 L (37-47) % Hgb O2 Saturation (95-100) % Carboxyhemoglobin (0.4-20.1) %THgb Methemoglobin (0.4-1.5) % Total Hemoglobin (12-16) g/dL Ionized Calcium (1.1-1.4) mmol/L O2 Delivery Device Bipap Bipap O2 Liters/Min % FiO2 30.0 30.0 % Tidal Volume Linter Tender JOSE G sharma Blood Gas Notified Time Sodium (136-145) mmol/L Potassium (3.5-5.1) mmol/L Chloride (98-107) mmol/L Carbon Dioxide (22-29) mmol/L Anion Gap (5-19) BUN (8-23) mg/dL Creatinine (0.5-0.9) mg/dL GFR Calculation Glucose (65-115) mg/dL Calculated Osmolal ity (285-295) mOsm/k g Lactic Acid (0.5-2.2) mmol/L Calcium (8.5-10.5) mg/dL Magnesium (1.7-2.3) mg/dL Ferritin (15-150) ng/mL Total Bilirubin (0.15-1.2) mg/dL AST (0-32) U/L ALT (0-33) U/L Alkaline Phosphata se (35-105) IU/L Troponin T Baselin e (0-10) ng/L Troponin T 120 Min [place] (0-10) ng/L Delta Troponin T (0-10) ABS# Troponin T Hi Sens 6Hr 17.44 H (0-10) ng/L Troponin T Hi Sens 6Hr Delta -3.56 L (0-12) ng/L C-Reactive Protein (0.0-4.9) mg/L NT-Pro-B Natriuret Pep (0-450) pg/mL Total Protein (6.6-8.7) g/dL Albumin (3.5-5.2) g/dL Globulin (1.3-4.6) g/dL Procalcitonin (0-0.5) ng/mL SARS-CoV-2 Ag (Rap id) (Negative) 06/14/20 06/15/20 06/15/20 Range/Units 23:50 01:50 03:50 WBC (4.0-10.0) 10^3/ uL RBC (4.1-5.3) 10^6/u L Hgb (11.5-15.3) g/dL Hct (37.0-47.0) % MCV (81-99) fL MCH (28.0-34.0) pg MCHC (30.0-36.0) g/dL RDW (12.1-15.1) % Plt Count (130-400) 10^3/c mm MPV (7.4-10.4) fL Neut % (Auto) % Lymph % (Auto) % [place] % (Auto) % Eos % (Auto) % Baso % (Auto) % Neut # (Auto) (1.8-7.7) 10^3/u L Lymph # (Auto) (0.8-4.8) 10^3/u L [place] # (Auto) (0.2-0.9) 10^3/u L Eos # (Auto) (0.0-0.8) 10^3/u L Baso # (Auto) (0.0-0.1) 10^3/u L Nucleated RBC % (a uto) % Nucleated RBCs # /100WBC PT (12.1-14.9) SECO NDS INR (0.8-1.2) Fibrinogen (174-498) mg/dL D-Dimer (0-0.59) ug/mIFE U Specimen Type Arterial Arterial Arterial Sample Site Radial, right Radial, right Rr ABG pH 7.26 L 7.21 L 7.36 (7.35-7.45) ABG pCO2 74.1 H* 83.0 H* 57.6 H (35-45) mmHg ABG pO2 81.9 61.3 L 75.1 L (80.0-100.0) mmH g ABG HCO3 32.9 H 33.1 H 32.8 H (22-26) mmol/L ABG O2 Saturation 95.8 ABG Base Excess 4.2 H 3.6 H 6.4 H (-2.0-2.0) mmol/ L Ángel Test Pos Pos Pos A-a O2 Gradient 4.7 L (5-10) mmHg Hematocrit 30.4 L 30.3 L 26.1 L (37-47) % Hgb O2 Saturation 95.8 (95-100) % Carboxyhemoglobin 1.4 (0.4-20.1) %THgb Methemoglobin 0.8 (0.4-1.5) % Total Hemoglobin 8.5 L (12-16) g/dL Ionized Calcium 1.2 (1.1-1.4) mmol/L O2 Delivery Device Bipap Bipap Vent O2 Liters/Min % FiO2 30.0 30.0 40.0 % Tidal Volume .500 Linter Tender ID [email or web address] sharma Not Reportable Blood Gas Notified Time 0410 Sodium 145.0 H (136-145) mmol/L Potassium 4.9 (3.5-5.1) mmol/L Chloride (98-107) mmol/L Carbon Dioxide (22-29) mmol/L Anion Gap (5-19) BUN (8-23) mg/dL Creatinine (0.5-0.9) mg/dL GFR Calculation Glucose 187.0 H (65-115) mg/dL Calculated Osmolal ity (285-295) mOsm/k g Lactic Acid (0.5-2.2) mmol/L Calcium (8.5-10.5) mg/dL Magnesium (1.7-2.3) mg/dL Ferritin (15-150) ng/mL Total Bilirubin (0.15-1.2) mg/dL AST (0-32) U/L ALT (0-33) U/L Alkaline Phosphata se (35-105) IU/L Troponin T Baselin e (0-10) ng/L Troponin T 120 Min [place] (0-10) ng/L Delta Troponin T (0-10) ABS# Troponin T Hi Sens 6Hr (0-10) ng/L Troponin T Hi Sens 6Hr Delta (0-12) ng/L C-Reactive Protein (0.0-4.9) mg/L NT-Pro-B Natriuret Pep (0-450) pg/mL Total Protein (6.6-8.7) g/dL Albumin (3.5-5.2) g/dL Globulin (1.3-4.6) g/dL Procalcitonin (0-0.5) ng/mL SARS-CoV-2 Ag (Rap id) (Negative) Imaging Data^: CT Chest: Radiologist's impression: [address] [place] [address] CT Scan Report Signed Patient: Bryanna Reid Unit #: [id number] : 1945 Age/Sex: 74 / F ADM Date: 06/14/20 Loc: ER Room/Bed: Attending Dr: Ordering Provider/Ordering MD: Waldemar Moran MD Date of Service: 06/14/20 Procedure(s): CT angio chest PE protcl [id number] Accession Number(s): [id number] Report Number: [id number] PROCEDURE INFORMATION: Exam: CT Angiography Chest With Contrast Exam date and time: 06/14/2020 2:43 AM Age: 74 years old Clinical indication: Abnormal findings; Abnormal diagnostic tests; Elevated d-dimer; Patient HX: PT intubated; Additional info: R/O pe TECHNIQUE: Imaging protocol: Computed tomographic angiography of the chest with intravenous contrast. 3D rendering (Not supervised by radiologist): MIP and/or 3D reconstructed images were created by the technologist. Radiation optimization: All CT scans at this facility use at least one of these dose optimization techniques: automated exposure control; mA and/or kV adjustment per patient size (includes targeted exams where dose is matched to clinical indication); or iterative reconstruction. Contrast material: VISI; Contrast volume: 95 ml; Contrast route: INTRAVENOUS (IV); COMPARISON: CTA Chest-Pulmonary Emb [id number] 05/16/2018 3:18 AM RADIATION DOSE METRICS: Total DLP (mGy-cm): 632.5 FINDINGS: Tubes, catheters and devices: The contrast bolus is suboptimal. The endotracheal tube is at the adamaris and needs to be be adjusted. Pulmonary arteries: Normal. No pulmonary emboli. Aorta: Unremarkable. No aortic aneurysm. No aortic dissection. Lungs: Minimal atelectasis is seen in the left base. No consolidation. No masses. Pleural space: Unremarkable. No pneumothorax. No pleural effusion. Heart: The heart size is enlarged. No pericardial effusion. Lymph nodes: Unremarkable. No enlarged lymph nodes. Bones/joints: Severe degenerative changes are present. No acute fracture. Soft tissues: Unremarkable. An NG tube is in place with the tip in the stomach. CT/CT angio chest PE protcl [id number] IMPRESSION: 1. No acute findings. Negative for pulmonary embolism. Negative for aortic aneurysm or dissection. 2. Cardiomegaly is present. 3. Atelectasis is seen in the left base. 4. The endotracheal tube tip is at the adamaris and needs to be adjusted. Radiation Dose CTDIVOL = (mGy): DLP = 632.5 (mGy-cm) Dictated By: Hui Infante Signed By: Hui Infante Signed Date/Time: 06/15/20341 DD/ 0 CXR: Attestation: I personally reviewed and interpreted this imaging study as follows: My impression: ET tube with appropriate placement. Discharge Plan Discharge Patient Disposition: Xfer Short-Term Hosp Clinical Impression: Acute exacerbation of chronic obstructive airways disease, Acute hypercapnic respiratory failure Condition: Stable Referrals: Kaitlin Gomez DO [Primary Care Provider] - Discharge Date/Time: 06/15/20 06:22 Coding Level of Care Code ED Golf Sales Associate for Chg Fwd Exam Comprehensive
[2020-06-14 21:02] LABS: ABG PH Result 7.25 (7.35-7.45); Arterial Blood Gas Hematocrit 30.2 % (37-47); Base Excess ABG 4.2 mmol/L (-2.0-2.0); Blood Gas Allen Test Pos; Blood Gas Sample Site Radial, left; Blood Gas Sample Type Arterial; HCO3 ABG 32.9 mmol/L (22-26); Oxygen Device BIPAP; PO2 ABG 73.9 mmHg (80.0-100.0)
[2020-06-14 21:03] LABS: ABG PCO2 74.6 mmHg (35-45)
[2020-06-14 22:11] LABS: ABG PH Result 7.26 (7.35-7.45); Arterial Blood Gas Hematocrit 30.7 % (37-47); Base Excess ABG 3.9 mmol/L (-2.0-2.0); Blood Gas Allen Test Pos; Blood Gas Sample Site Radial, left; Blood Gas Sample Type Arterial; HCO3 ABG 32.5 mmol/L (22-26); Oxygen Device BIPAP; PO2 ABG 97.4 mmHg (80.0-100.0)
[2020-06-14 22:12] LABS: ABG PCO2 72.4 mmHg (35-45)
--- NOTE | 2020-06-14 22:34 | CTR_ITS ---
PROCEDURE INFORMATION: Exam: CT Angiography Chest With Contrast Exam date and time: 06/14/2020 2:43 AM Age: 74 years old Clinical indication: Abnormal findings; Abnormal diagnostic tests; Elevated d-dimer; Patient HX: PT intubated; Additional info: R/O pe TECHNIQUE: Imaging protocol: Computed tomographic angiography of the chest with intravenous contrast. 3D rendering (Not supervised by radiologist): MIP and/or 3D reconstructed images were created by the technologist. Radiation optimization: All CT scans at this facility use at least one of these dose optimization techniques: automated exposure control; mA and/or kV adjustment per patient size (includes targeted exams where dose is matched to clinical indication); or iterative reconstruction. Contrast material: VISI; Contrast volume: 95 ml; Contrast route: INTRAVENOUS (IV); COMPARISON: CTA Chest-Pulmonary Emb [id number] 05/16/2018 3:18 AM RADIATION DOSE METRICS: Total DLP (mGy-cm): 632.5 FINDINGS: Tubes, catheters and devices: The contrast bolus is suboptimal. The endotracheal tube is at the adamaris and needs to be be adjusted. Pulmonary arteries: Normal. No pulmonary emboli. Aorta: Unremarkable. No aortic aneurysm. No aortic dissection. Lungs: Minimal atelectasis is seen in the left base. No consolidation. No masses. Pleural space: Unremarkable. No pneumothorax. No pleural effusion. Heart: The heart size is enlarged. No pericardial effusion. Lymph nodes: Unremarkable. No enlarged lymph nodes. Bones/joints: Severe degenerative changes are present. No acute fracture. Soft tissues: Unremarkable. An NG tube is in place with the tip in the stomach. CT/CT angio chest PE protcl [id number] IMPRESSION: 1. No acute findings. Negative for pulmonary embolism. Negative for aortic aneurysm or dissection. 2. Cardiomegaly is present. 3. Atelectasis is seen in the left base. 4. The endotracheal tube tip is at the adamaris and needs to be adjusted. Radiation Dose CTDIVOL = (mGy): DLP = 632.5 (mGy-cm)
--- NOTE | 2020-06-14 22:43 | P.HP_ITS ---
Providers/Chief Complaint Primary Care Provider: Kaitlin Gomez DO Chief Complaint: RESP DISTRESS History of Present Illness Bryanna Reid is a 74 year old female who carries a history of type 2 diabetes, chronic kidney disease stage II, congestive heart failure mildly reduced EF, hypertension, dyslipidemia, TIA On previous admission she was instructed to undergo coronary angiogram electively after positive stress test, colon polyp biopsy revealed tubular adenoma with dysplasia, considering TIA history dual antiplatelet therapy was initiated and for iron deficiency anemia she was given IV Venofer and 1 unit PRBC, her iron treatment helped her with restless leg syndrome as well, she was discharged home with home O2 and home health services. Medications/Allergies Home Medications Medication Instructions Recorded Confirmed Last Taken Type albuterol sulfate 2.5 mg INHALATION Q6H PRN 09/17/19 06/14/20 Unknown History aspirin 81 mg tablet,delayed 81 mg PO DAILY tab 09/17/19 06/14/20 02/09/20 History release docusate sodium 100 mg capsule 100 mg PO BID PRN 09/17/19 06/14/20 02/09/20 History nitroglycerin 0.4 mg sublingual 0.4 mg SUBLINGUAL Q5M PRN 09/17/19 06/14/20 Unknown History tablet simvastatin 20 mg tablet 20 mg PO DAILY #30 tab 09/17/19 06/14/20 02/09/20 Rx ipratropium 0.5 mg-albuterol 3 mg 3 ml INHALATION Q4H PRN #180 ml 11/18/19 06/14/20 Unknown Rx (2.5 mg base)/3 mL nebulization soln Humalog KwikPen Insulin See Rx Instructions .ROUTE .COMPLEX 02/10/20 06/14/20 Unknown History insulin detemir U-100 50 unit SUBCUT QAM 02/10/20 06/14/20 02/10/20 History capsaicin 1 applic TOPICAL QID PRN #0 g 02/18/20 06/14/20 Unknown Rx gabapentin 300 mg capsule 300 mg PO TID #90 cap 03/01/20 06/14/20 Unknown Rx triamcinolone acetonide 0.5 % 1 applic TOPICAL TID PRN #15 gm 03/10/20 06/14/20 Unknown Rx topical cream carbamazepine 200 mg tablet 200 mg PO BEDTIME 30 Days #30 tab 03/18/20 06/14/20 Unknown Rx isosorbide mononitrate 30 mg 30 mg PO BID #180 tab 03/18/20 06/14/20 Unknown Rx tablet,extended release 24 hr glipizide 5 mg tablet 5 mg PO BID #180 tab 03/26/20 06/14/20 Unknown Rx pen needle, diabetic 32 gauge x #200 each 03/26/20 06/14/20 Unknown Rx /32 furosemide 40 mg tablet 20 mg PO DAILY tab 03/30/20 06/14/20 Unknown History amlodipine 2.5 mg tablet 2.5 mg PO DAILY #90 tab 04/28/20 06/14/20 Unknown Rx clopidogrel 75 mg tablet 75 mg PO .every other day #45 tab 04/28/20 06/14/20 Unknown Rx hydrocodone 5 mg-acetaminophen 325 1 tab PO BID PRN 30 Days #60 tab 04/28/20 06/14/20 Unknown Rx mg tablet tramadol 50 mg tablet 50 mg PO Q8H PRN #90 tab 04/28/20 06/14/20 Unknown Rx levothyroxine 100 mcg capsule 100 mcg PO DAILY #90 cap 04/29/20 06/14/20 Unknown Rx pantoprazole 40 mg tablet,delayed See Rx Instructions .ROUTE 05/18/20 06/14/20 Unknown Rx release .COMPLEX #60 tab doxycycline hyclate 100 mg tablet 100 mg PO BID 7 Days #14 tab 05/26/20 06/14/20 Unknown Rx hydroxyzine HCl 25 mg tablet 25 mg PO TID PRN #20 tab 05/26/20 06/14/20 Unknown Rx ropinirole 0.5 mg tablet 1 mg PO BEDTIME #60 tab 05/31/20 06/14/20 Unknown Rx inpsifrkjinmdbl-cmuyglyyymuowoo-ML 10 ml PO Q6H #473 ml 06/14/20 06/14/20 Unknown Rx 2 mg-30 mg-10 mg/5 mL oral syrup guaifenesin 1,200 mg tablet, 1,200 mg PO BID #20 tab 06/14/20 06/14/20 Unknown Rx extended release 12 hr prednisone 20 mg tablet 60 mg PO DAILY 9 Days #18 tab 06/14/20 06/14/20 Unknown Rx walker #1 each 06/14/20 06/14/20 Unknown Rx Allergies Allergy/AdvReac Type Severity Reaction Status Date / Time azithromycin Allergy Mild ALGY-RASH Verified 06/14/20 09:25 iodine Allergy unknown Verified 06/14/20 09:25 PFSH Acute PFSH: Medical History Anemia Anemia of chronic disease Cardiomyopathy CHF (congestive heart failure) COPD (chronic obstructive pulmonary disease) Diabetic neuropathy Dyslipidemia Dysplastic colon polyp Incompletely resected on first attempt due to cardiac complications. Ascending colon. Elevated troponin Enrolled in chronic care management Essential (primary) hypertension GERD (gastroesophageal reflux disease) Hypothyroidism, adult Lumbar back pain with radiculopathy affecting right lower extremity Osteoarthritis of right ankle and foot Recent cerebrovascular accident (CVA) Carotid Doppler examination on 02/12/2020 revealed Moderate heterogeneous plaques bilaterally with velocity elevations bilaterally, suggestive of 50 to 79% stenosis Tortuous distal internal carotid arteries bilaterally Shortness of breath Uncontrolled type 2 diabetes mellitus with insulin therapy Surgical History H/O bilateral breast reduction surgery H/O cataract extraction H/O: hysterectomy Family History Other CAD (coronary artery disease) Cancer Diabetes Lung disease Stroke Social History Smoking and tobacco status: former smoker Alcohol intake: never Lives independently: Yes History of recent travel: No Female Reproductive History: Spontaneous abortions: No Vitals/I&O/Wt Last Vital Signs Temp 97.8 F 06/14/20 15:56 Pulse 70 06/14/20 22:07 Resp 18 06/14/20 22:07 BP 108/58 06/14/20 22:07 Pulse Ox 92 06/14/20 22:07 Weight last 48 hrs Weight 113.398 kg Data : 06/14/20 16:40 06/14/20 16:40 Coding Level of Care Code Acute Manager [employer]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
[2020-06-14 23:16] LABS: Troponin 5 6HR 17.44 ng/L (0-10)
[2020-06-14 23:17] LABS: Troponin 5 6HR Delta -3.56 ng/L (0-12)
[2020-06-14 23:56] LABS: ABG PH Result 7.26 (7.35-7.45); Arterial Blood Gas Hematocrit 30.4 % (37-47); Base Excess ABG 4.2 mmol/L (-2.0-2.0); Blood Gas Allen Test Pos; Blood Gas Sample Site Radial, right; Blood Gas Sample Type Arterial; HCO3 ABG 32.9 mmol/L (22-26); Oxygen Device BIPAP; PO2 ABG 81.9 mmHg (80.0-100.0)
[2020-06-14 23:57] LABS: ABG PCO2 74.1 mmHg (35-45)
[2020-06-15] VITALS (10 sets, daily range): BP systolic 109–144; BP diastolic 50–89; PULSE 58–75; RESP 11–16; O2SAT 92–100
--- NOTE | 2020-06-15 00:03 | XRR_ITS ---
PROCEDURE INFORMATION: Exam: XR Chest, 1 View Exam date and time: 06/15/2020 12:58 AM Age: 74 years old Clinical indication: Device placement; Ett placement (vent status); Prior surgery; Surgery type: Hyst; Additional info: Post intubation TECHNIQUE: Imaging protocol: XR of the chest Views: 1 view. COMPARISON: CR XR chest 1V portable [id number] 06/14/2020 4:19 PM FINDINGS: Limitations: The study is technically limited by the patient's body habitus. Tubes, catheters and devices: There is an endotracheal tube with the tip approximately 3.2 cm above the adamaris. An enteric tube extends down into the stomach and off the image. Lungs: Decreased lung volumes. Central pulmonary vascular congestion and bronchial/interstitial edema. Left basilar airspace disease which can be due to dependent pulmonary edema, aspiration, and/or atelectasis. Pleural space: No right pleural effusion. Small left pleural effusion. No pneumothorax. Heart/Mediastinum: The cardiac silhouette is enlarged. The mediastinal contours are normal. Bones/joints: No acute osseous abnormality. XR/XR chest 1V portable [id number] IMPRESSION: 1. Endotracheal tube tip 3.2 cm above the adamaris. 2. Enteric tube extends to the stomach. 3. Congestive heart failure. Nonspecific left basilar airspace disease.
[2020-06-15] MEDS: succinylcholine 20 mg/mL SDV 10mL 170.097 MG IV (00:32)
[2020-06-15] MEDS: propofol 1,000 MG/100 ML INJ 5.4 MG IV (01:31)
[2020-06-15 01:55] LABS: ABG PH Result 7.21 (7.35-7.45); Arterial Blood Gas Hematocrit 30.3 % (37-47); Base Excess ABG 3.6 mmol/L (-2.0-2.0); Blood Gas Allen Test Pos; Blood Gas Sample Site Radial, right; Blood Gas Sample Type Arterial; HCO3 ABG 33.1 mmol/L (22-26); Oxygen Device BIPAP; PO2 ABG 61.3 mmHg (80.0-100.0)
[2020-06-15] MEDS: diphenhydrAMINE 50 mg/mL SDV 1mL IVP (02:16)
[2020-06-15] MEDS: famotidine 20 mg/2 mL INJ 40 MG IVP (02:17)
[2020-06-15] MEDS: hydrocortisone 100 mg/2 mL SDV IVP (02:18)
[2020-06-15] MEDS: iodixanol 320 mg/mL 100mL Btl IV (03:06)
--- NOTE | 2020-06-15 03:11 | PC.NURSE ---
this nurse took pt to CT. Pt returned and hooked up to the monitor.
--- NOTE | 2020-06-15 03:50 | XRR_ITS ---
PROCEDURE INFORMATION: Exam: XR Chest, 1 View Exam date and time: 06/15/2020 4:16 AM Age: 74 years old Clinical indication: Device placement; Ett placement (vent status); Prior surgery; Surgery type: Hyst; Additional info: Tube adjustment TECHNIQUE: Imaging protocol: XR of the chest Views: 1 view. COMPARISON: CR XR chest 1V portable [id number] 06/15/2020 12:41 AM FINDINGS: Limitations: The study is technically limited by the patient's body habitus. Tubes, catheters and devices: There is an endotracheal tube present with the tip 3.6 cm above the adamaris. An enteric tube extends to the stomach and off the image. Lungs: There is unchanged central pulmonary vascular congestion with bronchial/interstitial pulmonary edema. There is left basilar airspace disease which may be due to dependent pulmonary edema, aspiration, and/or atelectasis. This is not significantly changed. Pleural space: No right pleural effusion. Trace left pleural effusion. No pneumothorax. Heart/Mediastinum: The cardiac silhouette is enlarged. The mediastinum is unchanged. Bones/joints: No acute osseous abnormality. XR/XR chest 1V portable [id number] IMPRESSION: 1. Endotracheal tube tip 3.6 cm above the adamaris. 2. Congestive heart failure. Nonspecific left basilar airspace disease.
[2020-06-15 03:59] LABS: ABG PCO2 57.6 mmHg (35-45); ABG PH Result 7.36 (7.35-7.45); Base Excess ABG 6.4 mmol/L (-2.0-2.0); Blood Gas Allen Test POS; HCO3 ABG 32.8 mmol/L (22-26); Oxygen Saturation ABG 95.8; PO2 ABG 75.1 mmHg (80.0-100.0); Potassium Level - ABG 4.9 mmol/L (3.5-5.0)
[2020-06-15 04:00] LABS: Oxygen Device VENT
[2020-06-15] MEDS: LORazepam 2 mg/mL INJ 1 mL IVP (04:04)
[2020-06-15] MEDS: propofol 1,000 MG/100 ML INJ 34 MG IV (04:10)
--- NOTE | 2020-06-15 05:01 | PC.NURSE ---
report given to tigre cervantes rn at [facility].
[2020-06-19 16:44] LABS: Blood Gas Sample Type ARTERIAL
[2020-06-19 16:46] LABS: Alveolar-Arterial Oxygen Gradi 4.7 mmHg (5-10); Arterial Blood Gas Hematocrit 26.1 % (37-47); Blood Gas Sample Site RR; Ionized Calcium Level - ABG 1.2 mmol/L (1.1-1.4); Total Hemoglobin 8.5 g/dL (12-16)
[2020-06-19 16:47] LABS: Carboxyhemoglobin 1.4 %THgb (0.4-20.1); HGB O2 Sat 95.8 % (95-100); Methemoglobin 0.8 % (0.4-1.5)
== END 2020-06-15 06:22 | disposition short-term general hospital (02) ==
PROVIDERS: Emergency Medicine; Emergency Provider Emergency Medicine; PCP Family Medicine
DX: J44.1 Chronic obstructive pulmonary disease with (acute) exacerbation (principal); J96.02 Acute respiratory failure with hypercapnia; Z87.891 Personal history of nicotine dependence; I11.0 Hypertensive heart disease with heart failure; I50.9 Heart failure, unspecified; E78.5 Hyperlipidemia, unspecified; Z86.73 Personal history of transient ischemic attack (TIA), and cerebral infarction without residual deficits; E11.40 Type 2 diabetes mellitus with diabetic neuropathy, unspecified
CPT/HCPCS: 12345; 31500; 36415; 36600; 51702; 71045; 71275; 80051; 80053; 82728; 82803; 82810; 83605; 83735; 83880; 83986; 84145; 84484; 85025; 85378; 85384; 85610; 86140; 87426; 93005; 94003; 94640; 94660; 94799; 96365; 96366; 96368; 96375; 96376; 99284; 99291; J0330; J1100; J1200; J1720; J1940; J2060; J2704; J3010; J3490; Q9967

== ENCOUNTER → 2020-06-29 12:36 | Outpatient (BNVA) | payer MEDICARE, SELFPAY | PROVIDERS: PCP Family Medicine; Visit Provider Family Medicine | DX: N17.9 Acute kidney failure, unspecified (principal); N18.9 Chronic kidney disease, unspecified | CPT/HCPCS: 80048 ==

== ENCOUNTER → 2020-07-19 09:16 | Outpatient (BNVA) | payer MEDICARE, SELFPAY | PROVIDERS: PCP Family Medicine; Referring Provider Internal Medicine Pulmonary Disease; Visit Provider Internal Medicine Pulmonary Disease | DX: Z20.828 Contact with and (suspected) exposure to other viral communicable diseases (principal); R06.02 Shortness of breath | CPT/HCPCS: 87635 ==

== ENCOUNTER 2020-07-22 08:12 | Outpatient (CLI) | payer MEDICARE, SELFPAY ==
--- NOTE | 2020-07-22 13:29 | PFTS_ITS ---
Date of Study:07/22/20 Date of Dictation: 07/22/2020 MECHANICS: Forced vital capacity (FVC) is severely reduced 33% Forced expiratory volume in one second (FEV1) is severely reduced 37% FEV1/FVC is normal 84 FLOW VOLUME LOOP: Normal . LUNG VOLUMES: Total lung capacity (TLC) is moderately reduced 54%. Residual volume (RV) is reduced 76% DIFFUSING CAPACITY FOR CARBON MONOXIDE: Moderately reduced 46% . INTERPRETATION: The pulmonary function tests are consistent with severe restrictive lung disease. Moderately reduced gas transfer defect MTDD
== END 2020-07-22 08:13 | disposition home or self-care (01) ==
PROVIDERS: PCP Family Medicine; Visit Provider Internal Medicine Pulmonary Disease
DX: R06.02 Shortness of breath (principal)
CPT/HCPCS: 94060; 94618; 94726; 94729; J7611

== ENCOUNTER → 2020-07-26 09:08 | Outpatient (BNVA) | payer MEDICARE, SELFPAY | PROVIDERS: PCP Family Medicine; Referring Provider Internal Medicine Pulmonary Disease; Visit Provider Internal Medicine Pulmonary Disease | DX: J98.4 Other disorders of lung (principal); R06.02 Shortness of breath | CPT/HCPCS: 85651; 86140; 86225; 86235 ==

== ENCOUNTER → 2020-08-04 10:46 | Outpatient (BNVA) | payer MEDICARE, SELFPAY | PROVIDERS: PCP Family Medicine; Visit Provider Family Medicine | DX: M54.16 Radiculopathy, lumbar region (principal); E11.65 Type 2 diabetes mellitus with hyperglycemia; Z79.4 Long term (current) use of insulin; E03.9 Hypothyroidism, unspecified; G25.81 Restless legs syndrome; M19.071 Primary osteoarthritis, right ankle and foot; J44.9 Chronic obstructive pulmonary disease, unspecified; I11.0 Hypertensive heart disease with heart failure; I50.9 Heart failure, unspecified | CPT/HCPCS: 80048; 83036; 84439; 84443; 84481 ==

== ENCOUNTER 2020-08-06 10:54 | Outpatient (CLI) | payer MEDICARE, SELFPAY ==
--- NOTE | 2020-08-06 11:15 | CT_ITS ---
WS: [id number] CT scan of the chest without IV contrast, prone and supine imaging was obtained, expiration views wer e performed, additional two-dimensional coronal and sagittal reconstruction was performed. 08/06/2020 Clinical Data: rule out restrictive lung disease Comparison: CT PE study, 06/15/2020. DLP: 1783.[address] scans at [facility] use at least one of these dose optimization techniques: automat ed exposure control; mA and/or kV adjustment per patient size (includes targeted exams where dose is matched to clinical indication); or iterative reconstruction. Findings: No nodules, masses or effusions are seen. The heart size is enlarged with no pericardial effusion. Th ere is mitral valve and coronary artery calcification. No pneumonia or pneumothorax is seen. The pulm onary arterial system and thoracic aorta demonstrate no abnormalities or dilatations. There is no axi llary or significant mediastinal adenopathy. There is mild restriction of expiration noted on the supine expiration views. However there was less restriction on the prone views. The upper abdomen showed no change from before. Degenerative arthritic change and loss of interverteb ral disc space at multiple levels of the thoracic vertebral bodies is seen. CT/CT chest wo con [id number] Impression: 1. Negative for acute cardiopulmonary disease. 2. Restriction of expiration on the supine expiration views was mild.
== END 2020-08-06 10:55 | disposition home or self-care (01) ==
LOC: RADWPI 10:57
PROVIDERS: PCP Family Medicine; Visit Provider Internal Medicine Pulmonary Disease
DX: J98.4 Other disorders of lung (principal)
CPT/HCPCS: 71250

== ENCOUNTER 2020-08-30 11:29 | Inpatient (IN) | payer MEDICARE, SELFPAY ==
[2020-08-30] VITALS (30 sets, daily range): BP systolic 103–174; BP diastolic 34–97; PULSE 49–90; RESP 14–20; TEMP 36.2–36.7; O2SAT 89–100; BMI 40.8
--- NOTE | 2020-08-30 11:34 | ECG_ITS ---
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 Measurements Intervals [place] Rate: 70 P: 46 SD: 213 QRS: -39 QRSD: 182 T: 99 QT: 449 QTc: 485 Interpretive Statements SINUS RHYTHM WITH FIRST DEGREE AV BLOCK LEFT AXIS DEVIATION [QRS AXIS < -30] LEFT BUNDLE BRANCH BLOCK [120+ ms QRS DURATION, 80+ ms Q/S IN V1/V2, 85+ ms R IN I/aVL/V5/V6] Compared to ECG 06/14/2020 18:12:41 No significant changes Electronically Signed On 08-30-2020 13:04:33 [employer]OURCE PROJECT MANAGER by Brien Hassan M.D. [id number]
--- NOTE | 2020-08-30 11:35 | ED_ITS ---
HPI - Altered Mental Status General: Chief Complaint: Neuro Symptoms/Deficit Stated Complaint: STROKE Time Seen by Provider: 08/30/20 11:34 Source: patient and EMS Mode of arrival: EMS Limitations: altered mental status History of Present Illness: HPI narrative: 75-year-old female brought in by EMS for altered mental status, generalized weakness, difficulty ambulating and speaking. A family member spoke to the patient this morning and called 911 because they noticed her speech was slurred and they were worried that she was having a stroke. Last night someone did speak to her at 9:30 PM, apparently they did not notice anything wrong with her speech. No one has actually seen the patient since . The patient states that over the past several days she has had increased tremulousness, generalized weakness and malaise, and difficulty ambulating. She wears 3 L nasal cannula oxygen at home, and has not required more than usual. She denies headache or vision change. She denies any numbness. Both sides of her body are equally affected by the weakness and tremor. No vomiting or diarrhea. She does have intermittent abdominal cramping and decreased appetite. No acute urinary changes. Review of Systems General: Reports: 10 or more systems reviewed and unremarkable except in HPI and below Const: Reports: chills, change in appetite, fatigue and malaise Eyes: Reports: eye discharge and eye redness; Denies: change in vision or blurry vision ENMT: Denies: throat pain, odynophagia or oral sores Card: Reports: orthopnea; Denies: chest pain, palpitations, irregular heart rhythm, lightheadedness or syncope Resp: Reports: dyspnea, productive cough, wheezing and chest congestion; Denies: pain on inspiration GI: Reports: abdominal pain; Denies: nausea, vomiting, diarrhea or constipation : Denies: difficulty voiding, dysuria or urinary frequency Musc: Reports: extremity pain, limited range of motion and muscle weakness Skin/Breast: Denies: rash, pruritus or erythema Neuro: Reports: weakness in extremities, lack of coordination, difficulty walking, confusion and Slurred speech present; Denies: headache(s) or numbness in extremities Endo: Denies: polyuria, polydipsia or excessive sweating Wilfredo/Lymph: Denies: easy bruising or easy bleeding PFS ED PFSH: Medical History (Updated 12/28/20 @ 17:48 by Abhilash Phelps MD) Anemia Anemia of chronic disease Cardiomyopathy CHF (congestive heart failure) COPD (chronic obstructive pulmonary disease) Diabetic neuropathy Dyslipidemia Dysplastic colon polyp Incompletely resected on first attempt due to cardiac complications. Ascending colon. Elevated troponin Enrolled in chronic care management Essential (primary) hypertension GERD (gastroesophageal reflux disease) Hypothyroidism, adult Lumbar back pain with radiculopathy affecting right lower extremity Osteoarthritis of right ankle and foot Recent cerebrovascular accident (CVA) Carotid Doppler examination on 02/12/2020 revealed Moderate heterogeneous plaques bilaterally with velocity elevations bilaterally, suggestive of 50 to 79% stenosis Tortuous distal internal carotid arteries bilaterally Shortness of breath Uncontrolled type 2 diabetes mellitus with insulin therapy Surgical History H/O bilateral breast reduction surgery H/O cataract extraction H/O: hysterectomy Family History Other CAD (coronary artery disease) Cancer Diabetes Lung disease Stroke Social History Smoking and tobacco status: never smoked Quit status (tobacco): has quit using tobacco Second hand smoke exposure: Yes Smoking risk assessment/counseling performed?: No Alcohol intake: never Caregiver/support person: Yes Lives independently: Yes Household members: none Housing: House Marital status: / Current occupational status: student History of recent travel: No Current gender identity: Female Female Reproductive History: Spontaneous abortions: No Physical Exam Const: GENERAL APPEARANCE: lethargic, ill appearing and frail appearing NUTRITIONAL APPEARANCE: obese ORIENTATION/CONSCIOUSNESS: Yes awake, Yes confused and Yes lethargic HENMT: COMMON NORMALS: normocephalic, atraumatic and Normal external nose present HEAD & SCALP: normocephalic and atraumatic FACE & SINUS: normal facial exam and face symmetric NOSE: Normal external nose present Eye: COMMON NORMALS: EOMs intact bilaterally ALIGNMENT: Yes alignment normal PERIORBITAL: periorbital findings normal CONJUNCTIVA: Yes conjunctival abnormal positive bilateral conjunctival injection and discharge mucoid CORNEA: Yes corneas normal EOM: Yes EOM abnormal Neck/C-Spine: COMMON NORMALS: full ROM, no lymphadenopathy and supple Resp: EFFORT & INSPECTION: Yes tachypneic, Yes labored and Yes prolonged expiratory phase AUSCULTATION: crackles, rales, rhonchi, wheezes and bronchovesicular breath sounds Cardio: COMMON NORMALS: regular rate, S1 normal heart sound present and S2 normal heart sound present RATE: regular rate HEART SOUNDS: S1 normal heart sound present and S2 normal heart sound present GI: COMMON NORMALS: Soft to palpation INSPECTION: Yes central obesity, No Fluid wave present and No Localized GI swelling present AUSCULTATION: Yes normoactive bowel sounds PALPATION: Yes Soft to palpation, No Tenderness to palpation present (GI), No Guarding due to palpation present (GI) and No Rigid due to palpation PERCUSSION: no fluid wave Extremity: COMMON NORMALS: normal to inspection and no pedal edema GENERAL: No mottling and Yes pallor Neuro: SENSORIUM/ORIENTATION: Yes lethargic and Yes fluctuating sensorium SPEECH: abnormal speech (slowed, ) GAIT: Yes Unable to assess gait MOTOR EXAM: Tremors during motor activity present intention tremor bialteral upper extremity and Motor abnormalites present Skin: COMMON NORMALS: no jaundice and no mottling; negative for turgor normal GENERAL SKIN EXAM: decreased turgor LESIONS: no lesions RASHES: no rashes Course Vital Signs: Vital signs: Vital Signs Temperature 97.6 F 08/30/20 23:15 Pulse Rate 50 L 08/31/20 00:00 Respiratory Rate 14 08/31/20 00:10 Blood Pressure 125/57 08/31/20 00:00 Pulse Oximetry 95 08/31/20 00:00 MDM - Altered Mental Status MDM Narrative: Medical decision making narrative: 75-year-old female with altered mental status, generalized weakness of unknown duration. Differential diagnosis; sepsis, stroke, MO, electrolyte abnormality, acute renal failure, pneumonia, UTI, Acute urinary tract infection based on urinalysis; send for culture, start IV Rocephin 1 g Chest x-ray shows cardiac enlargement, otherwise no acute infiltrates. No increased oxygen requirement. She does have history of chronic COPD. She remains awake, and responds appropriately, but she still appears very weak and lethargic. She is not as tremulous as she was when she first presented, but still seems much too weak to ambulate. I spoke with the hospitalist, Dr. Phelps who accepts the admission to [facility]. Medical Records: Attestation: I reviewed the patient's medical records. Lab Data: Attestation: I reviewed the patient's lab results. Lab results narrative: Renal function, hemoglobin, troponin levels all consistent with previous/baseline Labs: Lab Results 08/30/20 08/30/20 08/30/20 Range/Units 11:28 11:28 11:28 WBC 6.3 (4.0-10.0) 10^3/ uL RBC 3.51 L (4.1-5.3) 10^6/u L Hgb 9.4 L (11.5-15.3) g/dL Hct 33.6 L (37.0-47.0) % MCV 95.7 (81-99) fL MCH 26.8 L (28.0-34.0) pg MCHC 28.0 L (30.0-36.0) g/dL RDW 18.2 H (12.1-15.1) % Plt Count 130 (130-400) 10^3/c mm MPV 9.6 (7.4-10.4) fL Neut % (Auto) 73.9 % Lymph % (Auto) 13.7 % [place] % (Auto) 7.1 % Eos % (Auto) 3.8 % Baso % (Auto) 0.5 % Neut # (Auto) 4.66 (1.8-7.7) 10^3/u L Lymph # (Auto) 0.9 (0.8-4.8) 10^3/u L [place] # (Auto) 0.5 (0.2-0.9) 10^3/u L Eos # (Auto) 0.2 (0.0-0.8) 10^3/u L Baso # (Auto) 0.0 (0.0-0.1) 10^3/u L Nucleated RBC % (a uto) 0 % Nucleated RBCs # 0.0 /100WBC Sodium 148 H (136-145) mmol/L Potassium 4.9 (3.5-5.1) mmol/L Chloride 103 (98-107) mmol/L Carbon Dioxide 36 H (22-29) mmol/L Anion Gap 13.9 (5-19) BUN 39 H (8-23) mg/dL Creatinine 1.5 H (0.5-0.9) mg/dL GFR Calculation Not Reportable Glucose 98 (65-115) mg/dL Calculated Osmolal ity 315 H (285-295) mOsm/k g Lactate (0.5-2.2) mmol/L Calcium 9.0 (8.5-10.5) mg/dL Magnesium (1.7-2.3) mg/dL Total Bilirubin 0.5 (0.15-1.2) mg/dL AST 10 (0-32) U/L ALT 11 (0-33) U/L Alkaline Phosphata se 140 H (35-105) IU/L Troponin T Gen 5 n g/L 29 H (0-10) ng/L C-Reactive Protein (0.0-4.9) mg/L NT-Pro-B Natriuret Pep (0-450) pg/mL Total Protein 6.4 L (6.6-8.7) g/dL Albumin 4.2 (3.5-5.2) g/dL Globulin 2.2 (1.3-4.6) g/dL Urine Color (Yellow) Urine Appearance (CLEAR) Urine pH (5-7) Ur Specific Gravit y (1.005-1.030) Urine Protein (Negative) Urine Glucose (UA) (Normal) Urine Ketones (Negative) Urine Blood (Negative) Urine Nitrate (Negative) Urine Bilirubin (Negative) Urine Urobilinogen (Negative) mg/dL Ur Leukocyte Jacqueline ase (Negative) Urine RBC (0-2) /hpf Urine WBC (0-5) /hpf Ur Squamous Epith Cells (0-5) /hpf Amorphous Sediment Urine Bacteria (NONE) /hpf SARS-CoV-2 Ag (Rap id) (Negative) 08/30/20 08/30/20 08/30/20 Range/Units 11:28 12:10 13:30 WBC (4.0-10.0) 10^3/ uL RBC (4.1-5.3) 10^6/u L Hgb (11.5-15.3) g/dL Hct (37.0-47.0) % MCV (81-99) fL MCH (28.0-34.0) pg MCHC (30.0-36.0) g/dL RDW (12.1-15.1) % Plt Count (130-400) 10^3/c mm MPV (7.4-10.4) fL Neut % (Auto) % Lymph % (Auto) % [place] % (Auto) % Eos % (Auto) % Baso % (Auto) % Neut # (Auto) (1.8-7.7) 10^3/u L Lymph # (Auto) (0.8-4.8) 10^3/u L [place] # (Auto) (0.2-0.9) 10^3/u L Eos # (Auto) (0.0-0.8) 10^3/u L Baso # (Auto) (0.0-0.1) 10^3/u L Nucleated RBC % (a uto) % Nucleated RBCs # /100WBC Sodium (136-145) mmol/L Potassium (3.5-5.1) mmol/L Chloride (98-107) mmol/L Carbon Dioxide (22-29) mmol/L Anion Gap (5-19) BUN (8-23) mg/dL Creatinine (0.5-0.9) mg/dL GFR Calculation Glucose (65-115) mg/dL Calculated Osmolal ity (285-295) mOsm/k g Lactate 0.9 (0.5-2.2) mmol/L Calcium (8.5-10.5) mg/dL Magnesium 2.0 (1.7-2.3) mg/dL Total Bilirubin (0.15-1.2) mg/dL AST (0-32) U/L ALT (0-33) U/L Alkaline Phosphata se (35-105) IU/L Troponin T Gen 5 n g/L (0-10) ng/L C-Reactive Protein 6.2 H (0.0-4.9) mg/L NT-Pro-B Natriuret Pep 3813 H (0-450) pg/mL Total Protein (6.6-8.7) g/dL Albumin (3.5-5.2) g/dL Globulin (1.3-4.6) g/dL Urine Color Yellow (Yellow) Urine Appearance Clear (CLEAR) Urine pH 5 (5-7) Ur Specific Gravit y 1.020 (1.005-1.030) Urine Protein Neg (Negative) Urine Glucose (UA) Norm (Normal) Urine Ketones Negative (Negative) Urine Blood Neg (Negative) Urine Nitrate Negative (Negative) Urine Bilirubin Neg (Negative) Urine Urobilinogen Norm (Negative) mg/dL Ur Leukocyte Jacqueline ase Trace H (Negative) Urine RBC 0-4 H (0-2) /hpf Urine WBC >100 H (0-5) /hpf Ur Squamous Epith Cells 25-40 H (0-5) /hpf Amorphous Sediment Not Reportable Urine Bacteria 4+ H (NONE) /hpf SARS-CoV-2 Ag (Rap id) (Negative) 08/30/20 Range/Units 14:23 WBC (4.0-10.0) 10^3/ uL RBC (4.1-5.3) 10^6/u L Hgb (11.5-15.3) g/dL Hct (37.0-47.0) % MCV (81-99) fL MCH (28.0-34.0) pg MCHC (30.0-36.0) g/dL RDW (12.1-15.1) % Plt Count (130-400) 10^3/c mm MPV (7.4-10.4) fL Neut % (Auto) % Lymph % (Auto) % [place] % (Auto) % Eos % (Auto) % Baso % (Auto) % Neut # (Auto) (1.8-7.7) 10^3/u L Lymph # (Auto) (0.8-4.8) 10^3/u L [place] # (Auto) (0.2-0.9) 10^3/u L Eos # (Auto) (0.0-0.8) 10^3/u L Baso # (Auto) (0.0-0.1) 10^3/u L Nucleated RBC % (a uto) % Nucleated RBCs # /100WBC Sodium (136-145) mmol/L Potassium (3.5-5.1) mmol/L Chloride (98-107) mmol/L Carbon Dioxide (22-29) mmol/L Anion Gap (5-19) BUN (8-23) mg/dL Creatinine (0.5-0.9) mg/dL GFR Calculation Glucose (65-115) mg/dL Calculated Osmolal ity (285-295) mOsm/k g Lactate (0.5-2.2) mmol/L Calcium (8.5-10.5) mg/dL Magnesium (1.7-2.3) mg/dL Total Bilirubin (0.15-1.2) mg/dL AST (0-32) U/L ALT (0-33) U/L Alkaline Phosphata se (35-105) IU/L Troponin T Gen 5 n g/L (0-10) ng/L C-Reactive Protein (0.0-4.9) mg/L NT-Pro-B Natriuret Pep (0-450) pg/mL Total Protein (6.6-8.7) g/dL Albumin (3.5-5.2) g/dL Globulin (1.3-4.6) g/dL Urine Color (Yellow) Urine Appearance (CLEAR) Urine pH (5-7) Ur Specific Gravit y (1.005-1.030) Urine Protein (Negative) Urine Glucose (UA) (Normal) Urine Ketones (Negative) Urine Blood (Negative) Urine Nitrate (Negative) Urine Bilirubin (Negative) Urine Urobilinogen (Negative) mg/dL Ur Leukocyte Jacqueline ase (Negative) Urine RBC (0-2) /hpf Urine WBC (0-5) /hpf Ur Squamous Epith Cells (0-5) /hpf Amorphous Sediment Urine Bacteria (NONE) /hpf SARS-CoV-2 Ag (Rap id) Negative (Negative) EKG Data^: EKG 1: Attestation: I personally reviewed and interpreted this EKG as follows: EKG interpretation date: 08/30/20 EKG interpretation time: 12:42 Prior EKG tracings: available for review Interpretation: Sinus rhythm, rate 70 Left axis deviation VA prolonged at 213, first-degree AV block Left bundle branch block No acute ST segment elevation or depression. Compared with EKG from 06/14/2020- no acute changes. Discharge Plan Discharge Admit Provider: Abhilash Phelps Coding Level of Care Code ED Notary Public for Chg Fwd Exam Comprehensive
--- NOTE | 2020-08-30 11:51 | CT_ITS ---
WS: [id number] CT HEAD TECHNIQUE: Noncontrast CT of the head obtained from the skullbase to the vertex. CLINICAL INFORMATION: ams COMPARISON: February 12, 2020 DLP: 1481.[address] scans at [facility] use at least one of these dose optimization techniques: automat ed exposure control; mA and/or kV adjustment per patient size (includes targeted exams where dose is matched to clinical indication); or iterative reconstruction. FINDINGS: Images moderately degraded by patient motion. No evidence of intracranial hemorrhage or mass effect. Ventricular system and basal cisterns are nash nt. Mild small vessel changes with mild parenchymal volume loss. No extra-axial fluid collections. No evidence of mass or mass effect. Normal lorenzo-white differentiation. 2.8 cm retention cyst left maxillary sinus. Paranasal sinuses and mastoid air cells are otherwise wel l aerated. CT/CT head wo con* [id number] IMPRESSION: 1. No evidence of intracranial hemorrhage or mass effect. 2. Mild small vessel changes. Mild parenchymal volume loss. 3. No acute intracranial findings. Notified Cecilia Chase MD at 08/30/2020 12:38 PM.
[2020-08-30 11:58] LABS: Basophils % 0.5 %; Eosinophils # 0.2 10^3/uL (0.0-0.8); Eosinophils % 3.8 %; Hematocrit 33.6 % (37.0-47.0); Hemoglobin 9.4 g/dL (11.5-15.3); Lymphocytes # 0.9 10^3/uL (0.8-4.8); Lymphocytes % 13.7 %; Mean Corpuscular Hemoglobin 26.8 pg (28.0-34.0); Mean Corpuscular Volume 95.7 fL (81-99); Mean Platelet Volume 9.6 fL (7.4-10.4); Monocytes # 0.5 10^3/uL (0.2-0.9); Monocytes % 7.1 %; Neutrophils # 4.66 10^3/uL (1.8-7.7); Neutrophils % 73.9 %; Nucleated Red Blood Cells % 0 %; Platelet Count 130 10^3/cmm (130-400); Red Blood Count 3.51 10^6/uL (4.1-5.3); Red Cell Distribution Width 18.2 % (12.1-15.1); White Blood Count 6.3 10^3/uL (4.0-10.0)
--- NOTE | 2020-08-30 12:03 | XR_ITS ---
WS: [id number] Exam: XR chest 1V portable [id number] Date/Time of Exam: 08/30/2020 12:03 PM Reason For Exam: sob Comparison 06/15/2020. Cardiac enlargement unchanged. The lungs are clear and fully expanded. No pleural effusions. The medi astinum and bony thorax are unremarkable. XR/XR chest 1V portable [id number] IMPRESSION: 1. Cardiac enlargement. No acute process.
[2020-08-30 12:29] LABS: Bilirubin Urine Neg (Negative); Blood Urine Neg (Negative); Glucose Urine UA Norm (Normal); Ketones Urine Negative (Negative); Leukocyte Esterase Urine Trace (Negative); Nitrate Urine Negative (Negative); Protein Urine Neg (Negative); Urine Appearance Clear (CLEAR); Urine Color Yellow (Yellow); Urobilinogen Urine Norm (Negative); pH Urine 5 (5-7)
[2020-08-30 12:30] LABS: Alanine Aminotransferase 11 U/L (0-33); Albumin Level 4.2 g/dL (3.5-5.2); Alkaline Phosphatase 140 IU/L (35-105); Anion Gap 13.9 (5-19); Aspartate Amino Transferase 10 U/L (0-32); Blood Urea Nitrogen 39 mg/dL (8-23); Carbon Dioxide 36 mmol/L (22-29); Chloride 103 mmol/L (98-107); Globulin 2.2 g/dL (1.3-4.6); Glucose 98 mg/dL (65-115); Osmolality Calculated 315 mOsm/kg (285-295); Potassium 4.9 mmol/L (3.5-5.1); Sodium 148 mmol/L (136-145); Total Bilirubin 0.5 mg/dL (0.15-1.2); Total Protein 6.4 g/dL (6.6-8.7)
[2020-08-30 12:30] LABS: Add Urine Culture? No; Bacteria Urine 4+ /hpf; RBC Urine 0-4 /hpf (0-2); Squamous Epithelial Cell Urine 25-40 /hpf (0-5); WBC Urine >100 /hpf (0-5)
[2020-08-30 12:31] LABS: Troponin T (5th) Once 29 ng/L (0-10)
[2020-08-30] MEDS: sodium chloride 0.9% 1,000 ML 999 ML IV (13:11)
[2020-08-30] MEDS: cefTRIAXone 1,000 MG in sodium chloride 0.9% (plus) 50 ML 100 MG IV (13:12)
[2020-08-30 13:47] LABS: C Reactive Protein 6.2 mg/L (0.0-4.9); NT Pro B Type Natriuretic Pept 3813 pg/mL (0-450)
[2020-08-30 13:53] LABS: Lactate (Lactic Acid level) 0.9 mmol/L (0.5-2.2)
[2020-08-30 15:22] LABS: SARS Covid-2 Antigen Negative (Negative)
--- NOTE | 2020-08-30 17:30 | P.HP_ITS ---
Providers/Chief Complaint Admitting Physician: Abhilash Phelps MD Primary Care Provider: Nayely Layton MD Chief Complaint: STROKE History of Present Illness Bryanna Reid is a 75 year old female hypertension, hyperlipidemia, insulin- dependent type 2 diabetes mellitus, history of 3 TIAs in the past, hypothyroidism, restless leg, CKD stage II, history of ovarian cyst, history of diastolic CHF, COPD on 3 Ls home oxygen came in with c/o generalized weakness, difficulty ambulating and speaking. A family member spoke to the patient this morning and called 911 because they noticed her speech was slurred and they were worried that she was having a stroke. Last night someone did speak to her at 9:30 PM, apparently they did not notice anything wrong with her speech. No one has actually seen the patient since . The patient states that over the past several days she has had increased tremulousness, generalized weakness and malaise, and difficulty ambulating. She wears 3 L nasal cannula oxygen at home, and has not required more than usual. She denies headache or vision change. She denies any numbness.She was worked up for acute encephalopathy r/o stroke upon arrival in the [facility]. C.T Head without contrast : 1. No evidence of intracranial hemorrhage or mass effect. 2. Mild small vessel changes. Mild parenchymal volume loss. 3. No acute intracranial findings. Xray chest : Cardiac enlargement unchanged. The lungs are clear and fully expanded. No pleural effusions. Pertinent Labs : CBC: 6.3 , H/H: 9.4/33 , PC : 130 . BUN/SCR : 39/1.5 , Lactic acid : 0.9 , Pro Bnp : 3813 Urine analysis : Dirty EKG : SINUS RHYTHM WITH FIRST DEGREE AV BLOCK LEFT AXIS DEVIATION [QRS AXIS < - 30] LEFT BUNDLE BRANCH BLOCK. Pertinent [facility] Medications : Ceftriaxone 1 gm * 1 dose Review of Systems Const: Denies: fever(s), chills or body aches Card: Denies: palpitations or edema Resp: Denies: productive cough, wheezing or pain on inspiration GI: Denies: abdominal pain, nausea, vomiting, diarrhea or constipation : Denies: flank pain Medications/Allergies Home Medications Medication Instructions Recorded Confirmed Last Taken Type aspirin 81 mg tablet,delayed 81 mg PO DAILY tab 09/17/19 08/30/20 02/09/20 History release docusate sodium 100 mg capsule 100 mg PO BID PRN 09/17/19 08/30/20 02/09/20 History nitroglycerin 0.4 mg sublingual 0.4 mg SUBLINGUAL Q5M PRN 09/17/19 08/30/20 Unknown History tablet ipratropium 0.5 mg-albuterol 3 mg 3 ml INHALATION Q4H PRN #180 ml 11/18/19 08/30/20 Unknown Rx (2.5 mg base)/3 mL nebulization soln insulin detemir U-100 50 unit SUBCUT DAILY 02/10/20 08/30/20 02/10/20 History insulin lispro [Humalog KwikPen See Rx Instructions .ROUTE .COMPLEX 02/10/20 08/30/20 Unknown History Insulin] capsaicin 1 applic TOPICAL QID PRN #0 g 02/18/20 08/30/20 Unknown Rx triamcinolone acetonide 0.5 % 1 applic TOPICAL TID PRN #15 gm 03/10/20 08/30/20 Unknown Rx topical cream isosorbide mononitrate 30 mg 30 mg PO BID #180 tab 03/18/20 08/30/20 Unknown Rx tablet,extended release 24 hr pen needle, diabetic 32 gauge x #200 each 03/26/20 08/30/20 Unknown Rx levothyroxine 100 mcg capsule 100 mcg PO DAILY #90 cap 04/29/20 08/30/20 Unknown Rx pantoprazole 40 mg tablet,delayed See Rx Instructions .ROUTE 05/18/20 08/30/20 Unknown Rx release .COMPLEX #60 tab ropinirole 0.5 mg tablet 1 mg PO BEDTIME #60 tab 05/31/20 08/30/20 Unknown Rx guaifenesin 1,200 mg tablet, 1,200 mg PO BID #20 tab 06/14/20 08/30/20 Unknown Rx extended release 12 hr walker #1 each 06/14/20 08/30/20 Unknown Rx carvedilol 3.125 mg tablet 3.125 mg PO BID 06/29/20 08/30/20 Unknown History ferrous sulfate 325 mg (65 mg 325 mg PO DAILY 06/29/20 08/30/20 Unknown History iron) tablet fluconazole 150 mg tablet 150 mg PO .now & repeat in 1wk #2 07/01/20 08/30/20 Unknown Rx tab nystatin 100,000 unit/gram topical 1 applic TOPICAL BID #30 gm 07/01/20 08/30/20 Unknown Rx powder Anoro Ellipta 62.5 mcg-25 1 inh INHALATION DAILY #60 each NS 07/02/20 08/30/20 Unknown Rx mcg/actuation powder for inhalation furosemide 40 mg tablet 40 mg PO DAILY #90 tab 07/05/20 08/30/20 Unknown Rx glipizide 5 mg tablet 5 mg PO BID #180 tab 07/09/20 08/30/20 Unknown Rx simvastatin 20 mg tablet 20 mg PO DAILY #30 tab 07/23/20 08/30/20 Unknown Rx carbamazepine 200 mg tablet 200 mg PO BEDTIME 30 Days #30 tab 08/04/20 08/30/20 Unknown Rx gabapentin 300 mg capsule 300 mg PO QID PRN 30 Days #120 cap 08/04/20 08/30/20 Unknown Rx hydrocodone 5 mg-acetaminophen 325 1 tab PO DAILY PRN 30 Days #30 tab 08/04/20 08/30/20 Unknown Rx mg tablet tramadol 50 mg tablet 50 mg PO DAILY PRN 30 Days #30 tab 08/04/20 08/30/20 Unknown Rx clopidogrel 75 mg tablet 75 mg PO .every other day 90 Days 08/07/20 08/30/20 Unknown Rx #45 tab Allergies Allergy/AdvReac Type Severity Reaction Status Date / Time azithromycin Allergy Mild ALGY-RASH Verified 08/04/20 09:14 iodine Allergy unknown Verified 08/04/20 09:14 PFSH Acute PFSH: Medical History (Updated 08/30/20 @ 17:48 by Abhilash Phelps MD) Anemia Anemia of chronic disease Cardiomyopathy CHF (congestive heart failure) COPD (chronic obstructive pulmonary disease) Diabetic neuropathy Dyslipidemia Dysplastic colon polyp Incompletely resected on first attempt due to cardiac complications. Ascending colon. Elevated troponin Enrolled in chronic care management Essential (primary) hypertension GERD (gastroesophageal reflux disease) Hypothyroidism, adult Lumbar back pain with radiculopathy affecting right lower extremity Osteoarthritis of right ankle and foot Recent cerebrovascular accident (CVA) Carotid Doppler examination on 02/12/2020 revealed Moderate heterogeneous plaques bilaterally with velocity elevations bilaterally, suggestive of 50 to 79% stenosis Tortuous distal internal carotid arteries bilaterally Shortness of breath Uncontrolled type 2 diabetes mellitus with insulin therapy Surgical History H/O bilateral breast reduction surgery H/O cataract extraction H/O: hysterectomy Family History Other CAD (coronary artery disease) Cancer Diabetes Lung disease Stroke Social History Smoking and tobacco status: never smoked Quit status (tobacco): has quit using tobacco Second hand smoke exposure: Yes Smoking risk assessment/counseling performed?: No Alcohol intake: never Caregiver/support person: Yes Lives independently: Yes Household members: none Housing: House Marital status: / Current occupational status: student History of recent travel: No Current gender identity: Female Female Reproductive History: Spontaneous abortions: No Vitals/I&O/Wt Last Vital Signs Temp 98.1 F 08/30/20 11:31 Pulse 67 08/30/20 14:30 Resp 18 08/30/20 14:30 BP 144/68 08/30/20 14:30 Pulse Ox 94 08/30/20 14:30 Weight last 48 hrs Weight 114.759 kg Physical Exam Const: COMMON NORMALS: patient oriented x3 HENMT: COMMON NORMALS: normocephalic, atraumatic and external ears normal HEAD & SCALP: normocephalic and atraumatic Chest: CHEST: Yes Symmetrical chest wall rise Resp: COMMON NORMALS: normal respiratory effort and clear to auscultation bilaterally EFFORT & INSPECTION: Yes symmetric chest movement AUSCULTATION: clear to auscultation bilaterally Cardio: COMMON NORMALS: regular rate, regular rhythm, S1 normal heart sound present, S2 normal heart sound present, No gallops present (Cardio), No murmurs present (Cardio), No rub (Cardio) and Peripheral pulses 2+ throughout RATE: regular rate RHYTHM: regular rhythm HEART SOUNDS: S1 normal heart sound present and S2 normal heart sound present PERIPHERAL PULSES: Peripheral pulses 2+ throughout GI: COMMON NORMALS: Normal to inspection, nondistended, normoactive bowel sounds present, Soft to palpation, non-tender, No hepatosplenomegaly present and no masses AUSCULTATION: Yes normoactive bowel sounds PALPATION: Yes Soft to palpation and Yes No hepatosplenomegaly present RECTAL EXAM: deferred OTHER: Obese Abdomen. Extremity: COMMON NORMALS: no clubbing, cyanosis or edema and no pedal edema Neuro: COMMON NORMALS: patient oriented x3 Data : 08/30/20 11:28 08/30/20 11:28 A&P Assessment and plan (1) UTI (urinary tract infection): Continue Ceftriaxone 1 gm q24 h daily Status: Acute (2) COPD (chronic obstructive pulmonary disease): Currently not in exacerbation. Continue Supplemental oxygen Nebs PRN Status: Acute Qualifiers: COPD type: unspecified COPD Qualified Code(s): J44.9 - Chronic obstructive pulmonary disease, unspecified (3) CHF (congestive heart failure): H/O HFpEF : Currently compensated. Monitor Daily I/O Status: Acute Qualifiers: Heart failure type: unspecified Heart failure chronicity: unspecified Qualified Code(s): I50.9 - Heart failure, unspecified (4) Essential (primary) hypertension: Currently blood pressure well controlled. Status: Acute (5) Stage 3b chronic kidney disease: At baseline SCR ( 1.3-1.8 ) Status: Chronic (6) Hypothyroidism, adult: Continue Levo:100 mcg PO daily Status: Acute (7) Uncontrolled type 2 diabetes mellitus with insulin therapy: Status: Acute Additional A&P Information DVT PPX : Lovenox 40 mg sc daily Code Status :Full code Disposition :Home. Attestations Medical Necessity Statement*: Patient needs to be in hospital for the management of UTI.Anticipated LOS greater then 2 Midnights. Coding Level of Care Code Acute Boom Stick Worker for g Fwd Diagnoses UTI (urinary tract infection) N39.0 COPD (chronic obstructive pulmonary disease) J44.9 COPD type: unspecified COPD CHF (congestive heart failure) I50.9 Heart failure type: unspecified Heart failure chronicity: unspecified Essential (primary) hypertension I10 Stage 3b chronic kidney disease N18.3 Hypothyroidism, adult E03.9 Uncontrolled type 2 diabetes mellitus with insulin therapy E11.65; Z79.4
--- NOTE | 2020-08-30 19:21 | ECG_ITS ---
[facility] Test Date: 2020-08-30 Pat Name: Bryanna Reid Department: Room: 112 Gender: Female French Polisher: JE GARAY: 1945 Requested By: Abhilash Phelps Order Number: [id number] Concha MD: Betty Ramon M.D. Measurements Intervals [place] Rate: 70 P: 79 VT: 224 QRS: 214 QRSD: 182 T: 51 QT: 461 QTc: 498 Interpretive Statements SINUS RHYTHM WITH FIRST DEGREE AV BLOCK WITH OCCASIONAL SUPRAVENTRICULAR PREMATURE COMPLEXES MARKED RIGHT AXIS DEVIATION [QRS AXIS > 100] INTRAVENTRICULAR CONDUCTION DELAY [130+ ms QRS DURATION] Compared to ECG 08/30/2020 12:38:46 Right-axis deviation now present Intraventricular conduction delay now present Left-axis deviation no longer present Left bundle-branch block no longer present Electronically Signed On 08-31-2020 23:42:05 EDUCATIONAL THERAPY TEACHER by Betty Ramon M.D. [id number]
--- NOTE | 2020-08-30 19:22 | PC.NURSE ---
Addendum entered by Lucia Bach RN 08/30/20 19:28: Dr. Phelps came to see patient. Ordered to get ABG. Stated Bipap could be ordered by Dr. Moran if needed tonight. Original Note: Dr. Phelps notified of possible ST elevation on monitor car operator and patient being drowsy. Dr. Phelps states patient was not drowsy when he admitted her. Ordered to get stat EKG.
[2020-08-30 19:46] LABS: ABG PH Result 7.21 (7.35-7.45); Alveolar-Arterial Oxygen Gradi 3.2 mmHg (5-10); Arterial Blood Gas Hematocrit 27.4 % (37-47); Base Excess ABG 6.9 mmol/L (-2.0-2.0); Blood Gas LPM 2.5 %; Blood Gas Sample Site Brachial, right; Blood Gas Sample Type Arterial; Carboxyhemoglobin 1.5 %THgb (0.4-20.1); HCO3 ABG 36.6 mmol/L (22-26); Ionized Calcium Level - ABG 1.2 mmol/L (1.1-1.4); Methemoglobin 1.1 % (0.4-1.5); Oxygen Device NC; Oxygen Saturation ABG 94.4; PO2 ABG 82.9 mmHg (80.0-100.0); Potassium Level - ABG 4.6 mmol/L (3.5-5.0); Total Hemoglobin 8.9 g/dL (12-16)
--- NOTE | 2020-08-30 20:19 | PC.NURSE ---
Patient noted to have some ekg changes during shift change. Night nurse notified Dr shah, patient arousable and denies chest pain knows who she is and that she is in [place], although patient is very lethargic will wake up for seconds with blank stare,o2 saturation dropping to high 70' and 80's when patient falls asleep despite home o2 dose on patient; a quick recovery is made when patient is aroused. Dr shah to bedside for assessment. instructions to obtain ABG given upon results on lab test patient quickly moved to ICU for closer monitoring and possible intubation. report called to MARY Haas in ICU. patient transferred to ICU 5
--- NOTE | 2020-08-30 20:32 | PC.NURSE ---
TRANSFERRED TO ICU 5, FAMILY NOTIFIED, SISTER DONALD ARROYO [phone].
[2020-08-30] MEDS: propofol 1,000 MG/100 ML INJ 13.8 MG IV (20:35)
--- NOTE | 2020-08-30 20:37 | XRR_ITS ---
PROCEDURE INFORMATION: Exam: XR Chest, 1 View Exam date and time: 08/30/2020 9:00 PM Age: 75 years old Clinical indication: Device placement; Ett placement (vent status); Patient HX: Post intubation TECHNIQUE: Imaging protocol: XR of the chest Views: 1 view. COMPARISON: CR XR chest 1V portable [id number] 08/30/2020 12:00 PM FINDINGS: Tubes, catheters and devices: NG tube extends into the mid stomach, off the field of view. Intubation with overlapping of the endotracheal tube tip and the NG tube. The tip of the endotracheal tube is within 2.8 cm of the adamaris but the exact location cannot be determined. The patient is malpositioned and rotated to the left. Lungs: Mild left base atelectasis. The right lung is clear. Pleural space: Unremarkable. No pleural effusion. No pneumothorax. Heart/Mediastinum: Unremarkable. No cardiomegaly. Bones/joints: Unremarkable. XR/XR chest 1V portable [id number] IMPRESSION: 1. Intubation with the exact location of the tube tip difficult to determine due to overlapping of the endotracheal and NG tubes. A repeat view with proper positioning is recommended.
[2020-08-30] MEDS: rocuronium 10 mg/mL INJ 5mL 50 MG (20:49)
[2020-08-30] MEDS: etomidate 20 ML 20 MG (20:50)
--- NOTE | 2020-08-30 20:53 | PC.NURSE ---
Intubation Note Dr Phelps at bedside assessing patient on Bipap. Drowsy and opens eyes to verbal stimulation. Orders received to intubate for CO2 retention. At 2031 20mg etomidate IVP given. At 2032 50mg Rocuronium given IVP. At [address] Phelps with glide scope size 8 tube placed 22 at lip with positive color change. Equal and bilateral breath sounds. ET secured Verbal bedside orders for propofol infusion for sedation initially started at 20mcg/kg/min and wean off and add precedex for sedation. OG tube 16 bahraini placed. Auscultated placement. Stat chest xray called and came to bedside at 2099. Dr. Phelps at bedside and reviewed chest xray. Pt placed in bilateral wrist restraints at this time. Vent settings CMV 14R 8 peep 35%fio2 500vt.
[2020-08-30] MEDS: dexmedetomidine 400 MCG in sodium chloride 0.9% (100 ml) 100 ML IV (21:30)
--- NOTE | 2020-08-30 21:53 | XRR_ITS ---
PROCEDURE INFORMATION: Exam: XR Chest, 1 View Exam date and time: 08/30/2020 9:55 PM Age: 75 years old Clinical indication: Device placement; Ett placement (vent status); Additional info: Et tube placement TECHNIQUE: Imaging protocol: XR of the chest Views: 1 view. COMPARISON: CR XR chest 1V portable [id number] 08/30/2020 9:00 PM FINDINGS: Tubes, catheters and devices: Intubation with the tip of the tube 2.7 cm above the adamaris. An NG tube extends into the mid stomach off the field of view. Lungs: Mild vascular congestion. The lungs are clear. No focal consolidation. Pleural space: Unremarkable. No pleural effusion. No pneumothorax. Heart/Mediastinum: Unremarkable. No cardiomegaly. Bones/joints: Unremarkable. XR/XR chest 1V portable [id number] IMPRESSION: 1. Tip of the endotracheal tube is 2.7 cm above the adamaris.
[2020-08-30] MEDS: carvedilol 3.125 mg Tablet PO (22:05)
[2020-08-30] MEDS: isosorbide mononitrate ER 30 mg Tablet PO (22:05)
[2020-08-30] MEDS: pantoprazole DR 40 mg Tablet PO (22:05)
[2020-08-30] MEDS: ropinirole 1 mg Tablet PO (22:06)
[2020-08-30] MEDS: enoxaparin 40 mg/0.4 mL Syringe SUBCUT (22:14)
[2020-08-30 22:23] LABS: Glucose Point of Care 158 mg/dL (70-110)
--- NOTE | 2020-08-30 23:23 | PC.NURSE ---
Bradycardia Precedex stopped at this time for bradycardia rate in mid 40's. Dr. Moran notified by phone and received orders to start fentanyl drip and stop precedex. Pt continues to be restless moving arms and legs, not adequately sedated. Orders to keep propofol infusing.
[2020-08-30] MEDS: propofol 1,000 MG/100 ML INJ 27.5 MG IV (23:39)
[2020-08-30 23:43] LABS: ABG PH Result 7.37 (7.35-7.45); Arterial Blood Gas Hematocrit 25.7 % (37-47); Base Excess ABG 11.1 mmol/L (-2.0-2.0); Blood Gas Sample Site Brachial, left; Blood Gas Sample Type Arterial; Oxygen Device VENT; PO2 ABG 78.9 mmHg (80.0-100.0)
[2020-08-30] MEDS: carBAMazepine 200 mg Tablet PO (23:48)
[2020-08-31] VITALS (54 sets, daily range): BP systolic 117–170; BP diastolic 50–97; PULSE 46–74; RESP 12–16; TEMP 36.1–37.2; O2SAT 90–98
[2020-08-31] MEDS: propofol 1,000 MG/100 ML INJ 27.5 MG IV ×2 (03:05→22:08)
[2020-08-31 05:54] LABS: Basophils % 0.3 %; Eosinophils % 0.2 %; Hematocrit 30.7 % (37.0-47.0); Hemoglobin 8.7 g/dL (11.5-15.3); Lymphocytes # 0.4 10^3/uL (0.8-4.8); Lymphocytes % 6.5 %; Mean Corpuscular HGB Conc 28.3 g/dL (30.0-36.0); Mean Corpuscular Hemoglobin 26.5 pg (28.0-34.0); Mean Corpuscular Volume 93.6 fL (81-99); Mean Platelet Volume 9.3 fL (7.4-10.4); Monocytes # 0.1 10^3/uL (0.2-0.9); Monocytes % 2.2 %; Neutrophils # 5.21 10^3/uL (1.8-7.7); Neutrophils % 89.4 %; Nucleated Red Blood Cells % 0 %; Platelet Count 114 10^3/cmm (130-400); Red Blood Count 3.28 10^6/uL (4.1-5.3); Red Cell Distribution Width 17.6 % (12.1-15.1); White Blood Count 5.8 10^3/uL (4.0-10.0)
[2020-08-31 06:15] LABS: Alanine Aminotransferase 10 U/L (0-33); Albumin Level 3.4 g/dL (3.5-5.2); Alkaline Phosphatase 132 IU/L (35-105); Anion Gap 14.4 (5-19); Aspartate Amino Transferase 10 U/L (0-32); Blood Urea Nitrogen 38 mg/dL (8-23); Calcium 9.1 mg/dL (8.5-10.5); Carbon Dioxide 32 mmol/L (22-29); Chloride 103 mmol/L (98-107); Globulin 2.7 g/dL (1.3-4.6); Glucose 178 mg/dL (65-115); Magnesium 2.1 mg/dL (1.7-2.3); Osmolality Calculated 311 mOsm/kg (285-295); Potassium 5.4 mmol/L (3.5-5.1); Sodium 144 mmol/L (136-145); Total Bilirubin 0.4 mg/dL (0.15-1.2); Total Protein 6.1 g/dL (6.6-8.7)
[2020-08-31 07:32] LABS: Glucose Point of Care 170 mg/dL (70-110)
[2020-08-31] MEDS: ipratropium-albuterol 3 mL Neb INHALATION ×2 (08:17→20:08)
[2020-08-31] MEDS: propofol 1,000 MG/100 ML INJ 20.7 MG IV ×3 (08:54→18:36)
[2020-08-31] MEDS: isosorbide mononitrate ER 30 mg Tablet PO ×2 (08:54→17:34)
[2020-08-31] MEDS: levothyroxine 100 mcg Tablet PO (08:54)
[2020-08-31] MEDS: clopidogrel 75 mg Tablet PO (08:55)
[2020-08-31] MEDS: pantoprazole DR 40 mg Tablet PO ×2 (08:55→17:34)
[2020-08-31] MEDS: carvedilol 3.125 mg Tablet PO ×2 (08:55→17:34)
[2020-08-31] MEDS: FUROsemide 40 mg Tablet PO (08:55)
[2020-08-31] MEDS: aspirin 81 mg EC Tablet PO (08:55)
--- NOTE | 2020-08-31 11:03 | ECG_ITS ---
[facility] Test Date: 2020-08-31 Pat Name: Bryanna Reid Department: Room: [facility] Gender: Female Associate Faculty: : 1945 Requested By: Abhilash Phelps Order Number: [id number] Concha MD: Betty Ramon M.D. Measurements Intervals [place] Rate: 48 P: 22 ME: 214 QRS: -82 QRSD: 175 T: 70 QT: 524 QTc: 472 Interpretive Statements SINUS BRADYCARDIA WITH FIRST DEGREE AV BLOCK MARKED LEFT AXIS DEVIATION [QRS AXIS < -30] INTRAVENTRICULAR CONDUCTION DELAY [130+ ms QRS DURATION] Compared to ECG 08/30/2020 19:27:51 Left-axis deviation now present Sinus rhythm no longer present Right-axis deviation no longer present Electronically Signed On 08-31-2020 23:48:06 WARDROBE STYLIST by Betty Ramon M.D. [id number]
[2020-08-31 11:08] LABS: Glucose Point of Care 154 mg/dL (70-110)
[2020-08-31] MEDS: FUROsemide 10 mg/mL SDV 2mL 20 MG IVP (11:48)
[2020-08-31] MEDS: doxycycline 100 MG in sodium chloride 0.9% (plus) 100 ML IV ×2 (12:33→23:54)
[2020-08-31 12:55] LABS: ABG PCO2 59.9 mmHg (35-45); ABG PH Result 7.39 (7.35-7.45); Alveolar-Arterial Oxygen Gradi 13.4 mmHg (5-10); Arterial Blood Gas Hematocrit 27.4 % (37-47); Base Excess ABG 9.7 mmol/L (-2.0-2.0); Blood Gas Allen Test Pos; Blood Gas Operator Identificat GD; Blood Gas Sample Site Radial, left; Blood Gas Sample Type Arterial; Carboxyhemoglobin 1.3 %THgb (0.4-20.1); HCO3 ABG 36.1 mmol/L (22-26); Ionized Calcium Level - ABG 1.2 mmol/L (1.1-1.4); Methemoglobin 0.5 % (0.4-1.5); Oxygen Device VENT; Oxygen Saturation ABG 94.6; PO2 ABG 76.1 mmHg (80.0-100.0); Potassium Level - ABG 5.2 mmol/L (3.5-5.0); Total Hemoglobin 8.9 g/dL (12-16)
[2020-08-31] MEDS: cefTRIAXone 1,000 MG in sodium chloride 0.9% (plus) 50 ML 100 MG IV (14:37)
--- NOTE | 2020-08-31 15:33 | PM.PN ---
Subjective Subjective: Interval history: Ms.Fuller Gould is intubated and sedated and on mechanical ventilation. Off sedation her GCS is 10 T . No Fever, other vitals have been reviewed. Labs have been reviewed. Vitals/I&O/Wt Last Vital Signs Temp 97.8 F 08/31/20 12:00 Pulse 48 L 08/31/20 14:00 Resp 12 08/31/20 14:13 BP 153/59 08/31/20 14:00 Pulse Ox 95 08/31/20 14:00 08/31/20 08/31/20 08/31/20 06:59 14:59 22:59 Intake Total 205.895 / 222.118 261.652 / 261.652 Output Total 500 / 500 Balance -294.105 / -277.882 261.652 / 261.652 Weight last 48 hrs Weight 114.759 kg Physical Exam HENMT: COMMON NORMALS: normocephalic and atraumatic HEAD & SCALP: normocephalic and atraumatic Chest: CHEST: Yes Symmetrical chest wall rise Resp: EFFORT & INSPECTION: Yes symmetric chest movement OTHER: Anterior aspect of the chest is clear bilaterally, decreased air entry at the bases. Cardio: COMMON NORMALS: regular rate, regular rhythm, S1 normal heart sound present and S2 normal heart sound present RATE: regular rate RHYTHM: regular rhythm HEART SOUNDS: S1 normal heart sound present and S2 normal heart sound present GI: COMMON NORMALS: Normal to inspection, nondistended, normoactive bowel sounds present, Soft to palpation, non-tender, No hepatosplenomegaly present and no masses AUSCULTATION: Yes normoactive bowel sounds PALPATION: Yes Soft to palpation and Yes No hepatosplenomegaly present RECTAL EXAM: deferred Extremity: COMMON NORMALS: no clubbing, cyanosis or edema and no pedal edema Urinary Catheter Management^: [place]: Cath Placed During This Visit: yes Reason for Continuing Indwelling Catheter: Accurate Measurement of Urinary Output in Critically Ill Patients Urinary Catheter Date of Insertion: 08/30/20 Urinary Catheter Time of Insertion: 17:50 Data : 08/31/20 05:10 08/31/20 05:10 A&P Assessment and plan (1) Acute encephalopathy: Ac Encephalopathy 2/2 acute on chronic hypercapnic hypoxic respiratory failure/UTI C.T Head without contrast : No evidence of intracranial hemorrhage or mass effect. 2. Mild small vessel changes. Mild parenchymal volume loss. 3. No acute intracranial findings. Xray chest : Cardiac enlargement unchanged. The lungs are clear and fully expanded. No pleural effusions. ABG:Ph:7.2, PC02: 92, PO2: 82 On FIO2 : 28 % ( 08/30) Monitor Serial ABG, xray chest. Continue Mechanical Ventilation Patient on Cef and Doxycycline (08/31 ) Solumedrol 60 mg I.V Q12 H Daily Duo Nebs. Status: Acute (2) Acute on chronic respiratory failure with hypoxia and hypercapnia: Plan as 1 Status: Acute (3) UTI (urinary tract infection): Urine Culture : Pending Continue Ceftriaxone 1 gm q24 h daily Status: Acute (4) COPD (chronic obstructive pulmonary disease): Plan as 1 Status: Acute Qualifiers: COPD type: unspecified COPD Qualified Code(s): J44.9 - Chronic obstructive pulmonary disease, unspecified (5) CHF (congestive heart failure): Mild Decompensated HFrEF : Continue lasix 40 mg I.V Daily I/O Charting Daily weight Status: Acute Qualifiers: Heart failure type: unspecified Heart failure chronicity: unspecified Qualified Code(s): I50.9 - Heart failure, unspecified (6) Essential (primary) hypertension: Continue hydralazine 25 mg po q8 h daily Continue Coreg 3.125 mg PO BID Status: Acute (7) Stage 3b chronic kidney disease: Monitor BMP Avoid Nephrotoxic medications. Status: Chronic (8) Hypothyroidism, adult: Continue levothyroxine 100 mcg po Daily Status: Acute (9) Uncontrolled type 2 diabetes mellitus with insulin therapy: SSI Monitor FSG Status: Acute Attestations Medical Necessity Statement*: Patient needs to be in hospital for the management of ac enecephalopathy . Coding Level of Care Code Acute Sql Ssis Developer for g Fwd Diagnoses Acute encephalopathy G93.40 Acute on chronic respiratory failure with hypoxia and hypercapnia J96.21; J96.22 UTI (urinary tract infection) N39.0 COPD (chronic obstructive pulmonary disease) J44.9 COPD type: unspecified COPD CHF (congestive heart failure) I50.9 Heart failure type: unspecified Heart failure chronicity: unspecified Essential (primary) hypertension I10 Stage 3b chronic kidney disease N18.3 Hypothyroidism, adult E03.9 Uncontrolled type 2 diabetes mellitus with insulin therapy E11.65; Z79.4
[2020-08-31 16:12] LABS: Glucose Point of Care 143 mg/dL (70-110)
[2020-08-31] MEDS: enoxaparin 40 mg/0.4 mL Syringe SUBCUT (17:33)
[2020-08-31 17:36] LABS: Blood Gas Allen Test Pos; Blood Gas Sample Site Radial, right; Blood Gas Sample Type Arterial; Oxygen Device VENT
[2020-08-31 17:37] LABS: ABG PCO2 44.3 mmHg (35-45); Base Excess ABG 10.3 mmol/L (-2.0-2.0); HCO3 ABG 34.5 mmol/L (22-26); PO2 ABG 69.5 mmHg (80.0-100.0)
--- NOTE | 2020-08-31 17:45 | PM.ACPR ---
Acute Procedures Intubation: Time out performed: Yes Sedative: etomidate Paralytic: rocuronium Laryngoscope: fiber optic video scope Assist device used: fiber optic device ET tube size: 8 ET tube uncuffed: Yes Tube secured depth (cm): 22 Tube secured location: lips Tube placement confirmation: visualized tube passing through cords, equal breath sounds bilaterally, no breath sounds over epigastrium and color change noted Patient tolerated procedure: well Intubation complications: none
--- NOTE | 2020-08-31 18:34 | PM.CONSULT ---
Providers/Reason For Consult Consulting Physican/Specialty*: Glenroy Dumont MD/Pulmonary Reason for Consult*: Ventilator managment Attending Physician: Abhilash Phelps MD Primary Care Provider: Nayely Layton MD History of Present Illness History of Present Illness Bryanna Reid is a known patient to my clinic. She is 75 female with PMH of COPD on 3 L home oxygen, restrictive lung disease based on PFTs, diastolic CHF, CKD stage II, 3 x TIA the past, restless leg syndrome, anemia, hypothyroidism, uncontrolled diabetes, was brought to emergency room by family 08/30/2020 with complaints of generalized weakness, difficulty ambulating and concerns of having stroke. CT head without contrast in ED did not reveal any evidence of intracranial hemorrhage or mass-effect. Admission ABG revealed respiratory acidosis with hypercapnia and patient was intubated for altered mental status and hypercapnic respiratory failure. Pulmonary consult called for vent management. Patient is seen at bedside - sedated and connected to ventilator Hemodynamically stable No acute issues overnight Review of Systems General: Reports: ROS unobtainable due to endotracheal tube, ROS unobtainable due to medical condition and ROS unobtainable due to mental status Meds/Allergies Home Medications and Allergies Home Medications Medication Instructions Recorded Confirmed Last Taken Type aspirin 81 mg tablet,delayed 81 mg PO DAILY tab 09/17/19 08/30/20 02/09/20 History release docusate sodium 100 mg capsule 100 mg PO BID PRN 09/17/19 08/30/20 02/09/20 History nitroglycerin 0.4 mg sublingual 0.4 mg SUBLINGUAL Q5M PRN 09/17/19 08/30/20 Unknown History tablet ipratropium 0.5 mg-albuterol 3 mg 3 ml INHALATION Q4H PRN #180 ml 11/18/19 08/30/20 Unknown Rx (2.5 mg base)/3 mL nebulization soln insulin detemir U-100 50 unit SUBCUT DAILY 02/10/20 08/30/20 02/10/20 History insulin lispro [Humalog KwikPen See Rx Instructions .ROUTE .COMPLEX 02/10/20 08/30/20 Unknown History Insulin] capsaicin 1 applic TOPICAL QID PRN #0 g 02/18/20 08/30/20 Unknown Rx triamcinolone acetonide 0.5 % 1 applic TOPICAL TID PRN #15 gm 03/10/20 08/30/20 Unknown Rx topical cream isosorbide mononitrate 30 mg 30 mg PO BID #180 tab 03/18/20 08/30/20 Unknown Rx tablet,extended release 24 hr pen needle, diabetic 32 gauge x #200 each 03/26/20 08/30/20 Unknown Rx levothyroxine 100 mcg capsule 100 mcg PO DAILY #90 cap 04/29/20 08/30/20 Unknown Rx pantoprazole 40 mg tablet,delayed See Rx Instructions .ROUTE 05/18/20 08/30/20 Unknown Rx release .COMPLEX #60 tab ropinirole 0.5 mg tablet 1 mg PO BEDTIME #60 tab 05/31/20 08/30/20 Unknown Rx guaifenesin 1,200 mg tablet, 1,200 mg PO BID #20 tab 06/14/20 08/30/20 Unknown Rx extended release 12 hr walker #1 each 06/14/20 08/30/20 Unknown Rx carvedilol 3.125 mg tablet 3.125 mg PO BID 06/29/20 08/30/20 Unknown History ferrous sulfate 325 mg (65 mg 325 mg PO DAILY 06/29/20 08/30/20 Unknown History iron) tablet fluconazole 150 mg tablet 150 mg PO .now & repeat in 1wk #2 07/01/20 08/30/20 Unknown Rx tab nystatin 100,000 unit/gram topical 1 applic TOPICAL BID #30 gm 07/01/20 08/30/20 Unknown Rx powder Anoro Ellipta 62.5 mcg-25 1 inh INHALATION DAILY #60 each NS 07/02/20 08/30/20 Unknown Rx mcg/actuation powder for inhalation furosemide 40 mg tablet 40 mg PO DAILY #90 tab 07/05/20 08/30/20 Unknown Rx glipizide 5 mg tablet 5 mg PO BID #180 tab 07/09/20 08/30/20 Unknown Rx simvastatin 20 mg tablet 20 mg PO DAILY #30 tab 07/23/20 08/30/20 Unknown Rx carbamazepine 200 mg tablet 200 mg PO BEDTIME 30 Days #30 tab 08/04/20 08/30/20 Unknown Rx gabapentin 300 mg capsule 300 mg PO QID PRN 30 Days #120 cap 08/04/20 08/30/20 Unknown Rx hydrocodone 5 mg-acetaminophen 325 1 tab PO DAILY PRN 30 Days #30 tab 08/04/20 08/30/20 Unknown Rx mg tablet tramadol 50 mg tablet 50 mg PO DAILY PRN 30 Days #30 tab 08/04/20 08/30/20 Unknown Rx clopidogrel 75 mg tablet 75 mg PO .every other day 90 Days 08/07/20 08/30/20 Unknown Rx #45 tab Allergies Allergy/AdvReac Type Severity Reaction Status Date / Time azithromycin Allergy Mild ALGY-RASH Verified 08/04/20 09:14 iodine Allergy unknown Verified 08/04/20 09:14 Current Medications Current Medications Generic Name Dose Route Start Last Admin Trade Name Freq PRN Reason Stop Dose Admin Albuterol/Ipratropium 3 ml 08/30/20 18:01 08/31/20 08:17 Ipratropium-Albuterol 3 Ml Neb INHALATION 3 ml Q6H PRN Administration SHORTNESS OF BREATH Aspirin 81 mg 08/31/20 09:00 08/31/20 08:55 Aspirin 81 Mg Ec Tablet PO 81 mg DAILY BELTRAN Administration Carbamazepine 200 mg 08/30/20 21:00 08/30/20 23:48 Carbamazepine 200 Mg Tablet PO 200 mg BEDTIME BELTRAN Administration Carvedilol 3.125 mg 08/30/20 18:01 08/31/20 17:34 Carvedilol 3.125 Mg Tablet PO 3.125 mg BID BELTRAN Administration Clopidogrel Bisulfate 75 mg 08/31/20 09:00 08/31/20 08:55 Clopidogrel 75 Mg Tablet PO 75 mg Q48H BELTRAN Administration Enoxaparin Sodium 40 mg 08/30/20 17:30 08/31/20 17:33 Enoxaparin 40 Mg/0.4 Ml Syringe SUBCUT 40 mg Q24H BELTRAN Administration Furosemide 40 mg 08/31/20 11:15 08/31/20 11:44 Furosemide 10 Mg/Ml Sdv 4ml IVP Not Given Q24H BELTRAN Ceftriaxone Sodium 1,000 mg/ 50 mls @ 100 mls/hr 08/31/20 13:00 08/31/20 14:37 Sodium Chloride IV 100 mls/hr Q24H BELTRAN Administration Protocol Propofol 1,000 mg in 100 mls @ 0 mls/hr 08/30/20 21:15 08/31/20 13:17 Diprivan IV 30 mcg/kg/min .Q0M BELTRAN 20.7 mls/hr Administration Protocol Per Protocol Dexmedetomidine HCl 400 mcg/ 104 mls @ 0 mls/hr 08/30/20 21:15 08/30/20 23:20 Sodium Chloride IV 0 mcg/kg/hr .Q0M BELTRAN 0 mls/hr Titration Protocol Per Protocol Fentanyl 1,000 mcg/ Sodium 100 mls @ 0 mls/hr 08/30/20 23:30 08/31/20 10:38 Chloride IV 100 mcg/hr .Q0M BELTRAN 10 mls/hr Administration Protocol Per Protocol Doxycycline Hyclate 100 mg/ 100 mls @ 100 mls/hr 08/31/20 12:00 08/31/20 12:33 Sodium Chloride IV 100 mls/hr Q12H BELTRAN Administration Protocol Insulin Aspart 0 unit 08/30/20 21:00 08/31/20 17:33 Insulin Aspart 100 Unit/1 Ml SUBCUT 2 unit WM&BEDTIME BELTRAN Administration Protocol Isosorbide Mononitrate 30 mg 08/30/20 18:01 08/31/20 17:34 Isosorbide Mononitrate Er 30 Mg Tablet PO 30 mg BID BELTRAN Administration Levothyroxine Sodium 100 mcg 08/31/20 09:00 08/31/20 08:54 Levothyroxine 100 Mcg Tablet PO 100 mcg DAILY BELTRAN Administration Methylprednisolone Sodium Succinate 60 mg 08/30/20 21:00 08/31/20 08:54 Methylprednisolone Sod Succ 125 Mg/2 Ml Inj IVP 60 mg Q12H BELTRAN Administration Pantoprazole Sodium 40 mg 08/30/20 18:45 08/31/20 17:[address] 40 Mg Tablet PO 40 mg BID BELTRAN Administration Ropinirole HCl 1 mg 08/30/20 21:00 08/30/20 22:06 Ropinirole 1 Mg Tablet PO 1 mg BEDTIME BELTRAN Administration PFSH Acute PFSH: Medical History (Updated 08/31/20 @ 19:15 by Glenroy Dumont MD) Anemia Anemia of chronic disease Cardiomyopathy CHF (congestive heart failure) COPD (chronic obstructive pulmonary disease) Diabetic neuropathy Dyslipidemia Dysplastic colon polyp Incompletely resected on first attempt due to cardiac complications. Ascending colon. Elevated troponin Enrolled in chronic care management Essential (primary) hypertension GERD (gastroesophageal reflux disease) Hypothyroidism, adult Lumbar back pain with radiculopathy affecting right lower extremity Osteoarthritis of right ankle and foot Recent cerebrovascular accident (CVA) Carotid Doppler examination on 02/12/2020 revealed Moderate heterogeneous plaques bilaterally with velocity elevations bilaterally, suggestive of 50 to 79% stenosis Tortuous distal internal carotid arteries bilaterally Shortness of breath Uncontrolled type 2 diabetes mellitus with insulin therapy Surgical History H/O bilateral breast reduction surgery H/O cataract extraction H/O: hysterectomy Family History Other CAD (coronary artery disease) Cancer Diabetes Lung disease Stroke Social History Smoking and tobacco status: never smoked Quit status (tobacco): has quit using tobacco Second hand smoke exposure: Yes Smoking risk assessment/counseling performed?: No Alcohol intake: never Caregiver/support person: Yes Lives independently: Yes Household members: none Housing: House Marital status: / Current occupational status: student History of recent travel: No Current gender identity: Female Female Reproductive History: Spontaneous abortions: No Vitals/I&O/Wt Last Vital Signs Temp 98.0 F 08/31/20 18:00 Pulse 57 L 08/31/20 18:00 Resp 12 08/31/20 18:07 BP 163/80 08/31/20 18:00 Pulse Ox 97 08/31/20 18:00 08/31/20 08/31/20 08/31/20 06:59 14:59 22:59 Intake Total 205.895 / 222.118 261.652 / 261.652 Output Total 500 / 500 1000 / 1000 Balance -294.105 / -277.882 261.652 / 261.652 -1000 / -738.348 Weight last 48 hrs Weight 253 lb Physical Exam Narrative: EXAM NARRATIVE: PHYSICAL EXAM: General: lying in bed, sedated and intubated. 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 SKIN: no rash Urinary Catheter Management^: Velasco: Cath Placed During This Visit: yes Reason for Continuing Indwelling Catheter: Accurate Measurement of Urinary Output in Critically Ill Patients Urinary Catheter Date of Insertion: 08/30/20 Urinary Catheter Time of Insertion: 17:50 Data Other Data: Other data: Reviewed labs, imaging, [facility] Assessment and plan (1) Acute on chronic respiratory failure with hypoxia and hypercapnia: Status: Acute (2) Acute encephalopathy: Status: Acute (3) Restless leg syndrome: Status: Acute (4) Recent cerebrovascular accident (CVA): Status: Acute (5) Acute kidney injury superimposed on CKD: Status: Acute (6) Diastolic CHF, acute on chronic: Status: Acute (7) COPD (chronic obstructive pulmonary disease): Status: Acute Qualifiers: COPD type: unspecified COPD Qualified Code(s): J44.9 - Chronic obstructive pulmonary disease, unspecified (8) Lung disease, restrictive: Status: Acute (9) Obesity hypoventilation syndrome: Status: Acute (10) UTI (urinary tract infection): Status: Acute Qualifiers: Urinary tract infection type: site unspecified Hematuria presence: without hematuria Qualified Code(s): N39.0 - Urinary tract infection, site not specified (11) Carotid artery stenosis without cerebral infarction: Status: Acute Qualifiers: Laterality: bilateral Qualified Code(s): I65.23 - Occlusion and stenosis of bilateral carotid arteries #Acute on chronic hypercapnic respiratory failure -multifactorial as below #Altered mental status likely secondary to urosepsis/TIA in patient with previous history of 3 episodes of TIA and significant bilateral carotid artery stenosis (carotid Doppler February 2020) #Morbid obesity-causing obesity hypoventilation syndrome #Underlying diastolic CHF #H/o COPD in a patient who has significant smoke exposure and remote history of light smoking #Restrictive lung disease on recent PFTs in pulmonary clinic -Currently sedated with propofol 30 and fentanyl 100 MCG and connected to ventilator -sensitive to Precedex and patient is becoming bradycardic -On CMV mode 400/8/12/35% and ABG 7.3 9/59/76/30 6/94% -Patient is a chronic retainer with baseline CO2 between 55-65 -Chest x-ray did not show any lung infiltrates but showed small lung volumes -Recent PFTs also suggesting restrictive lung disease with moderate gas transfer defect. -Although restriction has some amount of extrathoracic component due to obesity; due to the fact that she complained of joint stiffness and pains she was in the process of doing rheumatology work-up and rule out CTD as intrinsic cause as outpatient -She was diagnosed previously with COPD due to remote history of smoking and significant smoke exposure and is being treated with LAMA/LABA as outpatient and the gas transfer defect can explain. -Currently on methylprednisone 60 mg every 12-Taper based on clinical response -Continue DuoNeb nebulizations every 6 as needed -Currently on Lasix 40 mg daily -monitor I and O try to keep her negative to even to facilitate extubation -Also on Coreg/Imdur 30/hydralazine for blood pressure -Patient on aspirin and Plavix for carotid artery stenosis -Urine cultures showed pansensitive E. coli-being treated with Rocephin day 2; can DC doxycycline -Plan is to wean off sedation and do awakening trial and check for mentation; -If mentation is good-please go ahead and do breathing trial and check for NIF -If he passes breathing trial - extubate to BiPAP with 16/8 and 3 L oxygen and target tidal volume of 380- 400 cc -Based on morbid obesity BMI > 30 and baseline CO2 > 45 patient qualifies for AVAPS upon discharge for obesity hypoventilation syndrome Recommendations conveyed to hospitalist covering the patient Consult Attestations Medical Necessity Statement: Acute on chronic hypercapnic failure secondary to altered mental status due to urosepsis/? TIA patient with significant carotid artery stenosis/underlying COPD and restrictive lung disease/obesity hypoventilation syndrome/diastolic CHF -intubated requiring mechanical ventilation Time Spent in Patient Care: Greater than 35 minutes (>than 50% of time spent in counselling and/or direct pt care on unit). 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[employer] Patient Type New History Comprehensive Exam Comprehensive Medical Decision Making High Complexity Diagnoses Acute on chronic respiratory failure with hypoxia and hypercapnia J96.21; J96.22 Acute encephalopathy G93.40 Restless leg syndrome G25.81 Recent cerebrovascular accident (CVA) Z86.73 Acute kidney injury superimposed on CKD N17.9; N18.9 Diastolic CHF, acute on chronic I50.33 COPD (chronic obstructive pulmonary disease) J44.9 COPD type: unspecified COPD Lung disease, restrictive J98.4 Obesity hypoventilation syndrome E66.2 UTI (urinary tract infection) N39.0 Urinary tract infection type: site unspecified Hematuria presence: without hematuria Carotid artery stenosis without cerebral infarction I65.23 Laterality: bilateral Time Spent (min) 45
[2020-08-31] MEDS: ropinirole 1 mg Tablet PO (21:13)
[2020-08-31] MEDS: hyDRALAzine 25 mg Tablet PO (21:13)
[2020-08-31 21:15] LABS: Glucose Point of Care 183 mg/dL (70-110)
[2020-08-31] MEDS: carBAMazepine 200 mg Tablet PO (21:15)
[2020-09-01] VITALS (58 sets, daily range): BP systolic 107–179; BP diastolic 40–103; PULSE 45–95; RESP 12–16; TEMP 19.8–37.4; O2SAT 89–98
[2020-09-01] MEDS: propofol 1,000 MG/100 ML INJ 27.5 MG IV (01:49)
[2020-09-01 04:14] LABS: Blood Gas Allen Test Pos; Blood Gas Sample Site Radial, right; Blood Gas Sample Type Arterial
[2020-09-01 04:17] LABS: Basophils % 0.1 %; Hematocrit 33.2 % (37.0-47.0); Hemoglobin 9.2 g/dL (11.5-15.3); Lymphocytes # 0.5 10^3/uL (0.8-4.8); Lymphocytes % 7.4 %; Mean Corpuscular HGB Conc 27.7 g/dL (30.0-36.0); Mean Corpuscular Volume 97.4 fL (81-99); Mean Platelet Volume 9.3 fL (7.4-10.4); Monocytes # 0.4 10^3/uL (0.2-0.9); Monocytes % 6.4 %; Neutrophils # 5.84 10^3/uL (1.8-7.7); Neutrophils % 85.4 %; Nucleated Red Blood Cells % 0 %; Platelet Count 124 10^3/cmm (130-400); Red Blood Count 3.41 10^6/uL (4.1-5.3); Red Cell Distribution Width 17.7 % (12.1-15.1); White Blood Count 6.9 10^3/uL (4.0-10.0)
[2020-09-01 04:54] LABS: Alanine Aminotransferase 8 U/L (0-33); Albumin Level 3.2 g/dL (3.5-5.2); Alkaline Phosphatase 126 IU/L (35-105); Anion Gap 15.2 (5-19); Aspartate Amino Transferase 7 U/L (0-32); Blood Urea Nitrogen 43 mg/dL (8-23); Carbon Dioxide 32 mmol/L (22-29); Chloride 102 mmol/L (98-107); Globulin 2.9 g/dL (1.3-4.6); Glucose 183 mg/dL (65-115); Osmolality Calculated 314 mOsm/kg (285-295); Potassium 5.2 mmol/L (3.5-5.1); Sodium 144 mmol/L (136-145); Total Bilirubin 0.3 mg/dL (0.15-1.2); Total Protein 6.1 g/dL (6.6-8.7)
--- NOTE | 2020-09-01 06:00 | XR_ITS ---
WS: [id number] Exam: XR chest 1V portable [id number] Date/Time of Exam: 09/01/2020 6:00 AM Reason For Exam: SOB Comparison 08/30/2020. The lungs are fully expanded. Mild plaque atelectasis in the right lower lung zones. Normal cardiomed iastinal structures for technique. ET tube is in good position ending about 4 cm above the adamaris. An enteric tube is noted in the stomach but the tip is out of the [id number]. No pleural effusions o r pneumothorax. Monitoring leads superimpose the chest. XR/XR chest 1V portable [id number] IMPRESSION: 1. No acute cardiopulmonary finding. 2. ET tube and enteric tube both appear to be in good position.
[2020-09-01] MEDS: propofol 1,000 MG/100 ML INJ 24.1 MG IV (06:06)
[2020-09-01] MEDS: clopidogrel 75 mg Tablet PO (09:28)
[2020-09-01] MEDS: aspirin 81 mg EC Tablet PO (09:28)
[2020-09-01] MEDS: pantoprazole DR 40 mg Tablet PO ×2 (09:29→17:52)
[2020-09-01] MEDS: hyDRALAzine 25 mg Tablet PO ×3 (09:29→21:44)
[2020-09-01] MEDS: isosorbide mononitrate ER 30 mg Tablet PO ×2 (09:29→17:52)
[2020-09-01] MEDS: levothyroxine 100 mcg Tablet PO (09:29)
[2020-09-01] MEDS: FUROsemide 10 mg/mL SDV 4mL 40 MG IVP (10:37)
[2020-09-01] MEDS: LORazepam 2 mg/mL INJ 1 mL 1 MG IVP (10:37)
--- NOTE | 2020-09-01 10:44 | P.PN_ITS ---
Subjective Subjective: Interval history: Ms. Gould is doing fine. She successfully tolerated the weaning trial,and was alert as well awake and was following commands, vitals were stable, no major electrolytes abnormality, not on pressor or inotropic support. After monitoring all the extubation parameters. Patient was successfully extubated to BiPAP: BiPAP setting: Rate:14, FiO2 : 28%, I/E : 16/8 , exhaled tidal volume: 565 ML. Patient is tolerating BiPAP well. Other vitals and labs have been reviewed. Medications: Reviewed: Yes Vitals/I&O/Wt Last Vital Signs Temp 96.9 F L 08/31/20 21:30 Pulse 46 L 09/01/20 06:00 Resp 14 09/01/20 09:40 BP 134/56 09/01/20 06:00 Pulse Ox 94 09/01/20 06:00 08/31/20 09/01/20 09/01/20 22:59 06:59 14:59 Intake Total 273.14 / 634.792 263.667 / 898.459 181.320 / 181.320 Output Total 1000 / 1000 400 / 1400 Balance -726.86 / -365.208 -136.333 / -501.541 181.320 / 181.320 Weight last 48 hrs Weight 114.759 kg Physical Exam HENMT: COMMON NORMALS: normocephalic and atraumatic HEAD & SCALP: normocephalic and atraumatic Resp: COMMON NORMALS: normal respiratory effort and clear to auscultation bilaterally EFFORT & INSPECTION: Yes symmetric chest movement AUSCULTATION: clear to auscultation bilaterally Cardio: COMMON NORMALS: regular rate, regular rhythm, S1 normal heart sound present, S2 normal heart sound present, No gallops present (Cardio), No murmurs present (Cardio), No rub (Cardio) and Peripheral pulses 2+ throughout RATE: regular rate RHYTHM: regular rhythm HEART SOUNDS: S1 normal heart sound present and S2 normal heart sound present PERIPHERAL PULSES: Peripheral pulses 2+ throughout GI: COMMON NORMALS: Normal to inspection, nondistended, normoactive bowel sounds present, Soft to palpation, non-tender, No hepatosplenomegaly present and no masses AUSCULTATION: Yes normoactive bowel sounds PALPATION: Yes Soft to palpation and Yes No hepatosplenomegaly present RECTAL EXAM: deferred Extremity: COMMON NORMALS: no clubbing, cyanosis or edema and no pedal edema Urinary Catheter Management^: Velasco: Cath Placed During This Visit: yes Reason for Continuing Indwelling Catheter: Accurate Measurement of Urinary Output in Critically Ill Patients Urinary Catheter Date of Insertion: 08/30/20 Urinary Catheter Time of Insertion: 17:50 Data : 09/01/20 03:26 09/01/20 03:26 Micro: Microbiology 08/31/20 03:40 Sputum Culture - Preliminary Sputum - Endotracheal Tube Aspirate A&P Assessment and plan (1) Acute encephalopathy: Ac Encephalopathy 2/2 acute on chronic hypercapnic hypoxic respiratory failure/UTI C.T Head without contrast : No evidence of intracranial hemorrhage or mass effect. 2. Mild small vessel changes. Mild parenchymal volume loss. 3. No acute intracranial findings. Am Xray chest : lungs are clear and fully expanded, No pleural effusions or pneumothorax. ABG:Ph: 7.2, PC02: 92, PO2: 82 On FIO2 : 28 % ( 08/30) ABG :Ph : 7.39, PCO2: 59, PO2: 76 , FIO2:35 % PF : 76/0.35 () ABG : Ph : 7.39, PCO2: 59, PO2: 74, FIO2: 35 %, P/F 74/0.35 (09/01) EKG: SINUS BRADYCARDIA WITH FIRST DEGREE AV BLOCK Urine Culture : E.Coli : Sensitive to Cef Continue BIPAP Support. ( BiPAP setting: Rate:14, FiO2 : 28%, I/E : 16/8 , exhaled tidal volume: 565 ML.) Continue: Cef and Doxycycline (08/31 ) Solumedrol 60 mg I.V Q12 H Daily,taper off Duo Nebs q6h Pulmonary Rec appreciated :Based on morbid obesity BMI > 30 and baseline CO2 > 45 patient qualifies for AVAPS upon discharge for obesity hypoventilation syndrome. Status: Acute (2) Acute on chronic respiratory failure with hypoxia and hypercapnia: Plan as 1 Status: Acute (3) UTI (urinary tract infection): Continue Ceftriaxone 1 gm q24 h daily Status: Acute Qualifiers: Urinary tract infection type: site unspecified Hematuria presence: without hematuria Qualified Code(s): N39.0 - Urinary tract infection, site not specified (4) COPD (chronic obstructive pulmonary disease): Plan as 1 Status: Acute Qualifiers: COPD type: unspecified COPD Qualified Code(s): J44.9 - Chronic obstructive pulmonary disease, unspecified (5) CHF (congestive heart failure): Mild Decompensated HFrEF : Continue lasix 40 mg I.V Daily I/O Charting Daily weight Status: Acute Qualifiers: Heart failure type: unspecified Heart failure chronicity: unspecified Qualified Code(s): I50.9 - Heart failure, unspecified (6) Essential (primary) hypertension: Continue hydralazine 25 mg po q8 h daily Continue Coreg 3.125 mg PO BID Status: Acute (7) Stage 3b chronic kidney disease: Monitor BMP Avoid Nephrotoxic medications. Status: Chronic (8) Hypothyroidism, adult: Continue levothyroxine 100 mcg po Daily Status: Acute (9) Uncontrolled type 2 diabetes mellitus with insulin therapy: SSI Monitor FSG Status: Acute Additional A&P Information DVT PPX : Lovenox 40 mg sc daily Code Status :Full code Disposition : Home. Anticipated DC : In 3 days. 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 Diagnoses Acute encephalopathy G93.40 Acute on chronic respiratory failure with hypoxia and hypercapnia J96.21; J96.22 UTI (urinary tract infection) N39.0 Urinary tract infection type: site unspecified Hematuria presence: without hematuria COPD (chronic obstructive pulmonary disease) J44.9 COPD type: unspecified COPD CHF (congestive heart failure) I50.9 Heart failure type: unspecified Heart failure chronicity: unspecified Essential (primary) hypertension I10 Stage 3b chronic kidney disease N18.3 Hypothyroidism, adult E03.9 Uncontrolled type 2 diabetes mellitus with insulin therapy E11.65; Z79.4
[2020-09-01 11:19] LABS: Glucose Point of Care 213 mg/dL (70-110)
[2020-09-01 11:19] LABS: Glucose Point of Care 198 mg/dL (70-110)
[2020-09-01] MEDS: doxycycline 100 MG in sodium chloride 0.9% (plus) 100 ML IV (11:25)
--- NOTE | 2020-09-01 12:20 | PC.NURSE ---
1030. ext. to n.c. at 6l very excited vs scared.
[2020-09-01] MEDS: cefTRIAXone 1,000 MG in sodium chloride 0.9% (plus) 50 ML 100 MG IV (12:35)
--- NOTE | 2020-09-01 15:58 | PC.RESP ---
Pulmonary Rehab information sent to patient.
[2020-09-01] MEDS: enoxaparin 40 mg/0.4 mL Syringe SUBCUT (17:52)
[2020-09-01 17:59] LABS: Glucose Point of Care 178 mg/dL (70-110)
--- NOTE | 2020-09-01 18:02 | P.PN_ITS ---
Subjective Subjective: Interval history: Tolerated extubation well Currently on BiPAP setting: Rate:14, FiO2 : 28%, I/E : 16/8 , Appears concerned about her clinical condition. Reassured that she is doing fine just need to stay calm and cooperative Medications: Reviewed: Yes Vitals/I&O/Wt Last Vital Signs Temp 67.6 F L 09/01/20 16:00 Pulse 68 09/01/20 16:00 Resp 14 09/01/20 09:40 BP 173/96 09/01/20 16:00 Pulse Ox 96 09/01/20 16:00 09/01/20 09/01/20 09/01/20 06:59 14:59 22:59 Intake Total 263.667 / 948.459 181.320 / 181.320 120 / 301.320 Output Total 400 / 1400 700 / 700 Balance -136.333 / -451.541 181.320 / 181.320 -580 / -398.680 Physical Exam Narrative: EXAM NARRATIVE: General: alert, NAD HEENT: conj clear, EOMI, PERRL, mmm, Neck: supple, no meningismus Heme: no cervical LAP Pulmonary: CTAB, no wheezing, rhonchi, crackles Cardiovascular: rrr, nl s1s2, no mrg Abdomen: Obese, soft, nt, nd, no r/g, bs+ Extremities: pulses +, no edema, no c/c : no CVA tenderness Skin: intact, no rash MSK: no back or neck pain Neurologic: grossly intact Urinary Catheter Management^: Velasco: Cath Placed During This Visit: yes Reason for Continuing Indwelling Catheter: Accurate Measurement of Urinary Output in Critically Ill Patients Urinary Catheter Date of Insertion: 08/30/20 Urinary Catheter Time of Insertion: 17:50 Data : 09/01/20 03:26 09/01/20 03:26 Micro: Microbiology 08/31/20 03:40 Sputum Culture - Preliminary Sputum - Endotracheal Tube Aspirate A&P Assessment and plan (1) Acute on chronic respiratory failure with hypoxia and hypercapnia: Status: Acute (2) Acute encephalopathy: Status: Acute (3) Restless leg syndrome: Status: Acute (4) Recent cerebrovascular accident (CVA): Status: Acute (5) Acute kidney injury superimposed on CKD: Status: Acute (6) Diastolic CHF, acute on chronic: Status: Acute (7) COPD (chronic obstructive pulmonary disease): Status: Acute Qualifiers: COPD type: unspecified COPD Qualified Code(s): J44.9 - Chronic obstructive pulmonary disease, unspecified (8) Lung disease, restrictive: Status: Acute (9) Obesity hypoventilation syndrome: Status: Acute (10) UTI (urinary tract infection): Status: Acute Qualifiers: Urinary tract infection type: site unspecified Hematuria presence: without hematuria Qualified Code(s): N39.0 - Urinary tract infection, site not specified (11) Carotid artery stenosis without cerebral infarction: Status: Acute Qualifiers: Laterality: bilateral Qualified Code(s): I65.23 - Occlusion and s tenosis of bilateral carotid arteries #Acute on chronic hypercapnic respiratory failure -multifactorial as below #Altered mental status likely secondary to urosepsis/TIA in patient with previous history of 3 episodes of TIA and significant bilateral carotid artery stenosis (carotid Doppler February 2020) #Morbid obesity-causing obesity hypoventilation syndrome #Underlying diastolic CHF #H/o COPD in a patient who has significant smoke exposure and remote history of light smoking #Restrictive lung disease on recent PFTs in pulmonary clinic -Successfully extubated to BiPAP -Recommended to keep BiPAP as much possible for next 24 hours -Repeat an ABG to see if patient is not retaining CO2 -Patient is a chronic retainer with baseline CO2 between 55-65 -Chest x-ray did not show any lung infiltrates but showed small lung volumes -Recent PFTs also suggesting restrictive lung disease with moderate gas transfer defect. -Although restriction has some amount of extrathoracic component due to obesity; due to the fact that she complained of joint stiffness and pains she was in the process of doing rheumatology work-up and rule out CTD as intrinsic cause as outpatient -She was diagnosed previously with COPD due to remote history of smoking and significant smoke exposure and is being treated with LAMA/LABA as outpatient and the gas transfer defect can explain. -Currently on methylprednisone 60 mg every 12-Taper based on clinical response -Continue DuoNeb nebulizations every 6 as needed -Currently on Lasix 40 mg daily -monitor I and O try to keep her negative to even to facilitate extubation -Also on Coreg/Imdur 30/hydralazine for blood pressure -Patient on aspirin and Plavix for carotid artery stenosis -repeat carotid Doppler and if more than 70% then refer for endarterectomy -Urine cultures showed pansensitive E. coli-being treated with Rocephin day 3; can DC doxycycline -Based on morbid obesity BMI > 30 and if on room air baseline CO2 > 45 patient qualifies for AVAPS upon discharge for obesity hypoventilation syndrome Recommendations conveyed to hospitalist covering the patient From pulmonary standpoint patient appears stable and back to baseline and I will follow up in pulmonary clinic. Meanwhile reconsult as needed Attestations Medical Necessity Statement*: Acute on chronic hypercapnic respiratory failure likely secondary to AMS due to urosepsis/TIA. Extubated today and need at least 24-hour monitoring post extubation. Time Spent in Patient Care: Greater than 35 minutes (>than 50% of time spent in counselling and/or direct pt care on unit) . 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 [employer] Patient Type Established Exam Comprehensive Medical Decision Making High Complexity Diagnoses Acute on chronic respiratory failure with hypoxia and hypercapnia J96.21; J96.22 Acute encephalopathy G93.40 Restless leg syndrome G25.81 Recent cerebrovascular accident (CVA) Z86.73 Acute kidney injury superimposed on CKD N17.9; N18.9 Diastolic CHF, acute on chronic I50.33 COPD (chronic obstructive pulmonary disease) J44.9 COPD type: unspecified COPD Lung disease, restrictive J98.4 Obesity hypoventilation syndrome E66.2 UTI (urinary tract infection) N39.0 Urinary tract infection type: site unspecified Hematuria presence: without hematuria Carotid artery stenosis without cerebral infarction I65.23 Laterality: bilateral Time Spent (min) 40
[2020-09-01] MEDS: ropinirole 1 mg Tablet PO (21:44)
[2020-09-01] MEDS: carBAMazepine 200 mg Tablet PO (22:00)
[2020-09-01 22:18] LABS: Glucose Point of Care 144 mg/dL (70-110)
[2020-09-02] VITALS (46 sets, daily range): BP systolic 96–172; BP diastolic 37–90; PULSE 67–99; RESP 16–20; TEMP 36.4–37.2; O2SAT 92–96
[2020-09-02] MEDS: doxycycline 100 MG in sodium chloride 0.9% (plus) 100 ML IV ×2 (00:39→12:05)
--- NOTE | 2020-09-02 03:36 | PC.NURSE ---
ASSUMING CARE Patient resting in bed on 3L nasal cannula. Alert and oriented x 3. Patient appears upset and is tearful. Patient denies pain and is repositioned on side in bed.
--- NOTE | 2020-09-02 03:40 | PC.NURSE ---
BEHAVIOR Patient has been yelling for help while wearing BIPAP. When nurse responds to evaluate patients needs she is tearful but denies any pain and requests to be repositioned.
[2020-09-02 04:51] LABS: Basophils % 0.1 %; Hematocrit 29.7 % (37.0-47.0); Hemoglobin 8.7 g/dL (11.5-15.3); Lymphocytes # 0.3 10^3/uL (0.8-4.8); Mean Corpuscular HGB Conc 29.3 g/dL (30.0-36.0); Mean Corpuscular Hemoglobin 26.7 pg (28.0-34.0); Mean Corpuscular Volume 91.1 fL (81-99); Mean Platelet Volume 8.8 fL (7.4-10.4); Monocytes # 0.2 10^3/uL (0.2-0.9); Monocytes % 2.4 %; Neutrophils % 92.5 %; Nucleated Red Blood Cells % 0 %; Platelet Count 136 10^3/cmm (130-400); Red Blood Count 3.26 10^6/uL (4.1-5.3); Red Cell Distribution Width 17.9 % (12.1-15.1)
[2020-09-02 05:31] LABS: Alanine Aminotransferase 8 U/L (0-33); Albumin Level 3.1 g/dL (3.5-5.2); Alkaline Phosphatase 117 IU/L (35-105); Anion Gap 15.7 (5-19); Aspartate Amino Transferase 11 U/L (0-32); Blood Urea Nitrogen 48 mg/dL (8-23); Calcium 8.8 mg/dL (8.5-10.5); Carbon Dioxide 32 mmol/L (22-29); Chloride 100 mmol/L (98-107); Globulin 2.7 g/dL (1.3-4.6); Glucose 186 mg/dL (65-115); Osmolality Calculated 313 mOsm/kg (285-295); Potassium 4.7 mmol/L (3.5-5.1); Sodium 143 mmol/L (136-145); Total Bilirubin 0.4 mg/dL (0.15-1.2); Total Protein 5.8 g/dL (6.6-8.7)
[2020-09-02 06:51] LABS: ABG PH Result 7.29 (7.35-7.45); Base Excess ABG 7.6 mmol/L (-2.0-2.0); HCO3 ABG 35.8 mmol/L (22-26); PO2 ABG 59.7 mmHg (80.0-100.0)
[2020-09-02 06:52] LABS: Arterial Blood Gas Hematocrit 28.5 % (37-47); Oxygen Device VENT
--- NOTE | 2020-09-02 07:27 | PC.NURSE ---
SHIFT SUMMARY Patient has been tearful and upset this shift. She has not been able to get comfortable and has slept very little. Patient had 1600 mL urine output this shift. Patient pulled out right AC IV, so new started in right wrist. Patient wore BIPAP reluctantly all night, and is currently on 3L nasal cannula.
[2020-09-02 07:46] LABS: Glucose Point of Care 168 mg/dL (70-110)
[2020-09-02] MEDS: ipratropium-albuterol 3 mL Neb INHALATION ×2 (07:57→14:56)
[2020-09-02] MEDS: acetaminophen 325 mg Tablet 650 MG PO (08:10)
[2020-09-02] MEDS: hyDRALAzine 25 mg Tablet PO ×3 (09:07→21:03)
[2020-09-02] MEDS: levothyroxine 100 mcg Tablet PO (09:07)
[2020-09-02] MEDS: aspirin 81 mg EC Tablet PO (09:07)
[2020-09-02] MEDS: clopidogrel 75 mg Tablet PO (09:07)
[2020-09-02] MEDS: isosorbide mononitrate ER 30 mg Tablet PO ×2 (09:07→17:13)
[2020-09-02] MEDS: pantoprazole DR 40 mg Tablet PO ×2 (09:08→17:13)
--- NOTE | 2020-09-02 10:31 | PC.SOCIAL ---
IMM Update Pg. 2 of IMM updated with patient, who verbalized understanding. Copy provided.
[2020-09-02 12:01] LABS: Glucose Point of Care 175 mg/dL (70-110)
[2020-09-02] MEDS: FUROsemide 10 mg/mL SDV 4mL 40 MG IVP (12:05)
[2020-09-02] MEDS: cefTRIAXone 1,000 MG in sodium chloride 0.9% (plus) 50 ML 100 MG IV (13:12)
--- NOTE | 2020-09-02 16:20 | PM.PN ---
Subjective Subjective: Interval history: Bryanna awakens easily. She reports she is not going to use BiPAP, and would rather before using. She is very adamant. However, she also reports if she got worse she might want to be reintubated. Medications: Reviewed: Yes Vitals/I&O/Wt Last Vital Signs Temp 98.9 F 09/02/20 07:00 Pulse 74 09/02/20 14:57 Resp 16 09/02/20 14:56 BP 127/53 09/02/20 11:00 Pulse Ox 95 09/02/20 14:56 09/02/20 09/02/20 09/02/20 06:59 14:59 22:59 Intake Total 100 / 611.320 200 / 200 Output Total 1600 / 2300 Balance -1500 / -1688.680 200 / 200 Physical Exam Narrative: EXAM NARRATIVE: General exam is no apparent distress Cardiovascular regular rate and rhythm without murmur Lungs diminished breath sounds bilaterally but no wheezes Abdomen is soft, obese Extremities no cyanosis clubbing or edema Urinary Catheter Management^: Velasco: Cath Placed During This Visit: yes Reason for Continuing Indwelling Catheter: Accurate Measurement of Urinary Output in Critically Ill Patients Urinary Catheter Date of Insertion: 08/30/20 Urinary Catheter Time of Insertion: 17:50 Data : 09/02/20 04:32 09/02/20 04:32 Micro: Microbiology 08/31/20 03:40 Sputum Culture - Final Sputum - Endotracheal Tube Aspirate A&P Assessment and plan (1) Acute encephalopathy: Secondary to hypercarbia Patient refuses BiPAP Keep oxygen saturations 80-92 present to try to prevent hypercarbia Continue pulmonary toilet Currently on ceftriaxone and doxycycline for concern of UTI/COPD Change Solu-Medrol to prednisone to 40 mg daily Status: Acute (2) Acute on chronic respiratory failure with hypoxia and hypercapnia: See above Status: Acute (3) UTI (urinary tract infection): Appeared to have significant UTI on admission with greater than 100 white cells but significant amount of squamous as well. I do not believe this was cultured. Continue Rocephin empirically while in the hospital Status: Acute Qualifiers: Urinary tract infection type: site unspecified Hematuria presence: without hematuria Qualified Code(s): N39.0 - Urinary tract infection, site not specified (4) COPD (chronic obstructive pulmonary disease): Pulmonary toilet Limit oxygen She is refusing BiPAP On oxygen 3 L chronically. History of COPD and restrictive lung disease. Status: Acute Qualifiers: COPD type: unspecified COPD Qualified Code(s): J44.9 - Chronic obstructive pulmonary disease, unspecified (5) CHF (congestive heart failure): Continue Lasix 40 mg IV daily. Overall appears compensated. Status: Acute Qualifiers: Heart failure type: unspecified Heart failure chronicity: unspecified Qualified Code(s): I50.9 - Heart failure, unspecified (6) Essential (primary) hypertension: Continue current meds Status: Acute (7) Stage 3b chronic kidney disease: Stable Status: Chronic (8) Hypothyroidism, adult: Continue levothyroxine 100 mcg po Daily Status: Acute (9) Uncontrolled type 2 diabetes mellitus with insulin therapy: Sliding scale insulin Status: Acute Additional A&P Information Past history of CVA and TIA. Need outpatient follow-up carotid duplex. Full code Lovenox for DVT prophylaxis Continue physical therapy Transfer out of ICU Attestations Medical Necessity Statement*: Needs continued hospital stay for close monitoring secondary to COPD exacerbation and respiratory failure requiring intubation. 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 Supervisor for [facility] Fwd Diagnoses Acute encephalopathy G93.40 Acute on chronic respiratory failure with hypoxia and hypercapnia J96.21; J96.22 UTI (urinary tract infection) N39.0 Urinary tract infection type: site unspecified Hematuria presence: without hematuria COPD (chronic obstructive pulmonary disease) J44.9 COPD type: unspecified COPD CHF (congestive heart failure) I50.9 Heart failure type: unspecified Heart failure chronicity: unspecified Essential (primary) hypertension I10 Stage 3b chronic kidney disease N18.3 Hypothyroidism, adult E03.9 Uncontrolled type 2 diabetes mellitus with insulin therapy E11.65; Z79.4
[2020-09-02 17:08] LABS: Glucose Point of Care 249 mg/dL (70-110)
[2020-09-02] MEDS: enoxaparin 40 mg/0.4 mL Syringe SUBCUT (17:13)
[2020-09-02] MEDS: HYDROcodone-acetaminophen 5-325 mg Tablet 1 TAB PO (21:03)
[2020-09-02] MEDS: ropinirole 1 mg Tablet PO (21:03)
[2020-09-02] MEDS: carBAMazepine 200 mg Tablet PO (21:03)
[2020-09-03] VITALS (45 sets, daily range): BP systolic 101–173; BP diastolic 34–100; PULSE 66–92; RESP 18; TEMP 36.6; O2SAT 88–98
[2020-09-03] MEDS: doxycycline 100 MG in sodium chloride 0.9% (plus) 100 ML IV ×2 (01:05→11:27)
[2020-09-03 07:22] LABS: Glucose Point of Care 107 mg/dL (70-110)
[2020-09-03] MEDS: isosorbide mononitrate ER 30 mg Tablet PO ×2 (08:35→17:18)
[2020-09-03] MEDS: clopidogrel 75 mg Tablet PO (08:35)
[2020-09-03] MEDS: pantoprazole DR 40 mg Tablet PO ×2 (08:35→17:18)
[2020-09-03] MEDS: predniSONE 20 mg Tablet 40 MG PO (08:35)
[2020-09-03] MEDS: aspirin 81 mg EC Tablet PO (08:35)
[2020-09-03] MEDS: levothyroxine 100 mcg Tablet PO (08:36)
[2020-09-03] MEDS: hyDRALAzine 25 mg Tablet PO ×3 (08:36→20:33)
[2020-09-03] MEDS: ondansetron 2 mg/ML SDV 2 mL 4 MG IVP ×2 (08:53→22:49)
--- NOTE | 2020-09-03 08:57 | PC.NURSE ---
c/o nausea at this time zofran given iv
--- NOTE | 2020-09-03 09:22 | PC.CHAP ---
Pastoral Care Encounter/Spiritual Assessment Type of Contact [] Declined clinical laboratory technician visit [] Patient/Family/Request visit [] Outpatient visit [] Follow-up visit [] Physician referral [] Code/Alert [] Routine visit [] Staff referral [] Actively dying [] Patient sleeping [] Family support [] [] Out of room [] Palliative care [] [] Receiving care in room [] Pre-surgical visit [] Trauma [] Long length of stay [x] ICU visit [] Other: Relational/Emotional Strength [] Patient feels connected with others/family/visitors/staff [] Distress [] Loneliness/isolation [] Abandonment Spirituality of Patient [] Person of Rosina [] Attends Religion of their Rosina [] Believes in Prayer [] Reads Bible or Congregational materials [] There are Spiritual issues to be addressed Campus Monitor Interventions [x] Prayer [] Active listening [] Non-anxious presence [] Spiritual/emotional support [] Crisis/trauma care [] Spiritual counseling [] Bereavement support [] Provided bereavement packet [] Provided Bible/devotional materials [] Provided toy/stuffed animal, coloring book to patient or family member [] Provided Communion [] Anointing/[place] [] Salvation [x] Completed spiritual assessment [] Other: Impact on Illness or Injury [] Angry [] Fearful [] Anxious [] Often cries [] Exhaustion [] Unable to work [] Unable to attend congregational [] Unable to walk/stand [] Unable to read [] Unable to drive [] Unable to eat/drink [] Unable to sleep [] Unable to be with family [] Patient intubated [] Other: Summary Time spent with patient
[2020-09-03] MEDS: FUROsemide 10 mg/mL SDV 4mL 40 MG IVP (11:27)
[2020-09-03] MEDS: cefTRIAXone 1,000 MG in sodium chloride 0.9% (plus) 50 ML 100 MG IV (12:27)
--- NOTE | 2020-09-03 12:48 | PM.PN ---
Subjective Subjective: Interval history: History of TIAs, hypothyroidism CKD stage IIMaritza is a 75-year-old female with history of hypertension, hyperlipidemia, insulin-dependent diabetes,, diastolic heart failure, COPD on 3 L of home oxygen who presented with generalized weakness and difficulty ambulating. The patient was noted to be in severe respiratory acidosis. Was intubated for altered mental status. Pulmonary was consulted. Subsequently patient was extubated. She was placed on BiPAP. She did not tolerate that much but currently on oxygen. Her mental status is good this morning she is afebrile. She is having a productive cough that she describes as brown sputum. Although when reviewed it appeared to be mostly clear Vitals/I&O/Wt Last Vital Signs Temp 98 F 09/03/20 08:00 Pulse 75 09/03/20 12:30 Resp 16 09/02/20 14:56 BP 109/34 09/03/20 12:30 Pulse Ox 92 09/03/20 12:30 09/02/20 09/03/20 09/03/20 22:59 06:59 14:59 Intake Total 500 / 1150 400 / 1550 300 / 300 Output Total 1900 / 2200 650 / 2850 800 / 800 Balance -1400 / -1050 -250 / -1300 -500 / -500 Physical Exam Const: COMMON NORMALS: no acute distress NUTRITIONAL APPEARANCE: obese Resp: COMMON NORMALS: No retractions and No use of accessory muscles Cardio: COMMON NORMALS: regular rate RATE: regular rate GI: COMMON NORMALS: Soft to palpation and non-tender PALPATION: Yes Soft to palpation Extremity: COMMON NORMALS: no joint enlargement Neuro: COMMON NORMALS: moves all extremities and no focal motor deficits Psych: COMMON NORMALS: mental status grossly normal Urinary Catheter Management^: Velasco: Cath Placed During This Visit: yes Reason for Continuing Indwelling Catheter: Accurate Measurement of Urinary Output in Critically Ill Patients Urinary Catheter Date of Insertion: 08/30/20 Urinary Catheter Time of Insertion: 17:50 Data : 09/02/20 04:32 09/02/20 04:32 Micro: Microbiology 08/31/20 03:40 Sputum Culture - Final Sputum - Endotracheal Tube Aspirate A&P Assessment and plan (1) Acute on chronic respiratory failure with hypoxia and hypercapnia: Status: Acute (2) Acute encephalopathy: Status: Acute (3) UTI (urinary tract infection): Status: Acute Qualifiers: Hematuria presence: without hematuria Urinary tract infection type: site unspecified Qualified Code(s): N39.0 - Urinary tract infection, site not specified Additional A&P Information (1) Acute encephalopathy: Secondary to hypercarbia Patient extubated., Did not tolerate BiPAP well. Currently on nasal cannula monitor sats consider restarting BiPAP as needed We will recheck an ABG today (2) Acute on chronic respiratory failure with hypoxia and hypercapnia: Continue oxygen, steroids, antibiotics, breathing treatments (3) UTI (urinary tract infection): on Rocephin (4) COPD (chronic obstructive pulmonary disease): Pulmonary toilet On chronic oxygen 3 L, continue this BiPAP as needed breathing treatment steroids (5) CHF (congestive heart failure): Continue Lasix, carvedilol, plavix (6) Essential (primary) hypertension: (7) Stage 3b chronic kidney disease: Stable (8) Hypothyroidism, adult: Continue levothyroxine 100 mcg po Daily (9) Uncontrolled type 2 diabetes mellitus with insulin therapy: Sliding scale insulin Past history of CVA and TIA. Need outpatient follow-up carotid duplex. 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
[2020-09-03 14:04] LABS: Glucose Point of Care 234 mg/dL (70-110)
[2020-09-03 16:54] LABS: Glucose Point of Care 182 mg/dL (70-110)
[2020-09-03 16:54] LABS: Glucose Point of Care 288 mg/dL (70-110)
[2020-09-03] MEDS: enoxaparin 40 mg/0.4 mL Syringe SUBCUT (17:17)
[2020-09-03] MEDS: HYDROcodone-acetaminophen 5-325 mg Tablet 1 TAB PO (20:33)
[2020-09-03] MEDS: ropinirole 1 mg Tablet PO (20:33)
[2020-09-03] MEDS: carBAMazepine 200 mg Tablet PO (20:33)
[2020-09-03] MEDS: LORazepam 2 mg/mL INJ 1 mL 0.5 MG IVP (22:09)
[2020-09-04] VITALS (29 sets, daily range): BP systolic 97–144; BP diastolic 33–72; PULSE 63–92; RESP 0–28; TEMP 36.2–37.2; O2SAT 89–96
[2020-09-04] MEDS: doxycycline 100 MG in sodium chloride 0.9% (plus) 100 ML IV ×2 (00:15→11:15)
[2020-09-04] MEDS: HYDROcodone-acetaminophen 5-325 mg Tablet 1 TAB PO ×2 (00:27→21:29)
[2020-09-04 03:33] LABS: Basophils % 0.5 %; Eosinophils # 0.3 10^3/uL (0.0-0.8); Eosinophils % 4.8 %; Hematocrit 26.2 % (37.0-47.0); Hemoglobin 7.6 g/dL (11.5-15.3); Lymphocytes % 17.5 %; Mean Corpuscular Hemoglobin 26.6 pg (28.0-34.0); Mean Corpuscular Volume 91.6 fL (81-99); Mean Platelet Volume 9.3 fL (7.4-10.4); Monocytes # 0.6 10^3/uL (0.2-0.9); Monocytes % 9.4 %; Neutrophils # 3.88 10^3/uL (1.8-7.7); Neutrophils % 66.6 %; Nucleated Red Blood Cells % 0 %; Platelet Count 119 10^3/cmm (130-400); Red Blood Count 2.86 10^6/uL (4.1-5.3); White Blood Count 5.8 10^3/uL (4.0-10.0)
[2020-09-04 04:35] LABS: Alanine Aminotransferase 6 U/L (0-33); Alkaline Phosphatase 93 IU/L (35-105); Anion Gap 12.1 (5-19); Aspartate Amino Transferase 10 U/L (0-32); Blood Urea Nitrogen 48 mg/dL (8-23); Calcium 8.3 mg/dL (8.5-10.5); Carbon Dioxide 36 mmol/L (22-29); Chloride 98 mmol/L (98-107); Globulin 2.4 g/dL (1.3-4.6); Glucose 154 mg/dL (65-115); Osmolality Calculated 310 mOsm/kg (285-295); Potassium 4.1 mmol/L (3.5-5.1); Sodium 142 mmol/L (136-145); Total Bilirubin 0.4 mg/dL (0.15-1.2); Total Protein 5.4 g/dL (6.6-8.7)
--- NOTE | 2020-09-04 07:46 | PC.NURSE ---
accucheck done at this time no insulin per sliding scale noted no distress
[2020-09-04] MEDS: predniSONE 20 mg Tablet 40 MG PO (09:02)
[2020-09-04] MEDS: levothyroxine 100 mcg Tablet PO (09:02)
[2020-09-04] MEDS: clopidogrel 75 mg Tablet PO (09:02)
[2020-09-04] MEDS: pantoprazole DR 40 mg Tablet PO ×2 (09:02→17:34)
[2020-09-04] MEDS: aspirin 81 mg EC Tablet PO (09:02)
[2020-09-04] MEDS: isosorbide mononitrate ER 30 mg Tablet PO ×2 (09:03→17:34)
[2020-09-04] MEDS: hyDRALAzine 25 mg Tablet PO ×3 (09:03→21:29)
[2020-09-04 09:08] LABS: Glucose Point of Care 277 mg/dL (70-110)
[2020-09-04 09:08] LABS: Glucose Point of Care 134 mg/dL (70-110)
--- NOTE | 2020-09-04 09:16 | PC.NURSE ---
some confusion this am up in bed for am breakfast at this time no c/o pain
--- NOTE | 2020-09-04 11:13 | PC.SOCIAL ---
IMM Updated Updated pt on Pg 2 IMM. No questions voiced. Provided pt a copy. Signed, dated, & timed copy in chart.
[2020-09-04 11:14] LABS: Glucose Point of Care 216 mg/dL (70-110)
[2020-09-04] MEDS: FUROsemide 10 mg/mL SDV 4mL 40 MG IVP (11:15)
[2020-09-04] MEDS: cefTRIAXone 1,000 MG in sodium chloride 0.9% (plus) 50 ML 100 MG IV (12:34)
--- NOTE | 2020-09-04 14:13 | PM.PN ---
Subjective Subjective: Interval history: has agreed to try BIPAP one more time today. Currently she is doing fine. Saturating well on 3Ls oxygen via NC. Has remained afebrile.Other Vitals and labs have been reviewed. Medications: Reviewed: Yes Vitals/I&O/Wt Last Vital Signs Temp 98 F 09/04/20 06:00 Pulse 67 09/04/20 12:00 Resp 17 09/04/20 12:00 BP 125/60 09/04/20 12:00 Pulse Ox 92 09/04/20 08:01 09/03/20 09/04/20 09/04/20 22:59 06:59 14:59 Intake Total 685.013 / 985.013 100 / 1085.013 300 / 300 Output Total 700 / 1500 550 / 2050 Balance -14.987 / -514.987 -450 / -964.987 300 / 300 Physical Exam Const: COMMON NORMALS: patient oriented x3 HENMT: COMMON NORMALS: normocephalic and atraumatic HEAD & SCALP: normocephalic and atraumatic Resp: COMMON NORMALS: clear to auscultation bilaterally EFFORT & INSPECTION: Yes symmetric chest movement AUSCULTATION: clear to auscultation bilaterally Cardio: COMMON NORMALS: regular rate, regular rhythm, S1 normal heart sound present, S2 normal heart sound present, No gallops present (Cardio), No murmurs present (Cardio), No rub (Cardio) and Peripheral pulses 2+ throughout RATE: regular rate RHYTHM: regular rhythm HEART SOUNDS: S1 normal heart sound present and S2 normal heart sound present PERIPHERAL PULSES: Peripheral pulses 2+ throughout GI: COMMON NORMALS: Normal to inspection, nondistended, normoactive bowel sounds present, Soft to palpation, non-tender, No hepatosplenomegaly present and no masses AUSCULTATION: Yes normoactive bowel sounds PALPATION: Yes Soft to palpation and Yes No hepatosplenomegaly present RECTAL EXAM: deferred Extremity: COMMON NORMALS: no clubbing, cyanosis or edema and no pedal edema Neuro: COMMON NORMALS: patient oriented x3 Urinary Catheter Management^: Velasco: Cath Placed During This Visit: yes Reason for Continuing Indwelling Catheter: Accurate Measurement of Urinary Output in Critically Ill Patients Urinary Catheter Date of Insertion: 08/30/20 Urinary Catheter Time of Insertion: 17:50 Data : 09/04/20 03:05 09/04/20 03:05 A&P Assessment and plan (1) Acute on chronic respiratory failure with hypoxia and hypercapnia: Patient refuses BiPAP Keep oxygen saturations 80-92 present to try to prevent hypercarbia Continue pulmonary toilet Currently on ceftriaxone and doxycycline for concern of UTI/COPD Change Solu-Medrol to prednisone to 40 mg daily Status: Acute (2) Acute encephalopathy: Secondary to hypercarbia Patient refuses BiPAP Keep oxygen saturations 80-92 present to try to prevent hypercarbia Continue pulmonary toilet Currently on ceftriaxone and doxycycline for concern of UTI/COPD Change Solu-Medrol to prednisone to 40 mg daily Status: Acute (3) UTI (urinary tract infection): Appeared to have significant UTI on admission with greater than 100 white cells but significant amount of squamous as well. Follow Culture Continue Rocephin empirically while in the hospital Status: Acute Qualifiers: Urinary tract infection type: site unspecified Hematuria presence: without hematuria Qualified Code(s): N39.0 - Urinary tract infection, site not specified Additional A&P Information (1) Acute encephalopathy: Secondary to hypercarbia Patient extubated.Did not tolerate BiPAP well. Currently on nasal cannula monitor sats consider restarting BiPAP as needed We will recheck an ABG today (2) Acute on chronic respiratory failure with hypoxia and hypercapnia: Continue oxygen, steroids, antibiotics, breathing treatments (3) UTI (urinary tract infection): on Rocephin (4) COPD (chronic obstructive pulmonary disease): Pulmonary toilet On chronic oxygen 3 L, continue this BiPAP as needed breathing treatment steroids (5) CHF (congestive heart failure): Continue Lasix, carvedilol, plavix (6) Essential (primary) hypertension: (7) Stage 3b chronic kidney disease: Stable (8) Hypothyroidism, adult: Continue levothyroxine 100 mcg po Daily (9) Uncontrolled type 2 diabetes mellitus with insulin therapy: Sliding scale insulin Past history of CVA and TIA. Need outpatient follow-up carotid duplex. Attestations Medical Necessity Statement*: Patient needs to be in hospital for the management of R/F 2/2 COPD Exa,UTI, and the need for close monitoring. 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
[2020-09-04 17:26] LABS: Glucose Point of Care 333 mg/dL (70-110)
[2020-09-04] MEDS: enoxaparin 40 mg/0.4 mL Syringe SUBCUT (17:34)
[2020-09-04] MEDS: ropinirole 1 mg Tablet PO (21:30)
[2020-09-04] MEDS: carBAMazepine 200 mg Tablet PO (21:31)
[2020-09-04 21:37] LABS: Glucose Point of Care 369 mg/dL (70-110)
--- NOTE | 2020-09-04 23:04 | PC.NURSE ---
Pt was asked to wear the bi-pap while she is sleeping. Pt refused. Pt stated she is claustrophobic and comes un-glued when she has to wear it. Pt was educated on the importance of wearing the bi-pap but continued to refuse to wear it. Pt is currently sating 94% on 3LPM/NC. Will continue to monitor pt.
[2020-09-05] VITALS (24 sets, daily range): BP systolic 93–141; BP diastolic 33–80; PULSE 60–99; RESP 9–18; TEMP 36.6–37; O2SAT 84–100
[2020-09-05] MEDS: doxycycline 100 MG in sodium chloride 0.9% (plus) 100 ML IV ×2 (01:33→12:08)
[2020-09-05] MEDS: acetaminophen 325 mg Tablet 650 MG PO (02:55)
[2020-09-05] MEDS: nystatin powder 15 gm Btl 1 APPLIC TOPICAL ×3 (04:25→18:54)
[2020-09-05 05:06] LABS: Basophils % 0.3 %; Eosinophils # 0.6 10^3/uL (0.0-0.8); Eosinophils % 8.6 %; Hematocrit 28.6 % (37.0-47.0); Hemoglobin 8.4 g/dL (11.5-15.3); Lymphocytes # 1.1 10^3/uL (0.8-4.8); Lymphocytes % 16.1 %; Mean Corpuscular HGB Conc 29.4 g/dL (30.0-36.0); Mean Corpuscular Hemoglobin 26.9 pg (28.0-34.0); Mean Corpuscular Volume 91.7 fL (81-99); Mean Platelet Volume 9.5 fL (7.4-10.4); Monocytes # 0.7 10^3/uL (0.2-0.9); Monocytes % 10.1 %; Neutrophils # 4.41 10^3/uL (1.8-7.7); Neutrophils % 63.6 %; Nucleated Red Blood Cells % 0 %; Platelet Count 119 10^3/cmm (130-400); Red Blood Count 3.12 10^6/uL (4.1-5.3); White Blood Count 6.9 10^3/uL (4.0-10.0)
[2020-09-05 05:41] LABS: Alanine Aminotransferase 7 U/L (0-33); Alkaline Phosphatase 88 IU/L (35-105); Anion Gap 11.1 (5-19); Aspartate Amino Transferase 8 U/L (0-32); Blood Urea Nitrogen 52 mg/dL (8-23); Calcium 8.3 mg/dL (8.5-10.5); Carbon Dioxide 36 mmol/L (22-29); Chloride 101 mmol/L (98-107); Globulin 2.4 g/dL (1.3-4.6); Glucose 108 mg/dL (65-115); Magnesium 1.8 mg/dL (1.7-2.3); Osmolality Calculated 313 mOsm/kg (285-295); Potassium 4.1 mmol/L (3.5-5.1); Sodium 144 mmol/L (136-145); Total Bilirubin 0.4 mg/dL (0.15-1.2); Total Protein 5.4 g/dL (6.6-8.7)
[2020-09-05 07:48] LABS: Glucose Point of Care 108 mg/dL (70-110)
[2020-09-05] MEDS: predniSONE 20 mg Tablet 40 MG PO (08:58)
[2020-09-05] MEDS: pantoprazole DR 40 mg Tablet PO ×2 (08:58→17:40)
[2020-09-05] MEDS: levothyroxine 100 mcg Tablet PO (08:58)
[2020-09-05] MEDS: aspirin 81 mg EC Tablet PO (08:58)
[2020-09-05] MEDS: clopidogrel 75 mg Tablet PO (08:59)
[2020-09-05] MEDS: isosorbide mononitrate ER 30 mg Tablet PO ×2 (08:59→17:40)
[2020-09-05] MEDS: hyDRALAzine 25 mg Tablet PO ×3 (08:59→20:19)
--- NOTE | 2020-09-05 10:52 | PM.PN ---
Subjective Subjective: Interval history: No acute events overnight.Patient again refused BIPAP at night. So far she is saturating well on 3Ls oxygen via nc. Her vitals have remained stable labs have been reviewed. S/P 1 U PRBC Transfusion yesterday. Medications: Reviewed: Yes Vitals/I&O/Wt Last Vital Signs Temp 98.6 F 09/05/20 06:00 Pulse 65 09/05/20 10:00 Resp 13 09/05/20 10:00 BP 116/44 09/05/20 10:00 Pulse Ox 95 09/05/20 10:00 09/04/20 09/05/20 09/05/20 22:59 06:59 14:59 Intake Total 450 / 750 480 / 1230 480 / 480 Output Total 1500 / 1500 500 / 2000 Balance -1050 / -750 -20 / -770 480 / 480 Physical Exam Const: COMMON NORMALS: patient oriented x3 HENMT: COMMON NORMALS: normocephalic and atraumatic HEAD & SCALP: normocephalic and atraumatic Chest: CHEST: Yes Symmetrical chest wall rise Resp: COMMON NORMALS: normal respiratory effort and clear to auscultation bilaterally EFFORT & INSPECTION: Yes symmetric chest movement AUSCULTATION: clear to auscultation bilaterally OTHER: Diminished air entry B/L , no wheezing, no Ronchii, no Crackles. Cardio: COMMON NORMALS: regular rate, regular rhythm, S1 normal heart sound present, S2 normal heart sound present, No gallops present (Cardio), No murmurs present (Cardio), No rub (Cardio) and Peripheral pulses 2+ throughout RATE: regular rate RHYTHM: regular rhythm HEART SOUNDS: S1 normal heart sound present and S2 normal heart sound present PERIPHERAL PULSES: Peripheral pulses 2+ throughout GI: COMMON NORMALS: Normal to inspection, nondistended, normoactive bowel sounds present, Soft to palpation, non-tender, No hepatosplenomegaly present and no masses AUSCULTATION: Yes normoactive bowel sounds PALPATION: Yes Soft to palpation and Yes No hepatosplenomegaly present RECTAL EXAM: deferred OTHER: Obese Abdomen. Extremity: COMMON NORMALS: no clubbing, cyanosis or edema and no pedal edema Neuro: COMMON NORMALS: patient oriented x3 Urinary Catheter Management^: Velasco: Cath Placed During This Visit: yes Reason for Continuing Indwelling Catheter: Accurate Measurement of Urinary Output in Critically Ill Patients Urinary Catheter Date of Insertion: 08/30/20 Urinary Catheter Time of Insertion: 17:50 Data : 09/05/20 03:58 09/05/20 03:58 A&P Assessment and plan (1) Acute encephalopathy: Ac Encephalopathy 2/2 acute on chronic hypercapnic hypoxic respiratory failure/UTI: Resolved C.T Head without contrast : No evidence of intracranial hemorrhage or mass effect. 2. Mild small vessel changes. Mild parenchymal volume loss. 3. No acute intracranial findings. Am Xray chest : lungs are clear and fully expanded, No pleural effusions or pneumothorax. ABG:Ph: 7.2, PC02: 92, PO2: 82 On FIO2 : 28 % ( 08/30) ABG :Ph : 7.39, PCO2: 59, PO2: 76 , FIO2:35 % PF : 76/0.35 () ABG : Ph : 7.39, PCO2: 59, PO2: 74, FIO2: 35 %, P/F 74/0.35 (09/01) EKG: SINUS BRADYCARDIA WITH FIRST DEGREE AV BLOCK Urine Culture : Pending Initiaaly on BIPAP Support. ( BiPAP setting: Rate:14, FiO2 : 28%, I/E : 16/8 , exhaled tidal volume: 565 ML.).Failed BIPAP Support. Continue: Cef and Doxycycline (08/31 ) Currently on prednisone 40 mg oral daily Duo Nebs q6h Pulmonary Rec appreciated :Based on morbid obesity BMI > 30 and baseline CO2 > 45 patient qualifies for AVAPS upon discharge for obesity hypoventilation syndrome. Status: Acute (2) Acute on chronic respiratory failure with hypoxia and hypercapnia: See above Status: Acute (3) UTI (urinary tract infection): Appeared to have significant UTI on admission with greater than 100 white cells but significant amount of squamous as well.Culture awaited Continue Rocephin empirically while in the hospital Status: Acute Qualifiers: Urinary tract infection type: site unspecified Hematuria presence: without hematuria Qualified Code(s): N39.0 - Urinary tract infection, site not specified Additional A&P Information COPD (chronic obstructive pulmonary disease): Pulmonary toilet On chronic oxygen 3 L, continue this BiPAP as needed breathing treatment steroids CHF (congestive heart failure): Continue Lasix, carvedilol, plavix Essential (primary) hypertension: Stage 3b chronic kidney disease: Stable Hypothyroidism, adult: Continue levothyroxine 100 mcg po Daily Uncontrolled type 2 diabetes mellitus with insulin therapy: Sliding scale insulin Normocytic Anemia : S/P 1U PRBC Transfusion h/h post transfusion : 8.12/29. Monitor CBC Past history of CVA and TIA. Need outpatient follow-up carotid duplex. (11) Disposition : Likely Discharge in the morning.Per Dr. 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 Attestations Medical Necessity Statement*: Patient needs to be in hospital for the management of Hypercapnic R/F and need for safe discharge. Coding Level of Care Code Acute Metalizing Supervisor for [facility] Fwd Diagnoses Acute encephalopathy G93.40 Acute on chronic respiratory failure with hypoxia and hypercapnia J96.21; J96.22 UTI (urinary tract infection) N39.0 Urinary tract infection type: site unspecified Hematuria presence: without hematuria
[2020-09-05] MEDS: FUROsemide 10 mg/mL SDV 4mL 40 MG IVP (10:57)
[2020-09-05 11:18] LABS: Glucose Point of Care 179 mg/dL (70-110)
[2020-09-05] MEDS: cefTRIAXone 1,000 MG in sodium chloride 0.9% (plus) 50 ML 100 MG IV (13:25)
[2020-09-05] MEDS: HYDROcodone-acetaminophen 5-325 mg Tablet 1 TAB PO ×2 (13:53→21:32)
--- NOTE | 2020-09-05 14:07 | PC.NURSE ---
Pt c/o pain to her legs stating It's my restless legs. Pt assisted back to bed per her request. Pt given pain medication per request at this time. Will continue to monitor for effectiveness.
--- NOTE | 2020-09-05 14:50 | PC.NURSE ---
Pt asleep resting quietly in bed with eyes closed at this time, respirations even and unlabored. Pt does not exhibit objective s/s of pain at this time.
[2020-09-05 17:34] LABS: Glucose Point of Care 320 mg/dL (70-110)
[2020-09-05] MEDS: enoxaparin 40 mg/0.4 mL Syringe SUBCUT (17:40)
[2020-09-05] MEDS: ropinirole 1 mg Tablet PO (20:19)
[2020-09-05 20:31] LABS: Glucose Point of Care 448 mg/dL (70-110)
--- NOTE | 2020-09-05 20:51 | PC.NURSE ---
pt was transferred to CSU by ke Woodard RN
--- NOTE | 2020-09-05 21:22 | PC.NURSE ---
Dr. Moran ordered to not give sliding scale insulin due to patient receiving 25 units Novolog.
[2020-09-05] MEDS: carBAMazepine 200 mg Tablet PO (21:27)
[2020-09-06] VITALS (9 sets, daily range): BP systolic 110–133; BP diastolic 39–52; PULSE 64–79; RESP 16–20; TEMP 36.5–36.8; O2SAT 90–96
[2020-09-06] MEDS: doxycycline 100 MG in sodium chloride 0.9% (plus) 100 ML IV ×2 (00:14→10:54)
[2020-09-06 01:07] LABS: Glucose Point of Care 262 mg/dL (70-110)
--- NOTE | 2020-09-06 02:05 | PC.NURSE ---
At 2100, patient arrived to her room on CSU from the ICU after report was received via phone. Patient is alert and oriented. Patient does not have any complaints and is not in any distress. Patient was oriented to her room and has call light within reach.
[2020-09-06 04:06] LABS: Basophils % 0.2 %; Eosinophils # 0.3 10^3/uL (0.0-0.8); Eosinophils % 5.4 %; Hematocrit 28.7 % (37.0-47.0); Hemoglobin 8.6 g/dL (11.5-15.3); Lymphocytes # 0.7 10^3/uL (0.8-4.8); Lymphocytes % 11.9 %; Mean Platelet Volume 9.3 fL (7.4-10.4); Monocytes # 0.5 10^3/uL (0.2-0.9); Monocytes % 8.2 %; Neutrophils # 4.55 10^3/uL (1.8-7.7); Neutrophils % 72.9 %; Nucleated Red Blood Cells % 0 %; Platelet Count 124 10^3/cmm (130-400); Red Blood Count 3.19 10^6/uL (4.1-5.3); Red Cell Distribution Width 17.3 % (12.1-15.1); White Blood Count 6.2 10^3/uL (4.0-10.0)
[2020-09-06 04:36] LABS: Alanine Aminotransferase 6 U/L (0-33); Albumin Level 3.2 g/dL (3.5-5.2); Alkaline Phosphatase 87 IU/L (35-105); Anion Gap 11.3 (5-19); Aspartate Amino Transferase 7 U/L (0-32); Blood Urea Nitrogen 52 mg/dL (8-23); Calcium 8.2 mg/dL (8.5-10.5); Carbon Dioxide 36 mmol/L (22-29); Chloride 96 mmol/L (98-107); Globulin 2.2 g/dL (1.3-4.6); Glucose 193 mg/dL (65-115); Magnesium 1.7 mg/dL (1.7-2.3); Osmolality Calculated 307 mOsm/kg (285-295); Potassium 4.3 mmol/L (3.5-5.1); Sodium 139 mmol/L (136-145); Total Bilirubin 0.3 mg/dL (0.15-1.2); Total Protein 5.4 g/dL (6.6-8.7)
[2020-09-06 06:43] LABS: Glucose Point of Care 138 mg/dL (70-110)
[2020-09-06] MEDS: nystatin powder 15 gm Btl 1 APPLIC TOPICAL (09:04)
[2020-09-06] MEDS: hyDRALAzine 25 mg Tablet PO ×2 (09:05→14:03)
[2020-09-06] MEDS: predniSONE 20 mg Tablet 40 MG PO (09:05)
[2020-09-06] MEDS: aspirin 81 mg EC Tablet PO (09:05)
[2020-09-06] MEDS: levothyroxine 100 mcg Tablet PO (09:05)
[2020-09-06] MEDS: pantoprazole DR 40 mg Tablet PO ×2 (09:05→17:19)
[2020-09-06] MEDS: clopidogrel 75 mg Tablet PO (09:05)
[2020-09-06] MEDS: isosorbide mononitrate ER 30 mg Tablet PO ×2 (09:05→17:19)
[2020-09-06 10:44] LABS: Glucose Point of Care 244 mg/dL (70-110)
[2020-09-06] MEDS: FUROsemide 10 mg/mL SDV 4mL 40 MG IVP (10:54)
--- NOTE | 2020-09-06 11:01 | P.PN_ITS ---
Subjective Subjective: Interval history: Chart reviewed, on 2 L nasal cannula, normotensive and afebrile, had 1400 mL urine output overnight for total negative fluid balance of 6.4 L. Improved creatinine, stable hemoglobin at 8.6, urine culture prelim negative. Working on setting up non-invasive vent for discharge. Patient states that she is unable to tolerate mask due to significant claustr ophobia, becomes quite tearful when discussing this. Is okay using nasal cannula. Is really quite eager to be discharged home today. Will discontinue Velasco catheter. Medications: Reviewed: Yes Medication Review Details: Active Medications Generic Name Dose Route Start Last Admin Trade Name Freq PRN Reason Stop Dose Admin Acetaminophen 650 mg 08/30/20 17:21 09/05/20 02:55 Acetaminophen 32 5 Mg Tablet PO 650 mg Q6H PRN Administration Mild/Mod Pain Or Temp >/= 101 Hydrocodone Bitart /Acetaminophen 1 tab 08/30/20 17:21 09/05/20 21:32 Hydrocodone-Acet aminophen 5-325 Mg Tablet PO 1 tab Q4H PRN Administration MODERATE TO SEVER E PAIN Albuterol/Ipratrop ium 3 ml 08/30/20 18:01 09/02/20 14:56 Ipratropium-Albu terol 3 Ml Neb INHALATION 3 ml Q6H PRN Administration SHORTNESS OF BESSY TH Aspirin 81 mg 08/31/20 09:00 09/06/20 09:05 Aspirin 81 Mg Ec Tablet PO 81 mg DAILY BELTRAN Administration Bisacodyl 10 mg 08/30/20 17:21 Bisacodyl 5 Mg T ablet PO DAILY PRN CONSTIPATION Capsaicin 1 applic 08/30/20 18:02 Capsaicin 0.025% Cream 60 Gm TOPICAL QID PRN Pain Carbamazepine 200 mg 08/30/20 21:00 09/05/20 21:27 Carbamazepine 20 0 Mg Tablet PO 200 mg BEDTIME BELTRAN Administration Clopidogrel Bisulf ate 75 mg 09/01/20 09:00 09/06/20 09:05 Clopidogrel 75 M g Tablet PO 75 mg DAILY BELTRAN Administration Dextrose 25 ml 08/30/20 18:42 Dextrose 50% Syr sabrina 50 Ml IVP ONCE PRN hypoglycemia prot ocol Protocol Dextrose 50 ml 08/30/20 18:42 Dextrose 50% Syr sabrina 50 Ml IVP PRN PRN hypoglycemia prot ocol Protocol Enoxaparin Sodium 40 mg 08/30/20 17:30 09/05/20 17:40 Enoxaparin 40 Mg /0.4 Ml Syringe SUBCUT 40 mg Q24H BELTRAN Administration Furosemide 40 mg 08/31/20 11:15 09/05/20 10:57 Furosemide 10 Mg /Ml Sdv 4ml IVP 40 mg Q24H BELTRAN Administration Glucagon 1 mg 08/30/20 18:42 Glucagon 1 Mg/Ml Inj 1 Ml IM ONCE PRN Adult Acute Hypog lycemia Prot. Protocol Hydralazine HCl 25 mg 08/31/20 21:00 09/06/20 09:05 Hydralazine 25 M g Tablet PO 25 mg TID BELTRAN Administration Ceftriaxone Sodium 1,000 mg/ 50 mls @ 100 mls/ hr 08/31/20 13:00 09/05/20 21:07 Sodium Chloride IV Infused Q24H BELTRAN Infusion Protocol Dextrose 500 mls @ 100 mls /hr 08/30/20 18:42 D5w IV ONCE PRN Adult Acute Hypog lycemia Prot Protocol Doxycycline Hyclat e 100 mg/ 100 mls @ 100 mls /hr 08/31/20 12:00 09/06/20 01:09 Sodium Chloride IV 0 mls/hr Q12H BELTRAN Infusion Protocol Insulin Aspart 0 unit 08/30/20 21:00 09/06/20 07:19 Insulin Aspart 1 00 Unit/1 Ml SUBCUT Not Given WM&BEDTIME BELTRAN Protocol Isosorbide Mononit rate 30 mg 08/30/20 18:01 09/06/20 09:05 Isosorbide [place] itrate Er 30 Mg Ta blet PO 30 mg BID BELTRAN Administration Levothyroxine Sodi um 100 mcg 08/31/20 09:00 09/06/20 09:05 Levothyroxine 10 0 Mcg Tablet PO 100 mcg DAILY BELTRAN Administration Naloxone HCl 0.1 mg 08/30/20 17:21 Naloxone 0.4 Mg/ Ml Sdv IVP Q2M PRN OPIATERV Nystatin 1 applic 09/05/20 02:00 09/06/20 09:04 Nystatin Powder 15 Gm Btl TOPICAL 1 applic BID BELTRAN Administration Ondansetron HCl 4 mg 08/30/20 17:21 09/03/20 22:49 Ondansetron 2 Mg /Ml Sdv 2 Ml IVP 4 mg Q8H PRN Administration vomiting, or N/V if npo Pantoprazole Sodiu m 40 mg 08/30/20 18:45 09/06/20 09:[address] 40 Mg Tablet PO 40 mg BID BELTRAN Administration Prednisone 40 mg 09/03/20 09:00 09/06/20 09:05 Prednisone 20 Mg Tablet PO 40 mg DAILY BELTRAN Administration Ropinirole HCl 1 mg 08/30/20 21:00 09/05/20 20:19 Ropinirole 1 Mg Tablet PO 1 mg BEDTIME BELTRAN Administration azithromycin Allergy (Mild, Verified 08/04/20 09:14) ALGY-RASH iodine Allergy (Verified 08/04/20 09:14) unknown Vitals/I&O/Wt Last Vital Signs Temp 98.0 F 09/06/20 08:19 Pulse 67 09/06/20 09:57 Resp 17 09/06/20 09:57 BP 117/39 09/06/20 07:22 Pulse Ox 96 09/06/20 09:57 09/05/20 09/06/20 09/06/20 22:59 06:59 14:59 Intake Total 630 / 1590 241.667 / 1831.667 120 / 120 Output Total 1600 / 1600 1400 / 3000 Balance -970 / -10 -1158.333 / -1168.333 120 / 120 Physical Exam Const: COMMON NORMALS: no acute distress, patient oriented x3 and alert GENERAL APPEARANCE: cooperative and anxious NUTRITIONAL APPEARANCE: obese morbidly obese ORIENTATION/CONSCIOUSNESS: Yes awake HENMT: COMMON NORMALS: normocephalic, atraumatic, hearing grossly normal bilaterally and moist oral mucous membranes HEAD & SCALP: normocephalic and atraumatic Eye: COMMON NORMALS: Equal, round and reactive pupils present, EOMs intact bi laterally and conjunctivae normal CONJUNCTIVA: Yes conjunctivae normal PUPIL: Yes Equal, round and reactive pupils present Neck/C-Spine: COMMON NORMALS: full ROM GENERAL: Yes normal visual insp ection and Yes trachea midline Resp: COMMON NORMALS: normal respiratory effort, No retractions and No use of accessory muscles EFFORT & INSPECTION: Yes able to speak in complete sentences, Yes symmetric chest movement and No tachypneic OTHER: -diminished breath sounds bilaterally, equal air entry -on 2-3 L NC Cardio: COMMON NORMALS: regular rate, regular rhythm, S1 normal heart sound present, S2 normal heart sound present and No murmurs present (Cardio) RATE: regular rate RHYTHM: regular rhythm HEART SOUNDS: S1 normal heart sound present and S2 normal heart sound present GI: COMMON NORMALS: Normal to inspection, nondistended, normoactive bowel sounds present, Soft to palpation and non-tender INSPECTION: Yes central obesity PALPATION: Yes Soft to palpation : BLADDER/KIDNEY EXAM: Yes catheter in place Catheter type (Female): urethral Extremity: COMMON NORMALS: normal to inspection, full ROM and no clubbing, cyanosis or edema; negative for no pedal edema Neuro: COMMON NORMALS: patient oriented x3, moves all extremities, no focal motor deficits, no sensory deficits noted and gait normal SENSORIUM/ORIENTATION: Yes alert Psych: COMMON NORMALS: mental status grossly normal, Normal thought process present, cooperative, normal affect and speech normal SPEECH: Yes normal speech MOOD & AFFECT: Yes Other affect and mood findings present (low threshold for anxiety) THOUGHT PROCESS: Normal thought process present Skin: COMMON NORMALS: no rashes or lesions noted, no jaundice, no petechiae and no mottling GENERAL SKIN EXAM: no rashes or lesions noted Urinary Catheter Management^: Velasco: Cath Placed During This Visit: yes Reason for Continuing Indwelling Catheter: Accurate Measurement of Urinary Output in Critically Ill Patients Urinary Catheter Date of Insertion: 08/30/20 Urinary Catheter Time of Insertion: 17:50 Data : 09/06/20 03:15 09/06/20 03:15 Micro: Microbiology 09/05/20 05:06 Urine Culture - Preliminary Urine Catheterized A&P Assessment and plan (1) Acute on chronic respiratory failure with hypoxia and hypercapnia: -Initially required mechanical ventilation, extubated on 09/01 -Decreasing oxygen requirement, baseline of 3 L nasal cannula -Noted to have chronic hypoxia and hypercapnia with PCO2 greater than 60 on multiple ABGs -Pulmonary evaluation appreciated; requires non-invasive ventilator due to noted chronic hypercapnia and obesity hypoventilation syndrome; failed BiPAP trial -On steroid taper -Discontinue doxycycline, on day 6/7 of ceftriaxone -No leukocytosis, afebrile, normotensive; continue to monitor vital signs -Continue to monitor respiratory status Status: Acute (2) Obesity hypoventilation syndrome: -requires AVAPS as noted above Status: Chronic (3) UTI (urinary tract infection): -UA with noted trace LE/pyuria/bacteria -urine cx: prelim negative -on Ceftriaxone (day 6) Status: Acute Qualifiers: Hematuria presence: without hematuria Urinary tract infection type: site unspecified Qualified Code(s): N39.0 - Urinary tract infection, site not specified (4) Carotid artery stenosis without cerebral infarction: -has known carotid artery stenosis -will need f/u carotid US as outpatient to determine if need for intervention -on Plavix, ASA Status: Chronic Qualifiers: Laterality: bilateral Qualified Code(s): I65.23 - Occlusion and stenosis of bilateral carotid arteries (5) Anemia: -s/p 1 unit of PRBCs on 1/2 -stable H/H -baseline Hg around 9 Status: Chronic Qualifiers: Anemia type: iron deficiency Iron deficiency anemia type: chronic blood loss Qualified Code(s): D50.0 - Iron deficiency anemia secondary to blood loss (chronic) (6) CVA (cerebral vascular accident): -prior hx of CVA, TIA -on ASA, plavix -outpatient carotid US Status: Chronic Qualifiers: CVA mechanism: unspecified Qualified Code(s): I63.9 - Cerebral infarction, unspecified (7) Acute kidney injury superimposed on CKD: -baseline Cr is around 1.5 Status: Acute (8) Diastolic CHF, acute on chronic: -has been on lasix IV -better compensated so switch to PO; has diuresed about 6.4 L -Echo (02/2020): EF=35-40%, global LV hypokinesis, G1DD, mild pulmonary HTN, mild TR Status: Acute (9) Essential (primary) hypertension: -normotensive -continue antihypertensives Status: Chronic (10) COPD (chronic obstructive pulmonary disease): -improved -on oral steroid taper -off doxycycline, on ceftriaxone -on 3 L NC at baseline Status: Chronic Qualifiers: COPD type: unspecified COPD Qualified Code(s): J44.9 - Chronic obstructive pulmonary disease, unspecified (11) Hypothyroidism, adult: -on levothyroxine -TSH-7.8 Status: Chronic (12) Dyslipidemia: -resume statin Status: Chronic Additional A&P Information -Morbid obesity: BMI-41 kg/m2 -IDDM type II; on insulin, A1c at goal (6.2), Accuchecks, hypoglycemia precautions -consistent carb diet as tolerated -GI ppx with PPI -DVT ppx with lovenox -Dispo: home -Code stastus: FULL code Attestations Medical Necessity Statement*: Discharge home today. Time Spent in Patient Care: 16 - 35 minutes (>than 50% of time spent in counselling and/or direct pt care on unit) . Coding Level of Care Code Acute Development Technician for [facility] Fwd Exam Comprehensive Diagnoses Acute on chronic respiratory failure with hypoxia and hypercapnia J96.21; J96.22 Obesity hypoventilation syndrome E66.2 UTI (urinary tract infection) N39.0 Hematuria presence: without hematuria Urinary tract infection type: site unspecified Carotid artery stenosis without cerebral infarction I65.23 Laterality: bilateral Anemia D50.0 Anemia type: iron deficiency Iron deficiency anemia type: chronic blood loss CVA (cerebral vascular accident) I63.9 CVA mechanism: unspecified Acute kidney injury superimposed on CKD N17.9; N18.9 Diastolic CHF, acute on chronic I50.33 Essential (primary) hypertension I10 COPD (chronic obstructive pulmonary disease) J44.9 COPD type: unspecified COPD Hypothyroidism, adult E03.9 Dyslipidemia E78.5
[2020-09-06] MEDS: cefTRIAXone 1,000 MG in sodium chloride 0.9% (plus) 50 ML 100 MG IV (13:57)
[2020-09-06] MEDS: ALPRAZolam 0.25 mg Tablet PO (13:57)
--- NOTE | 2020-09-06 14:05 | PM.DCS ---
Discharge Providers Date of Admission: 08/30/20 16:48 Date of Discharge: September 06, 2020 Attending Provider at Admission: Abhilash Phelps MD Attending Provider at Discharge: Bryanna Linares MD Consults: Pulmonary, Datar Primary Care Provider: Nayely Layton MD Diagnoses at Discharge Discharge Diagnosis (1) Acute on chronic respiratory failure with hypoxia and hypercapnia: Status: Acute Permanent problem details: -Initially required mechanical ventilation, extubated on 09/01 -Decreasing oxygen requirement, baseline of 3 L nasal cannula -Noted to have chronic hypoxia and hypercapnia with PCO2 greater than 60 on multiple ABGs -Pulmonary evaluation appreciated; requires non-invasive ventilator due to noted chronic hypercapnia and obesity hypoventilation syndrome; failed BiPAP trial -On steroid taper -Discontinue doxycycline, on day 6 of ceftriaxone -No leukocytosis, afebrile, normotensive; continue to monitor vital signs -Continue to monitor respiratory status (2) Obesity hypoventilation syndrome: Status: Chronic Permanent problem details: -requires AVAPS as noted above (3) UTI (urinary tract infection): Status: Acute Permanent problem details: -UA with noted trace LE/pyuria/bacteria -urine cx: prelim negative -on Ceftriaxone Qualifiers: Urinary tract infection type: site unspecified Hematuria presence: without hematuria Qualified Code(s): N39.0 - Urinary tract infection, site not specified (4) Carotid artery stenosis without cerebral infarction: Status: Chronic Permanent problem details: -has known carotid artery stenosis -will need f/u carotid US as outpatient to determine if need for intervention -on Plavix, ASA Qualifiers: Laterality: bilateral Qualified Code(s): I65.23 - Occlusion and stenosis of bilateral carotid arteries (5) Anemia: Status: Chronic Permanent problem details: -s/p 1 unit of PRBCs on 2 -stable H/H -baseline Hg around 9 Qualifiers: Anemia type: iron deficiency Iron deficiency anemia type: chronic blood loss Qualified Code(s): D50.0 - Iron deficiency anemia secondary to blood loss (chronic) (6) CVA (cerebral vascular accident): Status: Chronic Permanent problem details: -prior hx of CVA, TIA -on ASA, plavix -outpatient carotid US Qualifiers: CVA mechanism: unspecified Qualified Code(s): I63.9 - Cerebral infarction, unspecified (7) Acute kidney injury superimposed on CKD: Status: Resolved Permanent problem details: -baseline Cr is around 1.5 (8) Diastolic CHF, acute on chronic: Status: Acute Permanent problem details: -has been on lasix IV -better compensated so switch to PO; has diuresed about 6.4 L -Echo (02/2020): EF=35-40%, global LV hypokinesis, G1DD, mild pulmonary HTN, mild TR (9) Essential (primary) hypertension: Status: Chronic Permanent problem details: -normotensive -continue antihypertensives (10) COPD (chronic obstructive pulmonary disease): Status: Chronic Permanent problem details: -improved -on oral steroid taper -off doxycycline, on ceftriaxone -on 3 L NC at baseline Qualifiers: COPD type: unspecified COPD Qualified Code(s): J44.9 - Chronic obstructive pulmonary disease, unspecified (11) Hypothyroidism, adult: Status: Chronic Permanent problem details: -on levothyroxine -TSH-7.8 (12) Dyslipidemia: Status: Chronic Permanent problem details: -resume statin Other Information Additional DC diagnoses/information: -Morbid obesity: BMI-41 kg/m2 -IDDM type II; on insulin, A1c at goal (6.2), Accuchecks, hypoglycemia precautions Reason for Visit Reason for Visit: STROKE Hospital Course Hospital Course Patient has had a somewhat prolonged hospital course, initially admitted on 08/30 after having presented with complaints of generalized weakness, difficulty ambulating and speech deficit. There was some concern initially for possible stroke but on further work-up and with deterioration in her respiratory status with noted worsening hypercapnia and hypoxia she required intubation so encephalopathy likely secondary to this. She was covered with empiric IV antibiotics and IV steroids and pulmonology was consulted. She was also found to have urinalysis indicative of infection which was covered appropriately with aforementioned antibiotic regimen. With time her respiratory status improved and she was successfully weaned off the ventilator on 09/01, antibiotic regimen de-escalated and steroids switched to oral. With continued stability she was transitioned to CSU and her oxygen requirement has been titrated down to her baseline of 3 L nasal cannula. Due to noted chronic hypercapnic respiratory failure as well as obesity hypoventilation syndrome per pulmonology she would benefit from use of AVAPS. She has previously failed BiPAP therapy. However patient reports severe claustrophobia and inability to tolerate full facemask may be unable to tolerate non- invasive ventilator. Trilogy would be especially helpful due to already noted hypercapnia, and would significantly decrease risk for further hospitalizations. She did have mildly decompensated CHF but has improved with IV diuresis. She has not been transitioned to oral Lasix dose of 40 mg/day. Due to need for mechanical ventilation, she had a Velasco catheter in place which has been discontinued prior to discharge. COVID-19 testing was negative. She did develop acutely worsening anemia and required transfusion of 1 unit of PRBCs with subsequent improvement and stability in her hemoglobin and no need for transfusion of additional blood products. Renal function is currently at her baseline. Echo was done with noted ejection fraction of 35 to 40% and grade 1 diastolic dysfunction. She already follows up with cardiology as an outpatient. She will require appropriate primary care provider follow-up as well as continued follow-up with pulmonology. If non-compliant with noninvasive ventilator she is at high risk for readmission. She is fairly insistent on going home today and that she has appropriate help set up at home from her family as needed. She does have a known history of carotid artery stenosis, follow-up outpatient carotid ultrasound has been ordered to evaluate for possibility of need for intervention. Physical Exam Const: COMMON NORMALS: no acute distress, patient oriented x3 and alert GENERAL APPEARANCE: cooperative and anxious NUTRITIONAL APPEARANCE: obese morbidly obese ORIENTATION/CONSCIOUSNESS: Yes awake HENMT: COMMON NORMALS: normocephalic, atraumatic, hearing grossly normal bilaterally and moist oral mucous membranes HEAD & SCALP: normocephalic and atraumatic Eye: COMMON NORMALS: Equal, round and reactive pupils present, EOMs intact bilaterally and conjunctivae normal CONJUNCTIVA: Yes conjunctivae normal PUPIL: Yes Equal, round and reactive pupils present Neck/C-Spine: COMMON NORMALS: full ROM GENERAL: Yes normal visual inspection and Yes trachea midline Resp: COMMON NORMALS: normal respiratory effort, No retractions and No use of accessory muscles EFFORT & INSPECTION: Yes able to speak in complete sentences, Yes symmetric chest movement and No tachypneic OTHER: -diminished breath sounds bilaterally, equal air entry -on 2-3 L NC Cardio: COMMON NORMALS: regular rate, regular rhythm, S1 normal heart sound present, S2 normal heart sound present and No murmurs present (Cardio) RATE: regular rate RHYTHM: regular rhythm HEART SOUNDS: S1 normal heart sound present and S2 normal heart sound present GI: COMMON NORMALS: Normal to inspection, nondistended, normoactive bowel sounds present, Soft to palpation and non-tender INSPECTION: Yes central obesity PALPATION: Yes Soft to palpation : BLADDER/KIDNEY EXAM: Yes catheter in place Catheter type (Female): urethral Extremity: COMMON NORMALS: normal to inspection, full ROM and no clubbing, cyanosis or edema; negative for no pedal edema Neuro: COMMON NORMALS: patient oriented x3, moves all extremities, no focal motor deficits, no sensory deficits noted and gait normal SENSORIUM/ORIENTATION: Yes alert Psych: COMMON NORMALS: mental status grossly normal, Normal thought process present, cooperative, normal affect and speech normal SPEECH: Yes normal speech MOOD & AFFECT: Yes Other affect and mood findings present (low threshold for anxiety) THOUGHT PROCESS: Normal thought process present Skin: COMMON NORMALS: no rashes or lesions noted, no jaundice, no petechiae and no mottling GENERAL SKIN EXAM: no rashes or lesions noted Urinary Catheter Management^: Velasco: Cath Placed During This Visit: yes, but has since been removed by the nurse Reason for Continuing Indwelling Catheter: Accurate Measurement of Urinary Output in Critically Ill Patients Urinary Catheter Date of Insertion: 08/30/20 Urinary Catheter Time of Insertion: 17:50 Date Urinary Catheter Removed: 09/06/20 Time Urinary Catheter Discontinued: 13:07 Discharge Data Data Completed and Pending: Completed Studies During Hospitalization Category Date Time Status CT head wo con* 7 0450 Urgent Cat Scan 08/30/20 11:51 Completed XR chest 1V kateryan ble [id number] Routine Exams 08/30/20 21:53 Completed XR chest 1V kateryna ble [id number] Routine Exams 09/01/20 06:00 Completed XR chest 1V kateryna ble [id number] Stat Exams 08/30/20 12:03 Completed XR chest 1V kateryna ble [id number] Stat Exams 08/30/20 20:37 Completed Pending at discharge Category Date Time Status Immunochemical Fe ernie OCB Routine Lab 09/04/20 11:10 Uncollected Urine Culture Rou guzman Lab 09/05/20 05:06 Results Labs from last 24 hours 09/06/20 09/06/20 09/06/20 10:40 06:41 03:15 WBC RBC Hgb Hct MCV MCH MCHC RDW Plt Count MPV Neut % (Auto) Lymph % (Auto) [place] % (Auto) Eos % (Auto) Baso % (Auto) Neut # (Auto) Lymph # (Auto) [place] # (Auto) Eos # (Auto) Baso # (Auto) Nucleated RBC % (a uto) Nucleated RBCs # Sodium 139 Potassium 4.3 Chloride 96 L Carbon Dioxide 36 H Anion Gap 11.3 BUN 52 H Creatinine 1.2 H GFR Calculation Not Reportable Glucose 193 H POC Glucose 244 H 138 H Calculated Osmolal ity 307 H Calcium 8.2 L Magnesium 1.7 Total Bilirubin 0.3 AST 7 ALT 6 Alkaline Phosphata se 87 Total Protein 5.4 L Albumin 3.2 L Globulin 2.2 09/06/20 09/06/20 09/05/20 03:15 01:02 20:28 WBC 6.2 RBC 3.19 L Hgb 8.6 L Hct 28.7 L MCV 90.0 MCH 27.0 L MCHC 30.0 RDW 17.3 H Plt Count 124 L MPV 9.3 Neut % (Auto) 72.9 Lymph % (Auto) 11.9 [place] % (Auto) 8.2 Eos % (Auto) 5.4 Baso % (Auto) 0.2 Neut # (Auto) 4.55 Lymph # (Auto) 0.7 L [place] # (Auto) 0.5 Eos # (Auto) 0.3 Baso # (Auto) 0.0 Nucleated RBC % (a uto) 0 Nucleated RBCs # 0.0 Sodium Potassium Chloride Carbon Dioxide Anion Gap BUN Creatinine GFR Calculation Glucose POC Glucose 262 H 448 H Calculated Osmolal ity Calcium Magnesium Total Bilirubin AST ALT Alkaline Phosphata se Total Protein Albumin Globulin 09/05/20 17:31 WBC RBC Hgb Hct MCV MCH MCHC RDW Plt Count MPV Neut % (Auto) Lymph % (Auto) [place] % (Auto) Eos % (Auto) Baso % (Auto) Neut # (Auto) Lymph # (Auto) [place] # (Auto) Eos # (Auto) Baso # (Auto) Nucleated RBC % (a uto) Nucleated RBCs # Sodium Potassium Chloride Carbon Dioxide Anion Gap BUN Creatinine GFR Calculation Glucose POC Glucose 320 H Calculated Osmolal ity Calcium Magnesium Total Bilirubin AST ALT Alkaline Phosphata se Total Protein Albumin Globulin Vitals: Last Vital Signs Temp 97.7 F 09/06/20 13:00 Pulse 70 09/06/20 13:00 Resp 16 09/06/20 13:00 BP 133/52 09/06/20 13:00 Pulse Ox 95 09/06/20 13:00 Discharge Plan Discharge Patient Disposition: Home Condition: Stable Prescriptions: New hydralazine 25 mg Tablet 25 mg PO TID Qty: 90 RF: 0 hydrocodone-acetaminophen 5-325 mg tablet 1 tab PO DAILY PRN (Reason: pain) 30 Days Qty: 30 RF: 0 tramadol 50 mg tablet 50 mg PO DAILY PRN (Reason: pain) 30 Days Qty: 30 RF: 0 Continued (DME) DME: [facility] See Rx Instructions .ROUTE .MEDSUPPLY Qty: 1 RF: 0 (DME) pen needle, diabetic [BD Ultra-Fine Radha Pen Needle] 32 gauge x 5/32 needle See Rx Instructions .ROUTE .MEDSUPPLY Qty: 200 RF: 4 levothyroxine 100 mcg capsule 100 mcg PO DAILY Qty: 90 RF: 1 furosemide 40 mg tablet 40 mg PO DAILY Qty: 30 RF: 0 ipratropium-albuterol 0.5 mg-3 mg(2.5 mg base)/3 mL solution for nebulization 3 ml INHALATION Q4H PRN (Reason: wheezing) Qty: 180 RF: 1 triamcinolone acetonide 0.5 % cream 1 applic TOPICAL TID PRN (Reason: itching) Qty: 15 RF: 2 isosorbide mononitrate 30 mg tablet extended release 24 hr 30 mg PO BID Qty: 60 RF: 0 aspirin 81 mg tablet,delayed release (DR/EC) 81 mg PO DAILY Qty: 30 RF: 0 carvedilol 3.125 mg tablet 3.125 mg PO BID Qty: 60 RF: 0 carbamazepine 200 mg tablet 200 mg PO BEDTIME 30 Days Qty: 30 RF: 0 ferrous sulfate 325 mg (65 mg iron) tablet 325 mg PO DAILY Qty: 30 RF: 0 ropinirole 0.5 mg tablet 1 mg PO BEDTIME Qty: 60 RF: 0 nitroglycerin 0.4 mg tablet, sublingual 0.4 mg SUBLINGUAL Q5M PRN (Reason: Chest Pain) Qty: 30 RF: 0 Colace 100 mg capsule 100 mg PO BID PRN (Reason: Constipation) Qty: 60 RF: 0 gabapentin 300 mg capsule 300 mg PO QID PRN (Reason: pain) 30 Days Qty: 120 RF: 0 capsaicin 0.025 % Cream 1 applic topical QID PRN (Reason: Pain) Qty: 50 RF: 0 nystatin 100,000 unit/gram powder 1 applic TOPICAL BID Qty: 30 RF: 0 glipizide 5 mg tablet 5 mg PO BID Qty: 60 RF: 0 Humalog KwikPen Insulin 100 unit/mL insulin pen See Rx Instructions .ROUTE .COMPLEX Qty: 15 RF: 0 Anoro Ellipta 62.5-25 mcg/actuation blister with device 1 inh INHALATION DAILY Qty: 30 RF: 0 Changed clopidogrel 75 mg tablet 75 mg PO DAILY 30 Days Qty: 30 RF: 0 pantoprazole 40 mg tablet,delayed release (DR/EC) 40 mg PO BID 30 Days Qty: 60 RF: 0 simvastatin 20 mg tablet 20 mg PO BEDTIME Qty: 30 RF: 0 Mucinex 1,200 mg tablet extended release 12hr 1,200 mg PO BID PRN (Reason: congestion) Qty: 30 RF: 0 Discontinued fluconazole [Diflucan] 150 mg tablet 150 mg PO .now & repeat in 1wk Qty: 2 RF: 0 insulin detemir U-100 100 unit/mL (3 mL) insulin pen 50 unit SUBCUT DAILY RF: 0 Discharge Orders: Discharge Order (Routine); Ordered 09/06/20 Ordered By: Bryanna Linares Other Ambulatory Orders: CV carotid duplex BI* [id number] (Routine) Timeframe: 2 Weeks Facility: [facility] - Location: Radiology [facility] Ordered By: Bryanna Linares DME: Non-Invasive Vent (Order) Location: None Selected Ordered By: Bryanna Linares Referrals: Gelnroy Dumont MD [Physician] - 1 month Nayely Layton MD [Primary Care Provider] - 4-7 days Discharge Diet: Diabetic Discharge Activity: Resume usual activity, Increase activity as tolerated and Oxygen as instructed Activity Restrictions/Additional Instructions: -Please continue to use supplemental oxygen Discharge Attestations Time Spent in Discharge Care*: greater than 30 min Specific Discharge Activities: educating patient, discussing with case consultant/social workers/dc planners, documenting/other paperwork and evaluating patient/reviewing data Status at Discharge: Cognitive status at discharge: cognitively intact, Behavioral status at discharge: cooperative, Functional status at discharge: independent ambulation Overall status at discharge: patient is progressing back to baseline Quality Metrics Clinical Quality Measures During this hospital stay, did patient experience: None Coding Level of Care Code Acute Retail Account Representative for Chg Fwd Diagnoses Acute on chronic respiratory failure with hypoxia and hypercapnia J96.21; J96.22 Obesity hypoventilation syndrome E66.2 UTI (urinary tract infection) N39.0 Urinary tract infection type: site unspecified Hematuria presence: without hematuria Carotid artery stenosis without cerebral infarction I65.23 Laterality: bilateral Anemia D50.0 Anemia type: iron deficiency Iron deficiency anemia type: chronic blood loss CVA (cerebral vascular accident) I63.9 CVA mechanism: unspecified Acute kidney injury superimposed on CKD N17.9; N18.9 Diastolic CHF, acute on chronic I50.33 Essential (primary) hypertension I10 COPD (chronic obstructive pulmonary disease) J44.9 COPD type: unspecified COPD Hypothyroidism, adult E03.9 Dyslipidemia E78.5
--- NOTE | 2020-09-06 14:10 | DCPLANNER ---
IMM completed 09/06/20 at 4237. Copy of rights given to pt.
[2020-09-06 16:24] LABS: ABG PCO2 52.1 mmHg (35-45); ABG PH Result 7.45 (7.35-7.45); Alveolar-Arterial Oxygen Gradi 9.8 mmHg (5-10); Base Excess ABG 10.9 mmol/L (-2.0-2.0); Blood Gas Allen Test Pos; Blood Gas LPM 2.5 %; Blood Gas Operator Identificat glc; Blood Gas Sample Site Radial, left; Blood Gas Sample Type Arterial; Carboxyhemoglobin 1.3 %THgb (0.4-20.1); HCO3 ABG 36.3 mmol/L (22-26); HGB O2 Sat 94.2 % (95-100); Ionized Calcium Level - ABG 1.1 mmol/L (1.1-1.4); Oxygen Device NC; Oxygen Saturation ABG 96.3; PO2 ABG 74.6 mmHg (80.0-100.0); Potassium Level - ABG 4.5 mmol/L (3.5-5.0); Total Hemoglobin 9.8 g/dL (12-16)
[2020-09-06 17:17] LABS: Glucose Point of Care 318 mg/dL (70-110)
== END 2020-09-06 19:03 | disposition home or self-care (01) | DRG 208 ==
LOC: ER 11:51 → CSU 17:11 → ICU 20:16 → CSU 09-05 20:52
PROVIDERS: Internal Medicine; Internal Medicine Pulmonary Disease; Admitting Provider Internal Medicine; Emergency Provider Family Medicine; PCP Family Medicine; Visit Provider Family Medicine
DX: J96.22 Acute and chronic respiratory failure with hypercapnia (principal); I50.33 Acute on chronic diastolic (congestive) heart failure; G93.40 Encephalopathy, unspecified; I13.0 Hypertensive heart and chronic kidney disease with heart failure and stage 1 through stage 4 chronic kidney disease, or unspecified chronic kidney disease; N39.0 Urinary tract infection, site not specified; E87.2 Acidosis; N17.9 Acute kidney failure, unspecified; E66.2 Morbid (severe) obesity with alveolar hypoventilation; Z68.41 Body mass index [BMI] 40.0-44.9, adult; J96.21 Acute and chronic respiratory failure with hypoxia; N18.32 Chronic kidney disease, stage 3b; E11.22 Type 2 diabetes mellitus with diabetic chronic kidney disease; E78.5 Hyperlipidemia, unspecified; Z86.73 Personal history of transient ischemic attack (TIA), and cerebral infarction without residual deficits; E03.9 Hypothyroidism, unspecified; G25.81 Restless legs syndrome; Z99.81 Dependence on supplemental oxygen; D50.0 Iron deficiency anemia secondary to blood loss (chronic); E11.65 Type 2 diabetes mellitus with hyperglycemia; E11.40 Type 2 diabetes mellitus with diabetic neuropathy, unspecified; M54.16 Radiculopathy, lumbar region; M19.071 Primary osteoarthritis, right ankle and foot; Z79.4 Long term (current) use of insulin; Z79.82 Long term (current) use of aspirin; I07.1 Rheumatic tricuspid insufficiency; I27.20 Pulmonary hypertension, unspecified; I65.23 Occlusion and stenosis of bilateral carotid arteries; J44.9 Chronic obstructive pulmonary disease, unspecified
CPT/HCPCS: 12345; 36415; 36416; 36430; 36600; 51702; 70450; 71045; 80051; 80053; 81001; 82330; 82803; 82805; 82962; 83605; 83735; 83880; 84484; 85025; 86140; 86850; 86900; 86920; 87070; 87086; 87426; 93005; 94002; 94003; 94640; 94660; 94799; 96372; 97110; 97116; 97161; 97530; 99283; J0696; J1650; J1815; J1940; J2060; J2405; J2704; J2930; J3010; J3490; J7030; J7512; P9016

== ENCOUNTER → 2020-09-13 12:30 | Outpatient (BNVA) | payer OTHER, SELFPAY | PROVIDERS: PCP Family Medicine; Visit Provider Family Medicine | DX: I10 Essential (primary) hypertension (principal); N17.9 Acute kidney failure, unspecified; D63.8 Anemia in other chronic diseases classified elsewhere; I63.9 Cerebral infarction, unspecified; R29.898 Other symptoms and signs involving the musculoskeletal system; R29.6 Repeated falls | CPT/HCPCS: 80048; 85025 ==

== ENCOUNTER 2020-10-25 13:03 | Outpatient (CLI) | payer MEDICARE, SELFPAY ==
--- NOTE | 2020-10-25 13:30 | USCV_ITS ---
Bryanna Reid Age: 75 Gender: F : 1945 Exam Date: 10/25/2020 13:29 Ordering Phys: Nayely Layton MD Technologist: Francisca Martinez [place] [facility] [place]: STENOSIS Risk Factors: Previous Vascular Surgery: Right Brachial BP: / Left Brachial BP: / Right Left Velocity (cm/s) Spectral Plaque Velocity (cm/s) Spectral Plaque Syst/Diast Broadening Syst/Diast Broadening 84.90/ 23.20 Prox CCA 140.70/ 22.30 69.50/ 14.30 Mid CCA 118.30/ 26.30 78.30/ 23.20 Distal CCA 67.00 / 17.10 72.80/ 25.40 Prox ICA 89.40 / 31.60 71.70/ 18.70 Mid ICA 106.50/ 36.80 89.30/ 28.70 Distal ICA 128.85/ 44.05 46.30 ECA 57.80 1.29 ICA/CCA 1.26 Antegrade Vertebral Antegrade 71.70/ 22.10 cm/s 72.30/ 25.00 cm/s Tri Subclavian Tri FINDINGS Minimal plaques at the the bifurcations bilaterally. Intimal thickening in the common carotid arteries bilaterally. Antegrade flow of the vertebral arteries bilaterally. Normal Doppler flow velocities in the external carotid and subclavian arteries bilaterally CONCLUSIONS Minimal plaques at the the bifurcations bilaterally, suggesting less than 50% stenosis. Intimal thickening in the common carotid arteries bilaterally. No significant stenosis, based on the above findings Dr Betty Ramon MD [facility] (Electronically Signed) Final Date: 25 October 2020 18:38 S
== END 2020-10-25 13:04 | disposition home or self-care (01) ==
LOC: RAD 13:06
PROVIDERS: PCP Family Medicine; Visit Provider Family Medicine
DX: I63.9 Cerebral infarction, unspecified (principal); I65.23 Occlusion and stenosis of bilateral carotid arteries
CPT/HCPCS: 93880

== ENCOUNTER → 2020-11-03 09:24 | Outpatient (BNVA) | payer MEDICARE, SELFPAY | PROVIDERS: PCP Family Medicine; Visit Provider Family Medicine | DX: I13.0 Hypertensive heart and chronic kidney disease with heart failure and stage 1 through stage 4 chronic kidney disease, or unspecified chronic kidney disease (principal); I25.5 Ischemic cardiomyopathy; G25.81 Restless legs syndrome; Z86.73 Personal history of transient ischemic attack (TIA), and cerebral infarction without residual deficits; M19.071 Primary osteoarthritis, right ankle and foot; E11.65 Type 2 diabetes mellitus with hyperglycemia; K21.9 Gastro-esophageal reflux disease without esophagitis; E78.5 Hyperlipidemia, unspecified; N18.31 Chronic kidney disease, stage 3a; J44.9 Chronic obstructive pulmonary disease, unspecified; D63.8 Anemia in other chronic diseases classified elsewhere; M54.16 Radiculopathy, lumbar region; I50.9 Heart failure, unspecified; I63.9 Cerebral infarction, unspecified; Z79.4 Long term (current) use of insulin; E03.9 Hypothyroidism, unspecified | CPT/HCPCS: 80048; 83036; 84443; 85025 ==

== ENCOUNTER → 2020-12-02 09:17 | Outpatient (BNVA) | payer MEDICARE, SELFPAY | PROVIDERS: PCP Family Medicine; Visit Provider Internal Medicine Rheumatology | DX: M19.90 Unspecified osteoarthritis, unspecified site (principal); Z11.59 Encounter for screening for other viral diseases; Z11.1 Encounter for screening for respiratory tuberculosis; Z79.891 Long term (current) use of opiate analgesic; J98.4 Other disorders of lung; E11.9 Type 2 diabetes mellitus without complications; Z79.4 Long term (current) use of insulin; Z79.899 Other long term (current) drug therapy; Z77.22 Contact with and (suspected) exposure to environmental tobacco smoke (acute) (chronic) | CPT/HCPCS: 36415; 73130; 73562; 73630; 80076; 82306; 84550; 85651; 86140; 86431; 86480; 86704; 86803; 87340; 99204 ==

== ENCOUNTER 2020-12-02 10:55 | Outpatient (CLI) | payer MEDICARE, SELFPAY ==
--- NOTE | 2020-12-02 11:08 | XR_ITS ---
WS: [id number] FOOT RIGHT TECHNIQUE: 3 views of the right foot CLINICAL INFORMATION: M19.90 - Unspecified osteoarthritis, unspecified site COMPARISON: None. FINDINGS: Diffuse osteopenia. Soft tissue edema lower leg and ankle. Advanced degenerative arthritis at the ank le mortise. A few small erosions involving the metatarsal heads. Normal MTP joints. Mild IP joint aaliyah rowing. Degenerative arthritis at the TMT joints. Vascular calcification. XR/XR foot RT min 3V* [id number] IMPRESSION: 1. Advanced arthritis ankle mortise with sclerosis involving the distal tibial plafond and and talar dome. 2. A few small erosions involving the metatarsal heads. 3. No destructive changes. 4. Soft tissue edema lower leg and ankle. Advanced osteopenia.
--- NOTE | 2020-12-02 11:08 | XR_ITS ---
WS: [id number] KNEE RIGHT TECHNIQUE: 3 views of the right knee CLINICAL INFORMATION: M19.90 - Unspecified osteoarthritis, unspecified site COMPARISON: None. FINDINGS: Mild degenerative narrowing medial joint compartment. Lateral compartment is better preserved. Hypert rophic patella. Moderate degenerative narrowing at the patellofemoral articulation. Patellar tendon e nthesophyte. Soft tissue edema. Moderate suprapatellar effusion. Vascular calcification. XR/XR knee RT 3V* [id number] IMPRESSION: 1. Mild degenerative narrowing medial joint compartment with moderate narrowin g at the patellofemoral articulation. 2. Patella tendon enthesophyte. 3. Soft tissue edema with a moderate supra patellar effusion.
--- NOTE | 2020-12-02 11:08 | XR_ITS ---
WS: [id number] KNEE LEFT TECHNIQUE: 3 views of the left knee CLINICAL INFORMATION: M19.90 - Unspecified osteoarthritis, unspecified site COMPARISON: None. FINDINGS: Normal anatomic alignment. Mild degenerative narrowing involving the medial joint compartment. Slight ly hypertrophic changes along the joint line. Hypertrophic patella. Moderate suprapatellar effusion w ith soft tissue edema. Vascular calcification. XR/XR knee LT 3V* [id number] IMPRESSION: 1. Mild degenerative narrowing medial joint compartment with moderate degenera tive narrowing at the patellofemoral articulation. 2. Hypertrophic patella. 3. Soft tissue edema with a moderate suprapatellar effusion.
--- NOTE | 2020-12-02 11:08 | XR_ITS ---
WS: [id number] HAND LEFT TECHNIQUE: 3 views of the left hand CLINICAL INFORMATION: M19.90 - Unspecified osteoarthritis, unspecified site COMPARISON: None. FINDINGS: Osteopenia with mild soft tissue edema. Normal metacarpals. Normal MCP joint. Metacarpal heads are normal in appearance. Normal PIP and DIP j oints. No evidence of acute fracture or dislocation. Radiocarpal joint: Mild degenerative narrowing Carpal bones: Mild degenerative narrowing at the first CMC. XR/XR hand LT min 3V* [id number] IMPRESSION: Osteopenia. Mild soft tissue edema. Otherwise unremarkable left hand.
--- NOTE | 2020-12-02 11:08 | XR_ITS ---
WS: [id number] HAND RIGHT TECHNIQUE: 3 views of the right hand CLINICAL INFORMATION: M19.90 - Unspecified osteoarthritis, unspecified site COMPARISON: None. FINDINGS: Osteopenia. Mild soft tissue edema. Normal metacarpals. Normal MCP joints. Mild IP joint narrowing. D egenerative arthritis first CMC and STT with subchondral sclerosis. Moderate degenerative narrowing a t the radiocarpal joint. Slight hypertrophic spurring involving the fifth metacarpal head. XR/XR hand RT min 3V* [id number] IMPRESSION: 1. Moderate degenerative arthritis first CMC and STT. 2. Moderate narrowing of the radiocarpal joint. 3. No other significant findings.
--- NOTE | 2020-12-02 11:08 | XR_ITS ---
WS: [id number] FOOT LEFT TECHNIQUE: 3 views of the left foot CLINICAL INFORMATION: M19.90 - Unspecified osteoarthritis, unspecified site COMPARISON: None. FINDINGS: Diffuse osteopenia. Soft tissue edema lower leg and ankle. Advanced degenerative arthritis at the ank le mortise. Normal metatarsals. Normal MCP joints. Mild IP joint narrowing. Degenerative arthritis at the TMT joint. XR/XR foot LT min 3V* [id number] IMPRESSION: 1. Osteopenia with advanced arthritis in the ankle mortise. 2. Mild soft tissue edema lower leg and ankle. 3. No significant erosive or destructive changes.
== END 2020-12-02 10:56 | disposition home or self-care (01) ==
PROVIDERS: PCP Family Medicine; Visit Provider Internal Medicine Rheumatology
DX: J98.4 Other disorders of lung (principal); M19.90 Unspecified osteoarthritis, unspecified site; Z11.59 Encounter for screening for other viral diseases; Z11.1 Encounter for screening for respiratory tuberculosis
CPT/HCPCS: 36415; 73130; 73562; 73630; 80076; 82306; 84550; 85651; 86140; 86431; 86480; 86704; 86803; 87340

== ENCOUNTER → 2021-01-05 10:10 | Outpatient (BNVA) | payer MEDICARE, SELFPAY | PROVIDERS: PCP Family Medicine; Visit Provider Internal Medicine Rheumatology | DX: M19.90 Unspecified osteoarthritis, unspecified site (principal); J98.4 Other disorders of lung; Z79.899 Other long term (current) drug therapy; E79.0 Hyperuricemia without signs of inflammatory arthritis and tophaceous disease; N18.9 Chronic kidney disease, unspecified | CPT/HCPCS: 99214 ==

== ENCOUNTER → 2021-02-02 09:55 | Outpatient (BNVA) | payer MEDICARE, SELFPAY | PROVIDERS: PCP Family Medicine; Visit Provider Family Medicine | DX: E03.9 Hypothyroidism, unspecified (principal); M54.16 Radiculopathy, lumbar region; Z79.4 Long term (current) use of insulin; E11.65 Type 2 diabetes mellitus with hyperglycemia; R79.89 Other specified abnormal findings of blood chemistry; N18.30 Chronic kidney disease, stage 3 unspecified | CPT/HCPCS: 80048; 80061; 83036; 84443 ==

== ENCOUNTER → 2021-02-16 15:02 | Outpatient (BNVA) | payer MEDICARE, SELFPAY | PROVIDERS: PCP Family Medicine; Visit Provider Internal Medicine Rheumatology | DX: M19.90 Unspecified osteoarthritis, unspecified site (principal); J98.4 Other disorders of lung; M25.552 Pain in left hip; Z79.899 Other long term (current) drug therapy; E11.22 Type 2 diabetes mellitus with diabetic chronic kidney disease; N18.9 Chronic kidney disease, unspecified; Z79.4 Long term (current) use of insulin; M25.559 Pain in unspecified hip | CPT/HCPCS: 20610; 73502; 99214; J1030 ==

== ENCOUNTER 2021-02-16 17:10 | Outpatient (CLI) | payer MEDICARE, SELFPAY ==
--- NOTE | 2021-02-16 17:16 | XR_ITS ---
WS: [id number] Exam: XR hip LT 2-3V wo/w pel* [id number] Date/Time of Exam: 02/16/2021 5:31 PM Reason For Exam: M25.559 - Pain in unspecified hip No acute fracture or dislocation. Mild degenerative change of the acetabulum. The joint compartment r elatively well maintained. Normal soft tissues. XR/XR hip LT 2-3V wo/w pel* [id number] IMPRESSION: 1. No fracture or dislocation. 2. Mild DJD.
== END 2021-02-16 17:11 | disposition home or self-care (01) ==
PROVIDERS: PCP Family Medicine; Visit Provider Internal Medicine Rheumatology
DX: M25.559 Pain in unspecified hip (principal)
CPT/HCPCS: 73502; J1030

== ENCOUNTER 2021-03-29 10:16 | Outpatient (CLI) | payer MEDICARE, SELFPAY ==
--- NOTE | 2021-03-29 10:33 | XR_ITS ---
WS: [id number] XR lumbar spine 2-3V* [id number] REASON FOR EXAM: M54.16 - Radiculopathy, lumbar region FINDINGS: Mild rotatory scoliosis convex left. Mild concave compression deformities L1-L4. Significant superior endplate compression deformity of L5. Significant narrowing of the intervertebral disc spaces L3-L4 and L4-L5 with the remaining disc space is relatively well-preserved. No spondylolisthesis or spondylolysis. Degenerative changes in the facet joints L4-L5 and L5-S1. XR/XR lumbar spine 2-3V* [id number] IMPRESSION: Degenerative lumbar disc disease as above.
== END 2021-03-29 10:17 | disposition home or self-care (01) ==
LOC: RAD 10:24
PROVIDERS: PCP Family Medicine; Visit Provider Family Medicine
DX: M54.16 Radiculopathy, lumbar region (principal); M51.36 Other intervertebral disc degeneration, lumbar region
CPT/HCPCS: 72100

== ENCOUNTER → 2021-04-06 13:15 | Outpatient (BNVA) | payer MEDICARE, SELFPAY | PROVIDERS: PCP Family Medicine; Visit Provider Internal Medicine Rheumatology | DX: M25.552 Pain in left hip (principal); J98.4 Other disorders of lung; M19.90 Unspecified osteoarthritis, unspecified site; M76.32 Iliotibial band syndrome, left leg; Z79.899 Other long term (current) drug therapy; E11.9 Type 2 diabetes mellitus without complications; Z79.4 Long term (current) use of insulin; Z82.61 Family history of arthritis | CPT/HCPCS: 99214 ==

== ENCOUNTER 2021-04-18 06:00 | Outpatient (RCR) | payer MEDICARE, SELFPAY | END 2021-05-03 23:59 | disposition home or self-care (01) | LOC: MPT 06:00 | PROVIDERS: PCP Family Medicine; Referring Provider Family Medicine; Visit Provider Family Medicine | DX: M54.9 Dorsalgia, unspecified (principal); G89.29 Other chronic pain | CPT/HCPCS: 97110; 97140; 97162; G0283 ==

== ENCOUNTER → 2021-04-28 09:43 | Outpatient (BNVA) | payer MEDICARE, SELFPAY | PROVIDERS: PCP Family Medicine; Visit Provider Anesthesiology | DX: G89.29 Other chronic pain (principal); M54.42 Lumbago with sciatica, left side; M54.16 Radiculopathy, lumbar region; G25.81 Restless legs syndrome; M19.071 Primary osteoarthritis, right ankle and foot; Z79.891 Long term (current) use of opiate analgesic | CPT/HCPCS: 99204 ==

== ENCOUNTER 2021-05-04 06:00 | Outpatient (RCR) | payer MEDICARE, SELFPAY | END 2021-06-02 23:59 | disposition home or self-care (01) | LOC: MPT 06:00 | PROVIDERS: PCP Family Medicine; Referring Provider Family Medicine; Visit Provider Family Medicine | DX: M54.9 Dorsalgia, unspecified (principal); G89.29 Other chronic pain | CPT/HCPCS: 97110; 97140; G0283 ==

== ENCOUNTER → 2021-05-10 09:52 | Outpatient (BNVA) | payer MEDICARE, SELFPAY | PROVIDERS: PCP Family Medicine; Visit Provider Family Medicine | DX: E11.22 Type 2 diabetes mellitus with diabetic chronic kidney disease; N18.32 Chronic kidney disease, stage 3b; Z79.4 Long term (current) use of insulin; R79.89 Other specified abnormal findings of blood chemistry; D63.8 Anemia in other chronic diseases classified elsewhere; E03.9 Hypothyroidism, unspecified | CPT/HCPCS: 80053; 82652; 83036; 84443; 85025 ==

== ENCOUNTER → 2021-05-26 09:13 | Outpatient (BNVA) | payer MEDICARE, SELFPAY | PROVIDERS: PCP Family Medicine; Visit Provider Anesthesiology | DX: G89.29 Other chronic pain (principal); M54.42 Lumbago with sciatica, left side; M25.552 Pain in left hip; Z79.891 Long term (current) use of opiate analgesic | CPT/HCPCS: 99214 ==

== ENCOUNTER → 2021-06-29 10:36 | Outpatient (BNVA) | payer MEDICARE, SELFPAY | PROVIDERS: PCP Family Medicine; Visit Provider Internal Medicine Rheumatology | DX: Z71.89 Other specified counseling (principal); Z79.899 Other long term (current) drug therapy; M19.90 Unspecified osteoarthritis, unspecified site | CPT/HCPCS: 36415; 80076; 82565; 85025; 86140 ==

== ENCOUNTER → 2021-07-13 12:50 | Outpatient (BNVA) | payer MEDICARE, SELFPAY | PROVIDERS: PCP Family Medicine; Visit Provider Internal Medicine Rheumatology | DX: M19.90 Unspecified osteoarthritis, unspecified site (principal); J98.4 Other disorders of lung; Z79.899 Other long term (current) drug therapy; E11.22 Type 2 diabetes mellitus with diabetic chronic kidney disease; N18.9 Chronic kidney disease, unspecified; Z79.4 Long term (current) use of insulin; Z82.61 Family history of arthritis; Z71.89 Other specified counseling | CPT/HCPCS: 99214 ==

== ENCOUNTER → 2021-07-20 10:04 | Outpatient (BNVA) | payer MEDICARE, SELFPAY | PROVIDERS: PCP Family Medicine; Visit Provider Anesthesiology | DX: G89.29 Other chronic pain (principal); M54.42 Lumbago with sciatica, left side; M25.552 Pain in left hip; M19.071 Primary osteoarthritis, right ankle and foot; G25.81 Restless legs syndrome; Z79.891 Long term (current) use of opiate analgesic; Z79.899 Other long term (current) drug therapy; Z77.22 Contact with and (suspected) exposure to environmental tobacco smoke (acute) (chronic) | CPT/HCPCS: 99214 ==

== ENCOUNTER → 2021-08-09 09:25 | Outpatient (BNVA) | payer MEDICARE, SELFPAY | PROVIDERS: PCP Family Medicine; Visit Provider Family Medicine | DX: Z79.899 Other long term (current) drug therapy (principal); M19.90 Unspecified osteoarthritis, unspecified site; Z71.89 Other specified counseling | CPT/HCPCS: 80076; 82565; 85025; 85651; 86140 ==

== ENCOUNTER → 2021-09-21 09:58 | Outpatient (BNVA) | payer MEDICARE, SELFPAY | PROVIDERS: PCP Family Medicine; Visit Provider Anesthesiology | DX: G89.29 Other chronic pain (principal); M54.42 Lumbago with sciatica, left side; M25.552 Pain in left hip; M19.071 Primary osteoarthritis, right ankle and foot; G25.81 Restless legs syndrome; Z79.899 Other long term (current) drug therapy; Z79.891 Long term (current) use of opiate analgesic | CPT/HCPCS: 99214 ==

== ENCOUNTER → 2021-10-12 10:33 | Outpatient (BNVA) | payer MEDICARE, SELFPAY | PROVIDERS: PCP Family Medicine; Visit Provider Anesthesiology | DX: G89.29 Other chronic pain (principal); M54.42 Lumbago with sciatica, left side; G25.81 Restless legs syndrome; M19.071 Primary osteoarthritis, right ankle and foot; M25.552 Pain in left hip; Z79.891 Long term (current) use of opiate analgesic | CPT/HCPCS: 99214 ==

== ENCOUNTER → 2021-10-19 09:15 | Outpatient (BNVA) | payer MEDICARE, SELFPAY | PROVIDERS: PCP Family Medicine; Visit Provider Family Medicine | DX: E11.22 Type 2 diabetes mellitus with diabetic chronic kidney disease; I12.9 Hypertensive chronic kidney disease with stage 1 through stage 4 chronic kidney disease, or unspecified chronic kidney disease; Z86.73 Personal history of transient ischemic attack (TIA), and cerebral infarction without residual deficits; M19.071 Primary osteoarthritis, right ankle and foot; E03.9 Hypothyroidism, unspecified; N18.32 Chronic kidney disease, stage 3b; Z79.4 Long term (current) use of insulin | CPT/HCPCS: 80048; 83036; 84443 ==

== ENCOUNTER → 2021-11-17 09:23 | Outpatient (BNVA) | payer MEDICARE, SELFPAY | PROVIDERS: PCP Family Medicine; Visit Provider Internal Medicine Rheumatology | DX: M06.041 Rheumatoid arthritis without rheumatoid factor, right hand (principal); M06.042 Rheumatoid arthritis without rheumatoid factor, left hand; Z79.899 Other long term (current) drug therapy; E79.0 Hyperuricemia without signs of inflammatory arthritis and tophaceous disease; N18.9 Chronic kidney disease, unspecified; Z82.61 Family history of arthritis; Z71.85 Encounter for immunization safety counseling | CPT/HCPCS: 99214 ==

== ENCOUNTER 2021-12-17 18:15 | Emergency (ER) | payer MEDICARE, SELFPAY ==
[2021-12-17 18:19] VITALS: PULSE 84; RESP 15; TEMP 36.5; O2SAT 92; BMI 39.9
--- NOTE | 2021-12-17 18:34 | CTR_ITS ---
PROCEDURE INFORMATION: Exam: CT Abdomen And Pelvis With Contrast Exam date and time: 12/17/2021 8:17 PM Age: 76 years old Clinical indication: Nausea and vomiting; Prior surgery; Surgery date: 6+ months; Surgery type: Hyst; Patient HX: C/O n/v/d x 4 days w HX of ibs; Additional info: Eval pathologies TECHNIQUE: Imaging protocol: Computed tomography of the abdomen and pelvis with contrast. Radiation optimization: All CT scans at this facility use at least one of these dose optimization techniques: automated exposure control; mA and/or kV adjustment per patient size (includes targeted exams where dose is matched to clinical indication); or iterative reconstruction. Contrast material: VISI 320; Contrast volume: 95 ml; Contrast route: INTRAVENOUS (IV); COMPARISON: CT chest abd pel wo con 02/10/2020 3:01 PM RADIATION DOSE METRICS: Total DLP (mGy-cm): 1839.81 FINDINGS: Heart: Cardiomegaly. Liver: Normal. No mass. Gallbladder and bile ducts: The gallbladder has been removed. Pancreas: Moderate fatty atrophy of the pancreas. Spleen: Normal. No splenomegaly. Adrenal glands: Normal. No mass. Kidneys and ureters: Normal. No hydronephrosis. Stomach and bowel: There is diverticulosis of the colon without evidence of diverticulitis. Fat density within the ascending colon lumen is unchanged from the prior study. Appendix: A normal appendix is identified. Intraperitoneal space: Unremarkable. No free air. No significant fluid collection. Arteries: Unremarkable. No abdominal aortic aneurysm. Lymph nodes: Unremarkable. No enlarged lymph nodes. Urinary bladder: Unremarkable as visualized. Reproductive: The uterus is not visualized, consistent with hysterectomy. Bones/joints: T8-9 and T10-11 osseous fusion. There are degenerative changes in the visualized spine. Evaluation of the bones is suboptimal secondary to motion artifact. No definite displaced fractures are seen. Grade 1 anterolisthesis of L4 on L5, worsened when compared to the prior study. There is a broad-based disc osteophyte complex at the L4-L5 level contributing to canal and bilateral neural foraminal narrowing. Soft tissues: Unremarkable. CT/CT abdomen pelvis w con* [id number] IMPRESSION: 1. Grade 1 anterolisthesis of L4 on L5, worsened when compared to the prior study. There is a broad-based disc osteophyte complex at the L4-L5 level contributing to canal and bilateral neural foraminal narrowing. 2. There is diverticulosis of the colon without evidence of diverticulitis. 3. Cardiomegaly. 4. There is fat density within the ascending colon lumen, stable from the prior study, likely representing a benign lipoma.
--- NOTE | 2021-12-17 18:37 | W.ED.GENADLT ---
HPI - General Adult General: Chief complaint: Abdominal Pain Stated complaint: N/V/D X 4 DAYS Time Seen by Provider: 12/17/21 18:16 History of Present Illness: Patient is 76-year-old female history irritable bowel disease presenting to the emergency room with complaints of nausea/vomiting, and diarrhea for last 3 to 4 days. Patient thinks that my IBS is flaring up again. Patient reports that everything she eats just goes through. Patient reports liquidy stool. Denies any melena medic easier, fever or chills. Patient initially 3 days ago had mild abdominal pain but since then resolved. Patient has no urinary complaints, hematuria, dysuria, melena medic easier. Patient reports currently loose stools multiple times throughout the day worse with eating. Patient denies any active chest pain, shortness breath, palpitation, lightheadedness, cough, sore throat, or runny nose. Onset:3-4 days ago Duration:ongoing Location:home Severity:moderate Associated symptoms: Reports nausea and vomiting; Deny chest pain, dyspnea, rash or palpitations Review of Systems Const: Denies: fever(s) or chills Eyes: Denies: change in vision ENMT: Denies: mouth pain Card: Denies: chest pain or palpitations Resp: Denies: dyspnea or non-productive cough GI: Reports: nausea, vomiting and diarrhea; Denies: abdominal pain : Denies: dysuria Musc: Denies: extremity pain Skin/Breast: Denies: rash or new lesions Neuro: Denies: weakness in extremities Psych: Reports: other (Normal mood) Wilfredo/Lymph: Denies: easy bruising PFSH ED PFSH: Medical History Anemia of chronic disease Cardiomyopathy Carotid artery stenosis without cerebral infarction -has known carotid artery stenosis -will need f/u carotid US as outpatient to determine if need for intervention -on Plavix, ASA CHF (congestive heart failure) Chronic low back pain with left-sided sciatica COPD (chronic obstructive pulmonary disease) -improved -on oral steroid taper -off doxycycline, on ceftriaxone -on 3 L NC at baseline CVA (cerebral vascular accident) -prior hx of CVA, TIA -on ASA, plavix -outpatient carotid US Diabetic neuropathy Dyslipidemia -resume statin Dysplastic colon polyp Incompletely resected on first attempt due to cardiac complications. Ascending colon. Encounter for long-term opiate analgesic use Enrolled in chronic care management Essential (primary) hypertension -normotensive -continue antihypertensives GERD (gastroesophageal reflux disease) Greater trochanteric pain syndrome of left lower extremity High risk medication use High risk medication use Hyperuricemia without signs of inflammatory arthritis and tophaceous disease Hypothyroidism, adult -on levothyroxine -TSH-7.8 Iliotibial band syndrome affecting left lower leg Immunization counseling Immunization counseling Inflammatory arthritis Left hip pain Lung disease, restrictive Obesity hypoventilation syndrome -requires AVAPS as noted above Osteoarthritis of right ankle and foot Restless leg syndrome Restrictive lung disease Seronegative rheumatoid arthritis of both hands Stage 3b chronic kidney disease Type 2 diabetes mellitus Surgical History H/O bilateral breast reduction surgery H/O cataract extraction H/O: hysterectomy Family History Father CAD (coronary artery disease) Mother CAD (coronary artery disease) Diabetes Brother Cancer Lung disease Aneurysm Sister Stroke Denies family history of Clotting disorder Dementia Chronic kidney disease (CKD) Suicide Anesthesia complication Bleeding disorder Social History Smoking and tobacco status: never smoked Second hand smoke exposure: Yes Smoking risk assessment/counseling performed?: No Alcohol intake: never Caregiver/support person: Yes Lives independently: Yes Household members: none Housing: House Marital status: / Current occupational status: retired Pets and animals: Yes History of recent travel: No Current gender identity: Female Female Reproductive History: Spontaneous abortions: No Physical Exam Const: COMMON NORMALS: alert HENMT: COMMON NORMALS: atraumatic HEAD & SCALP: atraumatic MOUTH: moist mucous membranes not abnormal Eye: COMMON NORMALS: EOMs intact bilaterally and conjunctivae normal CONJUNCTIVA: Yes conjunctivae normal Neck/C-Spine: COMMON NORMALS: full ROM and supple Resp: COMMON NORMALS: normal respiratory effort and clear to auscultation bilaterally AUSCULTATION: clear to auscultation bilaterally Cardio: COMMON NORMALS: regular rate RATE: regular rate GI: COMMON NORMALS: Soft to palpation and non-tender PALPATION: Yes Soft to palpation OTHER: No focal TTP. NO guarding rebound, guarding, rigidity. No CVA tenderness to percussion. Neg Manzanares/Neg McBurney's point tenderness, no suprabupic tenderness to palpation. Extremity: COMMON NORMALS: full ROM Neuro: SENSORIUM/ORIENTATION: Yes alert MOTOR EXAM: No Abnormal motor strength present and Other motor observations present (no focal motor deficits) Psych: COMMON NORMALS: speech normal SPEECH: Yes normal speech MOOD & AFFECT: Yes euthymic mood Course Vital Signs: Vital signs: Vital Signs Temperature 97.7 F 12/17/21 18:19 Pulse Rate 67 12/17/21 19:05 Respiratory Rate 30 H 12/17/21 19:05 Blood Pressure 175/61 12/17/21 19:05 Pulse Oximetry 92 12/17/21 19:05 MDM - General Adult Medical Decision Making 76-year-old female presents to the emergency room with nausea/vomiting, diarrhea.. HDS, no focal physical exam abnormalities. Patient tolerated p.o. without difficulty after IVF. CT scan negative for any acute finding. I have given patient follow up with our bilingual case manager to be seen by our outpatient Dr. Patterson for GI symptoms. Patient aware of a call from our bilingual case manager to schedule for appointment(s) and verbalizes understanding of the importance of following up. Rx tylenol PRN abd pain, maalox/pepcid PRN dyspepsia, and zofran PRN nausea/vomiting Disposition: Discharge. Patient counseled regarding diagnostic impression, treatment plan. Patient given ED strict return precautions to return for continuation, worsening, or development of new symptoms. Instructed to f/u w/ PCP regarding symptoms today. Patient verbalized understanding. Lab Data : 12/17/21 18:45 12/17/21 17:20 Radiology Impressions Abdomen/Pelvis CT 12/17/21 18:34 IMPRESSION: 1. Grade 1 anterolisthesis of L4 on L5, worsened when compared to the prior study. There is a broad-based disc osteophyte complex at the L4-L5 level contributing to canal and bilateral neural foraminal narrowing. 2. There is diverticulosis of the colon without evidence of diverticulitis. 3. Cardiomegaly. 4. There is fat density within the ascending colon lumen, stable from the prior study, likely representing a benign lipoma. Laboratory Results WBC 6.4 10^3/uL (4.0-10.0) 12/17/21 18:45 RBC 3.70 10^6/uL (4.1-5.3) L 12/17/21 18:45 Hgb 11.2 g/dL (11.5-15.3) L 12/17/21 18:45 Hct 35.5 % (37.0-47.0) L 12/17/21 18:45 MCV 95.9 fl (81-99) 12/17/21 18:45 MCH 30.3 pg (28.0-34.0) 12/17/21 18:45 MCHC 31.5 g/dL (30.0-36.0) 12/17/21 18:45 RDW 13.1 % (12.1-15.1) 12/17/21 18:45 Plt Count 153 10^3/cmm (130-400) 12/17/21 18:45 MPV 8.7 fL (7.4-10.4) 12/17/21 18:45 Neut % (Auto) 71.0 % 12/17/21 18:45 Lymph % (Auto) 17.9 % 12/17/21 18:45 Jennings % (Auto) 6.8 % 12/17/21 18:45 Eos % (Auto) 2.8 % 12/17/21 18:45 Baso % (Auto) 0.6 % 12/17/21 18:45 Neut # (Auto) 4.56 10^3/uL (1.8-7.7) 12/17/21 18:45 Lymph # (Auto) 1.2 10^3/uL (0.8-4.8) 12/17/21 18:45 Jennings # (Auto) 0.4 10^3/uL (0.2-0.9) 12/17/21 18:45 Eos # (Auto) 0.2 10^3/uL (0.0-0.8) 12/17/21 18:45 Baso # (Auto) 0.0 10^3/uL (0.0-0.1) 12/17/21 18:45 Nucleated RBC % (auto) 0 % 12/17/21 18:45 Nucleated RBCs # 0.0 /100WBC 12/17/21 18:45 Sodium 140 mmol/L (136-145) 12/17/21 17:20 Potassium 4.3 mmol/L (3.5-5.1) 12/17/21 17:20 Chloride 102 mmol/L (98-107) 12/17/21 17:20 Carbon Dioxide 24 mmol/L (22-29) 12/17/21 17:20 Anion Gap 18.3 (5-19) 12/17/21 17:20 BUN 24 mg/dL (8-23) H 12/17/21 17:20 Creatinine 1.2 mg/dL (0.5-0.9) H 12/17/21 17:20 GFR Calculation Not Reportable 12/17/21 17:20 Glucose 142 mg/dL (65-115) H 12/17/21 17:20 Calculated Osmolality 296 mOsm/kg (285-295) H 12/17/21 17:20 Calcium 9.5 mg/dL (8.5-10.5) 12/17/21 17:20 Total Bilirubin 0.4 mg/dL (0.15-1.2) 12/17/21 17:20 AST 12 U/L (0-32) 12/17/21 17:20 ALT 9 U/L (0-33) 12/17/21 17:20 Alkaline Phosphatase 111 IU/L (35-105) H 12/17/21 17:20 Total Protein 7.4 g/dL (6.6-8.7) 12/17/21 17:20 Albumin 3.8 g/dL (3.5-5.2) 12/17/21 17:20 Globulin 3.6 g/dL (1.3-4.6) 12/17/21 17:20 Lipase 16 U/L (13-60) 12/17/21 17:20 Urine Color Yellow (Yellow) 12/17/21 19:34 Urine Appearance Clear (CLEAR) 12/17/21 19:34 Urine pH 5 (5-7) 12/17/21 19:34 Ur Specific [place] 1.015 (1.005-1.030) 12/17/21 19:34 Urine Protein Neg (Negative) 12/17/21 19:34 Urine Glucose (UA) Norm (Normal) 12/17/21 19:34 Urine Ketones Negative (Negative) 12/17/21 19:34 Urine Blood Neg (Negative) 12/17/21 19:34 Urine Nitrate Negative (Negative) 12/17/21 19:34 Urine Bilirubin Neg (Negative) 12/17/21 19:34 Urine Urobilinogen Norm mg/dL (Negative) 12/17/21 19:34 Ur Leukocyte Esterase Negative (Negative) 12/17/21 19:34 Imaging Data Other Imaging: Radiologist's impression: [facility] [address] [place] [address] CT Scan Report Signed Patient: Wilver Simmons Unit #: [id number] : 03/23/1994 Age/Sex: 27 / M ADM Date: 12/17/21 Loc: ER Room/Bed: Attending Dr: Ordering Provider/Ordering MD: Pollo Ferguson MD Date of Service: 12/17/21 Procedure(s): CT abdomen pelvis w con* [id number] Accession Number(s): [id number] Report Number: [id number] PROCEDURE INFORMATION: Exam: CT Abdomen And Pelvis With Contrast Exam date and time: 12/17/2021 6:34 PM Age: 27 years old Clinical indication: Abdominal pain; Generalized; Patient HX: C/O severe abd pain w n/v; Additional info: Eval for pathologies TECHNIQUE: Imaging protocol: Computed tomography of the abdomen and pelvis with contrast. Radiation optimization: All CT scans at this facility use at least one of these dose optimization techniques: automated exposure control; mA and/or kV adjustment per patient size (includes targeted exams where dose is matched to clinical indication); or iterative reconstruction. Contrast material: OMNI 300; Contrast volume: 95 ml; Contrast route: INTRAVENOUS (IV);? COMPARISON: No relevant prior studies available. RADIATION DOSE METRICS: Total DLP (mGy-cm): 1772.14 FINDINGS: Lungs: Mosaic lung attenuation is seen in the lung bases which may be secondary to small airways or small vessel disease. Heart: The heart is normal in size. Liver: Normal. No mass. Gallbladder and bile ducts: Normal. No calcified stones. No ductal dilation. Pancreas: Normal. No ductal dilation. Spleen: Normal. No splenomegaly. Adrenal glands: Normal. No mass. Kidneys and ureters: Normal. No hydronephrosis. Stomach and bowel: Unremarkable. No obstruction. No mucosal thickening. Appendix: The appendix is normal. Intraperitoneal space: Unremarkable. No free air. No significant fluid collection. Arteries: Unremarkable. No abdominal aortic aneurysm. Lymph nodes: Unremarkable. No enlarged lymph nodes. Urinary bladder: Unremarkable as visualized. Reproductive: Unremarkable as visualized. Bones/joints: Unremarkable. No acute fracture. Soft tissues: Unremarkable. CT/CT abdomen pelvis w con* [id number] IMPRESSION: 1. No acute abnormality is seen in the abdomen or pelvis. 2. Bibasilar mosaic lung attenuation which may be secondary to small airways or small vessel disease. ? Dictated By: Oskar Olivera MD Signed By: Oskar Olivera MD Signed Date/Time: 12/17/211934 DD/ 33 Discharge Plan Discharge Patient Disposition: Home Clinical Impression: Nausea & vomiting, Diarrhea Condition: Stable Prescriptions: New acetaminophen 500 mg tablet 500 mg PO Q6H PRN (Reason: pain) 5 Days Qty: 20 0RF Pepcid 20 mg tablet 20 mg PO BID PRN (Reason: abdominal pain) 10 Days Qty: 20 0RF ondansetron 4 mg tablet,disintegrating 4 mg PO TID PRN (Reason: nausea and vomiting) 4 Days Qty: 12 0RF Maalox Advanced 1,000-60 mg tablet,chewable 1 tab PO TID PRN (Reason: abdominal pain) 7 Days Qty: 21 0RF No Action (DME) DME: [facility] See Rx Instructions .ROUTE .MEDSUPPLY Qty: 1 0RF Rx Instructions: oxygen concentrator 2L NC with tubing ketotifen fumarate [Zaditor] 0.025 % (0.035 %) drops 1 drp ophthalmic (eye) BID PRN (Reason: allergy symptoms) Qty: 5 0RF Rx Instructions: administer at least 8 hours apart dicyclomine 20 mg tablet 20 mg PO BID PRN (Reason: abdominal pain) Qty: 30 0RF hydrocodone-acetaminophen 10-325 mg tablet 1 tab PO BID PRN (Reason: pain) 30 Days Qty: 60 0RF Rx Instructions: fill on or after 11/19/21 hydrocodone-acetaminophen 10-325 mg tablet 1 tab PO BID PRN (Reason: pain) 30 Days Qty: 60 0RF Rx Instructions: fill on or after 10/21/21 carbamazepine 200 mg tablet 200 mg PO BEDTIME 90 Days Qty: 90 1RF carvedilol 3.125 mg tablet 3.125 mg PO BID 90 Days Qty: 180 1RF Rx Instructions: must administer with a meal/food clopidogrel 75 mg tablet 75 mg PO DAILY 90 Days Qty: 90 1RF glipizide 5 mg tablet 5 mg PO BID 90 Days Qty: 180 1RF gabapentin [Neurontin] 300 mg capsule 600 mg PO TID 90 Days Qty: 540 1RF simvastatin 20 mg tablet See Rx Instructions .ROUTE .COMPLEX Qty: 90 1RF Dose Instruction: TAKE 1 TABLET BY MOUTH AT BEDTIME Rx Instructions: TAKE 1 TABLET BY MOUTH AT BEDTIME ropinirole 1 mg tablet 1 mg PO TID 90 Days Qty: 270 1RF pantoprazole 40 mg tablet,delayed release (DR/EC) 40 mg PO BID 90 Days Qty: 180 1RF levothyroxine 112 mcg tablet See Rx Instructions .ROUTE .COMPLEX Qty: 90 1RF Dose Instruction: TAKE 1 TABLET BY MOUTH DAILY Rx Instructions: TAKE 1 TABLET BY MOUTH DAILY isosorbide mononitrate 30 mg tablet extended release 24 hr 30 mg PO BID 90 Days Qty: 180 1RF Humalog KwikPen Insulin 100 unit/mL insulin pen 5 unit SUBCUT TID MDD 15 units PRN (Reason: SSI) 90 Days Qty: 15 1RF Rx Instructions: TID with meal SSI with max 5 units per meal cholecalciferol (vitamin D3) [D3-50 Cholecalciferol] 1,250 mcg (50,000 unit) capsule 1,250 mcg PO .weekly 90 Days Qty: 13 1RF potassium 99 mg tablet 99 mg PO DAILY PRN0RF Label Comments: she takes when she has cramps (DME) pen needle, diabetic [BD Ultra-Fine Radha Pen Needle] 32 gauge x 5/32 needle See Rx Instructions .ROUTE .MEDSUPPLY Qty: 200 4RF Rx Instructions: 5 daily as needed with insulin pen Humira Pen 40 mg/0.8 mL pen injector kit 40 mg SUBCUT Q14D Qty: 2 3RF (DME) lancets Misc See Rx Instructions .ROUTE .MEDSUPPLY Qty: 100 2RF Rx Instructions: Test 2 times daily (DME) Blood Glucose Test Strip See Rx Instructions .Route Qty: 100 11RF Rx Instructions: Test 3 times daily folic acid 1 mg tablet 1 mg PO DAILY Qty: 30 5RF furosemide 40 mg tablet 40 mg PO DAILY 90 Days Qty: 90 1RF ipratropium-albuterol 0.5 mg-3 mg(2.5 mg base)/3 mL solution for nebulization 3 ml INHALATION Q4H PRN (Reason: wheezing) Qty: 180 1RF triamcinolone acetonide 0.5 % cream 1 applic TOPICAL TID PRN (Reason: itching) Qty: 15 2RF Rx Instructions: chest aspirin 81 mg tablet,delayed release (DR/EC) 81 mg PO DAILY Qty: 30 0RF ferrous sulfate 325 mg (65 mg iron) tablet 325 mg PO DAILY Qty: 30 0RF nitroglycerin 0.4 mg tablet, sublingual 0.4 mg SUBLINGUAL Q5M PRN (Reason: Chest Pain) Qty: 30 0RF Colace 100 mg capsule 100 mg PO BID PRN (Reason: Constipation) Qty: 60 0RF capsaicin 0.025 % Cream 1 applic topical QID PRN (Reason: Pain) Qty: 50 0RF nystatin 100,000 unit/gram powder 1 applic TOPICAL BID Qty: 30 0RF Mucinex 1,200 mg tablet extended release 12hr 1,200 mg PO BID PRN (Reason: congestion) Qty: 30 0RF Discharge Orders: Discharge ED (Routine); Ordered 12/17/21 Ordered By: Pollo Ferguson Referrals: Nayely Layton MD [Primary Care Provider] - Discharge Diet: Advance as tolerated Discharge Activity: Increase activity as tolerated Patient Instructions: Acute Diarrhea (ED) Activity Restrictions/Additional Instructions: Please come back if you have any worsening abdominal pain, fever or chills, nausea or vomiting, diarrhea, blood in the stool, inability hold down liquid or solids, or any new concerning complaints. Our bilingual case manager will have you follow-up with Dr. Patterson in the next few days. You would be expected to have a phone call with our bilingual case manager who will put you on the schedule. You can expect a call from us in the next 2-3 days. If you don't hear from us, call us back in the emergency room at [phone]. Here's a copy of your CT report: [facility] [address] [address] Scan Report Signed Patient: Wilver Simmons Unit #: [id number] : 03/23/1994 Age/Sex: 27 / M ADM Date: 12/17/21 Loc: ER Room/Bed: Attending Dr: Ordering Provider/Ordering MD: Pollo Ferguson MD Date of Service: 12/17/21 Procedure(s): CT abdomen pelvis w con* [id number] Accession Number(s): [id number] Report Number: [id number] PROCEDURE INFORMATION: Exam: CT Abdomen And Pelvis With Contrast Exam date and time: 12/17/2021 6:34 PM Age: 27 years old Clinical indication: Abdominal pain; Generalized; Patient HX: C/O severe abd pain w n/v; Additional info: Eval for pathologies TECHNIQUE: Imaging protocol: Computed tomography of the abdomen and pelvis with contrast. Radiation optimization: All CT scans at this facility use at least one of these dose optimization techniques: automated exposure control; mA and/or kV adjustment per patient size (includes targeted exams where dose is matched to clinical indication); or iterative reconstruction. Contrast material: OMNI 300; Contrast volume: 95 ml; Contrast route: INTRAVENOUS (IV);? COMPARISON: No relevant prior studies available. RADIATION DOSE METRICS: Total DLP (mGy-cm): 1772.14 FINDINGS: Lungs: Mosaic lung attenuation is seen in the lung bases which may be secondary to small airways or small vessel disease. Heart: The heart is normal in size. Liver: Normal. No mass. Gallbladder and bile ducts: Normal. No calcified stones. No ductal dilation. Pancreas: Normal. No ductal dilation. Spleen: Normal. No splenomegaly. Adrenal glands: Normal. No mass. Kidneys and ureters: Normal. No hydronephrosis. Stomach and bowel: Unremarkable. No obstruction. No mucosal thickening. Appendix: The appendix is normal. Intraperitoneal space: Unremarkable. No free air. No significant fluid collection. Arteries: Unremarkable. No abdominal aortic aneurysm. Lymph nodes: Unremarkable. No enlarged lymph nodes. Urinary bladder: Unremarkable as visualized. Reproductive: Unremarkable as visualized. Bones/joints: Unremarkable. No acute fracture. Soft tissues: Unremarkable. CT/CT abdomen pelvis w con* [id number] IMPRESSION: 1. No acute abnormality is seen in the abdomen or pelvis. 2. Bibasilar mosaic lung attenuation which may be secondary to small airways or small vessel disease. ? Dictated By: Oskar Olivera MD Signed By: Oskar Olivera MD Signed Date/Time: 12/17/21 193 DD/ 1834 Coding Level of Care Code ED Popcorn Candy Maker for Chg Fwd Exam Comprehensive
[2021-12-17 18:50] LABS: Basophils % 0.6 %; Eosinophils # 0.2 10^3/uL (0.0-0.8); Eosinophils % 2.8 %; Hematocrit 35.5 % (37.0-47.0); Hemoglobin 11.2 g/dL (11.5-15.3); Lymphocytes # 1.2 10^3/uL (0.8-4.8); Lymphocytes % 17.9 %; Mean Corpuscular HGB Conc 31.5 g/dL (30.0-36.0); Mean Corpuscular Hemoglobin 30.3 pg (28.0-34.0); Mean Corpuscular Volume 95.9 fl (81-99); Mean Platelet Volume 8.7 fL (7.4-10.4); Monocytes # 0.4 10^3/uL (0.2-0.9); Monocytes % 6.8 %; Neutrophils # 4.56 10^3/uL (1.8-7.7); Nucleated Red Blood Cells % 0 %; Platelet Count 153 10^3/cmm (130-400); Red Cell Distribution Width 13.1 % (12.1-15.1); White Blood Count 6.4 10^3/uL (4.0-10.0)
[2021-12-17 19:05] VITALS: BP 175/61; PULSE 67; RESP 30; O2SAT 92
[2021-12-17] MEDS: famotidine 20 mg/2 mL INJ IVP (19:07)
[2021-12-17] MEDS: sodium chloride 0.9% 1,000 ML 999 ML IV (19:07)
[2021-12-17 19:08] LABS: Alanine Aminotransferase 9 U/L (0-33); Albumin Level 3.8 g/dL (3.5-5.2); Alkaline Phosphatase 111 IU/L (35-105); Anion Gap 18.3 (5-19); Aspartate Amino Transferase 12 U/L (0-32); Blood Urea Nitrogen 24 mg/dL (8-23); Calcium 9.5 mg/dL (8.5-10.5); Carbon Dioxide 24 mmol/L (22-29); Chloride 102 mmol/L (98-107); Globulin 3.6 g/dL (1.3-4.6); Glucose 142 mg/dL (65-115); Lipase 16 U/L (13-60); Osmolality Calculated 296 mOsm/kg (285-295); Potassium 4.3 mmol/L (3.5-5.1); Sodium 140 mmol/L (136-145); Total Bilirubin 0.4 mg/dL (0.15-1.2); Total Protein 7.4 g/dL (6.6-8.7)
[2021-12-17 19:40] LABS: Add Urine Microscopic? NO; Charge for UA Resulting for Rev
[2021-12-17 19:42] LABS: Bilirubin Urine Neg (Negative); Blood Urine Neg (Negative); Glucose Urine UA Norm (Normal); Ketones Urine Negative (Negative); Leukocyte Esterase Urine Negative (Negative); Nitrate Urine Negative (Negative); Protein Urine Neg (Negative); Specific Gravity, Urine 1.015 (1.005-1.030); Urine Appearance Clear (CLEAR); Urine Color Yellow (Yellow); Urobilinogen Urine Norm (Negative); pH Urine 5 (5-7)
[2021-12-17] MEDS: diphenhydrAMINE 50 mg/mL SDV 1mL IVP (19:56)
[2021-12-17] MEDS: iodixanol 320 mg/mL 100mL Btl IV (20:26)
[2021-12-17 21:57] VITALS: BP 150/81; PULSE 74; RESP 21; O2SAT 92
--- NOTE | 2021-12-19 13:26 | DCPLANNER ---
Addendum entered by Apolonia Alcaraz 01/05/22 16:30: Patient had a follow up appointment scheduled for 01.05.[address] Haynes - patient did attend appointment. Addendum entered by Apolonia Alcaraz 12/22/21 10:34: Patient has a follow up appointment scheduled for January at 10:[address] Haynes. Clinic will call patient with appointment information. Addendum entered by Apolonia Alcaraz 12/22/21 08:03: entertainment centre manager sent patients information to the front office staff of Dr. Haynes to check on appointment. Original Note: entertainment centre manager had message to schedule a follow up appointment for patient with Dr. Haynes. entertainment centre manager sent patients information to the front office staff at [facility]. Patients information will be printed and reviewed. Clinic will call patient with appointment information.
== END 2021-12-17 21:59 | disposition home or self-care (01) ==
PROVIDERS: Emergency Provider Emergency Medicine; PCP Family Medicine
DX: R11.2 Nausea with vomiting, unspecified (principal); R19.7 Diarrhea, unspecified; R10.13 Epigastric pain; I50.9 Heart failure, unspecified; J44.9 Chronic obstructive pulmonary disease, unspecified; E11.40 Type 2 diabetes mellitus with diabetic neuropathy, unspecified; E11.22 Type 2 diabetes mellitus with diabetic chronic kidney disease; N18.32 Chronic kidney disease, stage 3b; Z79.4 Long term (current) use of insulin; Z79.84 Long term (current) use of oral hypoglycemic drugs; Z86.73 Personal history of transient ischemic attack (TIA), and cerebral infarction without residual deficits; Z79.02 Long term (current) use of antithrombotics/antiplatelets; Z79.82 Long term (current) use of aspirin
CPT/HCPCS: 74177; 80053; 81003; 83690; 85025; 96361; 96374; 96375; 99284; J1200; J2930; J3490; J7030; Q9967

== ENCOUNTER → 2022-01-16 08:39 | Outpatient (BNVA) | payer MEDICARE, SELFPAY | PROVIDERS: PCP Family Medicine; Visit Provider Family Medicine | DX: M10.9 Gout, unspecified (principal); L03.012 Cellulitis of left finger; E11.22 Type 2 diabetes mellitus with diabetic chronic kidney disease; N18.32 Chronic kidney disease, stage 3b; Z79.4 Long term (current) use of insulin; J44.9 Chronic obstructive pulmonary disease, unspecified; E03.9 Hypothyroidism, unspecified; M19.90 Unspecified osteoarthritis, unspecified site | CPT/HCPCS: 80053; 83036; 84550; 85025 ==

== ENCOUNTER 2022-01-24 11:26 | Emergency (ER) | payer MEDICARE, SELFPAY ==
[2022-01-24 11:38] VITALS: BP 200/87; PULSE 79; RESP 16; TEMP 36.8; O2SAT 92; BMI 37.3
--- NOTE | 2022-01-24 11:44 | ECG_ITS ---
[facility] Test Date: 2022-01-24 Pat Name: Bryanna Reid Department: Room: Gender: Female Over Short And Damage Clerk: : 1945 Requested By: Phillip Cazares Order Number: [id number] Concha MD: Betty Ramon M.D. Measurements Intervals [place] Rate: 83 P: OR: QRS: -33 QRSD: 170 T: 89 QT: 421 QTc: 496 Interpretive Statements ATRIAL FIBRILLATION LEFT AXIS DEVIATION [QRS AXIS < -30] LEFT BUNDLE BRANCH BLOCK [120+ ms QRS DURATION, 80+ ms Q/S IN V1/V2, 85+ ms R IN I/aVL/V5/V6] Compared to ECG 08/31/2020 11:05:28 Left bundle-branch block now present Sinus bradycardia no longer present First degree AV block no longer present Intraventricular conduction delay no longer present Electronically Signed On 01-24-2022 18:47:19 CDT by Betty Ramon M.D. [email or web address]
--- NOTE | 2022-01-24 11:44 | XR_ITS ---
WS: [id number] PORTABLE CHEST HISTORY: chest pain COMPARISON: 09/01/2020. Lungs are clear and well expanded. No pleural effusion or pneumothorax. Cardiac size: Normal. Mediastinum/Aorta: Normal mediastinum. No osseous abnormality seen. XR/XR chest 1V portable [id number] IMPRESSION: Unremarkable portable chest.
[2022-01-24 11:54] VITALS: BP 145/68; PULSE 79; RESP 18; O2SAT 92
[2022-01-24 12:02] LABS: Basophils % 0.5 %; Eosinophils # 0.2 10^3/uL (0.0-0.8); Eosinophils % 3.1 %; Hematocrit 38.5 % (37.0-47.0); Hemoglobin 11.8 g/dL (11.5-15.3); Lymphocytes # 1.2 10^3/uL (0.8-4.8); Lymphocytes % 15.4 %; Mean Corpuscular HGB Conc 30.6 g/dL (30.0-36.0); Mean Corpuscular Hemoglobin 29.7 pg (28.0-34.0); Mean Platelet Volume 9.1 fL (7.4-10.4); Monocytes # 0.6 10^3/uL (0.2-0.9); Monocytes % 7.6 %; Neutrophils # 5.44 10^3/uL (1.8-7.7); Neutrophils % 72.6 %; Nucleated Red Blood Cells % 0 %; Platelet Count 203 10^3/cmm (130-400); Red Blood Count 3.97 10^6/uL (4.1-5.3); Red Cell Distribution Width 13.7 % (12.1-15.1); White Blood Count 7.5 10^3/uL (4.0-10.0)
--- NOTE | 2022-01-24 12:36 | W.ED.CHESTPA ---
HPI - Chest Pain General: Chief Complaint: Chest Pain Stated Complaint: chest pain/kidney issues Time Seen by Provider: 01/24/22 11:34 History of Present Illness: 76-year-old female presents the emergency department with 2 concerns. This morning she woke up and was feeling sort of nauseated. She reports she had 4 episodes of soft but not loose stool. She says she developed chest pain that was pretty severe but she took a Gas-X and belched. This caused her to feel better and it has not recurred. She had an appointment with her doctor this morning and they wanted her to come to the emergency department for EKG and to check on her atrial fibrillation, troponin, and heart failure. Patient reports that yesterday she had urinary incontinence several times. She is chronically incontinent but yesterday had higher volumes of incontinence. She is not sure why. She does not have any symptoms of urinary tract infection. She does have sciatica but denies any low back pain or numbness around the perineum. Today she has had normal control of her bladder. Her only recent medication changes were an antibiotic and steroid for an infection on the tip of her fingers Review of Systems Narrative: Pertinent Positives: Chest pain, belching, nausea, soft stools, urine incontinence yesterday Pertinent Negatives: No lightheadedness, dizziness, palpitations, syncope, fever, chills, abdominal pain, back pain, coughing, shortness of breath, orthopnea, edema. 12 Point ROS performed and otherwise negative unless stated here or HPI. [facility] ED PFSH: Medical History Anemia of chronic disease Cardiomyopathy Carotid artery stenosis without cerebral infarction -has known carotid artery stenosis -will need f/u carotid US as outpatient to determine if need for intervention -on Plavix, ASA CHF (congestive heart failure) Chronic low back pain with left-sided sciatica COPD (chronic obstructive pulmonary disease) -improved -on oral steroid taper -off doxycycline, on ceftriaxone -on 3 L NC at baseline CVA (cerebral vascular accident) -prior hx of CVA, TIA -on ASA, plavix -outpatient carotid US Diabetic neuropathy Dyslipidemia -resume statin Dysplastic colon polyp Incompletely resected on first attempt due to cardiac complications. Ascending colon. Encounter for long-term opiate analgesic use Enrolled in chronic care management Essential (primary) hypertension -normotensive -continue antihypertensives GERD (gastroesophageal reflux disease) Greater trochanteric pain syndrome of left lower extremity High risk medication use High risk medication use Hyperuricemia without signs of inflammatory arthritis and tophaceous disease Hypothyroidism, adult -on levothyroxine -TSH-7.8 Iliotibial band syndrome affecting left lower leg Immunization counseling Immunization counseling Inflammatory arthritis Left hip pain Lung disease, restrictive Obesity hypoventilation syndrome -requires AVAPS as noted above Osteoarthritis of right ankle and foot Restless leg syndrome Restrictive lung disease Seronegative rheumatoid arthritis of both hands Stage 3b chronic kidney disease Type 2 diabetes mellitus Surgical History H/O bilateral breast reduction surgery H/O cataract extraction H/O: hysterectomy Family History Father CAD (coronary artery disease) Mother CAD (coronary artery disease) Diabetes Brother Cancer Lung disease Aneurysm Sister Stroke Denies family history of Clotting disorder Dementia Chronic kidney disease (CKD) Suicide Anesthesia complication Bleeding disorder Social History Smoking and tobacco status: never smoked Second hand smoke exposure: Yes Smoking risk assessment/counseling performed?: No Alcohol intake: never Caregiver/support person: Yes Lives independently: Yes Household members: none Housing: House Marital status: / Current occupational status: retired Pets and animals: Yes History of recent travel: No Current gender identity: Female Female Reproductive History: Spontaneous abortions: No Physical Exam Narrative: EXAM NARRATIVE: I have reviewed the triage vital signs. Const: Well-nourished, Well-developed, appearing stated age, NAD Eyes: EOMI, no conjunctival injection, and symmetrical lids. ENMT: Atraumatic head and facial exam, external nose and ears normal Neck: Symmetric, trachea midline, no swelling, no JVD, ROM wnl CVS: Regular rate, radial pulse 2+, no peripheral edema. Irregularly irregular RESP: Unlabored respirations, symmetric expansion, Clear to auscultation bilaterally with the exception of a few crackles in the bases which improved with each successive breath patient's GI: Nontender/Nondistended, soft, no masses. MSK: Normocephalic/Atraumatic, extremities w/o deformity, no cyanosis or clubbing, no edema Skin: Warm, Dry, No rashes or lesions noted. Neuro: Sensation grossly intact, GABRIEL, no focal neurologic deficits Psych: awake, alert, oriented, appropriate mood and affect Course Vital Signs: Vital signs: Vital Signs Temperature 98.2 F 01/24/22 11:38 Pulse Rate 79 01/24/22 11:54 Respiratory Rate 18 01/24/22 11:54 Blood Pressure 145/68 01/24/22 11:54 Pulse Oximetry 92 01/24/22 11:54 MDM - Chest Pain Medical Decision Making EKG shows atrial fibrillation with a ventricular rate of 83, there is a left bundle branch block and left axis deviation present. There are no excessively discordant ST changes and no concordant ST segment elevations. Patient had chest pain that resolved after belching. As a precaution an EKG was obtained and does not show any signs of STEMI. A troponin will be ordered. She does not appear to be in congestive heart failure. Patient had urine incontinence yesterday. Not sure what caused this. I was able to palpate around her thighs and around the pelvis and she was able to feel all of it. She is not having any pain in her back nor any fever. She does not have any problems with ambulation today. Today she has been able to control her bladder. We will obtain a urine analysis and have her continue to monitor this. Patient's urinalysis is very abnormal and suggest urinary tract infection. This would explain her urine incontinence yesterday and feeling sort of queasy and unwell today. The patient's troponin is in line with her previous levels. She has chronic kidney disease and congestive heart failure. I explained to the patient that to be sure she did not have an acute coronary syndrome and a delta troponin could be drawn at 1:50 PM. However, the patient does not believe this is anginal or cardiac chest discomfort that she had and would prefer to be discharged prior to having the second troponin. A urine culture will be sent and the patient will be given a gram of Rocephin at this time. Oral antibiotics will be prescribed on discharge. Lab Data : 01/24/22 11:50 01/24/22 11:50 Radiology Impressions Chest X-Ray 01/24/22 11:44 IMPRESSION: Unremarkable portable chest. Laboratory Results WBC 7.5 10^3/uL (4.0-10.0) 01/24/22 11:50 RBC 3.97 10^6/uL (4.1-5.3) L 01/24/22 11:50 Hgb 11.8 g/dL (11.5-15.3) 01/24/22 11:50 Hct 38.5 % (37.0-47.0) 01/24/22 11:50 MCV 97.0 fl (81-99) 01/24/22 11:50 MCH 29.7 pg (28.0-34.0) 01/24/22 11:50 MCHC 30.6 g/dL (30.0-36.0) 01/24/22 11:50 RDW 13.7 % (12.1-15.1) 01/24/22 11:50 Plt Count 203 10^3/cmm (130-400) 01/24/22 11:50 MPV 9.1 fL (7.4-10.4) 01/24/22 11:50 Neut % (Auto) 72.6 % 01/24/22 11:50 Lymph % (Auto) 15.4 % 01/24/22 11:50 [place] % (Auto) 7.6 % 01/24/22 11:50 Eos % (Auto) 3.1 % 01/24/22 11:50 Baso % (Auto) 0.5 % 01/24/22 11:50 Neut # (Auto) 5.44 10^3/uL (1.8-7.7) 01/24/22 11:50 Lymph # (Auto) 1.2 10^3/uL (0.8-4.8) 01/24/22 11:50 [place] # (Auto) 0.6 10^3/uL (0.2-0.9) 01/24/22 11:50 Eos # (Auto) 0.2 10^3/uL (0.0-0.8) 01/24/22 11:50 Baso # (Auto) 0.0 10^3/uL (0.0-0.1) 01/24/22 11:50 Nucleated RBC % (auto) 0 % 01/24/22 11:50 Nucleated RBCs # 0.0 /100WBC 01/24/22 11:50 Sodium 140 mmol/L (136-145) 01/24/22 11:50 Potassium 4.3 mmol/L (3.5-5.1) 01/24/22 11:50 Chloride 100 mmol/L (98-107) 01/24/22 11:50 Carbon Dioxide 28 mmol/L (22-29) 01/24/22 11:50 Anion Gap 16.3 (5-19) 01/24/22 11:50 BUN 32 mg/dL (8-23) H 01/24/22 11:50 Creatinine 1.2 mg/dL (0.5-0.9) H 01/24/22 11:50 GFR Calculation Not Reportable 01/24/22 11:50 Glucose 135 mg/dL (65-115) H 01/24/22 11:50 Calculated Osmolality 299 mOsm/kg (285-295) H 01/24/22 11:50 Calcium 9.1 mg/dL (8.5-10.5) 01/24/22 11:50 Total Bilirubin 0.4 mg/dL (0.15-1.2) 01/24/22 11:50 AST 9 U/L (0-32) 01/24/22 11:50 ALT 7 U/L (0-33) 01/24/22 11:50 Alkaline Phosphatase 118 IU/L (35-105) H 01/24/22 11:50 Troponin T Baseline 21 ng/L (0-10) H 01/24/22 11:50 NT-Pro-B Natriuret Pep 1721 pg/mL (0-450) H 01/24/22 11:50 Total Protein 6.2 g/dL (6.6-8.7) L 01/24/22 11:50 Albumin 3.4 g/dL (3.5-5.2) L 01/24/22 11:50 Globulin 2.8 g/dL (1.3-4.6) 01/24/22 11:50 Urine Color Yellow (Yellow) 01/24/22 12:20 Urine Appearance Hazy (CLEAR) A 01/24/22 12:20 Urine pH 7 (5-7) 01/24/22 12:20 Ur Specific [place] 1.005 (1.005-1.030) 01/24/22 12:20 Urine Protein Neg (Negative) 01/24/22 12:20 Urine Glucose (UA) Norm (Normal) 01/24/22 12:20 Urine Ketones Negative (Negative) 01/24/22 12:20 Urine Blood 2+ (Negative) H 01/24/22 12:20 Urine Nitrate Negative (Negative) 01/24/22 12:20 Urine Bilirubin Neg (Negative) 01/24/22 12:20 Urine Urobilinogen Norm mg/dL (Negative) 01/24/22 12:20 Ur Leukocyte Esterase 2+ (Negative) H 01/24/22 12:20 Urine RBC 0-4 /hpf (0-2) H 01/24/22 12:20 Urine WBC Too numerous to cnt /hpf (0-5) H 01/24/22 12:20 Ur Squamous Epith Cells 0-4 /hpf (0-5) H 01/24/22 12:20 Amorphous Sediment Not Reportable 01/24/22 12:20 Urine Bacteria 3+ /hpf (NONE) H 01/24/22 12:20 Discharge Plan Discharge Patient Disposition: Home Clinical Impression: Acute UTI, Stage 3b chronic kidney disease, Chest pain Condition: Stable Prescriptions: New Macrobid 100 mg capsule 100 mg PO BID 5 Days Qty: 10 0RF Rx Instructions: must administer with a meal/food Continued (DME) DME: [facility] See Rx Instructions .ROUTE .MEDSUPPLY Qty: 1 0RF Rx Instructions: oxygen concentrator 2L NC with tubing hydrocodone-acetaminophen 10-325 mg tablet 1 tab PO BID PRN (Reason: pain) 30 Days Qty: 60 0RF carbamazepine 200 mg tablet 200 mg PO BEDTIME 90 Days Qty: 90 1RF carvedilol 3.125 mg tablet 3.125 mg PO BID 90 Days Qty: 180 1RF Rx Instructions: must administer with a meal/food clopidogrel 75 mg tablet 75 mg PO DAILY 90 Days Qty: 90 1RF glipizide 5 mg tablet 5 mg PO BID 90 Days Qty: 180 1RF gabapentin [Neurontin] 300 mg capsule 600 mg PO TID 90 Days Qty: 540 1RF ropinirole 1 mg tablet 1 mg PO TID 90 Days Qty: 270 1RF pantoprazole 40 mg tablet,delayed release (DR/EC) 40 mg PO BID 90 Days Qty: 180 1RF isosorbide mononitrate 30 mg tablet extended release 24 hr 30 mg PO BID 90 Days Qty: 180 1RF Humalog KwikPen Insulin 100 unit/mL insulin pen 5 unit SUBCUT TID MDD 15 units PRN (Reason: SSI) 90 Days Qty: 15 1RF Rx Instructions: TID with meal SSI with max 5 units per meal cholecalciferol (vitamin D3) [D3-50 Cholecalciferol] 1,250 mcg (50,000 unit) capsule 1,250 mcg PO .weekly 90 Days Qty: 13 1RF potassium 99 mg tablet 99 mg PO DAILY 0RF (DME) pen needle, diabetic [BD Ultra-Fine Radha Pen Needle] 32 gauge x 5/32 needle See Rx Instructions .ROUTE .MEDSUPPLY Qty: 200 4RF Rx Instructions: 5 daily as needed with insulin pen prednisone 10 mg tablet 10 mg PO DAILY 10 Days Qty: 8 0RF Rx Instructions: 1 tabs for 5 days, then 1/2 tab for 5 days. tramadol 50 mg tablet 50 mg PO TID PRN (Reason: pain) Qty: 90 5RF (DME) lancets Misc See Rx Instructions .ROUTE .MEDSUPPLY Qty: 100 2RF Rx Instructions: Test 2 times daily (DME) Blood Glucose Test Strip See Rx Instructions .Route Qty: 100 11RF Rx Instructions: Test 3 times daily furosemide 40 mg tablet 40 mg PO DAILY 90 Days Qty: 90 1RF ipratropium-albuterol 0.5 mg-3 mg(2.5 mg base)/3 mL solution for nebulization 3 ml INHALATION Q4H PRN (Reason: wheezing) Qty: 180 1RF aspirin 81 mg tablet,delayed release (DR/EC) 81 mg PO DAILY Qty: 30 0RF ferrous sulfate 325 mg (65 mg iron) tablet 325 mg PO DAILY Qty: 30 0RF nitroglycerin 0.4 mg tablet, sublingual 0.4 mg SUBLINGUAL Q5M PRN (Reason: Chest Pain) Qty: 30 0RF docusate sodium [Colace] 100 mg capsule 100 mg PO BID PRN (Reason: Constipation) Qty: 60 0RF capsaicin 0.025 % Cream 1 applic topical QID PRN (Reason: Pain) Qty: 50 0RF simvastatin 20 mg tablet 20 mg PO BEDTIME 0RF levothyroxine 112 mcg tablet 112 mcg PO DAILY 0RF senna 8.6 mg Tablet 8.6 mg PO DAILY PRN (Reason: Constipation) 0RF fluorometholone 0.1 % drops,suspension 1 drp ophthalmic (eye) DAILY 0RF simethicone 80 mg Tablet,Chewable 80 mg PO DAILY PRN (Reason: gas) 0RF Discontinued doxycycline hyclate 100 mg tablet 100 mg PO BID 7 Days Qty: 14 0RF Discharge Orders: Discharge ED (Routine); Ordered 01/24/22 Ordered By: Phillip Cazares Referrals: Nayely Layton MD [Primary Care Provider] - King Wells PA [Nurse Practitioner] - 4-7 days Discharge Diet: Usual diet Discharge Activity: Resume usual activity Patient Instructions: Chest Pain (ED), Urinary Tract Infection in Older Adults (ED), Opioid Safety Coding Level of Care Code ED General Engineer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
[2022-01-24 12:39] LABS: Troponin(5th) Baseline 21 ng/L (0-10)
[2022-01-24 12:43] LABS: Add Urine Microscopic? YES; Bilirubin Urine Neg (Negative); Blood Urine 2+ (Negative); Glucose Urine UA Norm (Normal); Ketones Urine Negative (Negative); Leukocyte Esterase Urine 2+ (Negative); Nitrate Urine Negative (Negative); Protein Urine Neg (Negative); Specific Gravity, Urine 1.005 (1.005-1.030); Urine Appearance Hazy (CLEAR); Urine Color Yellow (Yellow); Urobilinogen Urine Norm (Negative); pH Urine 7 (5-7)
[2022-01-24 12:47] LABS: Alanine Aminotransferase 7 U/L (0-33); Albumin Level 3.4 g/dL (3.5-5.2); Alkaline Phosphatase 118 IU/L (35-105); Anion Gap 16.3 (5-19); Aspartate Amino Transferase 9 U/L (0-32); Blood Urea Nitrogen 32 mg/dL (8-23); Calcium 9.1 mg/dL (8.5-10.5); Carbon Dioxide 28 mmol/L (22-29); Chloride 100 mmol/L (98-107); Globulin 2.8 g/dL (1.3-4.6); Glucose 135 mg/dL (65-115); NT Pro B Type Natriuretic Pept 1721 pg/mL (0-450); Osmolality Calculated 299 mOsm/kg (285-295); Potassium 4.3 mmol/L (3.5-5.1); Sodium 140 mmol/L (136-145); Total Bilirubin 0.4 mg/dL (0.15-1.2); Total Protein 6.2 g/dL (6.6-8.7)
[2022-01-24 12:52] LABS: Add Urine Culture? Yes; Bacteria Urine 3+ /hpf; RBC Urine 0-4 /hpf (0-2); Squamous Epithelial Cell Urine 0-4 /hpf (0-5); WBC Urine TOO NUMEROUS TO CNT /hpf (0-5)
[2022-01-24] MEDS: cefTRIAXone 1,000 MG in sodium chloride 0.9% (plus) 50 ML 100 MG IV (13:10)
== END 2022-01-24 13:50 | disposition home or self-care (01) ==
PROVIDERS: Emergency Provider Emergency Medicine; PCP Family Medicine
DX: R07.9 Chest pain, unspecified (principal); N39.0 Urinary tract infection, site not specified; I13.0 Hypertensive heart and chronic kidney disease with heart failure and stage 1 through stage 4 chronic kidney disease, or unspecified chronic kidney disease; E11.22 Type 2 diabetes mellitus with diabetic chronic kidney disease; N18.32 Chronic kidney disease, stage 3b; I50.9 Heart failure, unspecified; J44.9 Chronic obstructive pulmonary disease, unspecified; Z86.73 Personal history of transient ischemic attack (TIA), and cerebral infarction without residual deficits; E03.9 Hypothyroidism, unspecified; E66.2 Morbid (severe) obesity with alveolar hypoventilation; Z68.37 Body mass index [BMI] 37.0-37.9, adult
CPT/HCPCS: 71045; 80053; 81001; 83880; 84484; 85025; 87077; 87086; 87186; 93005; 96365; 99285; J0696

== ENCOUNTER → 2022-02-02 11:58 | Outpatient (BNVA) | payer MEDICARE, SELFPAY | PROVIDERS: PCP Family Medicine; Visit Provider Emergency Medicine | DX: M25.572 Pain in left ankle and joints of left foot (principal); M79.89 Other specified soft tissue disorders; M79.672 Pain in left foot | CPT/HCPCS: 73610; 73630 ==

== ENCOUNTER 2022-02-02 19:07 | Emergency (ER) | payer MEDICARE, SELFPAY ==
[2022-02-02 19:07] VITALS: BP 156/126; PULSE 96; RESP 18; TEMP 36.4; O2SAT 91; BMI 37.4
--- NOTE | 2022-02-02 19:08 | XRR_ITS ---
PROCEDURE INFORMATION: Exam: XR Chest Exam date and time: 02/02/2022 7:18 PM Age: 76 years old Clinical indication: Chest wall pain; Additional info: Cp TECHNIQUE: Imaging protocol: XR of the chest. Views: 1 view. COMPARISON: CR XR chest 1V portable [id number] 01/24/2022 12:02 PM FINDINGS: Lungs: Unremarkable. No consolidation. Pleural spaces: Unremarkable. No pleural effusion. No pneumothorax. Heart/Mediastinum: Unremarkable. No cardiomegaly. Bones/joints: Unremarkable. XR/XR chest 1V portable [id number] IMPRESSION: No acute findings.
--- NOTE | 2022-02-02 19:08 | ECG_ITS ---
[facility] Test Date: 2022-02-02 Pat Name: Bryanna Reid Department: Room: Gender: Female Road Builder: : 1945 Requested By: Diaz Maldonado Order Number: [id number] Concha MD: Brien Hassan M.D. Measurements Intervals Sean[place] Rate: 84 P: 56 NV: 205 QRS: -51 QRSD: 173 T: 89 QT: 375 QTc: 444 Interpretive Statements SINUS RHYTHM WITH FREQUENT SUPRAVENTRICULAR PREMATURE COMPLEXES LEFT AXIS DEVIATION [QRS AXIS < -30] LEFT BUNDLE BRANCH BLOCK [120+ ms QRS DURATION, 80+ ms Q/S IN V1/V2, 85+ ms R IN I/aVL/V5/V6] Compared to ECG 01/24/2022 11:41:50 Atrial fibrillation no longer present Electronically Signed On 02-03-2022 22:36:25 CDT by Brien Hassan M.D. [id number]
--- NOTE | 2022-02-02 19:16 | W.ED.CHESTPA ---
HPI - Chest Pain General: Chief Complaint: Chest Pain Stated Complaint: cp Time Seen by Provider: 02/02/22 19:07 Source: patient and EMS Mode of arrival: EMS Limitations: no limitations History of Present Illness: 76-year-old female has a history of chronic pain along with some anxiety states that she has been having chest pain throughout the day today. She states that her pain is sharp in nature rates it a 4 out of 10 denies any shortness of breath states she feels very anxious denies any cough denies any fever denies any radiation of her pain. Associated symptoms: Deny abdominal pain, dyspnea, fever(s), nausea or vomiting Review of Systems Const: Denies: fever(s), chills, body aches or change in appetite Eyes: Denies: blurry vision or eye discomfort ENMT: Denies: throat pain or dental pain Card: Reports: chest pain Resp: Denies: dyspnea GI: Denies: abdominal pain, nausea, vomiting or diarrhea : Denies: dysuria Musc: Denies: neck pain or back pain Skin/Breast: Denies: rash Neuro: Denies: headache(s) Psych: Denies: depression Wilfredo/Lymph: Denies: easy bruising All/Imm: Denies: urticaria PFSH ED PFSH: Medical History Anemia of chronic disease Cardiomyopathy Carotid artery stenosis without cerebral infarction -has known carotid artery stenosis -will need f/u carotid US as outpatient to determine if need for intervention -on Plavix, ASA CHF (congestive heart failure) Chronic low back pain with left-sided sciatica COPD (chronic obstructive pulmonary disease) -improved -on oral steroid taper -off doxycycline, on ceftriaxone -on 3 L NC at baseline CVA (cerebral vascular accident) -prior hx of CVA, TIA -on ASA, plavix -outpatient carotid US Diabetic neuropathy Dyslipidemia -resume statin Dysplastic colon polyp Incompletely resected on first attempt due to cardiac complications. Ascending colon. Encounter for long-term opiate analgesic use Enrolled in chronic care management Essential (primary) hypertension -normotensive -continue antihypertensives GERD (gastroesophageal reflux disease) Gout Greater trochanteric pain syndrome of left lower extremity High risk medication use High risk medication use Hyperuricemia without signs of inflammatory arthritis and tophaceous disease Hypothyroidism, adult -on levothyroxine -TSH-7.8 Iliotibial band syndrome affecting left lower leg Immunization counseling Immunization counseling Inflammatory arthritis Left hip pain Lung disease, restrictive Obesity hypoventilation syndrome -requires AVAPS as noted above Osteoarthritis of right ankle and foot Restless leg syndrome Restrictive lung disease Seronegative rheumatoid arthritis of both hands Stage 3b chronic kidney disease Type 2 diabetes mellitus Surgical History H/O bilateral breast reduction surgery H/O cataract extraction H/O: hysterectomy Family History Father CAD (coronary artery disease) Mother CAD (coronary artery disease) Diabetes Brother Cancer Lung disease Aneurysm Sister Stroke Denies family history of Clotting disorder Dementia Chronic kidney disease (CKD) Suicide Anesthesia complication Bleeding disorder Social History Smoking and tobacco status: never smoked Second hand smoke exposure: Yes Smoking risk assessment/counseling performed?: No Alcohol intake: never Caregiver/support person: Yes Lives independently: Yes Household members: none Housing: House Marital status: / Current occupational status: retired Pets and animals: Yes History of recent travel: No Current gender identity: Female Female Reproductive History: Spontaneous abortions: No Physical Exam Const: COMMON NORMALS: no acute distress, patient oriented x3 and healthy appearing HENMT: COMMON NORMALS: normocephalic and atraumatic HEAD & SCALP: normocephalic and atraumatic Eye: COMMON NORMALS: Equal, round and reactive pupils present and EOMs intact bilaterally PUPIL: Yes Equal, round and reactive pupils present Neck/C-Spine: COMMON NORMALS: full ROM and supple Chest: COMMONS NORMALS: normal inspection of the chest and normal palpation of entire chest wall Resp: COMMON NORMALS: normal respiratory effort, No retractions, No use of accessory muscles and clear to auscultation bilaterally AUSCULTATION: clear to auscultation bilaterally Cardio: COMMON NORMALS: regular rate, regular rhythm and No murmurs present (Cardio) RATE: regular rate RHYTHM: regular rhythm GI: COMMON NORMALS: Normal to inspection, nondistended, normoactive bowel sounds present, Soft to palpation, non-tender and no masses PALPATION: Yes Soft to palpation Extremity: COMMON NORMALS: normal to inspection and full ROM Neuro: COMMON NORMALS: patient oriented x3, moves all extremities and no focal motor deficits Psych: COMMON NORMALS: mental status grossly normal, Normal thought process present and cooperative THOUGHT PROCESS: Normal thought process present Skin: COMMON NORMALS: no rashes or lesions noted and no wounds GENERAL SKIN EXAM: no rashes or lesions noted Course Vital Signs: Vital signs: Vital Signs Temperature 97.6 F 02/02/22 19:07 Pulse Rate 79 02/02/22 21:14 Respiratory Rate 16 02/02/22 21:14 Blood Pressure 157/80 02/02/22 21:14 Pulse Oximetry 94 02/02/22 21:14 MDM - Chest Pain Medical Decision Making Patient presents here with chest pains atypical in nature patient's 2-hour troponin here is normal her pain here is resolved she is stable for discharge is to follow-up with PCP and return if worsening. Lab Data : 02/02/22 19:19 02/02/22 19:19 Radiology Impressions Chest X-Ray 02/02/22 19:08 IMPRESSION: No acute findings. Laboratory Results WBC 8.1 10^3/uL (4.0-10.0) 02/02/22 19:19 RBC 3.69 10^6/uL (4.1-5.3) L 02/02/22 19:19 Hgb 11.0 g/dL (11.5-15.3) L 02/02/22 19:19 Hct 34.7 % (37.0-47.0) L 02/02/22 19:19 MCV 94.0 fl (81-99) 02/02/22 19:19 MCH 29.8 pg (28.0-34.0) 02/02/22 19:19 MCHC 31.7 g/dL (30.0-36.0) 02/02/22 19:19 RDW 13.7 % (12.1-15.1) 02/02/22 19:19 Plt Count 142 10^3/cmm (130-400) 02/02/22 19:19 MPV 8.9 fL (7.4-10.4) 02/02/22 19:19 Neut % (Auto) 86.0 % 02/02/22 19:19 Lymph % (Auto) 7.6 % 02/02/22 19:19 Snyder % (Auto) 4.1 % 02/02/22 19:19 Eos % (Auto) 0.5 % 02/02/22 19:19 Baso % (Auto) 0.2 % 02/02/22 19:19 Neut # (Auto) 6.94 10^3/uL (1.8-7.7) 02/02/22 19:19 Lymph # (Auto) 0.6 10^3/uL (0.8-4.8) L 02/02/22 19:19 Snyder # (Auto) 0.3 10^3/uL (0.2-0.9) 02/02/22 19:19 Eos # (Auto) 0.0 10^3/uL (0.0-0.8) 02/02/22 19:19 Baso # (Auto) 0.0 10^3/uL (0.0-0.1) 02/02/22 19:19 Nucleated RBC % (auto) 0 % 02/02/22 19:19 Nucleated RBCs # 0.0 /100WBC 02/02/22 19:19 Sodium 138 mmol/L (136-145) 02/02/22 19:19 Potassium 4.3 mmol/L (3.5-5.1) 02/02/22 19:19 Chloride 99 mmol/L (98-107) 02/02/22 19:19 Carbon Dioxide 27 mmol/L (22-29) 02/02/22 19:19 Anion Gap 16.3 (5-19) 02/02/22 19:19 BUN 23 mg/dL (8-23) 02/02/22 19:19 Creatinine 1.0 mg/dL (0.5-0.9) H 02/02/22 19:19 GFR Calculation Not Reportable 02/02/22 19:19 Glucose 50 mg/dL (65-115) L 02/02/22 19:19 Calculated Osmolality 287 mOsm/kg (285-295) 02/02/22 19:19 Calcium 8.6 mg/dL (8.5-10.5) 02/02/22 19:19 Total Bilirubin 0.5 mg/dL (0.15-1.2) 02/02/22 19:19 AST 5 U/L (0-32) 02/02/22 19:19 ALT < 5 U/L (0-33) 02/02/22 19:19 Alkaline Phosphatase 5 IU/L (35-105) L 02/02/22 19:19 Troponin T Baseline 20 ng/L (0-10) H 02/02/22 19:19 Troponin T 120 Minute 21.18 ng/L (0-10) H 02/02/22 21:16 Delta Troponin T 1.18 ABS# (0-10) 02/02/22 21:16 Total Protein 6.6 g/dL (6.6-8.7) 02/02/22 19:19 Albumin 0.3 g/dL (3.5-5.2) L 02/02/22 19:19 Globulin 6.3 g/dL (1.3-4.6) H 02/02/22 19:19 EKG Data EKG 1: I personally reviewed and interpreted this EKG as follows: EKG interpretation date: 02/02/22 EKG interpretation time: 19:15 Interpretation: nsr hr [address] elevation qrs 173 qtc 416 unchanged from ekg 01/24 EKG 2: I personally reviewed and interpreted this EKG as follows: EKG interpretation date: 02/02/22 EKG interpretation time: 21:13 Interpretation: nsr hr [address] elevation lbbb qrs 180 qtc 460 unchanged Discharge Plan Discharge Patient Disposition: Home Clinical Impression: Chest pain Condition: Stable Prescriptions: No Action (DME) DME: Walker [facility] See Rx Instructions .ROUTE .MEDSUPPLY Qty: 1 0RF Rx Instructions: oxygen concentrator 2L NC with tubing hydrocodone-acetaminophen 10-325 mg tablet 1 tab PO BID PRN (Reason: pain) 30 Days Qty: 60 0RF carbamazepine 200 mg tablet 200 mg PO BEDTIME 90 Days Qty: 90 1RF carvedilol 3.125 mg tablet 3.125 mg PO BID 90 Days Qty: 180 1RF Rx Instructions: must administer with a meal/food clopidogrel 75 mg tablet 75 mg PO DAILY 90 Days Qty: 90 1RF glipizide 5 mg tablet 5 mg PO BID 90 Days Qty: 180 1RF gabapentin [Neurontin] 300 mg capsule 600 mg PO TID 90 Days Qty: 540 1RF ropinirole 1 mg tablet 1 mg PO TID 90 Days Qty: 270 1RF pantoprazole 40 mg tablet,delayed release (DR/EC) 40 mg PO BID 90 Days Qty: 180 1RF isosorbide mononitrate 30 mg tablet extended release 24 hr 30 mg PO BID 90 Days Qty: 180 1RF Humalog KwikPen Insulin 100 unit/mL insulin pen 5 unit SUBCUT TID MDD 15 units PRN (Reason: SSI) 90 Days Qty: 15 1RF Rx Instructions: TID with meal SSI with max 5 units per meal cholecalciferol (vitamin D3) [D3-50 Cholecalciferol] 1,250 mcg (50,000 unit) capsule 1,250 mcg PO .weekly 90 Days Qty: 13 1RF potassium 99 mg tablet 99 mg PO DAILY 0RF (DME) pen needle, diabetic [BD Ultra-Fine Radha Pen Needle] 32 gauge x needle See Rx Instructions .ROUTE .MEDSUPPLY Qty: 200 4RF Rx Instructions: 5 daily as needed with insulin pen tramadol 50 mg tablet 50 mg PO TID PRN (Reason: pain) Qty: 90 5RF prednisone 10 mg tablet 10 mg PO DAILY 5 Days Qty: 5 0RF allopurinol 100 mg tablet 100 mg PO DAILY Qty: 30 1RF (DME) lancets Misc See Rx Instructions .ROUTE .MEDSUPPLY Qty: 100 2RF Rx Instructions: Test 2 times daily (DME) Blood Glucose Test Strip See Rx Instructions .Route Qty: 100 11RF Rx Instructions: Test 3 times daily furosemide 40 mg tablet 40 mg PO DAILY 90 Days Qty: 90 1RF ondansetron 4 mg tablet,disintegrating 4 mg PO Q6H PRN (Reason: nausea and vomiting) Qty: 12 0RF Rx Instructions: 340b please ipratropium-albuterol 0.5 mg-3 mg(2.5 mg base)/3 mL solution for nebulization 3 ml INHALATION Q4H PRN (Reason: wheezing) Qty: 180 1RF aspirin 81 mg tablet,delayed release (DR/EC) 81 mg PO DAILY Qty: 30 0RF ferrous sulfate 325 mg (65 mg iron) tablet 325 mg PO DAILY Qty: 30 0RF nitroglycerin 0.4 mg tablet, sublingual 0.4 mg SUBLINGUAL Q5M PRN (Reason: Chest Pain) Qty: 30 0RF docusate sodium [Colace] 100 mg capsule 100 mg PO BID PRN (Reason: Constipation) Qty: 60 0RF capsaicin 0.025 % Cream 1 applic topical QID PRN (Reason: Pain) Qty: 50 0RF simvastatin 20 mg tablet 20 mg PO BEDTIME 0RF levothyroxine 112 mcg tablet 112 mcg PO DAILY 0RF senna 8.6 mg Tablet 8.6 mg PO DAILY PRN (Reason: Constipation) 0RF fluorometholone 0.1 % drops,suspension 1 drp ophthalmic (eye) DAILY 0RF simethicone 80 mg Tablet,Chewable 80 mg PO DAILY PRN (Reason: gas) 0RF Discharge Orders: Discharge ED (Routine); Ordered 02/02/22 Ordered By: Diaz Maldonado Referrals: Nayely Layton MD [Primary Care Provider] - 1-3 days Discharge Diet: Advance as tolerated Discharge Activity: Resume usual activity Patient Instructions: Chest Pain (ED) Coding Level of Care Code ED Supervisor Hanging And Trimming for Chg Fwd Exam Comprehensive
[2022-02-02 19:24] LABS: Basophils % 0.2 %; Eosinophils % 0.5 %; Hematocrit 34.7 % (37.0-47.0); Lymphocytes # 0.6 10^3/uL (0.8-4.8); Lymphocytes % 7.6 %; Mean Corpuscular HGB Conc 31.7 g/dL (30.0-36.0); Mean Corpuscular Hemoglobin 29.8 pg (28.0-34.0); Mean Platelet Volume 8.9 fL (7.4-10.4); Monocytes # 0.3 10^3/uL (0.2-0.9); Monocytes % 4.1 %; Neutrophils # 6.94 10^3/uL (1.8-7.7); Nucleated Red Blood Cells % 0 %; Platelet Count 142 10^3/cmm (130-400); Red Blood Count 3.69 10^6/uL (4.1-5.3); Red Cell Distribution Width 13.7 % (12.1-15.1); White Blood Count 8.1 10^3/uL (4.0-10.0)
[2022-02-02 20:00] VITALS: BP 154/61; PULSE 77; RESP 14; O2SAT 94
[2022-02-02 20:02] LABS: Alanine Aminotransferase < 5 U/L (0-33); Aspartate Amino Transferase 5 U/L (0-32)
[2022-02-02 20:09] LABS: Troponin(5th) Baseline 20 ng/L (0-10)
[2022-02-02 20:19] LABS: Anion Gap 16.3 (5-19); Blood Urea Nitrogen 23 mg/dL (8-23); Calcium 8.6 mg/dL (8.5-10.5); Carbon Dioxide 27 mmol/L (22-29); Chloride 99 mmol/L (98-107); Potassium 4.3 mmol/L (3.5-5.1); Sodium 138 mmol/L (136-145); Total Bilirubin 0.5 mg/dL (0.15-1.2); Total Protein 6.6 g/dL (6.6-8.7)
[2022-02-02 20:26] LABS: Albumin Level 0.3 g/dL (3.5-5.2); Alkaline Phosphatase 5 IU/L (35-105); Globulin 6.3 g/dL (1.3-4.6); Glucose 50 mg/dL (65-115); Osmolality Calculated 287 mOsm/kg (285-295)
--- NOTE | 2022-02-02 21:08 | ECG_ITS ---
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 Measurements Intervals [place] Rate: 76 P: 81 NV: 194 QRS: -38 QRSD: 180 T: 107 QT: 430 QTc: 485 Interpretive Statements ATRIAL FIBRILLATION LEFT AXIS DEVIATION [QRS AXIS < -30] LEFT BUNDLE BRANCH BLOCK [120+ ms QRS DURATION, 80+ ms Q/S IN V1/V2, 85+ ms R IN I/aVL/V5/V6] Compared to ECG 02/02/2022 19:15:01 No significant changes Electronically Signed On 02-03-2022 22:39:46 CDT by Brien Hassan M.D. [id number]
[2022-02-02 21:14] VITALS: BP 157/80; PULSE 79; RESP 16; O2SAT 94
[2022-02-02 21:45] LABS: Troponin 5 2HR 21.18 ng/L (0-10)
[2022-02-02 21:46] LABS: Troponin 5 2HR Delta 1.18 ABS# (0-10)
[2022-02-02 23:02] VITALS: BP 165/77; PULSE 72; RESP 16; O2SAT 95
== END 2022-02-02 23:03 | disposition home or self-care (01) ==
PROVIDERS: Emergency Provider Emergency Medicine; PCP Family Medicine
DX: R07.89 Other chest pain (principal); I11.0 Hypertensive heart disease with heart failure; I50.9 Heart failure, unspecified; Z79.02 Long term (current) use of antithrombotics/antiplatelets; Z79.899 Other long term (current) drug therapy
CPT/HCPCS: 71045; 80053; 84484; 85025; 93005; 99284

== ENCOUNTER → 2022-02-09 12:04 | Outpatient (BNVA) | payer MEDICARE, SELFPAY | PROVIDERS: PCP Family Medicine; Visit Provider Emergency Medicine | DX: M25.571 Pain in right ankle and joints of right foot (principal); M25.471 Effusion, right ankle | CPT/HCPCS: 73610 ==

== ENCOUNTER → 2022-02-23 10:32 | Outpatient (BNVA) | payer MEDICARE, SELFPAY | PROVIDERS: PCP Family Medicine; Visit Provider Emergency Medicine | DX: M10.9 Gout, unspecified (principal); J20.9 Acute bronchitis, unspecified | CPT/HCPCS: 84550 ==